=== PATIENT | male | born 1950 | race Caucasian/White ===

== ENCOUNTER 2020-10-21 15:53 | Outpatient (CLI) | payer MEDICARE, SELFPAY ==
[2020-10-21 17:40] LABS: Hemoglobin A1C 5.4 % (<5.7)
[2020-10-21 17:52] LABS: Free T4 Free Thyroxine 1.03 ng/mL (0.78-2.19)
[2020-10-24 23:26] LABS: Homocysteine 16.3 umol/L (<11.4)
[2020-10-25 10:27] LABS: Vitamin D 1,25 (OH)2 Total 45 pg/mL (18-72); Vitamin D2 1,25 (OH)2 <8 pg/mL; Vitamin D3 1,25 (OH)2 45 pg/mL
== END 2020-10-21 15:54 | disposition home or self-care (01) ==
LOC: ANHLAB 15:56
PROVIDERS: PCP Internal Medicine; Visit Provider Internal Medicine
DX: E55.9 Vitamin D deficiency, unspecified (principal); Z79.899 Other long term (current) drug therapy; R79.89 Other specified abnormal findings of blood chemistry
CPT/HCPCS: 36415; 82652; 83036; 83090; 84439; 84443

== ENCOUNTER 2020-11-05 10:42 | Outpatient (NON) | payer MEDICARE, SELFPAY ==
[2020-11-05 23:33] LABS: SARS-CoV-2 RNA PCR Negative
== END 2020-11-05 10:43 ==
LOC: ANHCOVIDDT 10:44
PROVIDERS: PCP Internal Medicine; Visit Provider Internal Medicine
DX: R68.89 Other general symptoms and signs (principal); Z20.822 Contact with and (suspected) exposure to COVID-19
CPT/HCPCS: C9803; U0003

== ENCOUNTER 2020-12-04 13:52 | Outpatient (CLI) | payer MEDICARE, SELFPAY ==
--- NOTE | 2020-12-07 17:02 | WPDHOLTEREM ---
Holter/Event Monitor Holter/Event Monitor Date of procedure: 12/04/20 Procedure Type: 48 hour holter monitor Indications: A fib Conclusion: 1. 48 hour holter monitor on 12/04/20. 2. Predominant rhythm is sinus rhythm. HR range 47-90 bpm; average HR 64 bpm. 3. There are 433 premature supraventricular complexes and 24 supraventricular couplets. No supraventricular tachycardia. 4. There are 1,488 premature ventricular complexes, 50 ventricular couplets, and 6 ventricular trigeminy. There are 2 nonsustained ventricular tachycardia; fastest at 176 bpm and longest lasting 9 beats. 5. No sinoatrial or atrioventricular blocks. No significant pauses greater than 2 seconds. 6. Patient reports palpitations, flutter in chest and chest ache which demonstrate sinus rhythm, HR range 60-64 bpm.
== END 2020-12-04 13:53 | disposition home or self-care (01) ==
PROVIDERS: PCP Internal Medicine; Visit Provider Internal Medicine
DX: R55 Syncope and collapse (principal)
CPT/HCPCS: 93225; 93226

== ENCOUNTER → 2021-01-05 06:58 | Outpatient (CLI) | payer MEDICARE, SELFPAY ==
[2021-01-05 22:47] LABS: SARS-CoV-2 RNA PCR Negative
== END ==
PROVIDERS: PCP Internal Medicine; Visit Provider Internal Medicine
DX: R68.89 Other general symptoms and signs (principal); Z20.822 Contact with and (suspected) exposure to COVID-19
CPT/HCPCS: C9803; U0003; U0005

== ENCOUNTER 2021-04-13 11:38 | Outpatient (CLI) | payer MEDICARE, SELFPAY ==
[2021-04-13 12:05] LABS: Basophils Absolute Auto 0.1 K/mm3 (0.0-0.1); Basophils Percent Auto 0.9 % (0.2-1.2); Eosinophils Absolute Auto 0.3 K/mm3 (0-0.3); Eosinophils Percent Auto 3.9 % (0-4.4); Hematocrit 34.1 % (42.0-52.0); Hemoglobin 11.6 g/dL (14.0-18.0); Immature Granulocyte Absolute 0.04 K/mm3 (0.00-0.031); Immature Granulocyte Percent A 0.5 % (0-0.5); Lymphocytes Absolute Auto 1.34 K/mm3 (0.9-3.2); Lymphocytes Percent Auto 17.9 % (18.3-44.2); Mean Corpuscular Hemoglobin 33.8 pg (26-34); Mean Corpuscular Volume 99.4 fl (80-100); Mean Platelet Volume 9.8 fl (7.4-10.4); Monocytes Absolute Auto 1.4 K/mm3 (0.1-0.6); Neutrophils Absolute Auto 4.4 K/mm3 (1.3-6.7); Neutrophils Percent Auto 58.8 % (45.5-73.1); Platelet Count Result 208 k/mm3 (150-375); Red Blood Count 3.43 M/mm3 (4.6-6.20); Red Cell Distribution Width 15.9 % (11.5-14.5); White Blood Count 7.5 K/mm3 (4.5-10.0)
[2021-04-13 12:16] LABS: Alanine Aminotransferase 20 U/L (4-50); Albumin Level 3.9 g/dL (3.5-5.1); Alkaline Phosphatase 98 U/L (38-126); Anion Gap 7 mmol/L (8-16); Aspartate Amino Transferase 37 U/L (17-59); Bilirubin,Total 0.5 mg/dL (0.2-1.3); Blood Urea Nitrogen 18 mg/dL (9-20); Calcium 9.3 mg/dL (8.4-10.2); Carbon Dioxide 28 mmol/L (22-30); Chloride 96 mmol/L (98-107); Cholesterol 108 mg/dL (0-200); Estimated Glomerular Filt Rate > 60; Glucose 114 mg/dL (75-110); HDL Direct 49 mg/dL; Potassium 4.3 mmol/L (3.4-5.0); Sodium 131 mmol/L (137-145); Triglycerides 45 mg/dL (<150)
[2021-04-13 12:27] LABS: LDL Cholesterol Direct 42 mg/dL
[2021-04-13 12:42] LABS: Hemoglobin A1C 5.6 % (<5.7)
[2021-04-13 12:46] LABS: Prostate Specific Antigen 0.6 ng/mL (< OR = 4.0)
[2021-04-13 12:57] LABS: Free T4 Free Thyroxine 1.14 ng/mL (0.78-2.19)
[2021-04-15 17:44] LABS: Iron 83 ug/dL (49-181); Percent Iron Saturation 22 % (20-50)
[2021-04-15 17:45] LABS: Folic Acid > 20.0 ng/mL (2.76->20); Vitamin B12 > 1000.0 pg/mL (239-931)
[2021-04-15 18:18] LABS: Homocysteine 12.5 umol/L (<11.4)
== END 2021-04-13 11:39 | disposition home or self-care (01) ==
PROVIDERS: PCP Internal Medicine; Visit Provider Internal Medicine
DX: Z79.899 Other long term (current) drug therapy (principal); R79.89 Other specified abnormal findings of blood chemistry; Z12.5 Encounter for screening for malignant neoplasm of prostate; E78.2 Mixed hyperlipidemia
CPT/HCPCS: 36415; 80053; 80061; 82607; 82728; 82746; 83036; 83090; 83540; 83550; 84153; 84439; 84443; 85025; G0103

== ENCOUNTER → 2021-10-22 00:26 | Outpatient (CLI) | payer MEDICARE, SELFPAY ==
[2021-10-22 19:18] LABS: SARS-CoV-2 RNA PCR Negative
== END ==
PROVIDERS: PCP Internal Medicine; Visit Provider Internal Medicine
DX: R68.89 Other general symptoms and signs (principal); Z20.822 Contact with and (suspected) exposure to COVID-19
CPT/HCPCS: C9803; U0003; U0005

== ENCOUNTER 2022-01-11 09:08 | Outpatient (CLI) | payer MEDICARE, SELFPAY ==
[2022-01-11 09:47] LABS: Alanine Aminotransferase 21 U/L (4-50); Alkaline Phosphatase 106 U/L (38-126); Anion Gap 5 mmol/L (8-16); Aspartate Amino Transferase 31 U/L (17-59); Bilirubin,Total 0.5 mg/dL (0.2-1.3); Blood Urea Nitrogen 28 mg/dL (9-20); Calcium 8.9 mg/dL (8.4-10.2); Carbon Dioxide 30 mmol/L (22-30); Chloride 103 mmol/L (98-107); Cholesterol 120 mg/dL (0-200); Estimated Glomerular Filt Rate > 60; Glucose 116 mg/dL (65-110); HDL Direct 38 mg/dL; Potassium 4.3 mmol/L (3.4-5.0); Sodium 138 mmol/L (137-145); Triglycerides 94 mg/dL (<150)
[2022-01-11 09:51] LABS: Hemoglobin A1C 5.2 % (<5.7)
[2022-01-11 09:58] LABS: LDL Cholesterol Direct 61 mg/dL
[2022-01-11 10:18] LABS: Prostate Specific Antigen 0.7 ng/mL (< OR = 4.0)
[2022-01-11 10:23] LABS: Vitamin D 25 Hydroxy > 126.0 ng/mL
[2022-01-11 10:53] LABS: Folic Acid > 20.0 ng/mL (2.76->20)
== END 2022-01-11 09:09 | disposition home or self-care (01) ==
LOC: ANHLAB 09:16
PROVIDERS: PCP Internal Medicine; Visit Provider Internal Medicine
DX: E55.9 Vitamin D deficiency, unspecified (principal); Z12.5 Encounter for screening for malignant neoplasm of prostate; Z79.899 Other long term (current) drug therapy; I10 Essential (primary) hypertension; E53.8 Deficiency of other specified B group vitamins; R73.09 Other abnormal glucose; E78.2 Mixed hyperlipidemia
CPT/HCPCS: 36415; 80053; 80061; 82306; 82607; 82746; 83036; 84153; 84439; 84443; G0103

== ENCOUNTER 2022-04-07 09:07 | Outpatient (CLI) | payer MEDICARE, SELFPAY ==
--- NOTE | ~2022-04-07 | XR_ITS ---
EXAMINATION: XR foot RT standing 2V INDICATION: Right foot pain TECHNIQUE: Two views of the right foot are obtained. COMPARISON: 04/16/2018 FINDINGS: There is unchanged advanced osteoarthritis at the first metatarsophalangeal joint. There is mild to moderate osteoarthritis of multiple interphalangeal joints. Bone alignment is normal. There is no fracture. A plantar calcaneal enthesophyte is noted. There is calcified atherosclerosis. IMPRESSION: 1. 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
--- NOTE | ~2022-04-07 | XR_ITS ---
EXAMINATION: XR foot LT standing 2V INDICATION: Left foot pain TECHNIQUE: Two views of the left foot are obtained. COMPARISON: 07/08/2017 FINDINGS: There is advanced osteoarthritis at the first metatarsophalangeal joint and mild osteoarthr itis of multiple interphalangeal joints. There is no fracture. Bone alignment is normal. A plantar ca lcaneal enthesophyte is noted. The soft tissues are unremarkable. IMPRESSION: 1. 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
== END 2022-04-07 09:08 | disposition home or self-care (01) ==
PROVIDERS: PCP Internal Medicine; Visit Provider Internal Medicine
DX: M25.476 Effusion, unspecified foot (principal); M79.89 Other specified soft tissue disorders; M19.071 Primary osteoarthritis, right ankle and foot; M19.072 Primary osteoarthritis, left ankle and foot
CPT/HCPCS: 73620

== ENCOUNTER 2022-06-08 10:16 | Outpatient (CLI) | payer MEDICARE, SELFPAY ==
--- NOTE | ~2022-06-08 | XR_ITS ---
XR chest 2V 06/08/2022 10:34 Indication: Chronic cough. Productive cough. Procedure: 2 view chest Comparison: Comparison to multiple prior studies sequentially, with oldest reviewed study dated 05/21. Findings: Status post median sternotomy for CABG. Heart size normal. No focal air space disease, pulm onary edema, pleural effusion or suspected pneumothorax. There are surgical clips in the right upper thorax. Healed left rib fractures. Impression: 1: No acute cardiopulmonary disease. Reviewed, dictated and finalized at location A. Impression: 1: No acute cardiopulmonary disease.
[2022-06-08 10:54] LABS: Basophils Absolute Auto 0.1 K/mm3 (0.0-0.1); Basophils Percent Auto 0.9 % (0.2-1.2); Eosinophils Absolute Auto 0.7 K/mm3 (0-0.3); Eosinophils Percent Auto 6.7 % (0-4.4); Hematocrit 38.2 % (42.0-52.0); Hemoglobin 12.5 g/dL (14.0-18.0); Immature Granulocyte Absolute 0.07 K/mm3 (0.00-0.031); Immature Granulocyte Percent A 0.7 % (0-0.5); Lymphocytes Absolute Auto 1.98 K/mm3 (0.9-3.2); Lymphocytes Percent Auto 19.6 % (18.3-44.2); Mean Corpuscular HGB Conc 32.7 g/dl (32-36); Mean Corpuscular Hemoglobin 35.1 pg (26-34); Mean Corpuscular Volume 107.3 fl (80-100); Mean Platelet Volume 10.4 fl (7.4-10.4); Monocytes Absolute Auto 1.2 K/mm3 (0.1-0.6); Monocytes Percent Auto 11.6 % (2.6-8.5); Neutrophils Absolute Auto 6.1 K/mm3 (1.3-6.7); Neutrophils Percent Auto 60.5 % (45.5-73.1); Platelet Count Result 213 k/mm3 (150-375); Red Blood Count 3.56 M/mm3 (4.6-6.20); Red Cell Distribution Width 15.2 % (11.5-14.5); White Blood Count 10.1 K/mm3 (4.5-10.0)
[2022-06-08 11:04] LABS: Alanine Aminotransferase 27 U/L (6-50); Albumin Level 3.8 g/dL (3.5-5.1); Alkaline Phosphatase 106 U/L (38-126); Anion Gap 6 mmol/L (8-16); Aspartate Amino Transferase 29 U/L (17-59); Bilirubin,Total 0.4 mg/dL (0.2-1.3); Blood Urea Nitrogen 26 mg/dL (9-20); Calcium 9.4 mg/dL (8.4-10.2); Carbon Dioxide 28 mmol/L (22-30); Chloride 98 mmol/L (98-107); Cholesterol 107 mg/dL (0-200); Estimated Glomerular Filt Rate > 60; Glucose 84 mg/dL (65-110); HDL Direct 40 mg/dL; Potassium 4.7 mmol/L (3.4-5.0); Sodium 132 mmol/L (137-145); Triglycerides 56 mg/dL (<150)
[2022-06-08 11:15] LABS: LDL Cholesterol Direct 43 mg/dL
[2022-06-08 11:47] LABS: Free T4 Free Thyroxine 1.11 ng/mL (0.78-2.19)
[2022-06-08 11:49] LABS: Vitamin D 25 Hydroxy > 126.0 ng/mL
[2022-06-08 12:14] LABS: Folic Acid > 20.0 ng/mL (2.76->20); Vitamin B12 > 1000.0 pg/mL (239-931)
== END 2022-06-08 10:17 | disposition home or self-care (01) ==
PROVIDERS: PCP Internal Medicine; Visit Provider Internal Medicine
DX: I10 Essential (primary) hypertension (principal); Z13.29 Encounter for screening for other suspected endocrine disorder; Z79.899 Other long term (current) drug therapy; E53.8 Deficiency of other specified B group vitamins; E55.9 Vitamin D deficiency, unspecified; E78.2 Mixed hyperlipidemia; R05.3 Chronic cough
CPT/HCPCS: 36415; 71046; 80053; 80061; 82306; 82607; 82746; 84439; 84443; 85025

== ENCOUNTER 2022-10-06 07:00 | Outpatient (NON) | payer MEDICARE, SELFPAY | END 2022-10-06 07:01 | disposition home or self-care (01) | LOC: ANHLAB 10-07 12:51 | PROVIDERS: PCP Internal Medicine; Visit Provider Nurse Practitioner | DX: L73.9 Follicular disorder, unspecified (principal) | CPT/HCPCS: 88305 ==

== ENCOUNTER 2022-10-11 08:26 | Outpatient (CLI) | payer MEDICARE, SELFPAY ==
[2022-10-11 09:08] LABS: Basophils Absolute Auto 0.1 K/mm3 (0.0-0.1); Basophils Percent Auto 1.6 % (0.2-1.2); Eosinophils Absolute Auto 0.5 K/mm3 (0-0.3); Eosinophils Percent Auto 6.5 % (0-4.4); Hematocrit 38.8 % (42.0-52.0); Immature Granulocyte Absolute 0.07 K/mm3 (0.00-0.031); Immature Granulocyte Percent A 0.9 % (0-0.5); Lymphocytes Absolute Auto 1.84 K/mm3 (0.9-3.2); Lymphocytes Percent Auto 23.9 % (18.3-44.2); Mean Corpuscular HGB Conc 33.5 g/dl (32-36); Mean Corpuscular Hemoglobin 36.7 pg (26-34); Mean Corpuscular Volume 109.6 fl (80-100); Mean Platelet Volume 10.6 fl (7.4-10.4); Monocytes Percent Auto 12.7 % (2.6-8.5); Neutrophils Absolute Auto 4.2 K/mm3 (1.3-6.7); Neutrophils Percent Auto 54.4 % (45.5-73.1); Platelet Count Result 222 k/mm3 (150-375); Red Blood Count 3.54 M/mm3 (4.6-6.20); Red Cell Distribution Width 14.2 % (11.5-14.5); White Blood Count 7.7 K/mm3 (4.5-10.0)
[2022-10-11 09:16] LABS: Hemoglobin A1C 5.5 % (<5.7)
[2022-10-11 09:22] LABS: Alanine Aminotransferase 23 U/L (6-50); Alkaline Phosphatase 113 U/L (38-126); Anion Gap 7 mmol/L (8-16); Aspartate Amino Transferase 27 U/L (17-59); Bilirubin,Total 0.6 mg/dL (0.2-1.3); Blood Urea Nitrogen 23 mg/dL (9-20); Calcium 8.8 mg/dL (8.4-10.2); Carbon Dioxide 27 mmol/L (22-30); Chloride 103 mmol/L (98-107); Cholesterol 113 mg/dL (0-200); Estimated Glomerular Filt Rate > 60; Glucose 110 mg/dL (65-110); HDL Direct 35 mg/dL; Potassium 3.9 mmol/L (3.4-5.0); Sodium 137 mmol/L (137-145); Triglycerides 69 mg/dL (<150)
[2022-10-11 09:33] LABS: LDL Cholesterol Direct 56 mg/dL
[2022-10-11 09:39] LABS: Free T4 Free Thyroxine 1.15 ng/mL (0.78-2.19)
[2022-10-11 11:22] LABS: Platelet Estimate Adequate (Adequate)
[2022-10-11 11:23] LABS: Anisocytosis 1+ (NORMAL); Schistocytes None Seen (NORMAL)
== END 2022-10-11 08:27 | disposition home or self-care (01) ==
PROVIDERS: PCP Internal Medicine; Visit Provider Internal Medicine
DX: E78.2 Mixed hyperlipidemia (principal); Z13.29 Encounter for screening for other suspected endocrine disorder; Z79.899 Other long term (current) drug therapy; R73.09 Other abnormal glucose; I10 Essential (primary) hypertension
CPT/HCPCS: 36415; 80053; 80061; 83036; 84439; 84443; 85025

== ENCOUNTER 2022-12-08 11:42 | Outpatient (CLI) | payer MEDICARE, SELFPAY ==
--- NOTE | ~2022-12-08 | XR_ITS ---
EXAMINATION: XR sinus min 3V INDICATION: Chronic cough, sinus drainage TECHNIQUE: Five views of the paranasal sinuses are obtained. COMPARISON: None available FINDINGS: The paranasal sinuses are well aerated. There is questionable opacification of the right ma xillary sinus. The nasal septum is midline. No facial fracture is identified. There is calcified snyder tid artery atherosclerosis. IMPRESSION: 1. Possible right maxillary sinusitis. If there is high suspicion for clinically significant sinusiti s, consider further evaluation with sinus CT. Reviewed, dictated and finalized at location L. K LABORER IMPRESSION: 1. Possible right maxillary sinusitis. If there is high suspicion for clinicall y significant sinusitis, consider further evaluation with sinus CT.
--- NOTE | ~2022-12-08 | XR_ITS ---
EXAMINATION: XR chest 2V DATE: 12/08/2022 12:18 INDICATION: Shortness of breath TECHNIQUE: Frontal and lateral views of the chest are obtained COMPARISON: 06/08/2022 FINDINGS: The lungs are free of acute opacities. No pleural effusion or pneumothorax. The cardiomedia stinal silhouette is normal. There is moderate thoracic spondylosis. Median sternotomy wires and medi astinal surgical clips are seen, likely from prior coronary artery bypass grafting. Surgical clips ar e noted right upper chest IMPRESSION: 1. No acute cardiopulmonary abnormality. Reviewed, dictated and finalized at location L. S FORMING ENGINEER
[2022-12-08 12:02] LABS: Basophils Absolute Auto 0.1 K/mm3 (0.0-0.1); Basophils Percent Auto 0.6 % (0.2-1.2); Eosinophils Absolute Auto 0.2 K/mm3 (0-0.3); Eosinophils Percent Auto 1.2 % (0-4.4); Hematocrit 38.2 % (42.0-52.0); Hemoglobin 12.6 g/dL (14.0-18.0); Immature Granulocyte Absolute 0.16 K/mm3 (0.00-0.031); Lymphocytes Absolute Auto 2.08 K/mm3 (0.9-3.2); Lymphocytes Percent Auto 13.1 % (18.3-44.2); Mean Corpuscular Hemoglobin 36.7 pg (26-34); Mean Corpuscular Volume 111.4 fl (80-100); Mean Platelet Volume 9.8 fl (7.4-10.4); Monocytes Absolute Auto 1.5 K/mm3 (0.1-0.6); Monocytes Percent Auto 9.2 % (2.6-8.5); Neutrophils Absolute Auto 11.9 K/mm3 (1.3-6.7); Neutrophils Percent Auto 74.9 % (45.5-73.1); Platelet Count Result 190 k/mm3 (150-375); Red Blood Count 3.43 M/mm3 (4.6-6.20); Red Cell Distribution Width 15.4 % (11.5-14.5); White Blood Count 15.9 K/mm3 (4.5-10.0)
[2022-12-08 12:13] LABS: Anion Gap 2 mmol/L (8-16); Blood Urea Nitrogen 26 mg/dL (9-20); Calcium 8.6 mg/dL (8.4-10.2); Carbon Dioxide 33 mmol/L (22-30); Chloride 96 mmol/L (98-107); Estimated Glomerular Filt Rate > 60; Glucose 101 mg/dL (65-110); Potassium 5.2 mmol/L (3.4-5.0); Sodium 131 mmol/L (137-145)
[2022-12-08 12:21] LABS: NT Pro B Type Natriuretic Pept 475 pg/mL (19.9-100)
[2022-12-08 12:37] LABS: Atypical Lymphocytes Present; Macrocytosis 2+ (NORMAL); Platelet Estimate Adequate (Adequate); Schistocytes None Seen (NORMAL)
== END 2022-12-08 11:43 | disposition home or self-care (01) ==
PROVIDERS: PCP Internal Medicine; Visit Provider Internal Medicine
DX: R06.02 Shortness of breath (principal); R06.09 Other forms of dyspnea; Z87.891 Personal history of nicotine dependence; R05.3 Chronic cough; J34.89 Other specified disorders of nose and nasal sinuses; I10 Essential (primary) hypertension; Z79.899 Other long term (current) drug therapy; Z86.16 Personal history of COVID-19
CPT/HCPCS: 36415; 70220; 71046; 80048; 83880; 85025

== ENCOUNTER 2023-02-27 09:09 | Outpatient (CLI) | payer MEDICARE, SELFPAY ==
--- NOTE | ~2023-02-27 | US_ITS ---
EXAMINATION: US VENOUS LOWER EXT TAMAR DATE: 02/27/2023 11:08 INDICATION: Lower limb swelling TECHNIQUE: Grayscale images without and with compression and Doppler images of the bilateral lower ex tremity veins were obtained. COMPARISON: None. FINDINGS: Right lower extremity: The right common femoral vein, profunda (deep) femoral vein, femoral vein, popliteal vein and greater saphenous vein are patent and compressible without evident reflux. The right posterior tibial and pe roneal veins are also patent and compressible Greater saphenous Origin: 5.0 mm no reflux Mid thigh: 3.0 mm no reflux Bvxzj-iam-oxeh: 3.0 mm no reflux Aofnh-dev-yiro: 2.8 mm 4.5 seconds Mid calf: 3.0 mm 1-2 seconds Ankle: 2.4 mm no reflux Lesser saphenous Proximal: 4.3 mm no reflux Mid: 1.9 mm no reflux Left lower extremity: The left common femoral vein, profunda femoral vein, femoral vein to popliteal vein and greater saphe nous vein are patent and compressible without evident reflux. The left posterior tibial and peroneal veins are also patent and compressible. Greater saphenous Origin: 4.8 mm no reflux The more distal left greater saphenous vein has been resected for prior coronary artery bypass grafti ng. Lesser saphenous Proximal: 3.6 mm no reflux Mid: 2.8 mm no reflux IMPRESSION: 1. Patent bilateral lower extremity veins. No evidence of deep venous thrombosis. 2. 4.5 second reflux at the dgora-ojm-wskm right greater saphenous vein. Reviewed, dictated and finalized at location B. IMPRESSION: 1. Patent bilateral lower extremity veins. No evidence of deep venous thrombos is. 2. 4.5 second reflux at the aiubg-qep-rtnn right greater saphenous vein.
== END 2023-02-27 09:10 | disposition home or self-care (01) ==
LOC: ANHIMG 09:11
PROVIDERS: PCP Internal Medicine; Visit Provider Internal Medicine
DX: I73.9 Peripheral vascular disease, unspecified (principal); I87.2 Venous insufficiency (chronic) (peripheral); R60.0 Localized edema
CPT/HCPCS: 93970

== ENCOUNTER 2023-03-01 12:51 | Outpatient (CLI) | payer MEDICARE, SELFPAY ==
--- NOTE | ~2023-03-01 | XR_ITS ---
Lumbosacral Spine: AP, oblique, and lateral views Clinical History: Pain Findings: The normal lordotic curve is maintained. Suggestion of minimal anterior wedging deformities of L1 and L2. Questionable pars interarticularis defects at L5, with grade 1 anterolisthesis of L5 o nolberto S1. The intervertebral disc spaces are preserved. There is advanced facet arthropathy at L5-S1. T he sacroiliac joints are normally outlined. Extensive atherosclerotic calcifications of the aorta not ed. Impression: Possible minimal anterior wedging deformities of L1 and L2. Questionable L5 pars interarticularis defects, with grade 1 anterolisthesis of L5 over S1. Reviewed, dictated and finalized at location M. Impression: Possible minimal anterior wedging deformities of L1 and L2. Questionable L5 pars interarticularis defects, with grade 1 anterolisthesis of L5 over S1.
--- NOTE | ~2023-03-01 | XR_ITS ---
AP view of the pelvis and AP and lateral views of the bilateral hips Clinical history: Pain Findings: No acute fracture or dislocation is seen. Osseous alignment is anatomic. Bilateral hip and SI joint spaces are preserved. Soft tissues are unremarkable. Impression: No significant abnormality is seen. Reviewed, dictated and finalized at location . Impression: No significant abnormality is seen.
== END 2023-03-01 12:52 | disposition home or self-care (01) ==
LOC: ANHIMG 12:53
PROVIDERS: PCP Internal Medicine; Visit Provider Internal Medicine
DX: M54.50 Low back pain, unspecified (principal); M25.551 Pain in right hip; M25.552 Pain in left hip
CPT/HCPCS: 72110; 73521

== ENCOUNTER 2023-06-06 09:02 | Outpatient (CLI) | payer MEDICARE, SELFPAY ==
[2023-06-06 09:48] LABS: Basophils Absolute Auto 0.1 K/mm3 (0.0-0.1); Basophils Percent Auto 1.1 % (0.2-1.2); Eosinophils Absolute Auto 0.7 K/mm3 (0-0.3); Hemoglobin 12.8 g/dL (14.0-18.0); Immature Granulocyte Absolute 0.07 K/mm3 (0.00-0.031); Immature Granulocyte Percent A 0.8 % (0-0.5); Lymphocytes Absolute Auto 1.64 K/mm3 (0.9-3.2); Lymphocytes Percent Auto 19.5 % (18.3-44.2); Mean Corpuscular HGB Conc 32.8 g/dl (32-36); Mean Corpuscular Hemoglobin 34.3 pg (26-34); Mean Corpuscular Volume 104.6 fl (80-100); Mean Platelet Volume 10.7 fl (7.4-10.4); Monocytes Absolute Auto 1.4 K/mm3 (0.1-0.6); Monocytes Percent Auto 16.6 % (2.6-8.5); Neutrophils Absolute Auto 4.5 K/mm3 (1.3-6.7); Platelet Count Result 199 k/mm3 (150-375); Red Blood Count 3.73 M/mm3 (4.6-6.20); Red Cell Distribution Width 15.7 % (11.5-14.5); White Blood Count 8.4 K/mm3 (4.5-10.0)
[2023-06-06 09:57] LABS: INR 0.9; Partial Thromboplastin Time 29.7 SECONDS (22.3-36.8); Prothrombin Time 12.8 Seconds (11.1-14.7)
== END 2023-06-06 09:03 | disposition home or self-care (01) ==
PROVIDERS: PCP Internal Medicine; Visit Provider Internal Medicine
DX: R58 Hemorrhage, not elsewhere classified (principal); R55 Syncope and collapse
CPT/HCPCS: 36415; 85025; 85610; 85730

== ENCOUNTER 2023-07-12 08:03 | Outpatient (CLI) | payer MEDICARE, SELFPAY ==
[2023-07-12 08:54] LABS: Basophils Absolute Auto 0.1 K/mm3 (0.0-0.1); Basophils Percent Auto 1.1 % (0.2-1.2); Eosinophils Absolute Auto 0.7 K/mm3 (0-0.3); Eosinophils Percent Auto 10.1 % (0-4.4); Hematocrit 35.6 % (42.0-52.0); Hemoglobin 11.9 g/dL (14.0-18.0); Immature Granulocyte Absolute 0.05 K/mm3 (0.00-0.031); Immature Granulocyte Percent A 0.7 % (0-0.5); Lymphocytes Absolute Auto 1.76 K/mm3 (0.9-3.2); Lymphocytes Percent Auto 25.1 % (18.3-44.2); Mean Corpuscular HGB Conc 33.4 g/dl (32-36); Mean Corpuscular Hemoglobin 35.7 pg (26-34); Mean Corpuscular Volume 106.9 fl (80-100); Mean Platelet Volume 10.6 fl (7.4-10.4); Monocytes Percent Auto 13.7 % (2.6-8.5); Neutrophils Absolute Auto 3.4 K/mm3 (1.3-6.7); Neutrophils Percent Auto 49.3 % (45.5-73.1); Platelet Count Result 187 k/mm3 (150-375); Red Blood Count 3.33 M/mm3 (4.6-6.20); Red Cell Distribution Width 16.2 % (11.5-14.5)
[2023-07-12 09:03] LABS: Alanine Aminotransferase 25 U/L (6-50); Albumin Level 3.7 g/dL (3.5-5.1); Alkaline Phosphatase 103 U/L (38-126); Anion Gap 3 mmol/L (8-16); Aspartate Amino Transferase 36 U/L (17-59); Bilirubin,Total 0.6 mg/dL (0.2-1.3); Blood Urea Nitrogen 23 mg/dL (9-20); Calcium 8.7 mg/dL (8.4-10.2); Carbon Dioxide 31 mmol/L (22-30); Chloride 100 mmol/L (98-107); Cholesterol 129 mg/dL (0-200); Estimated Glomerular Filt Rate > 60; Glucose 105 mg/dL (65-110); HDL Direct 53 mg/dL; Potassium 4.2 mmol/L (3.4-5.0); Sodium 134 mmol/L (137-145); Triglycerides 64 mg/dL (<150)
[2023-07-12 09:14] LABS: LDL Cholesterol Direct 61 mg/dL
[2023-07-12 09:17] LABS: Hemoglobin A1C 5.3 % (<5.7)
[2023-07-12 09:26] LABS: Free T4 Free Thyroxine 1.11 ng/mL (0.78-2.19)
[2023-07-12 14:21] LABS: Iron 89 ug/dL (49-181)
[2023-07-12 14:30] LABS: Percent Iron Saturation 25 % (20-50)
== END 2023-07-12 08:04 | disposition home or self-care (01) ==
PROVIDERS: PCP Internal Medicine; Visit Provider Internal Medicine
DX: I10 Essential (primary) hypertension (principal); R73.09 Other abnormal glucose; Z13.29 Encounter for screening for other suspected endocrine disorder; Z79.899 Other long term (current) drug therapy; E78.2 Mixed hyperlipidemia; D64.9 Anemia, unspecified
CPT/HCPCS: 36415; 80053; 80061; 82728; 83036; 83540; 83550; 84439; 84443; 85025

== ENCOUNTER 2023-11-21 03:17 | Day surgery (SDC) | payer MEDICARE, SELFPAY ==
[2023-11-03 15:30] VITALS: BMI 27.9
--- NOTE | 2023-11-03 16:34 | PC.NURSE ---
Spoke with patient regarding medication _plavix__. Pt. verbalizes understanding that the last dose of __plavix___ is to be taken on __11/16/2023__and the Endoscopist will instruct them when to restart after the procedure. Patient instructed to remain on Aspirin 81mg daily.
--- NOTE | 2023-11-17 13:12 | SUR.PREOP ---
Patient called regarding upcoming procedure. Reviewed preop instructions, appointment times, and procedure prep.
[2023-11-21 06:53] VITALS: BP 142/70; PULSE 58; RESP 18; TEMP 36; O2SAT 98
[2023-11-21] MEDS: LACTATED RINGERS 1,000 ML 150 ML IV CONT (06:57)
--- NOTE | 2023-11-21 07:34 | WPDANESEPPF ---
Anes - Initial Pre Proc Eval Procedure: Operation Date: 11/21/23 08:00 Proposed Procedures p Colonoscopy - Dashawn Skinner MD Date/Time: 11/21/23 07:34 Surgeon: Dashawn Skinner MD Pre Op Diagnosis: hx of colon polyps Patient Data Age: 73 Gender: M Height: 1.8 m Weight: 89.4 kg Last Vital Signs Temp 96.8 F L 11/21/23 06:53 Pulse 58 L 11/21/23 06:53 Resp 18 11/21/23 06:53 BP 142/70 H 11/21/23 06:53 Pulse Ox 98 11/21/23 06:53 O2 Del Method Room Air 11/21/23 06:53 Allergies Allergy/AdvReac Type Severity Reaction Status Date / Time No Known Allergies Allergy Verified 11/21/23 06:50 Home Medications Medication Instructions Recorded Confirmed Type aspirin 81 mg tablet,delayed 81 mg PO HS 10/21/20 11/21/23 History release (Adult Low Dose Aspirin) clopidogrel 75 mg tablet 75 mg PO DAILY 10/21/20 11/21/23 History multivitamin 1 tablet PO DAILY 10/21/20 11/21/23 History tadalafil 20 mg tablet (Cialis) 20 mg PO DAILY PRN Erectile 10/21/20 11/21/23 History Dysfunction vitamin B complex (Vitamins B 1 tablet PO EVERY OTHER DAY 02/15/21 11/21/23 History Complex tablet) albuterol sulfate 90 mcg/actuation 2 inh inhalation Q4-6H PRN 01/24/23 11/21/23 Rx aerosol inhaler shortness of breath or wheezing #8.5 grams furosemide 20 mg tablet (Lasix) 20 mg PO QAM PRN edema #30 tabs 03/16/23 11/21/23 Rx allopurinol 300 mg tablet See Rx Instructions .Route 07/12/23 11/21/23 Rx .Mon/Mon/Fri #90 tabs cetirizine 10 mg tablet (Zyrtec) 10 mg PO DAILY PRN ALLERGIES 07/12/23 11/21/23 History potassium chloride 10 mEq See Rx Instructions .Route 07/12/23 11/21/23 Rx tablet,extended release .COMPLEX PRN edema #90 tabs folic acid 1 mg tablet See Rx Instructions .Route 08/08/23 11/21/23 Rx .COMPLEX #90 tabs tamsulosin 0.4 mg capsule 0.4 mg PO DAILY #90 caps 08/08/23 11/21/23 Rx cyanocobalamin (vitamin B-12) 1,000 mcg IM MONTHLY #1 mL 10/11/23 11/21/23 Rx 1,000 mcg/mL injection solution triamcinolone acetonide 40 mg/mL 40 mg IM ONCE #1 mL 10/11/23 11/21/23 Rx suspension for injection (Kenalog) atorvastatin 40 mg tablet 40 mg PO HS 11/03/23 11/21/23 History esomeprazole magnesium 20 mg 20 mg PO DAILY 11/03/23 11/21/23 History capsule,delayed release (Nexium 24HR) lorazepam 0.5 mg tablet 0.5 mg PO TID PRN Anxiety 11/03/23 11/21/23 History temazepam 30 mg capsule 30 mg PO QHS PRN Insomnia 11/03/23 11/21/23 History losartan 100 1 tablet PO DAILY 11/21/23 11/21/23 History mg-hydrochlorothiazide 25 mg tablet metoprolol tartrate 100 mg tablet 100 mg PO BID 11/21/23 11/21/23 History Patient hx anesthesia problems: none Family hx anesthesia problems: none Results Review: All pre-operative results and documents have been reviewed as part of the pre-operative evaluation. [facility] Past Medical History Medical History (Updated 07/12/23 @ 09:10 by Jannette Orourke CMA) Anxiety Aortic aneurysm ASHD (arteriosclerotic heart disease) Benign essential hypertension BMI 28.0-28.9,adult BMI 29.0-29.9,adult Carotid artery disease Colon cancer screening COPD (chronic obstructive pulmonary disease) Elevated glucose Encounter for Medicare annual wellness exam Encounter for routine adult health examination without abnormal findings Encounter to establish care Episode of syncope Erectile dysfunction Fatigue Follow up Hearing loss Hip pain Hx of subdural hematoma Hyperlipidemia Impacted cerumen of left ear Insomnia Loose stools Lung nodule Nasal septal deviation On custodial drug therapy Pedal edema Prostate cancer screening Psoriasis PVD (peripheral vascular disease) Sinus drainage Skin lesion Tobacco abuse URI (upper respiratory infection) Urinary retention Vitamin B12 deficiency Surgical History Surgical History Hx of appendectomy Hx of cholecystectomy S/P CABG x 3 Family History Family H
--- NOTE | 2023-11-21 07:50 | PM.HPGS ---
History of Present Illness History of Present Illness Consent: Risks, benefits, and alternatives have been discussed and questions answered. Patient agrees to proceed with procedure. Chief complaint: hx of colon polyps Narrative: Ramirez Ferrer is a 73 year old male with colon polyp 5 years ago Review of Systems Constitutional: Constitutional: Denies headache(s) and Denies weakness Eyes: Eyes: Denies blurry vision ENT: Reports Normal hearing present, Denies headache(s) and Denies neck pain Cardiovascular: Cardiovascular: Denies chest pain and Denies dyspnea Respiratory: Respiratory: Denies dyspnea Gastrointestinal: Gastrointestinal: Reports no additional gastrointestinal complaints Genitourinary: Genitourinary: Denies dysuria Musculoskeletal: Musculoskeletal: Denies neck pain Integumentary/Breasts: Skin/Breast: Denies dry skin Neurologic: Reports Normal hearing present, Denies headache(s) and Denies weakness Psychiatric: Psychiatric: Denies anxiety Endocrine: Endocrine: Denies change in body appearance Hematologic/Lymphatic: Hematologic/Lymphatic: Denies easy bleeding Allergic/Immunologic: Allergic/Immunologic: Denies urticaria [facility] Past Medical History Medical History (Updated 11/21/23 @ 07:51 by Dashawn Skinner MD) Anxiety Aortic aneurysm ASHD (arteriosclerotic heart disease) Benign essential hypertension BMI 28.0-28.9,adult BMI 29.0-29.9,adult Carotid artery disease Colon cancer screening Colon polyp COPD (chronic obstructive pulmonary disease) Elevated glucose Encounter for Medicare annual wellness exam Encounter for routine adult health examination without abnormal findings Encounter to establish care Episode of syncope Erectile dysfunction Fatigue Follow up Hearing loss Hip pain Hx of subdural hematoma Hyperlipidemia Impacted cerumen of left ear Insomnia Loose stools Lung nodule Nasal septal deviation On correction drug therapy Pedal edema Prostate cancer screening Psoriasis PVD (peripheral vascular disease) Sinus drainage Skin lesion Tobacco abuse URI (upper respiratory infection) Urinary retention Vitamin B12 deficiency Surgical History Surgical History Hx of appendectomy Hx of cholecystectomy S/P CABG x 3 Family History Family History Mother Family history of Alzheimer's disease Father Family history of diabetes mellitus in first degree relative Family history of heart disease in male family member before age 55 Social History Social History Smoking packs per day: 0.55 Smoking cigarettes per day: 11.0 Years smoked: 58 Smoking pack-years: 31.90 Smoking status: Current every day smoker Tobacco type: cigarettes Second hand tobacco smoke exposure: Yes Alcohol intake: current Substance use: never Substance use type: does not use Lack of Transportation: No Lack of Food: Never True Current Housing: I Have Housing Concerned About Future Housing: No Difficulty Paying Gas/Electric Bills: No Difficulty Paying for Meds: No Currently Unemployed: No Education: Trade/Vocational Certificate Difficulty w/ Childcare or Family Care: No Living arrangements: with family Occupation/Education: retired Gender identity (if verbalized by the patient): Male Spiritual care concerns: No Meds Home Medications and Allergies Home Medications Medication Instructions Recorded Confirmed Type aspirin 81 mg tablet,delayed 81 mg PO HS 10/21/20 11/21/23 History release (Adult Low Dose Aspirin) clopidogrel 75 mg tablet 75 mg PO DAILY 10/21/20 11/21/23 History multivitamin 1 tablet PO DAILY 10/21/20 11/21/23 History tadalafil 20 mg tablet (Cialis) 20 mg PO DAILY PRN Erectile 10/21/20 11/21/23 History Dysfunction vitamin B complex (Vitamins B 1 tablet PO EVERY
[2023-11-21 08:22] VITALS: BP 109/50; PULSE 54; RESP 15; O2SAT 99
[2023-11-21 08:32] VITALS: BP 101/48; PULSE 53; RESP 15; O2SAT 99
[2023-11-21 08:42] VITALS: BP 134/56; PULSE 52; RESP 16; O2SAT 99
== END 2023-11-21 08:55 | disposition home or self-care (01) ==
PROVIDERS: PCP Internal Medicine; Visit Provider Internal Medicine Gastroenterology
PROC: 0DJD8ZZ Inspection of Lower Intestinal Tract, Via Natural or Artificial Opening Endoscopic (ICD-10-PCS; CPT 45378; principal; 2023-11-21 08:00)
DX: Z12.11 Encounter for screening for malignant neoplasm of colon (principal); D12.3 Benign neoplasm of transverse colon; D12.4 Benign neoplasm of descending colon; K57.30 Diverticulosis of large intestine without perforation or abscess without bleeding; K64.8 Other hemorrhoids; I25.10 Atherosclerotic heart disease of native coronary artery without angina pectoris; I10 Essential (primary) hypertension; J44.9 Chronic obstructive pulmonary disease, unspecified; E78.5 Hyperlipidemia, unspecified; F41.9 Anxiety disorder, unspecified; I73.9 Peripheral vascular disease, unspecified; E53.8 Deficiency of other specified B group vitamins; Z95.1 Presence of aortocoronary bypass graft; F17.210 Nicotine dependence, cigarettes, uncomplicated; Z79.82 Long term (current) use of aspirin; Z79.02 Long term (current) use of antithrombotics/antiplatelets; Z79.52 Long term (current) use of systemic steroids; Z79.51 Long term (current) use of inhaled steroids
CPT/HCPCS: 45385; 88305; J2704; J7120

== ENCOUNTER 2023-11-22 11:12 | Outpatient (CLI) | payer MEDICARE, SELFPAY ==
[2023-11-22 11:39] LABS: Basophils Absolute Auto 0.1 K/mm3 (0.0-0.1); Basophils Percent Auto 1.3 % (0.2-1.2); Eosinophils Absolute Auto 0.6 K/mm3 (0-0.3); Eosinophils Percent Auto 6.7 % (0-4.4); Hematocrit 38.4 % (42.0-52.0); Hemoglobin 12.2 g/dL (14.0-18.0); Immature Granulocyte Absolute 0.03 K/mm3 (0.00-0.031); Immature Granulocyte Percent A 0.4 % (0-0.5); Lymphocytes Absolute Auto 2.49 K/mm3 (0.9-3.2); Lymphocytes Percent Auto 29.7 % (18.3-44.2); Mean Corpuscular HGB Conc 31.8 g/dl (32-36); Mean Corpuscular Hemoglobin 34.8 pg (26-34); Mean Corpuscular Volume 109.4 fl (80-100); Mean Platelet Volume 10.4 fl (7.4-10.4); Monocytes Percent Auto 12.3 % (2.6-8.5); Neutrophils Absolute Auto 4.2 K/mm3 (1.3-6.7); Neutrophils Percent Auto 49.6 % (45.5-73.1); Platelet Count Result 183 k/mm3 (150-375); Red Blood Count 3.51 M/mm3 (4.6-6.20); Red Cell Distribution Width 14.7 % (11.5-14.5); White Blood Count 8.4 K/mm3 (4.5-10.0)
[2023-11-22 11:53] LABS: Alanine Aminotransferase 18 U/L (6-50); Albumin Level 3.8 g/dL (3.5-5.1); Alkaline Phosphatase 117 U/L (38-126); Anion Gap 3 mmol/L (8-16); Aspartate Amino Transferase 26 U/L (17-59); Bilirubin,Total 0.6 mg/dL (0.2-1.3); Blood Urea Nitrogen 22 mg/dL (9-20); Calcium 8.8 mg/dL (8.4-10.2); Carbon Dioxide 36 mmol/L (22-30); Chloride 101 mmol/L (98-107); Cholesterol 135 mg/dL (0-200); Estimated Glomerular Filt Rate 59; Glucose 117 mg/dL (65-110); HDL Direct 46 mg/dL; Potassium 4.9 mmol/L (3.4-5.0); Sodium 140 mmol/L (137-145); Triglycerides 56 mg/dL (<150)
[2023-11-22 12:02] LABS: Hemoglobin A1C 5.3 % (<5.7)
[2023-11-22 12:04] LABS: LDL Cholesterol Direct 72 mg/dL
[2023-11-22 12:26] LABS: Vitamin D 25 Hydroxy 57.9 ng/mL
[2023-11-22 12:43] LABS: Anisocytosis 1+ (NORMAL); Platelet Estimate Adequate (Adequate); Schistocytes None Seen (NORMAL)
== END 2023-11-22 11:13 | disposition home or self-care (01) ==
LOC: ANHLAB 11:14
PROVIDERS: PCP Internal Medicine; Visit Provider Internal Medicine
DX: I10 Essential (primary) hypertension (principal); R73.09 Other abnormal glucose; E78.5 Hyperlipidemia, unspecified; E55.9 Vitamin D deficiency, unspecified; E78.2 Mixed hyperlipidemia
CPT/HCPCS: 36415; 80053; 80061; 82306; 83036; 85025

== ENCOUNTER 2024-02-26 16:05 | Outpatient (CLI) | payer MEDICARE, SELFPAY ==
[2024-02-26 16:25] LABS: Basophils Percent Auto 0.3 % (0.2-1.2); Immature Granulocyte Absolute 0.09 K/mm3 (0.00-0.031); Immature Granulocyte Percent A 0.9 % (0-0.5); Lymphocytes Absolute Auto 1.92 K/mm3 (0.9-3.2); Lymphocytes Percent Auto 19.7 % (18.3-44.2); Mean Corpuscular HGB Conc 32.4 g/dl (32-36); Mean Corpuscular Hemoglobin 35.1 pg (26-34); Mean Corpuscular Volume 108.2 fl (80-100); Mean Platelet Volume 10.8 fl (7.4-10.4); Monocytes Absolute Auto 0.8 K/mm3 (0.1-0.6); Monocytes Percent Auto 8.6 % (2.6-8.5); Neutrophils Absolute Auto 6.9 K/mm3 (1.3-6.7); Neutrophils Percent Auto 70.5 % (45.5-73.1); Platelet Count Result 188 k/mm3 (150-375); Red Blood Count 3.42 M/mm3 (4.6-6.20); Red Cell Distribution Width 14.7 % (11.5-14.5); White Blood Count 9.7 K/mm3 (4.5-10.0)
[2024-02-26 18:08] LABS: Folic Acid > 20.0 ng/mL (2.76->20)
== END 2024-02-26 16:06 | disposition home or self-care (01) ==
LOC: ANHLAB 16:07
PROVIDERS: PCP Internal Medicine; Visit Provider Internal Medicine
DX: B34.8 Other viral infections of unspecified site (principal); D64.9 Anemia, unspecified; E53.8 Deficiency of other specified B group vitamins; R06.02 Shortness of breath
CPT/HCPCS: 36415; 82607; 82746; 85025

== ENCOUNTER 2024-04-17 14:57 | Outpatient (CLI) | payer MEDICARE, SELFPAY ==
[2024-04-17 15:38] LABS: Basophils Absolute Auto 0.1 K/mm3 (0.0-0.1); Basophils Percent Auto 0.9 % (0.2-1.2); Eosinophils Absolute Auto 0.5 K/mm3 (0-0.3); Eosinophils Percent Auto 5.1 % (0-4.4); Hematocrit 37.7 % (42.0-52.0); Hemoglobin 12.3 g/dL (14.0-18.0); Immature Granulocyte Absolute 0.06 K/mm3 (0.00-0.031); Immature Granulocyte Percent A 0.7 % (0-0.5); Lymphocytes Absolute Auto 2.07 K/mm3 (0.9-3.2); Lymphocytes Percent Auto 23.2 % (18.3-44.2); Mean Corpuscular HGB Conc 32.6 g/dl (32-36); Mean Corpuscular Hemoglobin 35.4 pg (26-34); Mean Corpuscular Volume 108.6 fl (80-100); Mean Platelet Volume 10.8 fl (7.4-10.4); Monocytes Percent Auto 11.4 % (2.6-8.5); Neutrophils Absolute Auto 5.3 K/mm3 (1.3-6.7); Neutrophils Percent Auto 58.7 % (45.5-73.1); Platelet Count Result 219 k/mm3 (150-375); Red Blood Count 3.47 M/mm3 (4.6-6.20); Red Cell Distribution Width 14.8 % (11.5-14.5); White Blood Count 8.9 K/mm3 (4.5-10.0)
[2024-04-17 16:17] LABS: Macrocytosis 1+ (NORMAL); Platelet Estimate Adequate (Adequate); Schistocytes None Seen
[2024-04-17 16:18] LABS: Anisocytosis 1+
[2024-04-17 16:29] LABS: Free T4 Free Thyroxine 1.32 ng/mL (0.78-2.19); Vitamin D 25 Hydroxy 38.8 ng/mL
[2024-04-17 18:10] LABS: Alanine Aminotransferase 16 U/L (6-50); Albumin Level 3.9 g/dL (3.5-5.1); Alkaline Phosphatase 115 U/L (38-126); Anion Gap 5 mmol/L (4-12); Aspartate Amino Transferase 26 U/L (17-59); Bilirubin,Total 0.7 mg/dL (0.2-1.3); Blood Urea Nitrogen 17 mg/dL (9-20); Calcium 8.7 mg/dL (8.4-10.2); Carbon Dioxide 31 mmol/L (22-30); Chloride 107 mmol/L (98-107); Cholesterol 131 mg/dL (0-200); Estimated Glomerular Filt Rate 54; Glucose 104 mg/dL (65-110); HDL Direct 53 mg/dL; Potassium 3.6 mmol/L (3.4-5.0); Sodium 143 mmol/L (137-145); Triglycerides 160 mg/dL (<150)
[2024-04-17 18:21] LABS: LDL Cholesterol Direct 63 mg/dL
[2024-04-17 18:39] LABS: Prostate Specific Antigen 2.1 ng/mL (< OR = 4.0)
[2024-04-17 18:50] LABS: Hemoglobin A1C 5.1 % (<5.7)
[2024-04-17 19:31] LABS: Folic Acid > 20.0 ng/mL (2.76->20)
== END 2024-04-17 14:58 | disposition home or self-care (01) ==
LOC: ANHLAB 15:03
PROVIDERS: PCP Internal Medicine; Visit Provider Internal Medicine
DX: I10 Essential (primary) hypertension (principal); R73.09 Other abnormal glucose; E53.8 Deficiency of other specified B group vitamins; Z12.5 Encounter for screening for malignant neoplasm of prostate; E55.9 Vitamin D deficiency, unspecified; Z13.29 Encounter for screening for other suspected endocrine disorder; Z79.899 Other long term (current) drug therapy; E78.2 Mixed hyperlipidemia
CPT/HCPCS: 36415; 80053; 80061; 82306; 82607; 82746; 83036; 84153; 84439; 84443; 85025; G0103

== ENCOUNTER 2024-07-17 12:55 | Outpatient (CLI) | payer MEDICARE, SELFPAY ==
--- NOTE | ~2024-07-17 | XR_ITS ---
EXAMINATION: XR abdomen/kub 1V DATE: 07/17/2024 13:33 INDICATION: Low back pain. TECHNIQUE: A supine view of the abdomen on 2 radiographs was obtained. COMPARISON: None. FINDINGS: There are no dilated loops of bowel. Surgical clips in the right upper quadrant are likely from cholecystectomy. There are vascular calcifications in the abdomen and pelvis. IMPRESSION: 1. No visible urolithiasis. Reviewed, dictated and finalized at location A. IMPRESSION: 1. No visible urolithiasis.
--- NOTE | ~2024-07-17 | XR_ITS ---
EXAMINATION: XR chest 2V DATE: 07/17/2024 13:33 INDICATION: Fatigue TECHNIQUE: PA and lateral views of the chest were obtained. COMPARISON: Chest radiograph dated 12/18/2022 FINDINGS: The lungs remain clear with no focal airspace opacities, pulmonary edema, pleural effusion or pneumot horax. Heart size is normal. Median sternotomy wires and mediastinal surgical clips are seen, likely from prior coronary artery bypass grafting. Tortuous and atherosclerotic thoracic aorta. Multiple larissa gical clips project over the right infraclavicular region. Thoracic kyphosis with moderate spondylosi s and mild anterior wedging of a few mid thoracic vertebral bodies. IMPRESSION: 1. No acute cardiopulmonary disease. Reviewed, dictated and finalized at location B.
[2024-07-17 13:33] LABS: Basophils Absolute Auto 0.1 K/mm3 (0.0-0.1); Basophils Percent Auto 0.5 % (0.2-1.2); Eosinophils Absolute Auto 0.3 K/mm3 (0-0.3); Eosinophils Percent Auto 2.6 % (0-4.4); Hematocrit 36.3 % (42.0-52.0); Hemoglobin 11.9 g/dL (14.0-18.0); Immature Granulocyte Absolute 0.05 K/mm3 (0.00-0.031); Immature Granulocyte Percent A 0.4 % (0-0.5); Lymphocytes Absolute Auto 2.42 K/mm3 (0.9-3.2); Lymphocytes Percent Auto 21.4 % (18.3-44.2); Mean Corpuscular HGB Conc 32.8 g/dl (32-36); Mean Corpuscular Hemoglobin 34.9 pg (26-34); Mean Corpuscular Volume 106.5 fl (80-100); Mean Platelet Volume 10.8 fl (7.4-10.4); Monocytes Absolute Auto 1.3 K/mm3 (0.1-0.6); Monocytes Percent Auto 11.8 % (2.6-8.5); Neutrophils Absolute Auto 7.2 K/mm3 (1.3-6.7); Neutrophils Percent Auto 63.3 % (45.5-73.1); Platelet Count Result 188 k/mm3 (150-375); Red Blood Count 3.41 M/mm3 (4.6-6.20); Red Cell Distribution Width 15.5 % (11.5-14.5); White Blood Count 11.3 K/mm3 (4.5-10.0)
[2024-07-17 13:34] LABS: Alanine Aminotransferase 19 U/L (6-50); Albumin Level 3.8 g/dL (3.5-5.1); Alkaline Phosphatase 93 U/L (38-126); Anion Gap 8 mmol/L (4-12); Aspartate Amino Transferase 29 U/L (17-59); Blood Urea Nitrogen 21 mg/dL (9-20); Calcium 8.4 mg/dL (8.4-10.2); Carbon Dioxide 30 mmol/L (22-30); Chloride 100 mmol/L (98-107); Estimated Glomerular Filt Rate 59; Glucose 124 mg/dL (65-110); Potassium 3.6 mmol/L (3.4-5.0); Sodium 138 mmol/L (137-145)
[2024-07-17 13:35] LABS: Appearance Urine Clear (Clear); Bilirubin Urine Negative (Negative); Blood Urine Trace-intact (Negative); Color Urine Yellow (Yellow); Glucose Urine UA Negative (Negative); Ketones Urine Negative (Negative); Nitrate Urine Negative (Negative); Protein Urine 3+ mg/dL (Negative); Specific Grav Ur 1.025 (1.001-1.035); pH Urine 5.5 (5.0-9.0)
[2024-07-17 13:36] LABS: Add Urine Microscopic? YES; Leukocyte Esterase Ur Negative LEU/UL (Negative); Urobilinogen Urine 0.2 mg/dL (<2.0)
[2024-07-17 13:41] LABS: RBC Urine None seen /hpf (0-2); WBC Urine None seen /hpf (0-3)
[2024-07-17 13:42] LABS: Bacteria Urine None seen /hpf; Squamous Epithelial Cell Urine None seen /hpf (Few)
[2024-07-17 14:03] LABS: Atypical Lymphocytes Present; Macrocytosis 1+ (NORMAL); Platelet Estimate Adequate (Adequate); Schistocytes None Seen
== END 2024-07-17 12:56 | disposition home or self-care (01) ==
LOC: ANHLAB 13:02
PROVIDERS: PCP Internal Medicine; Visit Provider Internal Medicine
DX: R53.83 Other fatigue (principal); R50.9 Fever, unspecified
CPT/HCPCS: 36415; 71046; 74018; 80053; 81001; 85025

== ENCOUNTER 2024-07-30 14:44 | Outpatient (CLI) | payer MEDICARE, SELFPAY ==
[2024-08-03 09:04] LABS: Immunoglobulin A 330 mg/dL (70-320); TTG IGA AB <1.0 U/mL
[2024-08-08 15:54] LABS: Pancreatic Elastase, Stool 386 mcg/g
== END 2024-07-30 14:45 | disposition home or self-care (01) ==
LOC: ANHLAB 14:45
PROVIDERS: PCP Internal Medicine; Visit Provider Internal Medicine Gastroenterology
DX: R19.7 Diarrhea, unspecified (principal)
CPT/HCPCS: 36415; 82653; 82784; 86364; 87045; 87269; 87427; 87449

== ENCOUNTER 2024-08-13 17:55 | Inpatient (IN) | payer MEDICARE, SELFPAY ==
--- NOTE | ~2024-08-13 | CT_ITS ---
EXAMINATION: CTA abdomen pelvis DATE: 08/13/2024 19:35 INDICATION: Gastrointestinal hemorrhage. TECHNIQUE: Computed tomographic angiography (CTA) of the abdomen and pelvis was performed with 100 mL Omnipaque-350 intravenous contrast. Automated exposure control and iterative reconstruction techniqu e were employed. The dose-length product was 779.69 mGy-cm. Maximum intensity projection 3D-reconstru ctions of the aorta and other arteries were constructed by the technologist on a separate workstation . COMPARISON: CT abdomen and pelvis 08/27/2013 FINDINGS: There is mild emphysema. The visualized portions of the lung bases demonstrate mild atelect asis. There are airspace opacities in anterobasal segment right lower lobe. No pleural effusion. Ther e is left atrial enlargement of the heart. There are coronary artery calcifications. No pericardial e ffusion. The liver is normal. There are changes of cholecystectomy. The spleen, pancreas, and adrenal glands are normal. There are cysts in the kidneys measuring up to 7.0 cm on the left. There is calci fied atherosclerosis of the aorta and many of the other arteries. There is no significant stenosis of celiac axis, superior mesenteric artery, the renal arteries, or inferior mesenteric artery. There is a 3.2 cm fusiform aneurysm of infrarenal aorta. The prostate is mildly enlarged. There is a right in guinal hernia containing fat. There are no pathologically enlarged lymph nodes. There is no free intr aperitoneal fluid. There are chronic bilateral L5 pars defects. There is 3 mm anterolisthesis of L5 o n S1. There is mild chronic anterior wedging of multiple vertebral bodies. There is mild thoracolumba r spondylosis. IMPRESSION: 1. No etiology for blood in stool. 2. Airspace opacities in the anterobasal segment right lower lobe, consistent with pneumonia. Reviewed, dictated and finalized at location A. IMPRESSION: 1. No etiology for blood in stool. 2. Airspace opacities in the anterobasal segment right lower lobe, consistent w ith pneumonia.
[2024-08-13 18:10] VITALS: BP 124/55; PULSE 72; RESP 18; TEMP 36.2; O2SAT 99
[2024-08-13 18:50] LABS: Basophils Absolute Auto 0.1 K/mm3 (0.0-0.1); Basophils Percent Auto 0.7 % (0.2-1.2); Eosinophils Absolute Auto 0.5 K/mm3 (0-0.3); Eosinophils Percent Auto 5.7 % (0-4.4); Hematocrit 33.8 % (42.0-52.0); Immature Granulocyte Absolute 0.05 K/mm3 (0.00-0.031); Immature Granulocyte Percent A 0.6 % (0-0.5); Lymphocytes Absolute Auto 2.01 K/mm3 (0.9-3.2); Mean Corpuscular HGB Conc 32.5 g/dl (32-36); Mean Corpuscular Hemoglobin 35.4 pg (26-34); Mean Corpuscular Volume 108.7 fl (80-100); Mean Platelet Volume 10.7 fl (7.4-10.4); Neutrophils Absolute Auto 4.8 K/mm3 (1.3-6.7); Platelet Count Result 178 k/mm3 (150-375); Red Blood Count 3.11 M/mm3 (4.6-6.20); Red Cell Distribution Width 15.6 % (11.5-14.5); White Blood Count 8.4 K/mm3 (4.5-10.0)
[2024-08-13 18:58] LABS: Alanine Aminotransferase 18 U/L (6-50); Albumin Level 3.8 g/dL (3.5-5.1); Alkaline Phosphatase 108 U/L (38-126); Anion Gap 7 mmol/L (4-12); Aspartate Amino Transferase 27 U/L (17-59); Bilirubin,Total 0.5 mg/dL (0.2-1.3); Blood Urea Nitrogen 36 mg/dL (9-20); Calcium 8.3 mg/dL (8.4-10.2); Carbon Dioxide 29 mmol/L (22-30); Chloride 104 mmol/L (98-107); Estimated CRCL calculation 51 ml/min; Estimated Glomerular Filt Rate 59; Glucose 114 mg/dL (65-110); Potassium 3.5 mmol/L (3.4-5.0); Sodium 140 mmol/L (137-145)
--- NOTE | 2024-08-13 19:07 | ED.GIBLEED ---
HPI - GI Bleed General Chief complaint: GI Bleed <Radhadanis Suarez, OCCUPATIONAL HEALTH NURSE - Last Filed: 08/13/24 19:15> Stated complaint: BLOOD IN STOOL FOR PAST MONTH. <Radha Suarez OCCUPATIONAL HEALTH NURSE - Last Filed: 08/13/24 19:15> Time Seen by Provider: 08/13/24 18:55 <Radha Suarez OCCUPATIONAL HEALTH NURSE - Last Filed: 08/13/24 19:15> Focused HPI: Patient is a 74-year-old male who presents to the ER with blood in his stool. He reports he has a primary care provider and called him today because his stools changed color and have been a dark wine color for the past two days. Patient reports he has intermittent sharp abdominal pains. He reports he has a history of an aortic aneurysm, COPD, CHF, and is on Plavix. Patient denies any back pain, chest pain, current shortness of breath. GENERAL: Well-appearing, well-nourished, and in no acute distress. HEAD: Normocephalic, atraumatic. CHEST: Clear to auscultation. ?No respiratory distress. HEART: Regular rate and rhythm.? NEURO: ?Alert and oriented x3. ABDOMEN: + BS, no tenderness with palpation, no guarding, no hepatomegaly Patient screened in triage and initial orders placed.? ?Additional care and disposition to be based upon?diagnostic testing and treatment. <Radha Suarez, OCCUPATIONAL HEALTH NURSE - Last Filed: 08/13/24 19:15> Focused HPI: Patient is a 74-year-old male who presents to the ER with blood in his stool. He reports he has a primary care provider and called him today because his stools changed color and have been a dark wine color for the past 2-3 days. Patient reports he has intermittent sharp abdominal pains which he describes as cramps. He reports he has a history of an aortic aneurysm, COPD, CHF, and is on Plavix. Patient denies any back pain, chest pain, current shortness of breath. GENERAL: Well-appearing, well-nourished, and in no acute distress. HEAD: Normocephalic, atraumatic. CHEST: Clear to auscultation. ?No respiratory distress. HEART: Regular rate and rhythm.? NEURO: ?Alert and oriented x3. ABDOMEN: + BS, no tenderness with palpation, no guarding, no hepatomegaly Patient screened in triage and initial orders placed.? ?Additional care and disposition to be based upon?diagnostic testing and treatment. Agree with triage assessment. <Miryam Gonzales MD - Last Filed: 08/13/24 21:12> Related Data Home medications: Home Medications Medication Instructions Recorded Confirmed aspirin 81 mg tablet,delayed 81 mg PO HS 10/21/20 08/13/24 release (Adult Low Dose Aspirin) clopidogrel 75 mg tablet 75 mg PO DAILY 10/21/20 08/13/24 multivitamin 1 tablet PO DAILY 10/21/20 08/13/24 vitamin B complex (Vitamins B 1 tablet PO EVERY OTHER DAY 02/15/21 08/13/24 Complex tablet) cetirizine 10 mg tablet (Zyrtec) 10 mg PO DAILY PRN ALLERGIES 07/12/23 08/13/24 esomeprazole magnesium 20 mg 20 mg PO DAILY 11/03/23 08/13/24 capsule,delayed release (Nexium 24HR) allopurinol 300 mg tablet 300 mg PO .Mon/Mon/Mon08/13/24 08/13/24 atorvastatin 40 mg tablet 40 mg PO HS 08/13/24 08/13/24 folic acid 1 mg tablet 1 mg PO DAILY 08/13/24 08/13/24 lorazepam 0.5 mg tablet 0.5 mg PO TID PRN Anxiety 08/13/24 08/13/24 losartan 100 1 tablet PO DAILY 08/13/24 08/13/24 mg-hydrochlorothiazide 25 mg tablet metoprolol tartrate 100 mg tablet 100 mg PO BID 08/13/24 08/13/24 potassium chloride 10 mEq 10 meq PO PRN PRN edema 08/13/24 08/13/24 tablet,extended release tadalafil 5 mg tablet (Cialis) 5 mg PO HS 08/13/24 08/13/24 <Radha Suarez APRN - Last Filed: 08/13/24 19:15> Allergies/Adverse reactions: Allergies Allergy/AdvReac Type Severity Reaction Status Date / Time No Known Allergies Allergy Verified 08/13/24 20:54 <Radha Suarez APRN - Last Filed: 08/13/24 19:15> Review of Systems Review of Systems: All systems are reviewed and are negative unless stated otherwise in the HPI. <Miryam Gonzales MD - Last Filed: 08/13/24 21:12> [facility]
[2024-08-13 19:11] LABS: Platelet Estimate Adequate (Adequate)
[2024-08-13 19:12] LABS: Anisocytosis 2+; Schistocytes None Seen
[2024-08-13 19:13] LABS: Macrocytosis 1+ (NORMAL); Partial Thromboplastin Time 30.3 Seconds (22.3-36.8)
--- NOTE | 2024-08-13 19:15 | ECG_ITS ---
Test Date: 2024-08-13 20:11:48 Measurements Intervals [place] Rate: 59 P: -30 DE: 157 QRS: 34 QRSD: 101 T: 33 QT: 431 QTc: 430 Interpretive Statements SINUS BRADYCARDIA No previous ECG available for comparison Electronically Signed On 08-14-2024 09:39:47 CDT by Zechariah Ugarte M.D.
[2024-08-13 19:42] LABS: Lipase 103 U/L (23-300)
[2024-08-13] MEDS: SODIUM CHLORIDE 0.9% IV 1,000 ML 999 ML IV CONT (19:51)
[2024-08-13] MEDS: FAMOTIDINE 20 MG/2 ML VIAL IV PUSH (19:52)
[2024-08-13] MEDS: PANTOPRAZOLE SODIUM IV 40 MG VIAL IV PUSH (19:52)
[2024-08-13 19:53] LABS: D Dimer 1.36 ug/mL (<0.48)
[2024-08-13 19:54] LABS: NT Pro B Type Natriuretic Pept 555 pg/mL (19.9-100); Troponin I < 0.012 ng/mL (0.000-0.034)
[2024-08-13 19:55] VITALS: BP 136/93; PULSE 64; RESP 16; O2SAT 100
[2024-08-13 21:55] VITALS: BP 166/79; PULSE 79; RESP 14; O2SAT 100
[2024-08-13 22:00] VITALS: BP 164/74; PULSE 66; RESP 18; TEMP 36.6; O2SAT 100
[2024-08-13 22:30] VITALS: BMI 26.1
--- NOTE | 2024-08-13 23:50 | PM.IMHP ---
H&P: HPI History of Present Illness Date/Time: 08/13/24 23:50 Chief Complaint: Bloody stool Narrative: 74-year-old male with past medical history of COPD, gout, peripheral vascular disease, coronary disease,, GERD, essential hypertension and BPH who presented to the ER with chronic diarrhea and 1 month of bloody stools. The patient has had about 5 years of chronic diarrhea with diarrhea gradually increasing. He reports that he has been having symptoms of frequent loose stools for about 5 years or maybe even longer. He always presumed that it was due to irritable bowel syndrome. He became more concerned when he developed a 10-15 lb weight loss over the last 6 months and a loss of 2 pant sizes in the same time. It is been accompanied by a sensation of early satiety and bloating. However he reports that he usually has rapid onset of diarrhea within 30 minutes to an hour. He reports that after he has bowel movement he will then be Ravenously hungry again each be able to the eat a small amount. His stools are usually watery with mixed solid material and associated with abdominal cramping frequently in the left lower quadrant. The left lower quadrant pain is usually brief in sharp. He does not always have the abdominal pain prior to bowel movements. He has to be very careful as he will unexpectedly have the urge to have a bowel movement and has had issues with intermittent leakage of stool. He has not noticed any variation is stools based on eating particular types of foods. He does report that he will occasionally get more diarrhea if he gets anxious. He has been on a trial cholestyramine and has not noticed any improvement in sequence here or amount of diarrhea. He reports that actually if he does not eat he does not seem to have as much issue with diarrhea. But he will occasionally have to get up at night to have loose stool. Patient had colonoscopy October 2023 which rules out malignancy or inflammatory colitis. Pathology was consistent with tubular adenomas. He followed up with Gastroenterology July 30, 2024 due to persistent due to persistent diarrhea, 5 lb weight loss and 10+ watery stools a day. Which time a celiac panel was ordered and was negative. Patient's pancreatic elastase was negative. Giardia antigen and stool culture was also negative. According to the office note if these were negative plan was to have patient scheduled for repeat colonoscopy with biopsies to rule out microscopic colitis. Patient evidently followed up with his primary care provider reporting his symptoms of stool that had changed from his usual brown with occasional reddish material to or of a maroon color throughout the stool with streaks of blood it started on the 14th. He denied any acute abdominal pain, nausea, vomiting, fevers or chills. He was directed go to the ER for evaluation. In the ER patient had repeat labs performed which demonstrated stable hemoglobin. Rectal exam demonstrated small amount of brown stool with some specks of blood. Hemoccult was positive per ER provider report. CTA of the abdomen and pelvis demonstrated no etiology for blood in the patient's stool. Airspace opacity anterior basal segment right lower lobe reportedly consistent with pneumonia however the patient has had prior imaging in the past that demonstrates a pulmonary nodule in that similar location. He does report dyspnea if vigorous exertion but that is baseline. He has not had any cough, congestion. He does not think he has ever tried any Imodium or Lomotil for his diarrheal symptoms. He denies any overtly greasy stools or mucousy stools. Review of Systems Review of Systems: 12 systems were reviewed with pertinent positives and negatives per HPI. Except as documented in the HPI, all other systems were reviewed and are negative. He reports weakness of his thigh muscles ever since he had his CABG. [facility] Past Medical History Medical History (Updated 08/14/24 @ 05:03
[2024-08-14 05:19] VITALS: BP 157/67; PULSE 79; RESP 17; TEMP 36.5; O2SAT 98
[2024-08-14 06:24] LABS: Hematocrit 30.1 % (42.0-52.0); Hemoglobin 9.7 g/dL (14.0-18.0); Mean Corpuscular HGB Conc 32.2 g/dl (32-36); Mean Corpuscular Hemoglobin 34.4 pg (26-34); Mean Corpuscular Volume 106.7 fl (80-100); Mean Platelet Volume 10.3 fl (7.4-10.4); Platelet Count Result 148 k/mm3 (150-375); Red Blood Count 2.82 M/mm3 (4.6-6.20); Red Cell Distribution Width 15.3 % (11.5-14.5); White Blood Count 7.2 K/mm3 (4.5-10.0)
[2024-08-14 06:40] LABS: Anion Gap 4 mmol/L (4-12); Blood Urea Nitrogen 30 mg/dL (9-20); Calcium 7.9 mg/dL (8.4-10.2); Carbon Dioxide 27 mmol/L (22-30); Chloride 106 mmol/L (98-107); Estimated CRCL calculation 51 ml/min; Estimated Glomerular Filt Rate 59; Glucose 94 mg/dL (65-110); Potassium 3.6 mmol/L (3.4-5.0); Sodium 137 mmol/L (137-145)
[2024-08-14 07:58] VITALS: O2SAT 92
[2024-08-14] MEDS: PANTOPRAZOLE 40 MG TABLET PO (08:37)
[2024-08-14] MEDS: FOLIC ACID 1 MG TABLET PO (08:37)
[2024-08-14] MEDS: COLESEVELAM 625 MG TABLET 1250 MG PO ×2 (08:37→17:40)
[2024-08-14] MEDS: METOPROLOL TARTRATE 50 MG TAB 100 MG PO (08:37)
[2024-08-14] MEDS: TAMSULOSIN HCL 0.4 MG CAPSULE PO (08:37)
[2024-08-14] MEDS: hydroCHLOROthiazide 25 MG TABLET PO (08:37)
[2024-08-14] MEDS: LOSARTAN POTASSIUM 100 MG TABLET PO (08:37)
[2024-08-14] MEDS: allopurinoL 300 MG TABLET PO (08:40)
--- NOTE | 2024-08-14 08:48 | PM.IMPN ---
Progress Note: A&P Assessment and Plan (1) GI bleed: Qualifiers: GI bleed type/associated pathology: unspecified gastrointestinal hemorrhage type Qualified Code(s): K92.2 - Gastrointestinal hemorrhage, unspecified Code(s): K92.2 - Gastrointestinal hemorrhage, unspecified Status: Acute Assessment and Plan: The patient has visual blood in his stool with positive Hemoccult testing in the ER. However, his hemoglobin has remained stable. Although he may have a mild degree of hemoconcentration he is not having overtly large volume acute blood loss. Will repeat CBC in a.m.. -stable Will hold Plavix for the short term. GI consult has been placed. Will await further recommendations. NPO until seen by GI (2) Chronic diarrhea: Code(s): K52.9 - Noninfective gastroenteritis and colitis, unspecified Status: Acute Assessment and Plan: Patient reports is chronic diarrhea is associated with early satiety, bloating followed by diarrheal symptoms usually in 30 minutes to an hour. Patient had outpatient evaluation by GI earlier this month that is already excluded infectious causes of diarrhea including Giardia she gallop Campylobacter etc.. Stool elastase was also negative so pancreatic insufficiency is less likely but will still check fecal occult fat as the patient did have another bowel movement just after my evaluation. However he reports that the bowel movement he had after my evaluation was back to being brown in color and more formed than has been in ?a long time?. Patient could possibly still have small intestine bacterial overgrowth or microscopic colitis. Although it is not on his med rec she states that he has been taking cholestyramine without improvement in his symptoms. Gastroenterology has been consulted for further recommendations/evaluation. (3) Weight loss: Code(s): R63.4 - Abnormal weight loss Status: Acute Assessment and Plan: Due to above factors. (4) Abnormal finding on lung imaging: Code(s): R91.8 - Other nonspecific abnormal finding of lung field Status: Acute Assessment and Plan: Radiology noted airspace opacity anterior basilar segment right lower lobe ?consistent with pneumonia?. On my evaluation air on the CT is extremely small. Patient is not having fever, leukocytosis or any respiratory symptoms. The patient does have known history of right lower lobe lung nodules which I suspect correlates with this imaging finding given lack of infectious symptoms. Will continue patient's home p.r.n. nebulizers given his history of COPD but no evidence of a acute exacerbation. (5) Acute uremia: Code(s): N19 - Unspecified kidney failure Status: Acute Assessment and Plan: Patient BUN is elevated above baseline without evidence of acute kidney failure/elevated creatinine. He is likely volume depleted due to combination of diarrhea and diuretic use. Will hold patient's Lasix and continue maintenance IV fluids. Patient did receive 1 L IV fluids in the ER. Will repeat electrolyte panel in a.m. (6) Benign essential hypertension: Code(s): I10 - Essential (primary) hypertension Status: Acute Assessment and Plan: Initial blood pressures in the ER were stable. Blood pressures after arrival to the medical floor have been mildly elevated. Will continue to monitor and resume home antihypertensives. Will supply additional IV antihypertensives of blood pressures remain elevated. Plan Secondary year old patient with history of GI bleeds present to the hospital with maroon-colored stools. He Has visual blood in his stool with positive Hemoccult testing in the ER. However, his hemoglobin has remained stable. Although he may have a mild degree of hemoconcentration he is not having overtly large volume acute blood loss. Patient still stools overnight, GI planning for scope tomorro
[2024-08-14 12:02] LABS: Hematocrit 32.6 % (42.0-52.0); Hemoglobin 10.4 g/dL (14.0-18.0)
[2024-08-14 13:48] VITALS: BP 148/67; PULSE 55; RESP 20; TEMP 36.2; O2SAT 98
--- NOTE | 2024-08-14 13:53 | WPDGICN ---
Assessment and Plan Assessment and plan (1) Chronic diarrhea: Code(s): K52.9 - Noninfective gastroenteritis and colitis, unspecified Status: Acute (2) GI bleed: Qualifiers: GI bleed type/associated pathology: unspecified gastrointestinal hemorrhage type Qualified Code(s): K92.2 - Gastrointestinal hemorrhage, unspecified Code(s): K92.2 - Gastrointestinal hemorrhage, unspecified Status: Acute Plan The patient's rectal bleeding is probably secondary to diverticulosis, given the findings in his relatively recent colonoscopy However, ischemic colitis or SCAD (segmental colitis associated with diverticulosis) are also diagnostic considerations. Will prep for colonoscoopy tomorrow after noon. Will also do colonic bx to rule out microscopic colitis due to the presence of chronic diarrhea. Orders placed. GI Consult Note Consult date/time: 08/14/24 13:53 Reason for consult: Intermittent rectal bleeding HPI: Ramirez Ferrer is a 74 year old male seen by me in office on 07/30, with a 10 month history of diarrhea, more than 8 episodes per day. He had a colonoscopy in 2022 showing small polyps, diverticula and hemorroids. No neoplasms or AVMs reported. A workup for diarrhea was undertaken including fecal elastase, giardia antigen and O&P. He had 2 episodes of rectal bleeding 3 days ago, red wine color, self limited. He decided to go to the ER last night, after which he was admitted. He denies abdominal pain, but he has lost about 5 Lb over the past 3 months. Review of Systems Review of Systems: All systems reviewed & are unremarkable except as noted in HPI and below PMFSH Past Medical History Medical History (Updated 08/14/24 @ 05:03 by Alexus Blankenship DO) Anxiety Aortic aneurysm ASHD (arteriosclerotic heart disease) With 7 cardiac stents and history of CABG Back pain with radiculopathy Benign essential hypertension Carotid artery disease COPD (chronic obstructive pulmonary disease) Erectile dysfunction Hearing loss Hip pain Hx of subdural hematoma Hyperlipidemia Insomnia Lung nodule Nasal septal deviation Psoriasis PVD (peripheral vascular disease) Tobacco abuse Urinary retention Vitamin B12 deficiency Surgical History Surgical History (Updated 08/14/24 @ 05:03 by Alexus Blankenship DO) History of colonoscopy with polypectomy Most recent colonoscopy 10/2023 demonstrated 5 4-5 mm colon polyps transverse colon, 4 mm polyp in the descending colon few diverticula in left colon small internal hemorrhoids performed by Dr. Skinner History of esophagogastroduodenoscopy (EGD) (07/2019) Demonstrated gastropathy History of heart artery stent X7 with his 1st cardiac catheterization Hx of appendectomy Hx of cholecystectomy S/P CABG x 3 Status post peripheral artery angioplasty with insertion of stent Left leg Family History Family History Mother Family history of Alzheimer's disease Father Family history of diabetes mellitus in first degree relative Family history of heart disease in male family member before age 55 Social History Social History (Updated 08/14/24 @ 04:58 by Alexus Blankenship DO) Social History: He reports that he is for about 18 years. He and his had 3 sons. 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 He used to smoke a pack of cigarettes per day but quit or. He drinks a couple of alcoholic beverages 1 or 2 times a month. He has been using a gummy supplement (?THC) to help him with sleep. He otherwise denies any history of illicit substance use. 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 Code status: DNR/DNI Healthcare power of commercial litigation attorney: Raphael Ferrer (son) Smoking packs per day: 0.5 Smoking cigarettes per day: 10.0 Years smoked: 58 Smoking pack-years: 29.00 Donte
[2024-08-14] MEDS: BISACODYL 5 MG TABLET EC 10 MG PO (17:40)
[2024-08-14] MEDS: polyethylene glycoL 3350 238 GM BOTTLE PO (18:17)
[2024-08-14] MEDS: ATORVASTATIN 40 MG TABLET PO (20:30)
[2024-08-14] MEDS: ASPIRIN 81 MG ENTERIC TABLET PO (20:36)
[2024-08-14 21:05] VITALS: BP 141/73; PULSE 57; RESP 16; TEMP 36.4; O2SAT 100
[2024-08-14] MEDS: MELATONIN 5 MG TABLET PO (22:13)
[2024-08-14] MEDS: MAGNESIUM CITRATE 300 ML BTL PO (22:14)
[2024-08-14] MEDS: ONDANSETRON INJ 4 MG/2 ML VIAL IV PUSH (22:15)
[2024-08-14 22:56] VITALS: PULSE 54
[2024-08-15 05:27] VITALS: BP 144/77; PULSE 68; RESP 14; TEMP 36.3; O2SAT 100
[2024-08-15 07:53] VITALS: BP 142/70; PULSE 58; RESP 18; TEMP 35.9; O2SAT 99
[2024-08-15] MEDS: LACTATED RINGERS 1,000 ML 150 ML IV CONT (07:55)
--- NOTE | 2024-08-15 07:55 | PM.IMPN ---
Progress Note: A&P Assessment and Plan (1) GI bleed: Qualifiers: GI bleed type/associated pathology: unspecified gastrointestinal hemorrhage type Qualified Code(s): K92.2 - Gastrointestinal hemorrhage, unspecified Code(s): K92.2 - Gastrointestinal hemorrhage, unspecified Status: Acute Assessment and Plan: The patient has visual blood in his stool with positive Hemoccult testing in the ER. However, his hemoglobin has remained stable. Although he may have a mild degree of hemoconcentration he is not having overtly large volume acute blood loss. Will repeat CBC in a.m.. -stable Will hold Plavix for the short term. GI consult Plan for scope today, NPO (2) Chronic diarrhea: Code(s): K52.9 - Noninfective gastroenteritis and colitis, unspecified Status: Acute Assessment and Plan: Patient reports is chronic diarrhea is associated with early satiety, bloating followed by diarrheal symptoms usually in 30 minutes to an hour. Patient had outpatient evaluation by GI earlier this month that is already excluded infectious causes of diarrhea including Giardia she gallop Campylobacter etc.. Stool elastase was also negative so pancreatic insufficiency is less likely but will still check fecal occult fat as the patient did have another bowel movement just after my evaluation. However he reports that the bowel movement he had after my evaluation was back to being brown in color and more formed than has been in ?a long time?. Patient could possibly still have small intestine bacterial overgrowth or microscopic colitis. Although it is not on his med rec she states that he has been taking cholestyramine without improvement in his symptoms. Gastroenterology has been consulted for further recommendations/evaluation. (3) Weight loss: Code(s): R63.4 - Abnormal weight loss Status: Acute Assessment and Plan: Due to above factors. (4) Abnormal finding on lung imaging: Code(s): R91.8 - Other nonspecific abnormal finding of lung field Status: Acute Assessment and Plan: Radiology noted airspace opacity anterior basilar segment right lower lobe ?consistent with pneumonia?. On my evaluation air on the CT is extremely small. Patient is not having fever, leukocytosis or any respiratory symptoms. The patient does have known history of right lower lobe lung nodules which I suspect correlates with this imaging finding given lack of infectious symptoms. Will continue patient's home p.r.n. nebulizers given his history of COPD but no evidence of a acute exacerbation. (5) Acute uremia: Code(s): N19 - Unspecified kidney failure Status: Acute Assessment and Plan: Patient BUN is elevated above baseline without evidence of acute kidney failure/elevated creatinine. He is likely volume depleted due to combination of diarrhea and diuretic use. Will hold patient's Lasix and continue maintenance IV fluids. Patient did receive 1 L IV fluids in the ER. BUN was some improvement since yesterday (6) Benign essential hypertension: Code(s): I10 - Essential (primary) hypertension Status: Acute Assessment and Plan: Initial blood pressures in the ER were stable. Blood pressures after arrival to the medical floor have been mildly elevated. Will continue to monitor and resume home antihypertensives. Will supply additional IV antihypertensives of blood pressures remain elevated. Plan Secondary year old patient with history of GI bleeds present to the hospital with maroon-colored stools. He Has visual blood in his stool with positive Hemoccult testing in the ER. However, his hemoglobin has remained stable. Although he may have a mild degree of hemoconcentration he is not having overtly large volume acute blood loss. Patient still stools overnight, GI planning for scope today, clear liquids now NPO at midnight. Time Spent With Pa
--- NOTE | 2024-08-15 08:12 | WPDANESEPPF ---
Anes - Initial Pre Proc Eval Procedure: Operation Date: 08/15/24 11:00 Proposed Procedures p Colonoscopy - Mic Aparicio MD Date/Time: 08/15/24 08:12 Surgeon: Alexus Blankenship DO Pre Op Diagnosis: GI Bleed/Stable Patient Data Age: 74 Gender: M Height: 1.8 m Weight: 85 kg Last Vital Signs Temp 35.9 C L 08/15/24 07:53 Pulse 58 L 08/15/24 07:53 Resp 18 08/15/24 07:53 BP 142/70 H 08/15/24 07:53 Pulse Ox 99 08/15/24 07:53 O2 Del Method Room Air 08/15/24 07:53 Allergies Allergy/AdvReac Type Severity Reaction Status Date / Time No Known Allergies Allergy Verified 08/15/24 07:49 Home Medications Medication Instructions Recorded Confirmed Type aspirin 81 mg tablet,delayed 81 mg PO HS 10/21/20 08/13/24 History release (Adult Low Dose Aspirin) clopidogrel 75 mg tablet 75 mg PO DAILY 10/21/20 08/13/24 History multivitamin 1 tablet PO DAILY 10/21/20 08/13/24 History vitamin B complex (Vitamins B 1 tablet PO EVERY OTHER DAY 02/15/21 08/13/24 History Complex tablet) furosemide 20 mg tablet (Lasix) 20 mg PO QAM PRN edema #30 tabs 03/16/23 08/13/24 Rx cetirizine 10 mg tablet (Zyrtec) 10 mg PO DAILY PRN ALLERGIES 07/12/23 08/13/24 History esomeprazole magnesium 20 mg 20 mg PO DAILY 11/03/23 08/13/24 History capsule,delayed release (Nexium 24HR) Home Nebulizer #1 ea 02/26/24 08/13/24 Rx albuterol sulfate 90 mcg/actuation 2 inh inhalation Q4-6H PRN 02/26/24 08/13/24 Rx aerosol inhaler shortness of breath or wheezing #8.5 grams albuterol sulfate 2.5 mg/3 mL 2.5 mg (3 mL) inhalation Q4-6H PRN 02/27/24 08/13/24 Rx (0.083 %) solution for nebulization shortness of breath or wheezing #90 mL temazepam 30 mg capsule 30 mg PO QHS PRN sleep #30 caps 03/19/24 08/13/24 Rx colesevelam 625 mg tablet (WelChol) 1,250 mg PO BID #360 tabs 04/17/24 08/13/24 Rx cyanocobalamin (vitamin B-12) 1,000 mcg IM MONTHLY #1 mL 04/17/24 08/13/24 Rx 1,000 mcg/mL injection solution triamcinolone acetonide 40 mg/mL 40 mg IM ONCE #1 mL 04/17/24 08/13/24 Rx suspension for injection (Kenalog) tamsulosin 0.4 mg capsule 0.4 mg PO DAILY #90 caps 05/15/24 08/13/24 Rx allopurinol 300 mg tablet 300 mg PO .Mon/Mon/Mon08/13/24 08/13/24 History atorvastatin 40 mg tablet 40 mg PO HS 08/13/24 08/13/24 History folic acid 1 mg tablet 1 mg PO DAILY 08/13/24 08/13/24 History lorazepam 0.5 mg tablet 0.5 mg PO TID PRN Anxiety 08/13/24 08/13/24 History losartan 100 1 tablet PO DAILY 08/13/24 08/13/24 History mg-hydrochlorothiazide 25 mg tablet metoprolol tartrate 100 mg tablet 100 mg PO BID 08/13/24 08/13/24 History potassium chloride 10 mEq 10 meq PO PRN PRN edema 08/13/24 08/13/24 History tablet,extended release tadalafil 5 mg tablet (Cialis) 5 mg PO HS 08/13/24 08/13/24 History Laboratory Tests 08/13/24 08/14/24 18:37 11:53 Hgb 10.4 L g/dL (14.0-18.0) Hct 32.6 L % (42.0-52.0) Urine Color Cancelled Urine Appearance Cancelled Urine pH Cancelled Ur Specific [place] Cancelled Urine Protein Cancelled Urine Glucose (UA) Cancelled Urine Ketones Cancelled Ur Blood (Man) Cancelled Urine Nitrate Cancelled Urine Bilirubin Cancelled Urine Urobilinogen Cancelled Add Ur Microanalysis Cancelled Leukocyte Esterase Rfl Cancelled Urine RBC Cancelled Urine WBC Cancelled Urine WBC Clumps Cancelled Ur Squamous Epith Cells Cancelled Ur Transition Epith Cell Cancelled Ur Renal Epithelial Cell Cancelled Ace Biurate Crystals Cancelled Calcium Carbonate Cryst Cancelled Calcium Phosphate Cryst Cancelled Calcium Oxalate Crystal Cancelled Leucine Crystals Cancelled Cystine Crystals Cancelled Uric Acid Crystals Cancelled Triple Phos Crystals Cancelled Sulfonam
[2024-08-15 08:25] VITALS: O2SAT 96
--- NOTE | 2024-08-15 08:52 | WPDGIPROGNO ---
Progress Note: A&P Assessment and Plan (1) Chronic diarrhea: Code(s): K52.9 - Noninfective gastroenteritis and colitis, unspecified Status: Acute (2) GI bleed: Qualifiers: GI bleed type/associated pathology: unspecified gastrointestinal hemorrhage type Qualified Code(s): K92.2 - Gastrointestinal hemorrhage, unspecified Code(s): K92.2 - Gastrointestinal hemorrhage, unspecified Status: Acute Assessment and Plan: Patient seen yesterday in consultation. We will proceed with colonoscopy has discussed. Subjective Date/time seen: 08/15/24 08:52 Interval history: Patient admitted for intermittent rectal bleeding and chronic diarrhea. Review of Systems Review of Systems: All systems reviewed & are unremarkable except as noted in HPI and below Objective Data Vital Signs Vital Signs: Vital Signs - 24 hr 08/14/24 13:48 08/14/24 21:05 08/14/24 20:00 Temperature 97.1 F L 97.6 F Pulse Rate 55 L 57 L Respiratory Rate 20 16 Blood Pressure 148/67 H 141/73 H Pulse Oximetry 98 100 Oxygen Delivery Room Air Fraction of Inspired Oxygen 08/14/24 22:56 08/15/24 05:27 08/15/24 07:53 Temperature 97.3 F L 96.6 F L Pulse Rate 54 L 68 58 L Respiratory Rate 14 18 Blood Pressure 144/77 H 142/70 H Pulse Oximetry 100 99 Oxygen Delivery Room Air Fraction of Inspired Oxygen 08/15/24 08:25 Temperature Pulse Rate Respiratory Rate Blood Pressure Pulse Oximetry 96 Oxygen Delivery Room Air Fraction of Inspired Oxygen 21 Intake/Output Intake/Output: Intake & Output 08/12/24 08/13/24 08/14/24 08/15/24 23:59 23:59 23:59 23:59 Intake Total 1000 240 600 Balance 1000 240 600 Meds/Results Medications: Active Medications Generic Name Dose Route Start Last Admin Trade Name Freq PRN Reason Stop Dose Admin Albuterol 2.5 mg 08/14/24 00:31 Albuterol Sulfate Neb 2.5 Mg/3 Ml Inh INHALATION Q4-6H PRN shortness of breath or wheezing Allopurinol 300 mg 08/14/24 08:00 08/14/24 08:40 Allopurinol 300 Mg Tablet PO 300 mg [id number] MENDOZA Administration Aspirin 81 mg 08/14/24 21:00 08/14/24 20:36 Aspirin 81 Mg Enteric Tablet PO 81 mg HS MENDOZA Administration Atorvastatin Calcium 40 mg 08/14/24 21:00 08/14/24 20:30 Atorvastatin 40 Mg Tablet PO 40 mg HS MENDOZA Administration Colesevelam HCl 1,250 mg 08/14/24 08:00 08/14/24 17:40 Colesevelam 625 Mg Tablet PO 1,250 mg BIDWM MENDOZA Administration Folic Acid 1 mg 08/14/24 09:00 08/14/24 08:37 Folic Acid 1 Mg Tablet PO 1 mg DAILY MENDOZA Administration Hydrochlorothiazide 25 mg 08/14/24 09:00 08/14/24 08:37 Hydrochlorothiazide 25 Mg Tablet PO 25 mg QAM MENDOZA Administration Lactated Ringer's 1,000 mls @ 150 mls/hr 08/15/24 07:55 08/15/24 07:55 Lr - Lactated Ringers Iv IV CONT 150 mls/hr .Q6H40M MENDOZA Administration Loratadine 10 mg 08/14/24 00:41 Loratadine 10 Mg Tablet PO DAILY PRN ALLERGIES Lorazepam 0.5 mg 08/14/24 00:31 Lorazepam (*Crx) 0.5 Mg Tablet PO TID PRN Anxiety Losartan Potassium 100 mg 08/14/24 09:00 08/14/24 08:37 Losartan Potassium 100 Mg Tablet PO 100 mg DAILY MENDOZA Administration Melatonin 5 mg 08/14/24 21:00 08/14/24 22:13 Melatonin 5 Mg Tablet PO 5 mg HS MENDOZA Administration Metoprolol Tartrate 100 mg 08/14/24 09:00 08/14/24 22:56 Metoprolol Tartrate 50 Mg Tab PO Not Given Q12HR MENDOZA Pantoprazole Sodium 40 mg 08/14/24 09:00 08/14/24 08:37 Pantoprazole 40 Mg Tablet PO 40 mg QAM MENDOZA Administration Tamsulosin HCl 0.4 mg 08/14/24 09:00 08/14/24 08:37 Tamsulosin Hcl 0.4 Mg Capsule PO 0.4 mg DAILY MENDOZA Administration Temazepam 30 mg 08/14/24 00:35 Temazepam (*Crx) 15 Mg Capsule PO QHS PRN sleep Radiology Results: ITS Impressions Abdomen/Pelvis CTA 08/13/24 19:41 IMPRESSION: 1. No etiology for blood in [facility]
[2024-08-15] MEDS: SIMETHICONE ORAL SUSPENSION 20 MG/0.3 ML 30 ML BOTTLE 0.6 ML PO (09:15)
[2024-08-15 09:32] VITALS: BP 84/40; PULSE 65; RESP 23; O2SAT 97
[2024-08-15 09:42] VITALS: BP 101/44; PULSE 59; RESP 20; O2SAT 97
[2024-08-15 09:52] VITALS: BP 116/50; PULSE 47; RESP 16; O2SAT 98
[2024-08-15] MEDS: TAMSULOSIN HCL 0.4 MG CAPSULE PO (10:06)
[2024-08-15] MEDS: PANTOPRAZOLE 40 MG TABLET PO (10:06)
[2024-08-15] MEDS: FOLIC ACID 1 MG TABLET PO (10:06)
[2024-08-15] MEDS: COLESEVELAM 625 MG TABLET 1250 MG PO (10:07)
--- NOTE | 2024-08-15 10:17 | PM.DS ---
DS: Admitting Diagnosis Discharge Date 08/15/2024 Admitting Diagnosis Lower GI bleed DS: Discharge Diagnosis Discharge Diagnosis (1) GI bleed: Qualifiers: GI bleed type/associated pathology: unspecified gastrointestinal hemorrhage type Qualified Code(s): K92.2 - Gastrointestinal hemorrhage, unspecified Code(s): K92.2 - Gastrointestinal hemorrhage, unspecified Status: Acute Assessment and Plan: The patient has visual blood in his stool with positive Hemoccult testing in the ER. However, his hemoglobin has remained stable. Although he may have a mild degree of hemoconcentration he is not having overtly large volume acute blood loss. Hemoglobin stable, denies bloody stools Restart Plavix GI consult Scope today see GI note for details (2) Chronic diarrhea: Code(s): K52.9 - Noninfective gastroenteritis and colitis, unspecified Status: Acute Assessment and Plan: Patient reports is chronic diarrhea is associated with early satiety, bloating followed by diarrheal symptoms usually in 30 minutes to an hour. Patient had outpatient evaluation by GI earlier this month that is already excluded infectious causes of diarrhea including Giardia she gallop Campylobacter etc.. Stool elastase was also negative so pancreatic insufficiency is less likely but will still check fecal occult fat as the patient did have another bowel movement just after my evaluation. However he reports that the bowel movement he had after my evaluation was back to being brown in color and more formed than has been in ?a long time?. Patient could possibly still have small intestine bacterial overgrowth or microscopic colitis. Although it is not on his med rec she states that he has been taking cholestyramine without improvement in his symptoms. Follow-up outpatient GI (3) Weight loss: Code(s): R63.4 - Abnormal weight loss Status: Acute Assessment and Plan: Encourage high-protein meals (4) Abnormal finding on lung imaging: Code(s): R91.8 - Other nonspecific abnormal finding of lung field Status: Acute Assessment and Plan: Radiology noted airspace opacity anterior basilar segment right lower lobe ?consistent with pneumonia?. On my evaluation air on the CT is extremely small. Patient is not having fever, leukocytosis or any respiratory symptoms. The patient does have known history of right lower lobe lung nodules which I suspect correlates with this imaging finding given lack of infectious symptoms. Will continue patient's home p.r.n. nebulizers given his history of COPD but no evidence of a acute exacerbation. (5) Acute uremia: Code(s): N19 - Unspecified kidney failure Status: Acute Assessment and Plan: Resolved (6) Benign essential hypertension: Code(s): I10 - Essential (primary) hypertension Status: Acute Assessment and Plan: Initial blood pressures in the ER were stable. Blood pressures after arrival to the medical floor have been mildly elevated. Will continue to monitor and resume home antihypertensives. Plan 74 year old patient with history of GI bleeds present to the hospital with maroon-colored stools. He Has visual blood in his stool with positive Hemoccult testing in the ER. However, his hemoglobin has remained stable. Although he may have a mild degree of hemoconcentration he is not having overtly large volume acute blood loss. Patient solid stools overnight, he was scoped by GI stable for discharge. DS: Summary Hospital Course Reason for hospitalization: Lower GI bleed Hospital Course: 74-year-old male with past medical history of COPD, gout, peripheral vascular disease, coronary disease,, GERD, essential hypertension and BPH who presented to the ER with chronic diarrhea and 1 month of bloody stools. The patient has had about 5 years of chronic diarrhea with diarrhea gradually increasing. He reports that
[2024-08-15 10:27] LABS: Hematocrit 33.5 % (42.0-52.0); Hemoglobin 10.7 g/dL (14.0-18.0); Mean Corpuscular HGB Conc 31.9 g/dl (32-36); Mean Corpuscular Hemoglobin 34.6 pg (26-34); Mean Corpuscular Volume 108.4 fl (80-100); Mean Platelet Volume 10.3 fl (7.4-10.4); Platelet Count Result 166 k/mm3 (150-375); Red Blood Count 3.09 M/mm3 (4.6-6.20); Red Cell Distribution Width 15.4 % (11.5-14.5); White Blood Count 6.8 K/mm3 (4.5-10.0)
[2024-08-15 10:40] LABS: Anion Gap 3 mmol/L (4-12); Blood Urea Nitrogen 19 mg/dL (9-20); Calcium 8.8 mg/dL (8.4-10.2); Carbon Dioxide 30 mmol/L (22-30); Chloride 106 mmol/L (98-107); Estimated CRCL calculation 55 ml/min; Estimated Glomerular Filt Rate > 60; Glucose 110 mg/dL (65-110); Potassium 4.2 mmol/L (3.4-5.0); Sodium 139 mmol/L (137-145)
[2024-08-18 22:33] LABS: Fecal Fat, Ql Normal (Normal)
== END 2024-08-15 13:05 | disposition home or self-care (01) | DRG 378 ==
LOC: ANHED 21:12 → ANH3MEDSUR 21:49
PROVIDERS: Internal Medicine Gastroenterology; Registered Nurse; Admitting Provider Internal Medicine; Emergency Provider Emergency Medicine; PCP Internal Medicine; Visit Provider Nurse Practitioner Gerontology
PROC: 0DJD8ZZ Inspection of Lower Intestinal Tract, Via Natural or Artificial Opening Endoscopic (ICD-10-PCS; CPT 45378; principal; 2024-08-15 11:00)
DX: K92.2 Gastrointestinal hemorrhage, unspecified (principal); N17.9 Acute kidney failure, unspecified; K52.9 Noninfective gastroenteritis and colitis, unspecified; D12.3 Benign neoplasm of transverse colon; E78.5 Hyperlipidemia, unspecified; I10 Essential (primary) hypertension; I73.9 Peripheral vascular disease, unspecified; I25.10 Atherosclerotic heart disease of native coronary artery without angina pectoris; J44.9 Chronic obstructive pulmonary disease, unspecified; K21.9 Gastro-esophageal reflux disease without esophagitis; M10.9 Gout, unspecified; N40.0 Benign prostatic hyperplasia without lower urinary tract symptoms; R63.4 Abnormal weight loss; R91.8 Other nonspecific abnormal finding of lung field; Z79.82 Long term (current) use of aspirin; Z79.02 Long term (current) use of antithrombotics/antiplatelets; Z90.49 Acquired absence of other specified parts of digestive tract; Z95.1 Presence of aortocoronary bypass graft; Z87.891 Personal history of nicotine dependence; Z95.5 Presence of coronary angioplasty implant and graft; Z66 Do not resuscitate
CPT/HCPCS: 36415; 74174; 80048; 80053; 82705; 83690; 83880; 84484; 85014; 85018; 85025; 85027; 85380; 85610; 85730; 86850; 86900; 86901; 88305; 93005; 96361; 96374; 96375; 99285; A9270; J2003; J2405; J2470; J2704; J7030; J7120; Q9967

== ENCOUNTER 2024-09-10 09:42 | Outpatient (CLI) | payer MEDICARE, SELFPAY ==
[2024-09-10 10:18] LABS: Basophils Absolute Auto 0.1 K/mm3 (0.0-0.1); Basophils Percent Auto 0.9 % (0.2-1.2); Eosinophils Absolute Auto 0.4 K/mm3 (0-0.3); Hematocrit 33.4 % (42.0-52.0); Immature Granulocyte Absolute 0.06 K/mm3 (0.00-0.031); Immature Granulocyte Percent A 0.6 % (0-0.5); Lymphocytes Absolute Auto 1.65 K/mm3 (0.9-3.2); Lymphocytes Percent Auto 16.4 % (18.3-44.2); Mean Corpuscular HGB Conc 32.9 g/dl (32-36); Mean Corpuscular Hemoglobin 36.4 pg (26-34); Mean Corpuscular Volume 110.6 fl (80-100); Mean Platelet Volume 10.8 fl (7.4-10.4); Monocytes Percent Auto 10.4 % (2.6-8.5); Neutrophils Absolute Auto 6.8 K/mm3 (1.3-6.7); Neutrophils Percent Auto 67.7 % (45.5-73.1); Platelet Count Result 208 k/mm3 (150-375); Red Blood Count 3.02 M/mm3 (4.6-6.20); Red Cell Distribution Width 15.7 % (11.5-14.5)
[2024-09-10 10:24] LABS: Add Urine Microscopic? YES; Appearance Urine Clear (Clear); Bacteria Urine None Seen /hpf; Bilirubin Urine Negative (Negative); Blood Urine Negative (Negative); Color Urine Yellow (Yellow); Glucose Urine UA Negative (Negative); Ketones Urine Negative (Negative); Leukocyte Esterase Ur Negative LEU/UL (Negative); Nitrate Urine Negative (Negative); Non Pathogenic Casts 0-2; Protein Urine 3+ mg/dL (Negative); RBC Urine 0-2 /hpf (0-2); Specific Grav Ur 1.028 (1.001-1.035); Squamous Epithelial Cell Urine None Seen /hpf (Few); Urobilinogen Urine 0.2 mg/dL (<2.0); WBC Urine 0-5 /hpf (0-3); pH Urine 5.5 (5.0-9.0)
[2024-09-10 10:27] LABS: Alanine Aminotransferase 17 U/L (6-50); Albumin Level 3.8 g/dL (3.5-5.1); Alkaline Phosphatase 96 U/L (38-126); Anion Gap 8 mmol/L (4-12); Aspartate Amino Transferase 27 U/L (17-59); Bilirubin,Total 0.6 mg/dL (0.2-1.3); Blood Urea Nitrogen 28 mg/dL (9-20); Calcium 8.2 mg/dL (8.4-10.2); Carbon Dioxide 29 mmol/L (22-30); Chloride 102 mmol/L (98-107); Cholesterol 126 mg/dL (0-200); Estimated Glomerular Filt Rate 49; Glucose 157 mg/dL (65-110); HDL Direct 46 mg/dL; Potassium 3.3 mmol/L (3.4-5.0); Sodium 139 mmol/L (137-145); Triglycerides 77 mg/dL (<150)
[2024-09-10 10:38] LABS: LDL Cholesterol Direct 53 mg/dL
[2024-09-10 10:51] LABS: Platelet Estimate Adequate (Adequate)
[2024-09-10 10:52] LABS: Macrocytosis 2+ (NORMAL); Schistocytes None Seen
[2024-09-10 10:57] LABS: Prostate Specific Antigen 1.4 ng/mL (< OR = 4.0)
[2024-09-10 11:46] LABS: Folic Acid > 20.0 ng/mL (2.76->20)
== END 2024-09-10 09:43 | disposition home or self-care (01) ==
LOC: ANHLAB 09:47
PROVIDERS: PCP Internal Medicine; Visit Provider Internal Medicine
DX: E78.2 Mixed hyperlipidemia (principal); Z79.899 Other long term (current) drug therapy; Z13.29 Encounter for screening for other suspected endocrine disorder; Z12.5 Encounter for screening for malignant neoplasm of prostate; I10 Essential (primary) hypertension; E53.8 Deficiency of other specified B group vitamins; D50.9 Iron deficiency anemia, unspecified
CPT/HCPCS: 36415; 80053; 80061; 81001; 82607; 82728; 82746; 84153; 84439; 84443; 85025; G0103

== ENCOUNTER 2024-11-10 14:48 | Emergency (ER) | payer MEDICARE, SELFPAY ==
--- NOTE | ~2024-11-10 | XR_ITS ---
CHEST RADIOGRAPH, PA AND LATERAL CLINICAL HISTORY: sob . COMPARISON: 07/17/2024 TECHNIQUE: PA and lateral views of the chest. FINDINGS Sternal wires and mediastinal clips are identified, the wires are midline and intact. The remainder of the cardiomediastinal silhouette is otherwise unremarkable. Interval development of bilateral pleural effusions, large on the right and small on left. Patchy groundglass opacification of the right mid to lower lung field is present, possibly atypical p neumonia. Multiple surgical clips projecting over the subcutaneous clavicle region on the right The lungs are otherwise clear. IMPRESSION: Interval development of bilateral pleural effusions (large on the right, and small on left) with dolores tional findings in the right mid to lower lung field suggesting atypical pneumonia. Reviewed, dictated and finalized at location A. ICAL PLANT OPERATOR SUPERVISOR IMPRESSION: Interval development of bilateral pleural effusions (large on the right, and sm all on left) with additional findings in the right mid to lower lung field sugg esting atypical pneumonia.
--- NOTE | ~2024-11-10 | CT_ITS ---
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 The dose-length product was 409.51 mGy-cm. Maximum intensity projection 3D-re constructions of the aorta and other arteries were constructed by the technologist on a separate work station. COMPARISON: None. FINDINGS: No filling defects within the main or proximal pulmonary arteries. Trace atherosclerotic disease within the thoracic aorta, without aneurysmal dilatation or dissection. Sternal wires and mediastinal clips are identified. Perioperative fluid and air within the overlying soft tissues and anterior lateral mediastinum, to th e right of midline. Punctate foci of air and fluid, along with irregular foci of increased attenuation (likely talc), catarino ling the cavity of the lower portion of the right hemithorax -likely owing to the abnormal appearance on chest radiograph. The left hemithorax is clear. No acute fractures within the thoracic spine. IMPRESSION: No pulmonary embolus. No aortic dissection. Expected findings within the right hemithorax, given patient's recent pleurodesis approximately 3 day s earlier. Reviewed, dictated and finalized at location A. TEGIC PLANNING SPECIALIST IMPRESSION: No pulmonary embolus. No aortic dissection. Expected findings within the right hemithorax, given patient's recent pleurodes is approximately 3 days earlier.
[2024-11-10 15:00] VITALS: BP 141/59; PULSE 109; RESP 18; TEMP 36.6; O2SAT 96
--- NOTE | 2024-11-10 15:48 | ED_ITS ---
HPI - SOB/Dyspnea General Chief Complaint: Shortness of Breath/Dyspnea Stated Complaint: sob Time Seen by Provider: 11/10/24 15:27 History of Present Illness HPI Narrative: Patient is a 74-year-old male who presents ER with shortness of breath. Discharged today from [facility] after undergoing pleurodesis for recurrent pneumothorax after partial pneumonectomy on the right side. Reports low oxygenation at home on pulse oximeter while short of breath. EMS arrived and patient felt improved and was without hypoxia. No chest pain at this time. Mild tachycardia. On hospital he did receive anticoagulation to prevent clotting. Reports mild edema in the legs but no pain. No chest discomfort. Related Data Home Medications ?Medication ?Instructions ?Recorded ?Confirmed ?Last Taken ?Type aspirin 81 mg tablet,delayed 81 mg PO HS 10/21/20 09/03/24 Unknown History release (Adult Low Dose Aspirin) clopidogrel 75 mg tablet 75 mg PO DAILY 10/21/20 09/03/24 11/16/23 History multivitamin 1 tablet PO DAILY 10/21/20 09/03/24 Unknown History vitamin B complex (Vitamins B 1 tablet PO EVERY OTHER DAY 02/15/21 09/03/24 Unknown History Complex tablet) cetirizine 10 mg tablet (Zyrtec) 10 mg PO DAILY PRN ALLERGIES 07/12/23 09/03/24 Unknown History esomeprazole magnesium 20 mg 20 mg PO DAILY 11/03/23 09/03/24 Unknown History capsule,delayed release (Nexium 24HR) allopurinol 300 mg tablet 300 mg PO .Mon/Wed/Fri 08/13/24 09/03/24 Unknown History folic acid 1 mg tablet 1 mg PO DAILY 08/13/24 09/03/24 Unknown History potassium chloride 10 mEq 10 meq PO PRN PRN edema 08/13/24 09/03/24 Unknown History tablet,extended release tadalafil 5 mg tablet (Cialis) 5 mg PO HS 08/13/24 09/03/24 Unknown History Allergies Allergy/AdvReac Type Severity Reaction Status Date / Time No Known Allergies Allergy Verified 09/10/24 10:32 Review of Systems 2 Review of Systems: All systems reviewed & are unremarkable except as noted in HPI and below Constitutional: Constitutional: Reports no additional constitutional complaints ENT: Reports system reviewed and no additional complaints, except as documented Cardiovascular: Cardiovascular: Reports no additional cardiovascular complaints Respiratory: Respiratory: Reports no additional respiratory complaints [facility] Past Medical History Medical History Anxiety Aortic aneurysm ASHD (arteriosclerotic heart disease) With 7 cardiac stents and history of CABG Back pain with radiculopathy Benign essential hypertension Carotid artery disease COPD (chronic obstructive pulmonary disease) Erectile dysfunction Hearing loss Hip pain Hx of subdural hematoma Hyperlipidemia Insomnia Lung nodule Nasal septal deviation Psoriasis PVD (peripheral vascular disease) Tobacco abuse Urinary retention Vitamin B12 deficiency Surgical History Surgical History History of colonoscopy with polypectomy Most recent colonoscopy 10/2023 demonstrated 5 4-5 mm colon polyps transverse colon, 4 mm polyp in the descending colon few diverticula in left colon small internal hemorrhoids performed by Dr. Skinner History of esophagogastroduodenoscopy (EGD) (07/2019) Demonstrated gastropathy History of heart artery stent X7 with his 1st cardiac catheterization Hx of appendectomy Hx of cholecystectomy S/P CABG x 3 Status post peripheral artery angioplasty with insertion of stent Left leg Family History Family History Mother Family history of Alzheimer's disease Father Family history of diabetes mellitus in first degree relative Family history of heart disease in male family member before age 55 Social History Social History Social History: He reports that he is for about 18 years. He and his had 3 sons. He currently has a correction female friend that he is in a committed relationship with. He used to smoke a pack of cigarettes per day but quit or. He drinks a couple of alcoholic beverages 1 or 2 times a month. He has been using a gummy supplement (?THC) to help him with sleep. He otherwise denies any history of illicit substance use. 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 Code status: DNR/DNI Healthcare power of technical operations specialist: Raphael Ferrer (son) Smoking packs per day: 0.5 Smoking cigarettes per day: 10.0 Years smoked: 58 Smoking pack-years: 29.00 Smoking status: Former smoker Second hand tobacco smoke exposure: Yes Alcohol intake: current Alcohol use details: Social Substance use: never Substance use type: does not use Do You Feel Safe in your Home?: Yes Lack of Transportation: No Lack of Food: Never True Current Housing: I Have Housing Concerned About Future Housing: No Difficulty Paying Gas/Electric Bills: No Difficulty Paying for Meds: No Currently Unemployed: No Education: Trade/Vocational Certificate Difficulty w/ Childcare or Family Care: No Living arrangements: with family Occupation/Education: retired Gender identity (if verbalized by the patient): Male Spiritual care concerns: No Exam 2 Narrative: GENERAL: Well-appearing, well-nourished, and in no acute distress. HEAD: Normocephalic, atraumatic. ENT: Mucous membranes moist. Bruising left face. CHEST: Clear to auscultation but diminished right base. No respiratory distress. HEART: Tachycardic and regular. Normal peripheral pulses. EXTREMITIES: Normal range of motion. 1+ edema. SKIN: Warm, dry, no rash. NEURO: Alert and oriented x3. PSYCH: Normal mood and affect. Course Course Emergency Course: 1549: Chest x-ray without pneumothorax. We will perform a CTA to rule out PE as he would be high risk and has tachycardia, recent hospitalization, and possible recent hypoxia. I did view his my chart x-ray results where they reported a small pleural effusion on the right side that height increased incised and also changes related to the pleurodesis on the right side that I think is being read as a possible pneumonia on her chest x-ray. Patient has no cough and no fever. 1800: Patient resting comfortably but has tachycardia. Has increased from initial assessment and is size 135 beats per minute. It is a sinus tachycardia. He is not having palpitations as no chest pain or shortness of breath time. He is been ambulatory to the bathroom without symptoms. We do have a call out to [facility] to follow-up with Dr. Aragon or whoever is cotton ball bagger to discuss presentation and results. 1835: Patient's heart rate has improved 15 beats per minute with IV fluid. Discussed case with Dr. Aragon. Does not have any significant concern at this time related to imaging studies and lab work. Patient is asymptomatic. He does take metoprolol 100 mg twice a day and is due for an evening dose. It is unknown whether he got his morning dose. This should also help with his heart rate. Patient may call his physician tomorrow and schedule follow-up for tomorrow or soon thereafter according to Dr. Aragon. Patient family feel comfortable with this plan Vital Signs Vital signs: Vital Signs Temperature 98 F 11/10/24 15:00 Pulse Rate 109 H 11/10/24 15:00 Respiratory Rate 18 11/10/24 15:00 Blood Pressure 141/59 H 11/10/24 15:00 Pulse Oximetry 96 11/10/24 15:00 Temperature 97.8 F 11/10/24 17:22 Pulse Rate 120 H 11/10/24 18:27 Respiratory Rate 15 11/10/24 18:27 Blood Pressure 170/75 H 11/10/24 18:27 Pulse Oximetry 97 11/10/24 18:27 Oxygen Delivery Room Air 11/10/24 18:00 MDM - SOB/Dyspnea Lab Data 11/10/24 15:49 11/10/24 16:00 Labs: Lab Results 11/10/24 11/10/24 Range/Units 15:49 16:00 WBC 8.0 (4.5-10.0) K/mm3 RBC 2.68 L (4.6-6.20) M/mm3 Hgb 9.3 L (14.0-18.0) g/dL Hct 28.6 L (42.0-52.0) % MCV 106.7 H (80-100) fl MCH 34.7 H (26-34) pg MCHC 32.5 (32-36) g/dl RDW 13.6 (11.5-14.5) % Plt Count 250 (150-375) k/mm3 MPV 10.0 (7.4-10.4) fl Immature Gran % (Auto) 0.7 H (0-0.5) % Neut % (Auto) 84.1 H (45.5-73.1) % Lymph % (Auto) 6.1 L (18.3-44.2) % Kern % (Auto) 8.3 (2.6-8.5) % Eos % (Auto) 0.4 (0-4.4) % Baso % (Auto) 0.4 (0.2-1.2) % Lymph # (Auto) 0.49 L (0.9-3.2) K/mm3 Kern # (Auto) 0.7 H (0.1-0.6) K/mm3 Eos # (Auto) 0.0 (0-0.3) K/mm3 Baso # (Auto) 0.0 (0.0-0.1) K/mm3 Abs Immat Gran (auto) 0.06 H (0.00-0.031) K/mm3 Absolute Neuts (auto) 6.8 H (1.3-6.7) K/mm3 Absolute Nucleated RBC 0.000 (0.0-0.012) K/mm3 Nucleated RBC % 0.0 (0.0-0.2) % Platelet Estimate Adequate (Adequate) Macrocytosis 1+ (NORMAL) Schistocytes None seen PT 13.8 (11.1-14.7) Seconds INR 1.0 APTT 38.7 H (22.3-36.8) Seconds Sodium 133 L (137-145) mmol/L Potassium 4.0 (3.4-5.0) mmol/L Chloride 101 (98-107) mmol/L Carbon Dioxide 29 (22-30) mmol/L Anion Gap 3 L (4-12) mmol/L BUN 31 H (9-20) mg/dL Creatinine 1.12 1.30 (0.7-1.3) mg/dL Estim Creat Clear Calc 52 45 ml/min Estimated GFR > 60 54 L (59 - ) Glucose 138 H (65-110) mg/dL Calcium 9.1 (8.4-10.2) mg/dL Total Bilirubin 0.6 (0.2-1.3) mg/dL AST 34 (17-59) U/L ALT 18 (6-50) U/L Alkaline Phosphatase 114 (38-126) U/L Total Protein 7.0 (6.3-8.2) g/dL Albumin 3.2 L (3.5-5.1) g/dL Imaging Data Radiologist's impression: ITS Impressions Chest X-Ray 11/10/24 15:15 IMPRESSION: Interval development of bilateral pleural effusions (large on the right, and small on left) with additional findings in the right mid to lower lung field suggesting atypical pneumonia. Chest CTA 11/10/24 16:39 IMPRESSION: No pulmonary embolus. No aortic dissection. Expected findings within the right hemithorax, given patient's recent pleurodesis approximately 3 days earlier. ECG Data EKG #1: ECG completion date: 11/10/24 ECG completion time: 17:56 EKG Interpretation: tachycardia (127), sinus rhythm, PVCs, normal QRS, normal QT and NL axis Discharge Plan Discharge Clinical Impression: Dyspnea, Sinus tachycardia Patient Disposition: Home, Self-Care Condition: Stable Additional Instructions: Return to an ER immediately should you develop chest pain, you have severe shortness of breath, you lose consciousness, you have additional concerns. You need to contact your surgeon tomorrow morning about a close follow-up appointment. Do not take your evening dose of metoprolol. Patient Language: German Prescriptions: No Action cetirizine [Zyrtec] 10 mg tablet 10 mg PO DAILY PRN (Reason: ALLERGIES) furosemide [Lasix] 20 mg tablet 20 mg PO QAM PRN (Reason: edema) Qty: 30 0RF colesevelam [WelChol] 625 mg tablet 1,250 mg PO BID Qty: 360 1RF (DME) Home Nebulizer See Rx Instructions .Route .MEDSUPPLY Qty: 1 0RF Rx Instructions: As directed aspirin [Adult Low Dose Aspirin] 81 mg tablet,delayed release (DR/EC) 81 mg PO HS clopidogrel 75 mg tablet 75 mg PO DAILY multivitamin Tablet 1 tablet PO DAILY cyanocobalamin (vitamin B-12) 1,000 mcg/mL solution 1,000 mcg IM MONTHLY Qty: 1 6RF triamcinolone acetonide [Kenalog] 40 mg/mL suspension 40 mg IM ONCE Qty: 1 3RF Rx Instructions: Q 3 months WITH VITAMIN B-12 budesonide 3 mg capsule,delayed,extend.release 9 mg PO DAILY MDD 9 mg 56 Days Qty: 168 0RF Rx Instructions: 3 tablets once a day in the mornings esomeprazole magnesium [Nexium 24HR] 20 mg Capsule,Delayed Release(Dr/Ec) 20 mg PO DAILY potassium chloride 10 mEq tablet extended release 10 meq PO PRN PRN (Reason: edema) Rx Instructions: administer when patient takes furosemide folic acid 1 mg tablet 1 mg PO DAILY allopurinol 300 mg tablet 300 mg PO .Mon/Wed/Fri tadalafil [Cialis] 5 mg tablet 5 mg PO HS vitamin B complex [Vitamins B Complex] Tablet 1 tablet PO EVERY OTHER DAY albuterol sulfate 90 mcg/actuation HFA aerosol inhaler 2 inh inhalation Q4-6H PRN (Reason: shortness of breath or wheezing) Qty: 8.5 1RF albuterol sulfate 2.5 mg /3 mL (0.083 %) solution for nebulization 2.5 mg inhalation Q4-6H PRN (Reason: shortness of breath or wheezing) Qty: 90 3RF tamsulosin 0.4 mg capsule 0.4 mg PO DAILY Qty: 90 1RF atorvastatin 40 mg tablet See Rx Instructions .ROUTE .COMPLEX Qty: 90 0RF Dose Instruction: TAKE 1 TABLET BY MOUTH DAILY. DISCONTINUE THE ATORVASTATIN 80 MG Rx Instructions: TAKE 1 TABLET BY MOUTH DAILY. DISCONTINUE THE ATORVASTATIN 80 MG losartan-hydrochlorothiazide 100-25 mg tablet See Rx Instructions .ROUTE .COMPLEX Qty: 90 0RF Dose Instruction: TAKE 1 TABLET BY MOUTH DAILY Rx Instructions: TAKE 1 TABLET BY MOUTH DAILY metoprolol tartrate 100 mg tablet See Rx Instructions .ROUTE .COMPLEX Qty: 180 0RF Dose Instruction: TAKE 1 TABLET BY MOUTH TWICE DAILY Rx Instructions: TAKE 1 TABLET BY MOUTH TWICE DAILY temazepam 30 mg capsule 30 mg PO QHS PRN (Reason: sleep) Qty: 30 0RF lorazepam 0.5 mg tablet 0.5 mg PO TID PRN (Reason: Anxiety) Qty: 60 0RF Follow-up/Referrals: courtney aragon [Other] - 1 Day Christiano Almaguer MD [Primary Care Provider] - 1 Week
[2024-11-10 15:57] LABS: Basophils Percent Auto 0.4 % (0.2-1.2); Eosinophils Percent Auto 0.4 % (0-4.4); Hematocrit 28.6 % (42.0-52.0); Hemoglobin 9.3 g/dL (14.0-18.0); Immature Granulocyte Absolute 0.06 K/mm3 (0.00-0.031); Immature Granulocyte Percent A 0.7 % (0-0.5); Lymphocytes Absolute Auto 0.49 K/mm3 (0.9-3.2); Lymphocytes Percent Auto 6.1 % (18.3-44.2); Mean Corpuscular HGB Conc 32.5 g/dl (32-36); Mean Corpuscular Hemoglobin 34.7 pg (26-34); Mean Corpuscular Volume 106.7 fl (80-100); Monocytes Absolute Auto 0.7 K/mm3 (0.1-0.6); Monocytes Percent Auto 8.3 % (2.6-8.5); Neutrophils Absolute Auto 6.8 K/mm3 (1.3-6.7); Neutrophils Percent Auto 84.1 % (45.5-73.1); Platelet Count Result 250 k/mm3 (150-375); Red Blood Count 2.68 M/mm3 (4.6-6.20); Red Cell Distribution Width 13.6 % (11.5-14.5)
[2024-11-10 16:02] LABS: Estimated CRCL calculation 45 ml/min; Estimated Glomerular Filt Rate 54
[2024-11-10 16:08] LABS: Prothrombin Time 13.8 Seconds (11.1-14.7)
[2024-11-10 16:09] LABS: Partial Thromboplastin Time 38.7 Seconds (22.3-36.8)
[2024-11-10 16:18] LABS: Alanine Aminotransferase 18 U/L (6-50); Albumin Level 3.2 g/dL (3.5-5.1); Alkaline Phosphatase 114 U/L (38-126); Anion Gap 3 mmol/L (4-12); Aspartate Amino Transferase 34 U/L (17-59); Bilirubin,Total 0.6 mg/dL (0.2-1.3); Blood Urea Nitrogen 31 mg/dL (9-20); Calcium 9.1 mg/dL (8.4-10.2); Carbon Dioxide 29 mmol/L (22-30); Chloride 101 mmol/L (98-107); Estimated CRCL calculation 52 ml/min; Estimated Glomerular Filt Rate > 60; Glucose 138 mg/dL (65-110); Sodium 133 mmol/L (137-145)
[2024-11-10 16:19] LABS: Macrocytosis 1+ (NORMAL); Platelet Estimate Adequate (Adequate)
[2024-11-10 16:20] LABS: Schistocytes None Seen
[2024-11-10 17:22] VITALS: BP 135/60; PULSE 108; RESP 19; TEMP 36.6; O2SAT 96
--- NOTE | 2024-11-10 17:35 | ECG_ITS ---
Test Date: 2024-11-10 17:56:43 Measurements Intervals [place] Rate: 127 P: 21 [place]: 120 QRS: 12 QRSD: 105 T: 34 QT: 310 QTc: 452 Interpretive Statements SINUS TACHYCARDIA WITH OCCASIONAL VENTRICULAR PREMATURE COMPLEXES NONSPECIFIC ST & T-WAVE ABNORMALITY ABNORMAL RHYTHM ECG Compared to ECG 08/13/2024 20:11:48 Ventricular premature complex(es) now present T-wave abnormality now present Sinus bradycardia no longer present Electronically Signed On 11-11-2024 21:55:29 HOUSEKEEPING AID by Mustapha Conway M.D.
[2024-11-10 18:01] VITALS: BP 150/77; PULSE 127; RESP 20; O2SAT 97
[2024-11-10] MEDS: SODIUM CHLORIDE 0.9% IV 1,000 ML 999 ML IV CONT (18:02)
[2024-11-10 18:27] VITALS: BP 170/75; PULSE 120; RESP 15; O2SAT 97
[2024-11-10 19:29] VITALS: BP 150/73; PULSE 132; RESP 23; TEMP 36.6; O2SAT 93
--- NOTE | 2024-11-10 19:31 | PC.NURSE ---
pt verbalized taking metoprolol 2nd dose tonight at home at time of discharge.
== END 2024-11-10 19:32 | disposition home or self-care (01) ==
PROVIDERS: Emergency Provider Emergency Medicine; PCP Internal Medicine
DX: R06.00 Dyspnea, unspecified (principal); R00.0 Tachycardia, unspecified; I25.10 Atherosclerotic heart disease of native coronary artery without angina pectoris; I73.9 Peripheral vascular disease, unspecified; J44.9 Chronic obstructive pulmonary disease, unspecified; E78.5 Hyperlipidemia, unspecified; E53.8 Deficiency of other specified B group vitamins; L40.9 Psoriasis, unspecified; Z66 Do not resuscitate; Z95.820 Peripheral vascular angioplasty status with implants and grafts; Z95.1 Presence of aortocoronary bypass graft; Z87.891 Personal history of nicotine dependence; Z86.0100 Personal history of colon polyps, unspecified; Z90.49 Acquired absence of other specified parts of digestive tract; Z90.2 Acquired absence of lung [part of]; Z79.82 Long term (current) use of aspirin; Z79.899 Other long term (current) drug therapy; Z79.02 Long term (current) use of antithrombotics/antiplatelets; I49.3 Ventricular premature depolarization; R94.31 Abnormal electrocardiogram [ECG] [EKG]
CPT/HCPCS: 36415; 71046; 71275; 80053; 85025; 85610; 85730; 93005; 96360; 99284; J7030; Q9967

== ENCOUNTER 2024-12-03 11:22 | Outpatient (CLI) | payer MEDICARE, SELFPAY ==
--- NOTE | ~2024-12-03 | CT_ITS ---
EXAMINATION: CT chest abdomen pelvis w con DATE: 12/03/2024 12:10 INDICATION: Fever TECHNIQUE: Computed tomography (CT) of the chest, abdomen, and pelvis was performed with 100 mL Omnip aque-350 intravenous contrast. Automated exposure control and iterative reconstruction technique were employed. The dose-length product was 714.53 mGy-cm. COMPARISON: Chest CT dated 11/10/[address] abdomen and pelvis dated 08/13/2024 FINDINGS: CHEST CT: Moderate emphysema. Moderate emphysema. Status post right lower lobectomy. Complex small right hydrop neumothorax with interval decrease in a small amount of gas loculated throughout predominantly the de pendent aspect of the pleural effusion. There is curvilinear high attenuation at the periphery of the effusion consistent with the recent pleurodesis. Minimal atelectasis left lung base. No pneumonia, p ulmonary edema, pneumothorax or left-sided pleural effusion. Mild cardiomegaly. Atherosclerotic coron chas artery calcification with change of prior median sternotomy and coronary artery bypass grafting.. No pericardial effusion. Thoracic aorta is normal in caliber with no dissection. No pathologically e nlarged thoracic lymphadenopathy. Severe thoracic spondylosis with chronic mild anterior wedging of a few mid and lower thoracic vertebral bodies. ABDOMEN/PELVIS CT: Cholecystectomy clips the gallbladder fossa. Liver, pancreas and bilateral adrenal glands are normal. Mild splenomegaly measuring 14.2 cm) caudal length. Multiple bilateral renal cysts the largest on th e left measuring 7.2 cm in maximal diameter. There is calcified atherosclerosis without hemodynamical ly since and stenosis of the aorta and many of the other arteries including atherosclerotic calcifica tions at the bilateral renal kerwin. There is moderate colonic diverticulosis with a sigmoid predominan ce. There is no adjacent inflammatory change to suggest diverticulitis. No bowel obstruction. Bladde r is normal. No free intraperitoneal gas or fluid. No pathologically enlarged abdominal or pelvic lym phadenopathy. Partially visualized right hydrocele. L5 spondylolysis with bilateral pars in particula r is defects and 4 mm anterolisthesis on S1. Mild lumbar spondylosis. IMPRESSION: 1. Thin linear high attenuation at the periphery of a small complex right hydropneumothorax with decr ease in the gas component consistent with evolving changes of a recent pleurodesis. 2. Moderate emphysema with prior right lower lobectomy. 3. No acute intra-abdominal/pelvic process. 4. Moderate diverticulosis. 5. Small right hydrocele. Reviewed, dictated and finalized at location A. NT SERVICE ADMINISTRATOR IMPRESSION: 1. Thin linear high attenuation at the periphery of a small complex right hydro pneumothorax with decrease in the gas component consistent with evolving change s of a recent pleurodesis. 2. Moderate emphysema with prior right lower lobectomy. 3. No acute intra-abdominal/pelvic process. 4. Moderate diverticulosis. 5. Small right hydrocele.
--- NOTE | ~2024-12-03 | CT_ITS ---
EXAMINATION: CT brain wo/w con DATE: 12/03/2024 12:10 INDICATION: Fever, unspecified. TECHNIQUE: Computed tomography (CT) of the head was performed without and with 100 mL Omnipaque 350 i ntravenous contrast. The mA was adjusted according to patient size. Iterative reconstruction techniqu e was employed. The dose-length product was 1362.00 mGy-cm. COMPARISON: Head CT 06/13/2019, brain MRI 06/14/2019 FINDINGS: There are scattered areas of low attenuation in the cerebral white matter, which is within normal limits for the patient's age. There is a prominent perivascular space in the right basal gangl ia. There is no intracranial hemorrhage, acute infarction, or abnormal intracranial mass lesion. The ventricles are normal in size. There is mild mucosal thickening in the paranasal sinuses. There are l ikely changes of ocular lens replacement surgeries. The mastoid air cells are normal. There are 2 rig ht-sided jacob holes. IMPRESSION: 1. Normal aging brain. Reviewed, dictated and finalized at location A. T COORDINATOR IMPRESSION: 1. Normal aging brain.
--- OUTSIDE RECORDS SUMMARY | 2024-12-03 12:01 | XMS_ITS | CONTINUITY OF CARE DOCUMENT ---
Author Name priscilla wells Address Unknown Organization [facility] Address [address] [place] [address] Phone [phone] Care Team Providers Care Bender Machine Name Role Phone priscilla wells Unavailable Unavailable INSURANCE PROVIDERS Payer name Policy type / Coverage type Dillard red green party ID [facility] [employer] 9 [id number]
--- OUTSIDE RECORDS SUMMARY | 2024-12-03 12:01 | XMS_ITS | Clinical Summary ---
Author Organization [facility] Address [address] [place] [address] Care Team Providers Care Senior Reservations Agent Name Role Phone Anoop Sanders MD Unavailable Joseluis Juárez MD Unavailable [phone] Christiano Almaguer MD Primary Care Provider [phone] Anoop Barbosa MD Unavailable Bernabe Garcia MD Unavailable Allergies No known active allergies Medications aspirin 81 mg tablet Take 1 tablet (81 mg total) by mouth nightly Active melatonin 10 mg tablet Take 1 tablet (10 mg total) by mouth nightly as needed for sleep Active metoprolol XL (TOPROL-XL) 100 mg 24 hr tablet Take 1 tablet (100 mg total) by mouth 2 (two) times a day Active losartan-hydro chlorothiazide (HYZAAR) 100-25 mg per tablet Take 1 tablet by mouth daily Active tamsulosin (FLOMAX) 0.4 mg extended release capsule Take 1 capsule (0.4 mg total) by mouth daily Active LORazepam (ATIVAN) 0.5 mg tablet Take 1 tablet (0.5 mg total) by mouth 3 (three) times a day as needed for anxiety 06/12/20 23 Active folic acid (FOLVITE) 1 mg tablet Take 1 tablet (1 mg total) by mouth daily 05/08/20 23 Active albuterol HFA (PROVENTIL HFA,VENTOLIN HFA,PROAIR HFA) 90 mcg/actuation inhaler Inhale 2 puffs every 6 (six) hours as needed for wheezing or shortness of breath 06/09/20 23 Active atorvastatin (LIPITOR) 80 mg tablet Take 1 tablet (80 mg total) by mouth nightly Active allopurinoL (ZYLOPRIM) 300 mg tablet Take 1 tablet (300 mg total) by mouth 3 (three) times a week Mondays, Wednesdays, and Fridays Active clopidogreL (PLAVIX) 75 mg tablet TAKE 1 TABLET(75 MG) BY MOUTH DAILY 30 tablet 11 08/07/20 24 Active budesonide EC (ENTOCORT EC) 3 mg 24 hr capsule Take 3 capsules (9 mg total) by mouth every morning Active acetaminophen 500 mg capsule Take 2 capsules (1,000 mg total) by mouth every 6 (six) hours as needed for pain 10/25/20 24 Active amLODIPine (NORVASC) 10 mg tablet Take 1 tablet (10 mg total) by mouth daily 30 tablet 1 10/26/20 24 Active traMADoL (ULTRAM) 50 mg tablet Take 1 tablet (50 mg total) by mouth every 4 (four) hours as needed for pain 40 tablet 11/19/19 25 Active fluticasone-um eclidin-vilant er (Trelegy Ellipta) 200-62.5-25 mcg inhaler Inhale 1 puff daily 60 each 1 11/25/19 25 Active temazepam (RESTORIL) 30 mg capsuleIndicat ions:Insomnia Take 1 capsule (30 mg total) by mouth nightly as needed for sleep 025 Discontinued(Al ternate therapy) traMADoL (ULTRAM) 50 mg tablet Take 1 tablet (50 mg total) by mouth every 6 (six) hours as needed for pain 20 tablet 10/25/20 24 025 Discontinued Active Problems Problem Noted Date Diagnosed Date Hydropneumothorax 11/06/2024 Cancer of lower lobe of right lung 10/18/2024 Malignant neoplasm of lower lobe of right lung 1 12/09/2023 Adenocarcinoma of right lung 10/02/2024 COLD (chronic obstructive lung disease) 02/22/20 Assessment & Plan (03/11/2024 11:41 AM CDT): Sx are stable PFTs reveal moderate obstructive ventilatory defect and mildly reduced DLCO Recs: 1) Extensively counseled re: continued tobacco cessation 2) Discussed role of bronchodilators - hold off due to lack of significant sx 3) Stay as active as able -diet and lifestyle modifications discussed to achieve weight loss 4) Stay uptodate with health maintenance/vaccinations Nodule of lower lobe of right lung 07/25/2023 Assessment & Plan (03/11/2024 11:42 AM CDT): PET scan is reassuring CT chest from 02/20 is relatively reassuring Recs: 1) CT chest in 09/22 Assessment & Plan (11/09/2023 9:51 AM IPHONE DEVELOPER): PET scan is reassuring Recs: 1) CT chest in January 2024 Assessment & Plan (07/25/2023 1:30 PM CDT): Radiology report notes 1.6 cm opacity in the right lung base, previously 1.3 cm in 2021 and 0.8 cm in 2016, favored to be round atelectasis However, his risk factors make this worrisome Discussed the next steps in Rx such as pursuing a bx vs doing a PET scan - proximity of diaphragm may interfere with PET scan After extensive discussion and shared decision making, we have decided to pursue PET scan Recs: 1) PET scan Popliteal aneurysm (CMS/HCC) 07/27/2022 Assessment & Plan (07/27/2022 11:36 AM CDT): Repaired with stent in 2019. Mild-moderate in-stent stenosis. Moderate with repeat duplex scan in six months. PAD (peripheral artery disease) 03/18/2020 Assessment & Plan (03/01/2021 11:39 AM CDT): Excellent lower extremity arterial perfusion. Monitor with repeat ABIs and left leg Duplex in one year. Our office will contact him to make the appointment when the time comes. Atherosclerosis of onondaga ar nasir of left lower extremity with intermittent claudication 10/11/2019 Overview (10/11/2019): Added automatically from request for surgery [id number] Assessment & Plan (12/04/2019 10:16 AM IPHONE DEVELOPER): S/p left SFA stent with resolution of left calf claudication. Arrange new baseline CORTEZ with Duplex scan of left leg in one month. Asymptomatic stenosis of right carotid artery Assessment & Plan (07/27/2022 11:35 AM CDT): Asymptomatic right ICA stenosis. Repeat six month carotid doppler for observation. Assessment & Plan (12/08/2021 1:00 PM IPHONE DEVELOPER): Stable right ICA stenosis. Continue to monitor with repeat carotid Doppler in six months. He'll be due for follow-up lower extremity arterial Doppler/Duplex and an abdominal aortic Duplex in six months as well. We'll coordinate his vascular studies. Assessment & Plan (09/13/2021 12:18 PM IPHONE DEVELOPER): Asymptomatic progressive right ICA stenosis that is severe based on velocity criteria. We'll arrange CTA of the neck for further evaluation. If his right ICA stenosis is severe on CTA; we'll recommend a prophylactic right carotid endarterectomy. Assessment & Plan (03/01/2021 11:38 AM CDT): Stable and asymptomatic right ICA stenosis. Monitor with repeat carotid Doppler in six months. Certainly if there are interval problems, we would be happy to see him sooner. Assessment & Plan (12/04/2019 10:16 AM IPHONE DEVELOPER): elevated velocities within right ICA on prior Doppler. CTA demonstrated a 50% stenosis with some tortuosity/irregulatiry. Due for repeat carotid Doppler in one month. Claudication 09/25/2019 Tobacco abuse 12/19/2018 Overview (12/19/2018): 1.5 pack per day from age 14 to age 68 Assessment & Plan (03/11/2024 11:42 AM CDT): As above. He stopped smoking January 2024 but is still craving cigarettes Pharmacologic assistance discussed - wants to hold off for now Assessment & Plan (11/09/2023 9:51 AM IPHONE DEVELOPER): As above. He wants to think about and let me know if he would like pharmacologic assistance Assessment & Plan (07/25/2023 1:31 PM CDT): As above. He wants to think about and let me know if he would like pharmacologic assistance Assessment & Plan (12/19/2018 6:33 PM IPHONE DEVELOPER): Discussed with patient lung cancer screening once per year Smoking cessation using nicotine gum will be initiated Quantitate with PFTs his current impairment Centrilobular emphysema 12/19/2018 Overview (12/19/2018): CT confirmed 02/09/2018 Assessment & Plan (11/09/2023 9:51 AM IPHONE DEVELOPER): Sx are stable PFTs reveal moderate obstructive ventilatory defect and mildly reduced DLCO Recs: 1) Extensively counseled re: need for tobacco cessation - pharmacologic assistance discussed 2) Discussed role of bronchodilators - hold off due to lack of significant sx 3) Stay as active as able -diet and lifestyle modifications discussed to achieve weight loss 4) Stay uptodate with health maintenance/vaccinations Assessment & Plan (07/25/2023 1:31 PM CDT): Last PFTs reviewed CT chest confirms upper lobe predominant emphysema Recs: 1) Repeat PFTs 2) Extensively counseled re: need for tobacco cessation - pharmacologic assistance discussed 3) Stay as active as able -diet and lifestyle modifications discussed to achieve weight loss 4) Stay uptodate with health maintenance/vaccinations Assessment & Plan (12/19/2018 6:31 PM IPHONE DEVELOPER): Currently exercise limitations due more to arthritis then to shortness of breath Quit smoking, will try Nicorette gum, failed Chantix in the past Quantitate with PFTs Check alpha-1 antitrypsin level Yearly flu shot Make sure he has had both the pneumonia 23 and Prevnar 13 shot Further recommendations to follow Bilateral lower extremity edema 04/11/2017 Abdominal aortic aneurysm (AAA) without rupture 01/05/2017 Overview (03/24/2017): Abdominal aortic aneurysm (AAA) without rupture Assessment & Plan (07/27/2022 11:35 AM CDT): Small AAA. Monitor with annual duplex or we can review his annual CT images usually performed in March. Assessment & Plan (03/01/2021 11:38 AM CDT): Ectatic infrarenal abdominal aorta -Continue to monitor with a repeat Duplex scan in one year. Assessment & Plan (12/04/2019 10:17 AM IPHONE DEVELOPER): Small AAA. Monitor with annual Duplex scans. Essential (primary) hypertension 01/05/2017 Overview (03/24/2017): Essential hypertension Assessment & Plan (11/20/2018 4:02 AM IPHONE DEVELOPER): Continue home metoprolol, hydrochlorothiazide, Cozaar. 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 The last episode woke him up out of sleep. He had a mildly elevated troponin at 0.05. His EKG is been nonischemic. He underwent a cardiac catheterization at the outside facility and he was felt to be too complicated to be pursued there. Thus he was transferred here for further evaluation. He has been made NPO. His it auditor Dr. Rader has been consulted. We will continue aspirin, Plavix, losartan, metoprolol. We will also continue full-dose anticoagulation for now. We will trend troponins. Postnasal drip 04/06/2016 10/17/2019 Overview (02/02/2017): Post-nasal drip Encounters Date Type Department Care Team Description 11/25/2024 Telephone [facility] [address] [place] [address] Gokul Gomez MA Medical Question/Miscellaneous 11/19/2024 9:45 AM IPHONE DEVELOPER Office Visit Cardiovascular and Thoracic Surgery [address] [place] [address] Anoop Barbosa MD Aftercare following surgery of the respiratory system (Primary Dx) 11/19/2024 8:15 AM IPHONE DEVELOPER - 11/19/2024 11:59 PM IPHONE DEVELOPER Hospital Encounter [facility] [address] [place] [phone] Aftercare following surgery of the respiratory system; Postprocedural pneumothorax Discharge Disposition: Discharge to home or self care 11/12/2024 Telephone [facility] Thoracic Surgery [address] [place] [address] Nora Schneider RN return call 11/12/2024 Telephone [facility] Thoracic Surgery [address] [place] [phone] Nora Schneider RN Post-op Follow-up 11/08/2024 Orders Only [facility] [address] [place] [address] Belkis Grimes MA Malignant neoplasm of lower lobe of right lung (HCC) (Primary Dx) 11/06/2024 5:13 PM IPHONE DEVELOPER Anesthesia Event [facility] Operating Room [address] [place] [phone] Benji Marie MD PhD Erlinger, Samuel John, MD 11/06/2024 2:30 PM IPHONE DEVELOPER - 11/06/2024 4:55 PM IPHONE DEVELOPER Surgery [facility] Operating Room [address] [place] [phone] Pepe Aragon MD Right video assisted thoracic surgery, talc pleurodesis 11/06/2024 12:41 PM IPHONE DEVELOPER - 11/10/2024 11:47 AM IPHONE DEVELOPER Hospital Encounter [address] [address] Anoop Barbosa MD Scharff, Pepe Bowen MD Hydropneumothorax (Primary Dx); Adenocarcinoma of right lung (HCC) [C34.91]; Chronic obstructive pulmonary disease, unspecified COPD type (HCC) [J44.9] Discharge Disposition: Discharge to home or self care 11/06/2024 10:00 AM IPHONE DEVELOPER - 11/06/2024 11:59 PM IPHONE DEVELOPER Hospital Encounter [facility] [address] [place] [address] Chronic obstructive pulmonary disease, unspecified COPD type (HCC) Discharge Disposition: Discharge to home or self care 11/06/2024 9:45 AM IPHONE DEVELOPER Office Visit [facility] [address] [place] [address] Bernabe Garcia MD Malignant neoplasm of lower lobe of right lung (HCC) (Primary Dx); Chronic obstructive pulmonary disease, unspecified COPD type (HCC) 11/06/2024 Telephone [facility] [address] [place] [address] Nora Schneider RN right pneumothorax 11/06/2024 Orders Only [facility] [address] [place] [address] Belkis Grimes MA Chronic obstructive pulmonary disease, unspecified COPD type (HCC) (Primary Dx) 10/29/2024 10:45 AM IPHONE DEVELOPER Office Visit Cardiovascular and Thoracic Surgery [address] [place] [address] Anoop Barbosa MD Aftercare following surgery of the respiratory system (Primary Dx); Postprocedural pneumothorax 10/29/2024 9:00 AM IPHONE DEVELOPER - 10/29/2024 11:59 PM IPHONE DEVELOPER Hospital Encounter [facility] [address] [place] [phone] Pneumothorax on right Discharge Disposition: Discharge to home or self care 10/25/2024 Orders Only [facility] [address] [place] [address] Nora Schneider RN Pneumothorax on right (Primary Dx) 10/18/2024 10:30 AM IPHONE DEVELOPER - 10/18/2024 2:45 PM IPHONE DEVELOPER Surgery [facility] Operating Room [facility] [place] [phone] Anoop Barbosa MD Right video assisted thoracic surgery, right lower lobectomy, mediastinal lymph node dissection 10/18/2024 9:26 AM IPHONE DEVELOPER Anesthesia Event [facility] Operating Room [address] [place] [phone] Jos Larry MD 10/18/2024 8:15 AM IPHONE DEVELOPER - 10/25/2024 4:00 PM IPHONE DEVELOPER Hospital Encounter [address] [phone] Anoop Barbosa MD Malignant neoplasm of lower lobe of right lung (HCC) Discharge Disposition: Discharge to home or self care 10/11/2024 9:40 AM IPHONE DEVELOPER Lab [facility] Outpatient Lab [address] [place] [address] Pre-op evaluation; Malignant neoplasm of lower lobe of right lung (HCC) 10/10/2024 Telephone [facility] [address] [place] [address] [address] [address] Nora Schneider, RN bloodwork 10/10/2024 Orders Only [facility] Surgery [address] [address] Joseluis Juárez MD Stenosis of right carotid artery (Primary Dx) 10/10/2024 Telephone [facility] [address] [place] [address], [place] [address] Nora Schneider, RN Scheduling Appointments 10/09/2024 Documentation [facility] Surgery [address] [address] Belkis Wheeler PA CTA neck results 10/08/2024 10:30 AM IPHONE DEVELOPER Office Visit Cardiovascular and Thoracic Surgery [address] [place] [address] Anoop Barbosa MD Malignant neoplasm of lower lobe of right lung (HCC) (Primary Dx); Nodule of lower lobe of right lung; Lung nodule 10/08/2024 Documentation [facility] [place] [phone] Bety Huitron RC 10/08/2024 Telephone [facility] Surgery [address] [place] [address] Floor 5 [place] [address] Josie Horton 10/07/2024 Telephone [facility] Surgery [address] [place] [address] 5 [place] [address] Elise Larry NP 10/02/2024 1:33 PM IPHONE DEVELOPER - 10/02/2024 11:59 PM IPHONE DEVELOPER Hospital Encounter [facility] Pulmonary [address] [address] Adenocarcinoma of right lung (HCC) Discharge Disposition: Discharge to home or self care 10/02/2024 12:45 PM IPHONE DEVELOPER Office Visit [facility] Surgery [facility] Floor [address] [place] [phone] Mandeep Faulkner MD Adenocarcinoma of right lung (HCC) (Primary Dx); Cigarette nicotine dependence without complication 10/02/2024 Orders Only [facility] Surgery [address] [place] [address] 5 [place] [phone] Mandeep Faulkner MD Adenocarcinoma of right lung (HCC) (Primary Dx) 10/02/2024 Telephone [facility] [address] [place] [phone] Gokul Gomez MA PET scan results 09/30/2024 8:06 AM IPHONE DEVELOPER - 09/30/2024 11:59 PM IPHONE DEVELOPER Hospital Encounter [facility] [address] [place] [address] [facility] Pet Lung nodule Discharge Disposition: Discharge to home or self care 09/27/2024 3:51 PM IPHONE DEVELOPER - 09/27/2024 11:59 PM IPHONE DEVELOPER Hospital Encounter [facility] [place] [address] Stenosis of right carotid artery Discharge Disposition: Discharge to home or self care 09/24/2024 Orders Only [facility] [address] [place] [address] Gokul Gomez MA Lung nodule (Primary Dx) 09/23/2024 Telephone [facility] [address] [facility] [place] [address] Gokul Gomez MA 09/20/2024 Orders Only [facility] Surgery [address] [phone] Joseluis Juárez MD Encounter for surgical aftercare following surgery on the circulatory system (Primary Dx); Infrarenal abdominal aortic aneurysm (AAA) without rupture (HCC) 09/20/2024 Orders Only [facility] Surgery [address] [facility] [address] [place] [address] Joseluis Juárez MD Stenosis of right carotid artery (Primary Dx) 09/20/2024 Telephone [facility] Cardiology [address] [place] [address] Anoop Sanders MD Test Results 09/20/2024 Documentation [facility] Surgery [address] [facility] [address] [place] [address] Belkis Wheeler PA carotid, liza and CT Scan results 09/19/2024 11:19 AM IPHONE DEVELOPER - 09/19/2024 11:59 PM IPHONE DEVELOPER Hospital Encounter [facility] [address] [place] [phone] Discharge Disposition: Discharge to home or self care 09/19/2024 9:30 AM IPHONE DEVELOPER - 09/19/2024 11:59 PM IPHONE DEVELOPER Hospital Encounter [facility] [address] [place] [phone] Discharge Disposition: Discharge to home or self care 09/19/2024 7:43 AM IPHONE DEVELOPER - 09/19/2024 11:59 PM IPHONE DEVELOPER Hospital Encounter [facility] - Interventional Radiology [address] [place] [phone] Discharge Disposition: Discharge to home or self care 09/19/2024 7:30 AM IPHONE DEVELOPER Lab [facility] Outpatient Lab [address] [place] [phone] Pre-procedure lab exam; Coronary artery disease of onondaga artery of onondaga heart with stable angina pectoris (HCC) 09/19/2024 Orders Only [facility] Radiology [address] [place] [phone] Caesar Leung MD 09/19/2024 Orders Only [facility] [address] [place] [phone] Laureano Sheikh RN 09/18/2024 Telephone [facility] Radiology [facility] [place] [address] Laureano Sheikh RN 09/18/2024 Orders Only [facility] [address] [place] [phone] Laureano Sheikh, RN Pre-procedure lab exam (Primary Dx); Coronary artery disease of onondaga artery of on[place]aga heart with stable angina pectoris (HCC) 09/11/2024 9:15 AM IPHONE DEVELOPER Office [facility] [address] [facility] [place] [phone] Bernabe Garcia MD Abnormal chest CT (Primary Dx) 09/11/2024 Telephone Radiology 1 [place] [address] Caesar Leung MD 09/10/2024 2:30 PM IPHONE DEVELOPER Ancillary Procedure [facility] Surgery [address] [place] [phone] Encounter for surgical aftercare following surgery on the circulatory system 09/10/2024 1:45 PM IPHONE DEVELOPER Ancillary Procedure [facility] Surgery [address] [place] [phone] Asymptomatic stenosis of right carotid artery; Encounter for surgical aftercare following surgery on the circulatory system 09/09/2024 8:19 AM IPHONE DEVELOPER - 09/09/2024 11:59 PM IPHONE DEVELOPER Hospital Encounter [facility] [address] [place] [phone] Chronic obstructive pulmonary disease, unspecified COPD type (HCC); Lung nodule; Tobacco abuse Discharge Disposition: Discharge to home or self care 09/09/2024 8:19 AM IPHONE DEVELOPER - 09/09/2024 11:59 PM IPHONE DEVELOPER Hospital Encounter [facility] [address] [place] [phone] Anoop Sanders MD Abdominal aortic aneurysm (AAA) without rupture, unspecified part (HCC) Discharge Disposition: Discharge to home or self care from Last 3 Months Immunizations Name Administration Dates Next Due Hep A / Hep B 01/22/2014,12/27/2013 Influenza, Unspecified 08/30/2014,08/27/2013,08/2012 Tdap 12/02/2019,01/22/2014 Typhoid Inactivated 12/27/2013 ZOSTER LIVE 09/11/2013 ZOSTER Recombinant 08/11/2020 Surgical History Surgery Date Site/Laterality Comments SUBDURAL HEMATOMA EVACUATION VIA CRANIOTOMY ELBOW SURGERY CHOLECYSTECTOMY APPENDECTOMY TOE SURGERY Pinning of the great toe - right CORONARY ARTERY BYPASS GRAFT 12/28/2016 - 01/27/2017 BRAMBILA to the LAD, SVG to the OM1, SVG to PDA branch of occluded RCA POPLITEAL ARTERY STENT 10/30/2019 - 10/29/[address] Joseluis Juárez CORONARY STENT PLACEMENT 10/30/2018 - 10/29/2019 Left main into prox/mid LCX LUNG LOBECTOMY 10/18/2024 Right lower lobe THORACOSCOPY W/ TALC PLEURODESIS 11/06/2024 Right Medical History Medical History Date Comments Hx Other Medical Subdural Hemato ma w/drain Chronic coronary artery disease 2016 CABG Anoop Blas MD Pleural effusion Hypertension Hyperlipidemia AAA (abdominal aortic aneurysm) (HCC) 3.5 centimeters Gout Anemia Nausea Myocardial infarction (HCC) Emphysema of lung (HCC) Subdural hematoma (HCC) Peripheral vascular disease (HCC) Follows with Dr. Joseluis Juárez Family History Medical History Relation Name Comments Stent Brother 2 Coronary Stent Placement; Stent Father Coronary Stent Placement; Alzheimer's disease Mother Alzheime r's Disease; Cause of : Alzheimer's Disease Multiple sclerosis Son Relation Name Status Comments Brother 1 Alive Brother 2 Father Alive Mother (Age 81) Son Social History Tobacco Use Types Packs/Day Years Used Date Smoking Tobacco: Former Cigarettes Q uit: 2023 Smokeless Tobacco: Never Tobacco Cessation:Counseling Given: Not Answered Comments:less than 1 ppd now Alcohol Use Standard Drinks/Week Comments Yes 0 (1 standard drink = 0.6 oz pur e alcohol) social [employer] Utilities Answer Date Recorded In the past 12 months has e [employer], gas, oil, or water company threatened to shut off services in your home? No 11/07/2024 Social Connection and Isolat ion Panel [NHANES] Answer Date Recorded In a typical week, how many times do you talk on the phone with family, friends, or neighbors? More than three times a week 11/07/2024 How often do you get togethe r with friends or relatives? More than three times a week 11/07/2024 How often do you attend chur ch or yazdanism services? Never 11/07/2024 Do you belong to any clubs o r organizations such as zoroastrian groups, unions, fraternal or athletic groups, or school groups? Yes 11/07/2024 How often do you attend meet ings of the clubs or organizations you belong to? More than 4 times per year 11/07/2024 Are you , , di vorced, , never , or living with a partner? Living with partner 11/07/2024 AUDIT-C Answer Date Recorded Q1: How often do you have a drink containing alc ohol? 2-4 times a month 11/06/2024 Q2: How many drinks containi ng alcohol do you have on a typical day when you are drinking? 3 or 4 11/06/2024 Q3: How often do you have si x or more drinks on one occasion? Never 11/06/2024 Overall Financial Resource Strain (CARDIA) Answe r Date Recorded How hard is it for you to pa y for the very basics like food, housing, medical care, and heating? Not hard at all 11/07/2024 PHQ-2 Answer Date Recorded PHQ-2 Total Score (If total score is 3 or more points, staff should administer the PHQ-9) 0 09/11/2024 Hunger Vital Sign Answer Date Recorded Within the past 12 months, y ou worried that your food would run out before you got the money to buy more. Never true 11/07/19 25 Within the past 12 months, t he food you bought just didn't last and you didn't have money to get more. Never true 11/07/2024 PRAPARE - Transportation Answer Date Re corded In the past 12 months, has l ack of transportation kept you from medical appointments or from getting medications? No 06/2025 In the past 12 months, has l ack of transportation kept you from meetings, work, or from getting things needed for daily living? No 11/07/2024 Housing Stability Vital Sign Answer Carlos e Recorded In the last 12 months, was t here a time when you were not able to pay the mortgage or rent on time? No 11/07/2024 In the past 12 months, how m any times have you moved where you were living? 0 11/07/2024 At any time in the past 12 m [facility], were you homeless or living in a custodial (including now)? No 11/07/2024 Personal Safety Answer Date Recorded Have you ever been in or are you currently in a harmful physical or emotional relationship or is someone making you feel afraid or unsafe? Denies 11/06/2024 Sex and Gender Information Value Date Recorded Sex Assigned at Not on file Legal Sex Male 3:47 PM IPHONE DEVELOPER Gender Identity Male 05/20/2020 7:24 AM CDT Sexual Orientation Not on file Obstetrics History Last Filed Vital Signs Vital Sign Reading Time Taken Comments Blood Pressure 118/58 11/19/2024 8:52 AM IPHONE DEVELOPER Pulse 66 11/19/2024 8:52 AM IPHONE DEVELOPER Regul ar Temperature 36.7 ??C (98 ??F) 11/10/2024 7:50 AM IPHONE DEVELOPER Respiratory Rate 14 11/19/2024 8:52 AM IPHONE DEVELOPER Oxygen Saturation 94% 11/10/2024 7:50 AM IPHONE DEVELOPER Inhaled Oxygen Concentration - - Weight 85.3 kg (188 lb) 11/19/2024 8:52 AM IPHONE DEVELOPER Height 177.8 cm (5' 10 ) 11/06/2024 2:55 PM IPHONE DEVELOPER Body Mass Index 26.98 11/06/2024 2:55 PM IPHONE DEVELOPER Plan of Treatment Health Maintenance Due Date Last Done Comments Colon Cancer Screening-Colonoscopy 1950 Hepatitis C Screening 1950 Pneumococcal vaccine 65+ (1 of 2 - PCV) 1955 Well Visit 65+ 2014 Zoster Vaccine (3 of 3) 10/06/2020 08/11/2020, 09/11 Influenza Vaccine (#1) 2024 4, 08/27/2013, 10/09/2012 Depression Screening 09/11/2025 09/11/2024, 03/11/20 24 Fall Risk Assessment 11/10/2025 11/10/2024 DTaP/Tdap/Td Vaccine (3 - Td or Tdap) 12/02/2029 12/02/2019, 01/22/2014 Abdominal Aortic Aneurysm (A AA) Screen Completed 09/20/2024, 09/09/2024, 09/09/2024, Additional history exists Medical Devices Implanted Type Area Car Conditioner Device Identifier Shelf Expiration Date Model / Serial / Lot Lonnie Efrain [id number] Device Closure Angio-Seal Vip Bondek-Plus Polyglyd L70 Cm Od6 Fr Odsec.035 In Vascular - Sn/A - [id number] Implanted:Qty : 1 on 11/07/2019 by Joseluis Juárez MD at [facility] Other - see comments Right: Groin Storwizeg Efrain/[employer] 05/29/2020 [id number] / N/A / [id number] Bard Peripheral Vascular [id number] Lifestent 6mm 6fr 40mm 130cm Self Expand Catheter Helical - Sn/A - [id number] Implanted:Qty : 1 on 11/07/2019 by Joseluis Juárez MD at [facility] Stent Left: Arterial Bard Peripheral Vascular [id number] 02/22/2021 [id number] / N/A / [id number] Description:Left popliteal a rtery [employer] Efrain [id number] Synergy 4mm 38mm 144cm Radiopaque 1 Access Port Inflation Lumen - [id number] Implanted:Qty : 1 on 11/20/2018 by Ike Coleman MD at [facility] N/A: Coronary [employer] Efrain 07/09/2020 [id number] / / [id number] Description:Circumflex [employer] E[employer]rain [id number] Synergy 3.5mm 16mm 144cm Radiopaque 1 Access Port Inflation Lumen - [id number] Implanted:Qty : 1 on 11/20/2018 by Ike Coleman MD at [facility] N/A: Coronary [employer] Efrain 06/19/2020 [id number] / / [id number] Description:Circumflex Procedures Procedure Name Priority Date/Time Associated Diagnosis Comments XR CHEST PA LATERAL 2 VIEWS Schedule Routine, Read Routine (OP Routine) 11/19/2024 8:29 AM IPHONE DEVELOPER Aftercare following surgery of the respiratory system Postprocedural pneumothorax XR CHEST 1 VIEW IP Routine 11/10/2024 6:07 AM IPHONE DEVELOPER EGFR Routine 11/10/2024 12:58 AM IPHONE DEVELOPER BASIC METABOLIC PANEL Routine 11/10/2024 12:58 AM IPHONE DEVELOPER CBC WITHOUT DIFFERENTIAL Routine 11/10/2024 12:58 AM IPHONE DEVELOPER XR CHEST 1 VIEW IP Routine 11/09/2024 11:40 AM IPHONE DEVELOPER XR CHEST 1 VIEW IP Routine 11/09/2024 6:20 AM IPHONE DEVELOPER EGFR Routine 11/09/2024 12:43 AM IPHONE DEVELOPER BASIC METABOLIC PANEL Routine 11/09/2024 12:43 AM IPHONE DEVELOPER CBC WITHOUT DIFFERENTIAL Routine 11/09/2024 12:43 AM IPHONE DEVELOPER EGFR Timed 11/08/2024 3:53 PM IPHONE DEVELOPER BASIC METABOLIC PANEL Timed 11/08/2024 3:53 PM IPHONE DEVELOPER POTASSIUM LEVEL Routine 11/08/2024 6:47 AM IPHONE DEVELOPER XR CHEST 1 VIEW IP Routine 11/08/2024 5:52 AM IPHONE DEVELOPER EGFR Routine 11/08/2024 12:16 AM IPHONE DEVELOPER BASIC METABOLIC PANEL Routine 11/08/2024 12:16 AM IPHONE DEVELOPER CBC WITHOUT DIFFERENTIAL Routine 11/08/2024 12:16 AM IPHONE DEVELOPER XR CHEST 1 VIEW IP Routine 11/07/2024 5:31 AM IPHONE DEVELOPER EGFR Routine 11/07/2024 12:33 AM IPHONE DEVELOPER BASIC METABOLIC PANEL Routine 11/07/2024 12:33 AM IPHONE DEVELOPER CBC WITHOUT DIFFERENTIAL Routine 11/07/2024 12:33 AM IPHONE DEVELOPER XR CHEST 1 VIEW ED Urgent/IP Urgent 11/06/2024 7:15 PM IPHONE DEVELOPER NC AN PROCEDURE PLACEHOLDER Routine 11/06/2024 5:34 PM IPHONE DEVELOPER NC AN ELECTIVE ENDOTRACHEAL AIRWAY Routine 11/06/2024 5:34 PM IPHONE DEVELOPER VIDEO-ASSISTED THORACIC SURGERY 11/06/2024 5:17 PM IPHONE DEVELOPER Hydropneumothorax PREPARE RBC STAT 11/06/2024 2:48 PM IPHONE DEVELOPER EGFR STAT 11/06/2024 1:53 PM IPHONE DEVELOPER CBC WITHOUT DIFFERENTIAL STAT 11/06/2024 1:53 PM IPHONE DEVELOPER BASIC METABOLIC PANEL STAT 11/06/2024 1:53 PM IPHONE DEVELOPER TYPE AND SCREEN STAT 11/06/2024 1:53 PM IPHONE DEVELOPER PREPARE RBC STAT 11/06/2024 12:54 PM IPHONE DEVELOPER XR CHEST PA LATERAL 2 VIEWS Schedule Routine, Read Routine (OP Routine) 11/06/2024 10:27 AM IPHONE DEVELOPER Chronic obstructive pulmonary disease, unspecified COPD type (HCC) XR CHEST PA LATERAL 2 VIEWS Schedule Routine, Read Routine (OP Routine) 10/29/2024 9:13 AM IPHONE DEVELOPER Pneumothorax on right XR CHEST 1 VIEW ED Urgent/IP Urgent 10/25/2024 12:29 PM IPHONE DEVELOPER XR CHEST 1 VIEW IP Routine 10/25/2024 6:40 AM IPHONE DEVELOPER XR CHEST 1 VIEW ED Urgent/IP Urgent 10/24/2024 12:33 PM IPHONE DEVELOPER XR CHEST 1 VIEW IP Routine 10/24/2024 5:58 AM IPHONE DEVELOPER XR CHEST 1 VIEW Timed 10/23/2024 12:10 PM IPHONE DEVELOPER XR CHEST 1 VIEW IP Routine 10/23/2024 6:[address] CHEST WO CONTRAST IP Routine 10/22/2024 9:19 AM IPHONE DEVELOPER XR CHEST 1 VIEW IP Routine 10/22/2024 5:35 AM IPHONE DEVELOPER XR CHEST 1 VIEW ED Urgent/IP Urgent 10/21/2024 1:[address] CHEST WO CONTRAST IP Routine 10/21/2024 10:36 AM IPHONE DEVELOPER EGFR STAT 10/21/2024 7:43 AM IPHONE DEVELOPER BASIC METABOLIC PANEL STAT 10/21/2024 7:43 AM IPHONE DEVELOPER XR CHEST 1 VIEW IP Routine 10/21/2024 6:32 AM IPHONE DEVELOPER EGFR Routine 10/21/2024 12:52 AM IPHONE DEVELOPER DIFFERENTIAL AUTO Routine 10/21/2024 12: 52 AM IPHONE DEVELOPER BASIC METABOLIC PANEL Routine 10/21/2024 12:52 AM IPHONE DEVELOPER CBC WITH AUTO DIFFERENTIAL Routine 10/21/2024 12:52 AM IPHONE DEVELOPER XR CHEST 1 VIEW IP Routine 10/20/2024 2:33 PM IPHONE DEVELOPER XR CHEST 1 VIEW IP Routine 10/20/2024 6:29 AM IPHONE DEVELOPER XR CHEST 1 VIEW IP Routine 10/19/2024 6:14 AM IPHONE DEVELOPER EGFR Routine 10/19/2024 1:26 AM IPHONE DEVELOPER BASIC METABOLIC PANEL Routine 10/19/2024 1:26 AM IPHONE DEVELOPER MAGNESIUM Routine 10/19/2024 1:26 AM IPHONE DEVELOPER CBC WITHOUT DIFFERENTIAL Routine 10/19/2024 1:26 AM IPHONE DEVELOPER XR CHEST 1 VIEW ED Urgent/IP Urgent 10/18/2024 2:10 PM IPHONE DEVELOPER SURGICAL PATHOLOGY Routine 10/18/2024 12 :28 PM IPHONE DEVELOPER Malignant neoplasm of lower lobe of right lung (HCC) NC AN PROCEDURE PLACEHOLDER Routine 10/18/2024 10:04 AM IPHONE DEVELOPER NC AN PROCEDURE PLACEHOLDER Routine 10/18/2024 10:03 AM IPHONE DEVELOPER NC AN PROCEDURE PLACEHOLDER Routine 10/18/2024 10:00 AM IPHONE DEVELOPER NC AN ELECTIVE ENDOTRACHEAL AIRWAY Routine 10/18/2024 10:00 AM IPHONE DEVELOPER LOBECTOMY 10/18/2024 9:26 AM IPHONE DEVELOPER Malignant neoplasm of lower lobe of right lung (HCC) PREPARE RBC STAT 10/18/2024 7:05 AM IPHONE DEVELOPER EGFR Routine 10/11/2024 9:51 AM IPHONE DEVELOPER Pre-op evaluation Malignant neoplasm of lower lobe of right lung (HCC) DIFFERENTIAL AUTO Routine 10/11/2024 9:5 1 AM IPHONE DEVELOPER Pre-op evaluation Malignant neoplasm of lower lobe of right lung (HCC) TYPE AND SCREEN Routine 10/11/2024 9:51 AM IPHONE DEVELOPER Pre-op evaluation Malignant neoplasm of lower lobe of right lung (HCC) CBC WITH AUTO DIFFERENTIAL Routine 10/11/2024 9:51 AM IPHONE DEVELOPER Pre-op evaluation Malignant neoplasm of lower lobe of right lung (HCC) COMPREHENSIVE METABOLIC PANEL Routine 10/11/2024 9:51 AM IPHONE DEVELOPER Pre-op evaluation Malignant neoplasm of lower lobe of right lung (HCC) PULMONARY FUNCTION TEST (PFT) Routine 10/02/2024 2:16 PM IPHONE DEVELOPER Adenocarcinoma of right lung (HCC) PET/CT FDG SKULL TO THIGH Schedule Routine, Read Routine (OP Routine) 09/30/2024 9:28 AM IPHONE DEVELOPER Lung nodule POCT GLUCOSE DEVICE Routine 09/30/2024 8 :10 AM IPHONE DEVELOPER CTA NECK W CONTRAST Schedule Routine, Read Routine (OP Routine) 09/27/2024 4:43 PM IPHONE DEVELOPER Stenosis of right carotid artery XR CHEST 1 VIEW Timed 09/19/2024 11:27 AM IPHONE DEVELOPER XR CHEST 1 VIEW ED Urgent/IP Urgent 09/19/2024 9:[address] NEEDLE BIOPSY LUNG RIGHT Schedule Routine, Read Routine (OP Routine) 09/19/2024 9:32 AM IPHONE DEVELOPER Abnormal chest CT SURGICAL PATHOLOGY Routine 09/19/2024 8: 52 AM IPHONE DEVELOPER DIFFERENTIAL AUTO STAT 09/19/2024 7:4 3 AM IPHONE DEVELOPER Pre-procedure lab exam CBC WITH AUTO DIFFERENTIAL STAT 09/19/2024 7:43 AM IPHONE DEVELOPER Pre-procedure lab exam PROTIME-INR STAT 09/19/2024 7:43 AM IPHONE DEVELOPER Pre-procedure lab exam Coronary artery disease of [place] artery of [place] heart with stable angina pectoris (HCC) LUNG CANCER PANEL Routine 09/19/2024 12: 00 AM IPHONE DEVELOPER PD-L1 IHC 22C3 PHARMDX, KEYTRUDA Routine 09/19/2024 12:00 AM IPHONE DEVELOPER MISC PATH REFER Routine 09/19/2024 12:00 AM IPHONE DEVELOPER US ARTERIAL DUPLEX LOWER EXTREMITY LEFT LIMITED Schedule Routine, Read Routine (OP Routine) 09/10/2024 2:27 PM IPHONE DEVELOPER Encounter for surgical aftercare following surgery on the circulatory system US CORTEZ Schedule Routine, Read Routine (OP Routine) 09/10/2024 2:26 PM IPHONE DEVELOPER Encounter for surgical aftercare following surgery on the circulatory system US CAROTIDS DUPLEX BILATERAL Schedule Routine, Read Routine (OP Routine) 09/10/2024 2:26 PM IPHONE DEVELOPER Asymptomatic stenosis of right carotid artery CTA ABDOMEN PELVIS W WO CONTRAST Routine 09/09/2024 9:43 AM IPHONE DEVELOPER Abdominal aortic aneurysm (AAA) without rupture, unspecified part (HCC) CT CHEST WO CONTRAST Schedule Routine, Read Routine (OP Routine) 09/09/2024 9:33 AM IPHONE DEVELOPER Chronic obstructive pulmonary disease, unspecified COPD type (HCC) Lung nodule Tobacco abuse from Last 3 Months Results * X-ray chest 2 views (11/19/2024 8:29 AM IPHONE DEVELOPER) Anatomical Region Laterality Modality Body, Chest N/A Computed Radiogr aphy 11/19/2024 8:40 AM IPHONE DEVELOPER Impressions 11/19/2024 8:40 AM IPHONE DEVELOPER 1. ??Small right pleural effusion and very small left pleural effusion. 2. ??Ill-defined haziness in the left perihilar region. 3. ??Otherwise postoperative chest radiograph within expected limits. COMMENT: Please see above for additional findings. Electronically signed by: Daniel Smyth M.D. Narrative 11/19/2024 8:40 AM IPHONE DEVELOPER Chest Radiograph, 2 views HISTORY: right pneumothorax, COMPARISON: Portable chest 11/10/2024 at 0557 A chest radiograph in the PA and lateral projection was presented. FINDINGS: The patient has undergone a median sternotomy. ??Surgical clips are noted along the left side of the mediastinum. There is no evidence of a right or left pneumothorax. The mediastinum and kerwin within expected limits. The cardiac silhouette within normal size limits. As a small right pleural effusion is noted. ??There appears to be a very small left pleural effusion. There is some ill-defined haziness in the left perihilar region which has a lump in the interval. No definite infiltrates, suspicious opacities or abnormal interstitial markings are appreciated in the remaining lung wolfe. The included portion of the upper abdomen is within expected limits. Procedure Note Daniel Smyth MD - 11/19/2024 Chest Radiograph, 2 views HISTORY: right pneumothorax, COMPARISON: Portable chest 11/10/2024 at 0557 A chest radiograph in the PA and lateral projection was presented. FINDINGS: The patient has undergone a median sternotomy. Surgical clips are noted along the left side of the mediastinum. There is no evidence of a right or left pneumothorax. The mediastinum and kerwin within expected limits. The cardiac silhouette within normal size limits. As a small right pleural effusion is noted. There appears to be a very small left pleural effusion. There is some ill-defined haziness in the left perihilar region which has a lump in the interval. No definite infiltrates, suspicious opacities or abnormal interstitial markings are appreciated in the remaining lung wolfe. The included portion of the upper abdomen is within expected limits. IMPRESSION: 1. Small right pleural effusion and very small left pleural effusion. 2. Ill-defined haziness in the left perihilar region. 3. Otherwise postoperative chest radiograph within expected limits. COMMENT: Please see above for additional findings. Electronically signed by: Daniel Smyth M.D. Anoop Barbosa MD IMG XR PROCEDURES Final Result * XR Chest 1 View (11/10/2024 6:07 AM IPHONE DEVELOPER) Anatomical Region Laterality Modality Body, Chest N/A Computed Radiogr aphy 11/10/2024 6:55 AM IPHONE DEVELOPER Impressions 11/10/2024 6:55 AM IPHONE DEVELOPER Median sternotomy wires are unchanged. ??Clips project over the right upper lung. Mild emphysema in the right chest wall. ??Decreased volume in the right hemithorax with mildly increased peripheral opacities likely represent evolving changes of talc pleurodesis, increased small pleural effusion and increased atelectasis. ??Mild left basilar atelectasis is unchanged. ??No pneumothorax. ??Heart and mediastinal contours are stable. Electronically signed by: Paulo Crum MD, PHD Narrative 11/10/2024 6:55 AM IPHONE DEVELOPER EXAMINATION: XR CHEST 1 VIEW HISTORY: thoracic surgery COMPARISON: 11/09/2024 Procedure Note Paulo Crum MD PhD - 11/10/2024 EXAMINATION: XR CHEST 1 VIEW HISTORY: thoracic surgery COMPARISON: 11/09/2024 IMPRESSION: Median sternotomy wires are unchanged. Clips project over the right upper lung. Mild emphysema in the right chest wall. Decreased volume in the right hemithorax with mildly increased peripheral opacities likely represent evolving changes of talc pleurodesis, increased small pleural effusion and increased atelectasis. Mild left basilar atelectasis is unchanged. No pneumothorax. Heart and mediastinal contours are stable. Electronically signed by: Paulo Crum MD, PHD Rosemary Figueroa RI IM XR PROCEDURES Final Result * (ABNORMAL) eGFR (11/10/2024 12:58 AM IPHONE DEVELOPER) eGFR 58(L) >=60 mL/min/1. 73 m2 Comment: Interpretive Data Reference Interval Normal ?>/= 90 mL/min/1.73m2 Mildly decreased* ? 60 - 89 mL/min/1.73m2 Mildly to moderately decreased ?45 - 59 mL/min/1.73m2 Moderately to severely decreased ??30 - 44 mL/min/1.73m2 Severely decreased ?15 - 29 mL/min/1.73m2 Kidney Failure ?< 15 ??mL/min/1.73m2 *Relative to young adult level Estimated glomerular filtration rate is determined by the 2020 CKD-EPI equation recommended by the National Kid[employer] Foundation (A Unifying Approach to GFR Estimation: Recommendations of the NKF-ASK Task Force on Reassessing the Inclusion of Race in Diagnosing Kidney Disease, JASN 202). The CKD-EPI equation should not be used for patients with unstable renal function and has not been validated in children and those over 70. Current interpretive data was last reviewed 2021. Blood 11/10/2024 12:5 8 AM IPHONE DEVELOPER 11/10/2024 1:26 AM IPHONE DEVELOPER Rosemary BAR LAB BLOOD ORDERABLES Fin al Result [facility] [address] Department [place] [address] * (ABNORMAL) CBC without differential (11/10/2024 12:58 AM IPHONE DEVELOPER) WBC 8.8 3.8 - 9.9 K/cumm Hgb 8.0(L) 13.0 - 17.5 g/dL [facility] Hct 24.8(L) 38.9 - 50.3 % [facility] Plt 222 150 - 400 K/cumm [facility] MPV 9.8 9.1 - 12.3 fL [facility] RBC 2.31(L) 4.30 - 5.80 M/cumm [facility] MCV 107.4(H) 81.3 - 96.4 fL [facility] MCH 34.6(H) 27.1 - 33.3 pg [facility] MCHC 32.3 32.3 - 35.7 g/dL [facility] RDW CV 13.6 11.1 - 14.9 % [facility] RDW SD 53.9(H) 35.7 - 48.1 fL [facility] NRBC abs 0.00 0.00 - 0.01 K/cumm [facility] Blood 11/10/2024 12:5 8 AM IPHONE DEVELOPER 11/10/2024 1:26 AM IPHONE DEVELOPER Rosemary BAR LAB BLOOD ORDERABLES Fin al Result Performing Organization Address City/[facility]/ZIP Co de Phone Number [facility] [address] Department [place] [address] * (ABNORMAL) Basic metabolic panel (11/10/2024 12:58 AM IPHONE DEVELOPER) Sodium 134(L) 135 - 145 mmol/L Potassium, pl 4.3 3.3 - 4.9 mmol/L [facility] Chloride 99 97 - 110 mmol/L [facility] CO2 26 22 - 32 mmol/L [facility] Anion gap 9 2 - 15 mmol/L [facility] BUN 31(H) 6 - 25 mg/dL [facility] Creatinine 1.28 0.80 - 1.30 mg/dL [facility] Glucose 117 70 - 199 mg/dL [facility] Comment: Interpretive Data Fasting glucose >/= 126 mg/dl is diagnostic for diabetes. ?? Fasting is defined as no caloric intake for at least 8 hours. Fasting glucose between 100 mg/dl to 125 mg/dl is diagnostic of prediabetes. In a patient with classic symptoms of hyperglycemia or hyperglycemic crisis, a random glucose >/= 200 mg/dl is diagnostic for diabetes. In the absence of unequivocal hyperglycemia, results should be confirmed by repeat testing. The classification and Diagnosis of Diabetes Diabetes Care 2021; 46: S19-S40. Current interpretive data was last revised 2022. Calcium 8.6 8.5 - 10.3 mg/dL [facility] Blood 11/10/2024 12:5 8 AM IPHONE DEVELOPER 11/10/2024 1:26 AM IPHONE DEVELOPER us Rosemary BAR LAB BLOOD ORDERABLES Fin al Result Performing Organization Address City/[facility]/ZIP Co de Phone Number [facility] [address] Department [place] [address] * XR Chest 1 Vw (11/09/2024 11:40 AM IPHONE DEVELOPER) Anatomical Region Laterality Modality Body, Chest N/A Computed Radiogr aphy 11/09/2024 11:5 4 AM IPHONE DEVELOPER Impressions 11/09/2024 11:54 AM IPHONE DEVELOPER Interval removal right thoracostomy tubes without significant interval change. Electronically signed by: Yobani Levine M.D. Narrative 11/09/2024 11:54 AM IPHONE DEVELOPER EXAMINATION: XR CHEST 1 VIEW HISTORY: Chest tube removal. COMPARISON: Multiple prior chest radiographs, most recently earlier same day. FINDINGS: Interval removal of 2 right thoracostomy tubes. ??Prior median sternotomy as well as surgical clips in the left mediastinum. Heart size and pulmonary vascularity are normal. ??Tortuous aorta. Interval improvement in lung inflation with persistent right basilar atelectasis as well as small right pleural effusion. ??The left costophrenic angle is not completely included within the [id number]. ??No pneumothorax. Procedure Note Yobani Levine MD - 11/09/2024 EXAMINATION: XR CHEST 1 VIEW HISTORY: Chest tube removal. COMPARISON: Multiple prior chest radiographs, most recently earlier same day. FINDINGS: Interval removal of 2 right thoracostomy tubes. Prior median sternotomy as well as surgical clips in the left mediastinum. Heart size and pulmonary vascularity are normal. Tortuous aorta. Interval improvement in lung inflation with persistent right basilar atelectasis as well as small right pleural effusion. The left costophrenic angle is not completely included within the [id number]. No pneumothorax. IMPRESSION: Interval removal right thoracostomy tubes without significant interval change. Electronically signed by: Yobani Levine M.D. Rita [facility] XR PROCEDURES Final Result * XR Chest 1 View (11/09/2024 6:20 AM IPHONE DEVELOPER) Anatomical Region Laterality Modality Body, Chest N/A Computed Radiogr aphy 11/09/2024 7:24 AM IPHONE DEVELOPER Impressions 11/09/2024 7:24 AM IPHONE DEVELOPER No significant interval change. Electronically signed by: Yobani Levine M.D. Narrative 11/09/2024 7:24 AM IPHONE DEVELOPER EXAMINATION: XR CHEST 1 VIEW HISTORY: Recent surgery. COMPARISON: Multiple prior chest radiograph, most recently 11/08/2024. FINDINGS: Prior median sternotomy. ??Similar placement to right thoracostomy tubes. ??Unchanged aeration with right greater than left atelectasis as well as small bilateral pleural effusions. ??No pneumothorax. Prior cholecystectomy clips. ?? Procedure Note Yobani Levine MD - 11/09/2024 EXAMINATION: XR CHEST 1 VIEW HISTORY: Recent surgery. COMPARISON: Multiple prior chest radiograph, most recently 11/08/2024. FINDINGS: Prior median sternotomy. Similar placement to right thoracostomy tubes. Unchanged aeration with right greater than left atelectasis as well as small bilateral pleural effusions. No pneumothorax. Prior cholecystectomy clips. IMPRESSION: No significant interval change. Electronically signed by: Yobani Levine M.D. Rosemary BAR IMG XR PROCEDURES Final Result * (ABNORMAL) eGFR (11/09/2024 12:43 AM IPHONE DEVELOPER) eGFR 51(L) >=60 mL/min/1. 73 m2 Comment: Interpretive Data Reference Interval Normal ?>/= 90 mL/min/1.73m2 Mildly decreased* ? 60 - 89 mL/min/1.73m2 Mildly to moderately decreased ?45 - 59 mL/min/1.73m2 Moderately to severely decreased ??30 - 44 mL/min/1.73m2 Severely decreased ?15 - 29 mL/min/1.73m2 Kidney Failure ?< 15 ??mL/min/1.73m2 *Relative to young adult level Estimated glomerular filtration rate is determined by the 2020 CKD-EPI equation recommended by the National Kidney Foundation (A Unifying Approach to GFR Estimation: Recommendations of the NKF-ASK Task Force on Reassessing the Inclusion of Race in Diagnosing Kidney Disease, JASN 2020). The CKD-EPI equation should not be used for patients with unstable renal function and has not been validated in children and those over 70. Current interpretive data was last reviewed 2021. Blood 11/09/2024 12:4 3 AM IPHONE DEVELOPER 11/09/2024 1:08 AM IPHONE DEVELOPER Rosemary BAR LAB BLOOD ORDERABLES Fin al Result Performing Organization Address [facility]/ZIP Co de Phone Number [facility] [address] [employer] [place], [place] [id number] * (ABNORMAL) CBC without differential (11/09/2024 12:43 AM IPHONE DEVELOPER) WBC 11.5(H) 3.8 - 9.9 K/cumm Hgb 9.2(L) 13.0 - 17.5 g/dL [facility] Hct 28.7(L) 38.9 - 50.3 % [facility] Plt 262 150 - 400 K/cumm [facility] MPV 10.0 9.1 - 12.3 fL [facility] RBC 2.58(L) 4.30 - 5.80 M/cumm [facility] MCV 111.2(H) 81.3 - 96.4 fL [facility] MCH 35.7(H) 27.1 - 33.3 pg [facility] MCHC 32.1(L) 32.3 - 35.7 g/dL [facility] RDW CV 13.9 11.1 - 14.9 % [facility] RDW SD 57.1(H) 35.7 - 48.1 fL [facility] NRBC abs 0.00 0.00 - 0.01 K/cumm [facility] Blood 11/09/2024 12:4 3 AM IPHONE DEVELOPER 11/09/2024 1:08 AM IPHONE DEVELOPER Rosemary BAR LAB BLOOD ORDERABLES Fin al Result Performing Organization Address City/[facility]/ZIP Co de Phone Number [facility] [address] [place] [address] * (ABNORMAL) Basic metabolic panel (11/09/2024 12:43 AM IPHONE DEVELOPER) [facility] Sodium 134(L) 135 - 145 mmol/L Potassium, pl 4.9 3.3 - 4.9 mmol/L [facility] Chloride 98 97 - 110 mmol/L [facility] CO2 26 22 - 32 mmol/L [facility] Anion gap 10 2 - 15 mmol/L [facility] BUN 32(H) 6 - 25 mg/dL [facility] Creatinine 1.43(H) 0.80 - 1.30 mg/dL [facility] Glucose 126 70 - 199 mg/dL [facility] Comment: Interpretive Data Fasting glucose >/= 126 mg/dl is diagnostic for diabetes. ?? Fasting is defined as no caloric intake for at least 8 hours. Fasting glucose between 100 mg/dl to 125 mg/dl is diagnostic of prediabetes. In a patient with classic symptoms of hyperglycemia or hyperglycemic crisis, a random glucose >/= 200 mg/dl is diagnostic for diabetes. In the absence of unequivocal hyperglycemia, results should be confirmed by repeat testing. The classification and Diagnosis of Diabetes Diabetes Care 202; 46: S19-S40. Current interpretive data was last revised 2022. Calcium 8.8 8.5 - 10.3 mg/dL [facility] Blood 11/09/2024 12:4 3 AM IPHONE DEVELOPER 11/09/2024 1:08 AM IPHONE DEVELOPER Rosemary BAR LAB BLOOD ORDERABLES Fin al Result [facility] [address] Department [place] [address] * (ABNORMAL) eGFR (11/08/2024 3:53 PM IPHONE DEVELOPER) [facility] eGFR 44(L) >=60 mL/min/1. 73 m2 Comment: Interpretive Data Reference Interval Normal ?>/= 90 mL/min/1.73m2 Mildly decreased* ? 60 - 89 mL/min/1.73m2 Mildly to moderately decreased ?45 - 59 mL/min/1.73m2 Moderately to severely decreased ??30 - 44 mL/min/1.73m2 Severely decreased ?15 - 29 mL/min/1.73m2 Kidney Failure ?< 15 ??mL/min/1.73m2 *Relative to young adult level Estimated glomerular filtration rate is determined by the 2020 CKD-EPI equation recommended by the National Kidney Foundation (A Unifying Approach to GFR Estimation: Recommendations of the NKF-ASK Task Force on Reassessing the Inclusion of Race in Diagnosing Kidney Disease, JASN 2020). The CKD-EPI equation should not be used for patients with unstable renal function and has not been validated in children and those over 70. Current interpretive data was last reviewed 2021. Blood 11/08/2024 3:53 PM IPHONE DEVELOPER 11/08/2024 4:01 PM IPHONE DEVELOPER us Volodymyr BAR LAB BLOOD ORDERABLES Final R esult [facility] [address] Department [place] [address] * (ABNORMAL) Basic metabolic panel (11/08/2024 3:53 PM IPHONE DEVELOPER) Sodium 136 135 - 145 mmol/L Potassium, pl 4.6 3.3 - 4.9 mmol/L [facility] Chloride 99 97 - 110 mmol/L [facility] CO2 25 22 - 32 mmol/L [facility] Anion gap 12 2 - 15 mmol/L [facility] BUN 31(H) 6 - 25 mg/dL [facility] Creatinine 1.61(H) 0.80 - 1.30 mg/dL [facility] Glucose 132 70 - 199 mg/dL [facility] Comment: Interpretive Data Fasting glucose >/= 126 mg/dl is diagnostic for diabetes. ?? Fasting is defined as no caloric intake for at least 8 hours. Fasting glucose between 100 mg/dl to 125 mg/dl is diagnostic of prediabetes. In a patient with classic symptoms of hyperglycemia or hyperglycemic crisis, a random glucose >/= 200 mg/dl is diagnostic for diabetes. In the absence of unequivocal hyperglycemia, results should be confirmed by repeat testing. The classification and Diagnosis of Diabetes Diabetes Care 2021; 46: S19-S40. Current interpretive data was last revised 2022. Calcium 8.6 8.5 - 10.3 mg/dL [facility] Blood 11/08/2024 3:53 PM IPHONE DEVELOPER 11/08/2024 4:01 PM IPHONE DEVELOPER us Volodymyr BAR LAB BLOOD ORDERABLES Final R esult Performing Organization Address City/[facility] Co de Phone Number [facility] [address] Department [place] [address] * (ABNORMAL) Potassium (11/08/2024 6:47 AM IPHONE DEVELOPER) Potassium, pl 5.1(H) 3.3 - 4.9 mmol/L Blood 11/08/2024 6:47 AM IPHONE DEVELOPER 11/08/2024 6:59 AM IPHONE DEVELOPER Moncho BAR LAB BLOOD ORDERABLES Fi nal Result Performing Organization Address [facility] Co de Phone Number [facility] [address] Department [place] [address] * XR Chest 1 View (11/08/2024 5:52 AM IPHONE DEVELOPER) Anatomical Region Laterality Modality Body, Chest N/A Computed Radiogr aphy 11/08/2024 7:35 AM IPHONE DEVELOPER Impressions 11/08/2024 7:35 AM IPHONE DEVELOPER Comparison is made to 11/07/2024. ??There are 2 right thoracostomy tubes and median sternotomy wires unchanged in position. ??There are small lung volumes with bibasilar opacities likely representing combination of atelectasis and small effusions. ??No pneumothorax is appreciated. ??Heart size is stable. Electronically signed by: Fred Hernandes M.D. Narrative 11/08/2024 7:35 AM IPHONE DEVELOPER Examination: Chest 1 view Procedure Note Fred Hernandes MD - 11/08/2024 Examination: Chest 1 view IMPRESSION: Comparison is made to 11/07/2024. There are 2 right thoracostomy tubes and median sternotomy wires unchanged in position. There are small lung volumes with bibasilar opacities likely representing combination of atelectasis and small effusions. No pneumothorax is appreciated. Heart size is stable. Electronically signed by: Fred Hernandes M.D. Rosemary Figueroa PA IMG XR PROCEDURES Final Result * (ABNORMAL) eGFR (11/08/2024 12:16 AM IPHONE DEVELOPER) eGFR 56(L) >=60 mL/min/1. 73 m2 Comment: Interpretive Data Reference Interval Normal ?>/= 90 mL/min/1.73m2 Mildly decreased* ? 60 - 89 mL/min/1.73m2 Mildly to moderately decreased ?45 - 59 mL/min/1.73m2 Moderately to severely decreased ??30 - 44 mL/min/1.73m2 Severely decreased ?15 - 29 mL/min/1.73m2 Kidney Failure ?< 15 ??mL/min/1.73m2 *Relative to young adult level Estimated glomerular filtration rate is determined by the 2020 CKD-EPI equation recommended by the National Kidney Foundation (A Unifying Approach to GFR Estimation: Recommendations of the NKF-ASK Task Force on Reassessing the Inclusion of Race in Diagnosing Kidney Disease, JASN 2021). The CKD-EPI equation should not be used for patients with unstable renal function and has not been validated in children and those over 70. Current interpretive data was last reviewed 2021. Blood 11/08/2024 12:1 6 AM IPHONE DEVELOPER 11/08/2024 12:48 AM IPHONE DEVELOPER Rosemary BAR LAB BLOOD ORDERABLES Fin al Result Performing Organization Address City/[facility]/ZIP Co de Phone Number [facility] [address] [place] [address] * (ABNORMAL) CBC without differential (11/08/2024 12:16 AM IPHONE DEVELOPER) WBC 13.1(H) 3.8 - 9.9 K/cumm Hgb 9.6(L) 13.0 - 17.5 g/dL [facility] Hct 31.2(L) 38.9 - 50.3 % [facility] Plt 290 150 - 400 K/cumm [facility] MPV 10.0 9.1 - 12.3 fL [facility] RBC 2.78(L) 4.30 - 5.80 M/cumm [facility] MCV 112.2(H) 81.3 - 96.4 fL [facility] MCH 34.5(H) 27.1 - 33.3 pg [facility] MCHC 30.8(L) 32.3 - 35.7 g/dL [facility] RDW CV 13.6 11.1 - 14.9 % [facility] RDW SD 56.9(H) 35.7 - 48.1 fL [facility] NRBC abs 0.00 0.00 - 0.01 K/cumm [facility] Blood 11/08/2024 12:1 6 AM IPHONE DEVELOPER 11/08/2024 12:49 AM IPHONE DEVELOPER Rosemary BAR LAB BLOOD ORDERABLES Fin al Result Performing Organization Address City/[facility]/ZIP Co de Phone Number [facility] [address] Department [place] [address] * (ABNORMAL) Basic metabolic panel (11/08/2024 12:16 AM IPHONE DEVELOPER) Sodium 139 135 - 145 mmol/L Potassium, pl 5.5(H) 3.3 - 4.9 mmol/L [facility] Chloride 102 97 - 110 mmol/L [facility] CO2 28 22 - 32 mmol/L [facility] Anion gap 9 2 - 15 mmol/L [facility] BUN 26(H) 6 - 25 mg/dL [facility] Creatinine 1.33(H) 0.80 - 1.30 mg/dL [facility] Glucose 133 70 - 199 mg/dL [facility] Comment: Interpretive Data Fasting glucose >/= 126 mg/dl is diagnostic for diabetes. ?? Fasting is defined as no caloric intake for at least 8 hours. Fasting glucose between 100 mg/dl to 125 mg/dl is diagnostic of prediabetes. In a patient with classic symptoms of hyperglycemia or hyperglycemic crisis, a random glucose >/= 200 mg/dl is diagnostic for diabetes. In the absence of unequivocal hyperglycemia, results should be confirmed by repeat testing. The classification and Diagnosis of Diabetes Diabetes Care 2021; 46: S19-S40. Current interpretive data was last revised 2022. Calcium 8.7 8.5 - 10.3 mg/dL [facility] Blood 11/08/2024 12:1 6 AM IPHONE DEVELOPER 11/08/2024 12:48 AM IPHONE DEVELOPER us Rosemary BAR LAB BLOOD ORDERABLES Fin al Result [facility] [address] Department [place] [address] * XR Chest 1 View (11/07/2024 5:31 AM IPHONE DEVELOPER) Anatomical Region Laterality Modality Body, Chest N/A Computed Radiogr aphy 11/07/2024 7:51 AM IPHONE DEVELOPER Impressions 11/07/2024 7:51 AM IPHONE DEVELOPER Initial study 11/06/2024, 7:04 PM: Right apical and basilar thoracostomy tubes are noted. ??There is a small residual right apical pneumothorax. ??Surgical clips project over the right superior chest wall. ??Median sternotomy wires are aligned and intact. ??Multiple surgical clips project over the left aspect of the mediastinum. ??Lung volumes are small, with mild right hemidiaphragm elevation. ??No confluent consolidation. ??No definite pleural effusion. Subsequent study 5:30 AM: 3 right thoracostomy tubes now identified. A 2nd right basilar tube is noted. ??A tiny right apical pneumothorax is still noted. ??Otherwise no significant change. Electronically signed by: Liban Moore M.D. Narrative 11/07/2024 7:51 AM IPHONE DEVELOPER EXAMINATION: Chest single view x2 exams Procedure Note Liban Moore MD - 11/07/2024 EXAMINATION: Chest single view x2 exams IMPRESSION: Initial study 11/06/2024, 7:04 PM: Right apical and basilar thoracostomy tubes are noted. There is a small residual right apical pneumothorax. Surgical clips project over the right superior chest wall. Median sternotomy wires are aligned and intact. Multiple surgical clips project over the left aspect of the mediastinum. Lung volumes are small, with mild right hemidiaphragm elevation. No confluent consolidation. No definite pleural effusion. Subsequent study 5:30 AM: 3 right thoracostomy tubes now identified. A 2nd right basilar tube is noted. A tiny right apical pneumothorax is still noted. Otherwise no significant change. Electronically signed by: Liban Moore M.D. Rosemary BAR IMG XR PROCEDURES Final Result * eGFR (11/07/2024 12:33 AM IPHONE DEVELOPER) eGFR 61 >=60 mL/min/1. 73 m2 Comment: Interpretive Data Reference Interval Normal ?>/= 90 mL/min/1.73m2 Mildly decreased* ? 60 - 89 mL/min/1.73m2 Mildly to moderately decreased ?45 - 59 mL/min/1.73m2 Moderately to severely decreased ??30 - 44 mL/min/1.73m2 Severely decreased ?15 - 29 mL/min/1.73m2 Kidney Failure ?< 15 ??mL/min/1.73m2 *Relative to young adult level Estimated glomerular filtration rate is determined by the 2020 CKD-EPI equation recommended by the National Kidney Foundation (A Unifying Approach to GFR Estimation: Recommendations of the NKF-ASK Task Force on Reassessing the Inclusion of Race in Diagnosing Kidney Disease, JASN 2020). The CKD-EPI equation should not be used for patients with unstable renal function and has not been validated in children and those over 70. Current interpretive data was last reviewed 2021. Blood 11/07/2024 12:3 3 AM IPHONE DEVELOPER 11/07/2024 12:39 AM IPHONE DEVELOPER us Rosemary BAR LAB BLOOD ORDERABLES Fin al Result [facility] [address] Department [place] [address] * (ABNORMAL) CBC without differential (11/07/2024 12:33 AM IPHONE DEVELOPER) WBC 9.2 3.8 - 9.9 K/cumm Hgb 9.8(L) 13.0 - 17.5 g/dL [facility] Hct 30.8(L) 38.9 - 50.3 % [facility] Plt 257 150 - 400 K/cumm [facility] MPV 9.8 9.1 - 12.3 fL [facility] RBC 2.82(L) 4.30 - 5.80 M/cumm [facility] MCV 109.2(H) 81.3 - 96.4 fL [facility] MCH 34.8(H) 27.1 - 33.3 pg [facility] MCHC 31.8(L) 32.3 - 35.7 g/dL [facility] RDW CV 13.6 11.1 - 14.9 % [facility] RDW SD 55.8(H) 35.7 - 48.1 fL [facility] NRBC abs 0.00 0.00 - 0.01 K/cumm [facility] Blood 11/07/2024 12:3 3 AM IPHONE DEVELOPER 11/07/2024 12:40 AM IPHONE DEVELOPER Rosemary BAR LAB BLOOD ORDERABLES Fin al Result [facility] [address] Department [place] [address] * (ABNORMAL) Basic metabolic panel (11/07/2024 12:33 AM IPHONE DEVELOPER) Sodium 138 135 - 145 mmol/L Potassium, pl 4.5 3.3 - 4.9 mmol/L [facility] Chloride 102 97 - 110 mmol/L [facility] CO2 24 22 - 32 mmol/L [facility] Anion gap 12 2 - 15 mmol/L [facility] BUN 27(H) 6 - 25 mg/dL [facility] Creatinine 1.23 0.80 - 1.30 mg/dL [facility] Glucose 166 70 - 199 mg/dL [facility] Comment: Interpretive Data Fasting glucose >/= 126 mg/dl is diagnostic for diabetes. ?? Fasting is defined as no caloric intake for at least 8 hours. Fasting glucose between 100 mg/dl to 125 mg/dl is diagnostic of prediabetes. In a patient with classic symptoms of hyperglycemia or hyperglycemic crisis, a random glucose >/= 200 mg/dl is diagnostic for diabetes. In the absence of unequivocal hyperglycemia, results should be confirmed by repeat testing. The classification and Diagnosis of Diabetes Diabetes Care 2021; 46: S19-S40. Current interpretive data was last revised 2022. Calcium 7.9(L) 8.5 - 10.3 mg/dL [facility] Blood 11/07/2024 12:3 3 AM IPHONE DEVELOPER 11/07/2024 12:39 AM IPHONE DEVELOPER us Rosemary BAR LAB BLOOD ORDERABLES Fin al Result [facility] [address] Department [place] [address] * XR Chest 1 Vw (11/06/2024 7:15 PM IPHONE DEVELOPER) Anatomical Region Laterality Modality Body, Chest N/A Computed Radiogr aphy 11/07/2024 7:51 AM IPHONE DEVELOPER Impressions 11/07/2024 7:51 AM IPHONE DEVELOPER Initial study 11/06/2024, 7:04 PM: Right apical and basilar thoracostomy tubes are noted. ??There is a small residual right apical pneumothorax. ??Surgical clips project over the right superior chest wall. ??Median sternotomy wires are aligned and intact. ??Multiple surgical clips project over the left aspect of the mediastinum. ??Lung volumes are small, with mild right hemidiaphragm elevation. ??No confluent consolidation. ??No definite pleural effusion. Subsequent study 5:30 AM: 3 right thoracostomy tubes now identified. A 2nd right basilar tube is noted. ??A tiny right apical pneumothorax is still noted. ??Otherwise no significant change. Electronically signed by: Liban Moore M.D. Narrative 11/07/2024 7:51 AM IPHONE DEVELOPER EXAMINATION: Chest single view x2 exams Procedure Note Liban Moore MD - 11/07/2024 EXAMINATION: Chest single view x2 exams IMPRESSION: Initial study 11/06/2024, 7:04 PM: Right apical and basilar thoracostomy tubes are noted. There is a small residual right apical pneumothorax. Surgical clips project over the right superior chest wall. Median sternotomy wires are aligned and intact. Multiple surgical clips project over the left aspect of the mediastinum. Lung volumes are small, with mild right hemidiaphragm elevation. No confluent consolidation. No definite pleural effusion. Subsequent study 5:30 AM: 3 right thoracostomy tubes now identified. A 2nd right basilar tube is noted. A tiny right apical pneumothorax is still noted. Otherwise no significant change. Electronically signed by: Liban Moore M.D. us Pepe Aragon MD IMG XR PROCEDURES Final Re sult * NC AN ELECTIVE ENDOTRACHEAL AIRWAY, NC AN PROCEDURE PLACEHOLDER (11/06/2024 5:34 PM IPHONE DEVELOPER) Narrative Benji Marie MD PhD - 11/06/2024 5:34 PM IPHONE DEVELOPER Benji Marie MD PhD ? 11/06/2024 ??5:35 PM Airway Patient location: OR Urgency: elective Indications for airway management: anesthesia and airway protection Difficult airway: no Staff: Supervising provider: Benji Marie MD PhD Placed by: Anesthesiologist: Benji Marie MD PhD Emergent airway documentation: Risks and benefits discussed: yes Consent obtained: yes Consent given by: patient Airway prep: Preoxygenated: yes Mask difficulty assessment: 1 - vent by mask Spontaneous ventilation during airway: absent Sedation level during airway: GA Final airway details: Final airway type: endotracheal airway Tube type: ETT - double lumen left ETT double lumen: 37 fr Cuffed: yes Technique used for successful ETT placement: video laryngoscopy Devices/Methods used in placement: intubating stylet Insertion site: oral Blade type: Jeremy Video blade type: Tracey Cormack-Lehane (video): grade I - full view of glottis Cuff inflated with: air Placement verified by: bronchoscopy Airway secured with: silk tape Number of attempts: 1 us Benji Marie MD PhD ANESTHESIA ORDERABLES Audelia l Result * Prepare RBC (11/06/2024 2:48 PM IPHONE DEVELOPER) Product code [id number] Unit Number [id number] 1-2 [facility] Product Blood Type OPOS [facility] Dispense Status RETURNED [facility] Blood 11/06/2024 2:48 PM IPHONE DEVELOPER 11/06/2024 2:48 PM IPHONE DEVELOPER us Anoop Barbosa MD BLOOD BANK PRODUCT ORDER ZEFERINO Final Result [facility] [address] Department [place] [address] * (ABNORMAL) eGFR (11/06/2024 1:53 PM IPHONE DEVELOPER) eGFR 54(L) >=60 mL/min/1. 73 m2 Comment: Interpretive Data Reference Interval Normal ?>/= 90 mL/min/1.73m2 Mildly decreased* ? 60 - 89 mL/min/1.73m2 Mildly to moderately decreased ?45 - 59 mL/min/1.73m2 Moderately to severely decreased ??30 - 44 mL/min/1.73m2 Severely decreased ?15 - 29 mL/min/1.73m2 Kidney Failure ?< 15 ??mL/min/1.73m2 *Relative to young adult level Estimated glomerular filtration rate is determined by the 2020 CKD-EPI equation recommended by the National Kidney Foundation (A Unifying Approach to GFR Estimation: Recommendations of the NKF-ASK Task Force on Reassessing the Inclusion of Race in Diagnosing Kidney Disease, JASN 2020). The CKD-EPI equation should not be used for patients with unstable renal function and has not been validated in children and those over 70. Current interpretive data was last reviewed 2021. Blood 11/06/2024 1:53 PM IPHONE DEVELOPER 11/06/2024 2:15 PM IPHONE DEVELOPER us Anoop Barbosa MD LAB BLOOD ORDERABLES Fin al Result [facility] [address] Department [place] [address] * (ABNORMAL) CBC without differential (11/06/2024 1:53 PM IPHONE DEVELOPER) WBC 11.2(H) 3.8 - 9.9 K/cumm Hgb 10.7(L) 13.0 - 17.5 g/dL [facility] Hct 33.5(L) 38.9 - 50.3 % [facility] Plt 327 150 - 400 K/cumm [facility] MPV 10.4 9.1 - 12.3 fL [facility] RBC 3.06(L) 4.30 - 5.80 M/cumm [facility] MCV 109.5(H) 81.3 - 96.4 fL [facility] MCH 35.0(H) 27.1 - 33.3 pg [facility] MCHC 31.9(L) 32.3 - 35.7 g/dL [facility] RDW CV 13.9 11.1 - 14.9 % [facility] RDW SD 56.2(H) 35.7 - 48.1 fL [facility] NRBC abs 0.00 0.00 - 0.01 K/cumm [facility] Blood 11/06/2024 1:53 PM IPHONE DEVELOPER 11/06/2024 2:16 PM IPHONE DEVELOPER Anoop Barbosa MD LAB BLOOD ORDERABLES Fin al Result [facility] [address] [place] [address] * Type and screen (11/06/2024 1:53 PM IPHONE DEVELOPER) Jai, indirect Negative ABO Rh O Positive [facility] Blood 11/06/2024 1:53 PM IPHONE DEVELOPER 11/06/2024 2:03 PM IPHONE DEVELOPER Narrative [facility] - 11/06/2024 2:45 PM IPHONE DEVELOPER No blood transfusions last 90 days Surgery today 11/06/24 Has the patient had Daratumumab or Isatuximab in the past 6 months?->No Anoop Barbosa MD LAB BLOOD BANK TEST ORDE RABLES Final Result [facility] [address] Department [employer] [place] [address] * (ABNORMAL) Basic metabolic panel (11/06/2024 1:53 PM IPHONE DEVELOPER) [facility] Sodium 136 135 - 145 mmol/L Potassium, pl 4.9 3.3 - 4.9 mmol/L [facility] Comment:Hemolyzed; potassium value may be falsely elevated by as much as 0.6 - 1.0 mmol/L. Suggest redraw and reanalysis Chloride 99 97 - 110 mmol/L [facility] CO2 26 22 - 32 mmol/L [facility] Anion gap 11 2 - 15 mmol/L [facility] BUN 27(H) 6 - 25 mg/dL [facility] Creatinine 1.36(H) 0.80 - 1.30 mg/dL [facility] Glucose 101 70 - 199 mg/dL [facility] Comment: Interpretive Data Fasting glucose >/= 126 mg/dl is diagnostic for diabetes. ?? Fasting is defined as no caloric intake for at least 8 hours. Fasting glucose between 100 mg/dl to 125 mg/dl is diagnostic of prediabetes. In a patient with classic symptoms of hyperglycemia or hyperglycemic crisis, a random glucose >/= 200 mg/dl is diagnostic for diabetes. In the absence of unequivocal hyperglycemia, results should be confirmed by repeat testing. The classification and Diagnosis of Diabetes Diabetes Care 202; 46: S19-S40. Current interpretive data was last revised 2022. Calcium 8.8 8.5 - 10.3 mg/dL [facility] Blood 11/06/2024 1:53 PM IPHONE DEVELOPER 11/06/2024 2:15 PM IPHONE DEVELOPER us Anoop Barbosa MD LAB BLOOD ORDERABLES Fin al Result [facility] [address] Department of Laboratories [place], [place] [id number] * Prepare RBC: 1 Units (11/06/2024 12:54 PM IPHONE DEVELOPER) [facility] Product code [id number] Unit Number [id number] 1-2 [facility] Product Blood Type OPOS [facility] Dispense Status RETURNED [facility] Blood 11/06/2024 12:5 4 PM IPHONE DEVELOPER Narrative [facility] - 11/10/2024 7:35 AM IPHONE DEVELOPER Specify Procedure:->right thoracoscopy Are special requirements needed? (All products are leukoreduced and CMV- safe)- >No Date required:-[id number] LRRBC # of [id number] Reasons:-Hold for procedure (specify procedure)} us Anoop Barbosa MD BLOOD BANK PRODUCT ORDER ZEFERINO Final Result [facility] [address] Department [place] [address] * X-ray chest 2 views (11/06/2024 10:27 AM IPHONE DEVELOPER) Anatomical Region Laterality Modality Body, Chest N/A Digital Radiogra phy 11/06/2024 11:0 7 AM IPHONE DEVELOPER Impressions 11/06/2024 11:07 AM IPHONE DEVELOPER Moderate right apical and right basilar hydropneumothorax increased since prior study with interval removal of pigtail right chest tube. ??Prominent interstitial markings aerated right lower lung. ??Right subcutaneous air. Electronically signed by: Lizzette Pyle M.D. Narrative 11/06/2024 11:07 AM IPHONE DEVELOPER CHEST 2 VIEWS DATE: 11/06/2024 10:00 AM INDICATION: ??shortness of breath . ??COPD. ??J 44.9 TECHNIQUE: ??PA and lateral COMPARISON: 10/29/2024 FINDINGS: Moderate right apical and right basilar hydropneumothorax with pleural line superiorly between the right posterior 5th and 6th ribs and inferiorly between the right posterior 9th and 10th ribs increased since prior study. ??There are prominent interstitial markings within the aerated right lower lung. ??There is some extra pleural thickening right lower hemithorax laterally with subcutaneous air along the right lateral chest wall right axilla. ??Surgical clips right upper hemithorax laterally unchanged. ??Interval removal of pigtail right chest tube. Left basilar atelectasis with mildly prominent markings. ??Heart size upper limits with aortic atherosclerosis and poststernotomy changes.. Procedure Note Lizzette yPle MD - 11/06/2024 CHEST 2 VIEWS DATE: 11/06/2024 10:00 AM INDICATION: shortness of breath . COPD. J 44.9 TECHNIQUE: PA and lateral COMPARISON: 10/29/2024 FINDINGS: Moderate right apical and right basilar hydropneumothorax with pleural line superiorly between the right posterior 5th and 6th ribs and inferiorly between the right posterior 9th and 10th ribs increased since prior study. There are prominent interstitial markings within the aerated right lower lung. There is some extra pleural thickening right lower hemithorax laterally with subcutaneous air along the right lateral chest wall right axilla. Surgical clips right upper hemithorax laterally unchanged. Interval removal of pigtail right chest tube. Left basilar atelectasis with mildly prominent markings. Heart size upper limits with aortic atherosclerosis and poststernotomy changes.. IMPRESSION: Moderate right apical and right basilar hydropneumothorax increased since prior study with interval removal of pigtail right chest tube. Prominent interstitial markings aerated right lower lung. Right subcutaneous air. Electronically signed by: Lizzette Pyle M.D. Bernabe Garcia MD IMG XR PROCEDURES Final Result * X-ray chest 2 views (10/29/2024 9:13 AM IPHONE DEVELOPER) Anatomical Region Laterality Modality Body, Chest N/A Computed Radiogr aphy 10/29/2024 9:48 AM IPHONE DEVELOPER Impressions 10/29/2024 9:48 AM IPHONE DEVELOPER 1. ??Small right apical pneumothorax which is slightly smaller than on the previous study. ??A pigtail chest tube is in place. 2. ??Question mild infiltrate or atelectasis in the right base versus subcutaneous emphysema artifact. COMMENT: Please see above for additional findings. Electronically signed by: Daniel Smyth M.D. Narrative 10/29/2024 9:48 AM IPHONE DEVELOPER Chest Radiograph, 2 views HISTORY: right pneumothorax, COMPARISON: None available A chest radiograph in the PA and lateral projection was presented. FINDINGS: A small pneumothorax with the apex positioned at the level of the superior margin of the 4th posterior rib is noted. ??In the lateral base there is 4 mm of separation of the lung from the chest wall. The pneumothorax is smaller than on the previous study when the apex was portion along the inferior margin of the 5th rib. The patient has undergone a median sternotomy. ??A right pigtail chest tube is in place. The cardiac silhouette within normal size limits. The lateral and posterior costophrenic angles are preserved bilaterally. Subcutaneous emphysema which is present which limits evaluation for infiltrate. ??There appears to be some mild atelectasis versus infiltrate in the right base, however. No definite infiltrates, suspicious opacities or abnormal interstitial markings are appreciated in the left lung. The included portion of the upper abdomen is within expected limits. Procedure Note Daniel Smyth MD - 10/29/2024 Chest Radiograph, 2 views HISTORY: right pneumothorax, COMPARISON: None available A chest radiograph in the PA and lateral projection was presented. FINDINGS: A small pneumothorax with the apex positioned at the level of the superior margin of the 4th posterior rib is noted. In the lateral base there is 4 mm of separation of the lung from the chest wall. The pneumothorax is smaller than on the previous study when the apex was portion along the inferior margin of the 5th rib. The patient has undergone a median sternotomy. A right pigtail chest tube is in place. The cardiac silhouette within normal size limits. The lateral and posterior costophrenic angles are preserved bilaterally. Subcutaneous emphysema which is present which limits evaluation for infiltrate. There appears to be some mild atelectasis versus infiltrate in the right base, however. No definite infiltrates, suspicious opacities or abnormal interstitial markings are appreciated in the left lung. The included portion of the upper abdomen is within expected limits. IMPRESSION: 1. Small right apical pneumothorax which is slightly smaller than on the previous study. A pigtail chest tube is in place. 2. Question mild infiltrate or atelectasis in the right base versus subcutaneous emphysema artifact. COMMENT: Please see above for additional findings. Electronically signed by: Daniel Smyth M.D. Anoop Barbosa MD IMG XR PROCEDURES Final Result * XR Chest 1 View (10/25/2024 12:29 PM IPHONE DEVELOPER) Anatomical Region Laterality Modality Body, Chest N/A Computed Radiogr aphy 10/25/2024 12:3 9 PM IPHONE DEVELOPER Impressions 10/25/2024 12:39 PM IPHONE DEVELOPER Comparison with 10/25/2024. ??There is been placement of a right thoracostomy tube. ??There is persistent small right apical pneumothorax. ??Pulmonary edema stable. Electronically signed by: Crispin Blake M.D., MPH Narrative 10/25/2024 12:39 PM IPHONE DEVELOPER EXAMINATION: 1 view chest radiograph Procedure Note Crispin Blake MD - 10/25/2024 EXAMINATION: 1 view chest radiograph IMPRESSION: Comparison with 10/25/2024. There is been placement of a right thoracostomy tube. There is persistent small right apical pneumothorax. Pulmonary edema stable. Electronically signed by: Crispin Blake M.D., MPH [facility] IMG XR PROCEDURES Final Resu lt * XR Chest 1 View - in AM (10/25/2024 6:40 AM IPHONE DEVELOPER) Anatomical Region Laterality Modality Body, Chest N/A Computed Radiogr aphy 10/25/2024 8:13 AM IPHONE DEVELOPER Impressions 10/25/2024 8:13 AM IPHONE DEVELOPER Comparison is made to prior from 10/24/2024. ??There is right-sided pigtail catheter. ??Small right apical pneumothorax is slightly larger on today's study. ??Unchanged gas in the right chest wall. ??Heart size stable. ??Lungs clear. ??No pleural effusion. Electronically signed by: Anoop Omalley M.D. Narrative 10/25/2024 8:13 AM IPHONE DEVELOPER Chest 1 view Procedure Note Anoop Omalley MD - 10/25/2024 Chest 1 view IMPRESSION: Comparison is made to prior from 10/24/2024. There is right-sided pigtail catheter. Small right apical pneumothorax is slightly larger on today's study. Unchanged gas in the right chest wall. Heart size stable. Lungs clear. No pleural effusion. Electronically signed by: Anoop Omalley M.D. [facility] IMG XR PROCEDURES Final Resu lt * XR Chest 1 View (10/24/2024 12:33 PM IPHONE DEVELOPER) Anatomical Region Laterality Modality Body, Chest N/A Computed Radiogr aphy 10/24/2024 12:5 3 PM IPHONE DEVELOPER Impressions 10/24/2024 1:52 PM IPHONE DEVELOPER The current study is compared with the prior radiograph dated 10/24/2024 at 5:31 AM. Unchanged right pleural pigtail catheter terminating over the right hemithorax. ??Unchanged intact and well aligned median sternotomy wires. ??Surgical clips in the mediastinum and right axilla. No significant change in right apical pneumothorax. ??Possible small right pleural effusion. ??No left pleural effusion. ??No left pneumothorax. ??No significant change in bibasilar airspace opacities likely representing atelectasis. ??Stable enlargement of the cardiac silhouette. Soft tissue gas over the left chest wall. Dictated by: Praneeth Reed MD The radiology attending physician has personally reviewed this study, and had reviewed and/or edited this written report and agrees with it. Electronically signed by: Mingo Ruvalcaba M.D. Narrative 10/24/2024 1:52 PM IPHONE DEVELOPER EXAMINATION: XR CHEST 1 VIEW HISTORY: ??Evaluate pneumothorax Procedure Note Mingo Ruvalcaba MD - 10/24/2024 EXAMINATION: XR CHEST 1 VIEW HISTORY: Evaluate pneumothorax IMPRESSION: The current study is compared with the prior radiograph dated 10/24/2024 at 5:31 AM. Unchanged right pleural pigtail catheter terminating over the right hemithorax. Unchanged intact and well aligned median sternotomy wires. Surgical clips in the mediastinum and right axilla. No significant change in right apical pneumothorax. Possible small right pleural effusion. No left pleural effusion. No left pneumothorax. No significant change in bibasilar airspace opacities likely representing atelectasis. Stable enlargement of the cardiac silhouette. Soft tissue gas over the left chest wall. Dictated by: Praneeth Reed MD The radiology attending physician has personally reviewed this study, and had reviewed and/or edited this written report and agrees with it. Electronically signed by: Mingo Ruvalcaba M.D. us [facility] IMG XR PROCEDURES Final Resu lt * XR Chest 1 View - in AM (10/24/2024 5:58 AM IPHONE DEVELOPER) Anatomical Region Laterality Modality Body, Chest N/A Computed Radiogr aphy 10/24/2024 8:23 AM IPHONE DEVELOPER Impressions 10/24/2024 8:23 AM IPHONE DEVELOPER Comparison is made to chest radiograph of 10/23/2024 at 12:04 PM. Portable radiograph, anteroposterior view demonstrates no significant change in the right thoracostomy tube with its distal end looping in the medial aspect of the lower right hemithorax, projecting over the lower right hilum. ??Median sternotomy wires are intact and well aligned. ??Mediastinal surgical clips clips projecting over the right axilla noted. There is a small right basilar pneumothorax adjacent to the right cardiophrenic angle. ??No pleural effusion or pulmonary edema. ??No finding concerning for pneumonia. ??Stable mild enlargement cardiac silhouette. ??Subcutaneous gas in the right lateral chest wall has decreased. Electronically signed by: Ludwig Asif M.D. Narrative 10/24/2024 8:23 AM IPHONE DEVELOPER EXAMINATION: 1 view chest radiograph Procedure Note Ludwig Asif MD - 10/24/2024 EXAMINATION: 1 view chest radiograph IMPRESSION: Comparison is made to chest radiograph of 10/23/2024 at 12:04 PM. Portable radiograph, anteroposterior view demonstrates no significant change in the right thoracostomy tube with its distal end looping in the medial aspect of the lower right hemithorax, projecting over the lower right hilum. Median sternotomy wires are intact and well aligned. Mediastinal surgical clips clips projecting over the right axilla noted. There is a small right basilar pneumothorax adjacent to the right cardiophrenic angle. No pleural effusion or pulmonary edema. No finding concerning for pneumonia. Stable mild enlargement cardiac silhouette. Subcutaneous gas in the right lateral chest wall has decreased. Electronically signed by: Ludwig Asif M.D. [facility] IMG XR PROCEDURES Final Resu lt * XR Chest 1 View (10/23/2024 12:10 PM IPHONE DEVELOPER) Anatomical Region Laterality Modality Body, Chest N/A Computed Radiogr aphy 10/23/2024 12:1 7 PM IPHONE DEVELOPER Impressions 10/23/2024 12:17 PM IPHONE DEVELOPER FINDINGS/IMPRESSION: Surgical clips project over the right scapula, mediastinum, and right upper quadrant of the abdomen. ??Median sternotomy wires are again present. ??Redemonstrated right pigtail chest tube. ??Persistent right chest wall emphysema. Persistent moderate right pneumothorax, appears not significantly changed from earlier radiograph. ??Bibasilar atelectasis. ??No visible pleural effusion. The cardiomediastinal silhouette is unchanged. Aortic atherosclerosis. Electronically signed by: Rita Amado DO Narrative 10/23/2024 12:17 PM IPHONE DEVELOPER EXAM: ??XR CHEST 1 VIEW, 10/23/2024 12:00 PM HISTORY: chest tube suction decreased, eval ptx COMPARISON: Chest radiograph dated 10/23/2024 at 558 and Procedure Note Rita Haque DO - 10/23/2024 EXAM: XR CHEST 1 VIEW, 10/23/2024 12:00 PM HISTORY: chest tube suction decreased, eval ptx COMPARISON: Chest radiograph dated 10/23/2024 at 558 and IMPRESSION: FINDINGS/IMPRESSION: Surgical clips project over the right scapula, mediastinum, and right upper quadrant of the abdomen. Median sternotomy wires are again present. Redemonstrated right pigtail chest tube. Persistent right chest wall emphysema. Persistent moderate right pneumothorax, appears not significantly changed from earlier radiograph. Bibasilar atelectasis. No visible pleural effusion. The cardiomediastinal silhouette is unchanged. Aortic atherosclerosis. Electronically signed by: Rita Amado DO [facility] XR PROCEDURES Final Result * XR Chest 1 View - in AM (10/23/2024 6:17 AM IPHONE DEVELOPER) Anatomical Region Laterality Modality Body, Chest N/A Computed Radiogr aphy 10/23/2024 6:51 AM IPHONE DEVELOPER Impressions 10/23/2024 6:51 AM IPHONE DEVELOPER FINDINGS/IMPRESSION: Surgical clips project over the right scapula, mediastinum, and right upper quadrant of the abdomen. ??Median sternotomy wires are again present. ??Redemonstrated right pigtail chest tube. ??Persistent right chest wall emphysema. Persistent moderate right pneumothorax, appears similar in size to CT from 10/22/2024, considering differences in technique, and appears slightly increased in size from chest radiograph from 10/22/2024, the this difference may be at least partially secondary to differences in patient positioning. ??No visible pleural effusion. The cardiomediastinal silhouette is unchanged. Aortic atherosclerosis. Electronically signed by: Rita Amado DO Narrative 10/23/2024 6:51 AM IPHONE DEVELOPER EXAM: ??XR CHEST 1 VIEW, 10/23/2024 5:20 AM HISTORY: s/p right VATS, right lower lobectomy COMPARISON: Chest radiograph dated 10/22/2024, CT chest dated 10/22/2024 Procedure Note Rita Haque DO - 10/23/2024 EXAM: XR CHEST 1 VIEW, 10/23/2024 5:20 AM HISTORY: s/p right VATS, right lower lobectomy COMPARISON: Chest radiograph dated 10/22/2024, CT chest dated 10/22/2024 IMPRESSION: FINDINGS/IMPRESSION: Surgical clips project over the right scapula, mediastinum, and right upper quadrant of the abdomen. Median sternotomy wires are again present. Redemonstrated right pigtail chest tube. Persistent right chest wall emphysema. Persistent moderate right pneumothorax, appears similar in size to CT from 10/22/2024, considering differences in technique, and appears slightly increased in size from chest radiograph from 10/22/2024, the this difference may be at least partially secondary to differences in patient positioning. No visible pleural effusion. The cardiomediastinal silhouette is unchanged. Aortic atherosclerosis. Electronically signed by: Rita Amado DO us [facility] IMG XR PROCEDURES Final Resu lt * CT Chest WO Contrast (10/22/2024 9:19 AM IPHONE DEVELOPER) Anatomical Region Laterality Modality Body N/A Computed Tomogra phy 10/22/2024 10:0 4 AM IPHONE DEVELOPER Impressions 10/22/2024 10:04 AM IPHONE DEVELOPER Placement of right anterior pleural drainage catheter with decrease in size of now small right pneumothorax. ??Degree of subcutaneous emphysema in the right anterior chest wall appears unchanged. ??If there is persistent air leak, then one potential etiology is a bronchopleural fistula related to a questionable defect along the posterior aspect of the bronchus intermedius near the right lower lobe bronchial stump. ??This could be further evaluated with bronchoscopy. Electronically signed by: Pablo Guido M.D. Narrative 10/22/2024 10:04 AM IPHONE DEVELOPER EXAMINATION: ??Computed tomography of the chest without intravenous contrast HISTORY: Thoracostomy tube; worsening subcutaneous emphysema; non-small cell lung cancer status post right lower lobectomy and mediastinal lymph node dissection TECHNIQUE: ??Computed tomographic images of the chest were obtained without intravenous contrast according to the standard protocol. COMPARISON: 10/21/2024 FINDINGS: ?? Postsurgical changes of median sternotomy and coronary artery bypass grafting. ??Atherosclerosis of the [place] coronary arteries. ??Thoracic aorta is atherosclerotic and tortuous but normal in caliber. ??Normal thoracic esophagus. ??Right axillary surgical clips. ??No mediastinal, supraclavicular, or hilar lymphadenopathy. ??Sequela of granulomatous disease chest. Post surgical changes of right lower lobectomy with unchanged hyperdense material, likely blood products, in the right major fissure. ??Interval placement of right anterior pigtail pleural drainage catheter with decrease in size of now small right pneumothorax. ??Small amount of dependent fluid in the right pleural space is unchanged. ??Similar degree of subcutaneous emphysema in the right anterior chest wall. ??Apparent communication of the right pleural space with the right anterior chest wall subcutaneous region through a right anterior intercostal space (series 3, image 67). Possible communication between the right lower lobe bronchial stump in the right posterior medial pleural space (series 2, image 59), also seen on the prior study in a similar location (10/21/2024; series 3, image 54). Surgically absent gallbladder. ??Simple cysts in both kidneys. No suspicious osseous lesions. Procedure Note Pablo Guido MD - 10/22/2024 EXAMINATION: Computed tomography of the chest without intravenous contrast HISTORY: Thoracostomy tube; worsening subcutaneous emphysema; non-small cell lung cancer status post right lower lobectomy and mediastinal lymph node dissection TECHNIQUE: Computed tomographic images of the chest were obtained without intravenous contrast according to the standard protocol. COMPARISON: 10/21/2024 FINDINGS: Postsurgical changes of median sternotomy and coronary artery bypass grafting. Atherosclerosis of the [place] coronary arteries. Thoracic aorta is atherosclerotic and tortuous but normal in caliber. Normal thoracic esophagus. Right axillary surgical clips. No mediastinal, supraclavicular, or hilar lymphadenopathy. Sequela of granulomatous disease chest. Post surgical changes of right lower lobectomy with unchanged hyperdense material, likely blood products, in the right major fissure. Interval placement of right anterior pigtail pleural drainage catheter with decrease in size of now small right pneumothorax. Small amount of dependent fluid in the right pleural space is unchanged. Similar degree of subcutaneous emphysema in the right anterior chest wall. Apparent communication of the right pleural space with the right anterior chest wall subcutaneous region through a right anterior intercostal space (series 3, image 67). Possible communication between the right lower lobe bronchial stump in the right posterior medial pleural space (series 2, image 59), also seen on the prior study in a similar location (10/21/2024; series 3, image 54). Surgically absent gallbladder. Simple cysts in both kidneys. No suspicious osseous lesions. IMPRESSION: Placement of right anterior pleural drainage catheter with decrease in size of now small right pneumothorax. Degree of subcutaneous emphysema in the right anterior chest wall appears unchanged. If there is persistent air leak, then one potential etiology is a bronchopleural fistula related to a questionable defect along the posterior aspect of the bronchus intermedius near the right lower lobe bronchial stump. This could be further evaluated with bronchoscopy. Electronically signed by: Pablo Lucio Fraum, M.D. Rita BAR IMG CT PROCEDURES Final Result * XR Chest 1 View - in AM (10/22/2024 5:35 AM IPHONE DEVELOPER) Anatomical Region Laterality Modality Body, Chest N/A Computed Radiogr aphy 10/22/2024 9:38 AM IPHONE DEVELOPER Impressions 10/22/2024 9:38 AM IPHONE DEVELOPER Median sternotomy wires are unchanged. ??Right basilar thoracostomy tube noted. No significant change in right-sided subcutaneous emphysema. There is a small right hydropneumothorax, not significantly changed when compared to CT 10/21/2024. ??No left pneumothorax. Lung volumes are small with mild bibasilar atelectasis, which is not significantly changed. ??Heart and mediastinal contours are stable. Electronically signed by: Paulo Crum MD, PHD Narrative 10/22/2024 9:38 AM IPHONE DEVELOPER EXAMINATION: XR CHEST 1 VIEW HISTORY: s/p right VATS, right lower lobectomy COMPARISON: 10/21/2024 Procedure Note Paulo Crum MD PhD - 10/22/2024 EXAMINATION: XR CHEST 1 VIEW HISTORY: s/p right VATS, right lower lobectomy COMPARISON: 10/21/2024 IMPRESSION: Median sternotomy wires are unchanged. Right basilar thoracostomy tube noted. No significant change in right-sided subcutaneous emphysema. There is a small right hydropneumothorax, not significantly changed when compared to CT 10/21/2024. No left pneumothorax. Lung volumes are small with mild bibasilar atelectasis, which is not significantly changed. Heart and mediastinal contours are stable. Electronically signed by: Paulo Crum MD, PHD [facility] IMG XR PROCEDURES Final Resu lt * XR Chest 1 View (10/21/2024 1:09 PM IPHONE DEVELOPER) Anatomical Region Laterality Modality Body, Chest N/A Computed Radiogr aphy 10/21/2024 1:17 PM IPHONE DEVELOPER Impressions 10/21/2024 1:17 PM IPHONE DEVELOPER Comparison film prior chest radiograph dated 10/21/2024. Median sternotomy wires are unchanged. ??Interval placement of a right sided chest tube. Right hydropneumothorax has decreased in size. ??There is right basilar atelectasis. ??The left lung is clear. Stable heart size. ??There is diffuse subcutaneous emphysema overlying the right chest wall. Electronically signed by: Alexus Bernal M.D. Narrative 10/21/2024 1:17 PM IPHONE DEVELOPER EXAMINATION: XR CHEST 1 VIEW Procedure Note Alexus Bernal MD - 10/21/2024 EXAMINATION: XR CHEST 1 VIEW IMPRESSION: Comparison film prior chest radiograph dated 10/21/2024. Median sternotomy wires are unchanged. Interval placement of a right sided chest tube. Right hydropneumothorax has decreased in size. There is right basilar atelectasis. The left lung is clear. Stable heart size. There is diffuse subcutaneous emphysema overlying the right chest wall. Electronically signed by: Alexus Bernal M.D. us Volodymyr BAR IMG XR PROCEDURES Final Resu lt * CT Chest WO Contrast (10/21/2024 10:36 AM IPHONE DEVELOPER) Anatomical Region Laterality Modality Body N/A Computed Tomogra phy 10/21/2024 11:0 1 AM IPHONE DEVELOPER Impressions 10/21/2024 11:16 AM IPHONE DEVELOPER 1. Postoperative changes of right lower lobectomy with small volume hydropneumothorax. Although this may represent expected postoperative changes, there may be possible defect in the posterior wall of bronchus intermedius. If hydropneumothorax persists consider further evaluation with bronchoscopy. 2. Large volume postoperative subcutaneous gas in the right chest wall and right axilla. Dictated by: Ana Paula Mcnamara MD The radiology attending physician has personally reviewed this study, and had reviewed and/or edited this written report and agrees with it. Electronically signed by: Alexus Bernal M.D. Narrative 10/21/2024 11:16 AM IPHONE DEVELOPER EXAMINATION: ??Computed tomography of the chest without intravenous contrast HISTORY: 74-year-old man with non-small cell lung cancer status post right lower lobectomy and mediastinal lymph node dissection with right pneumothorax. TECHNIQUE: ??Transaxial computed tomographic images of the chest were obtained without intravenous contrast according to the standard protocol. COMPARISON: Chest radiograph dated 10/21/2024 at 0610 hours and FDG PET/CT dated 09/30/2024 FINDINGS: ?? Postoperative changes of right lower lobectomy. Small right hydropneumothorax with loculated fluid in the major fissure. There is a lucency along the posterior wall of bronchus intermedius which may be a small defect (series 3, image 54). No left pneumothorax. ??There is a trace left pleural effusion. ??Atelectasis of the inferior right upper lobe superimposed on bilateral emphysema. Large volume subcutaneous gas in the right chest wall and right axilla. There is normal. ??Postsurgical changes of median sternotomy for coronary artery bypass graft. ??Severe atherosclerotic calcifications of the [place] coronary arteries. ??Heart size is normal. ??No pericardial effusion. ??Surgical clips in the mediastinum consistent with regino dissection. Imaged upper abdomen demonstrates changes of cholecystectomy. Multiple left renal cyst. ??No acute findings in the imaged upper abdomen. No suspicious osseous lesion. Procedure Note Alexus Bernal MD - 10/21/2024 EXAMINATION: Computed tomography of the chest without intravenous contrast HISTORY: 74-year-old man with non-small cell lung cancer status post right lower lobectomy and mediastinal lymph node dissection with right pneumothorax. TECHNIQUE: Transaxial computed tomographic images of the chest were obtained without intravenous contrast according to the standard protocol. COMPARISON: Chest radiograph dated 10/21/2024 at 0610 hours and FDG PET/CT dated 09/30/2024 FINDINGS: Postoperative changes of right lower lobectomy. Small right hydropneumothorax with loculated fluid in the major fissure. There is a lucency along the posterior wall of bronchus intermedius which may be a small defect (series 3, image 54). No left pneumothorax. There is a trace left pleural effusion. Atelectasis of the inferior right upper lobe superimposed on bilateral emphysema. Large volume subcutaneous gas in the right chest wall and right axilla. There is normal. Postsurgical changes of median sternotomy for coronary artery bypass graft. Severe atherosclerotic calcifications of the [place] coronary arteries. Heart size is normal. No pericardial effusion. Surgical clips in the mediastinum consistent with regino dissection. Imaged upper abdomen demonstrates changes of cholecystectomy. Multiple left renal cyst. No acute findings in the imaged upper abdomen. No suspicious osseous lesion. IMPRESSION: 1. Postoperative changes of right lower lobectomy with small volume hydropneumothorax. Although this may represent expected postoperative changes, there may be possible defect in the posterior wall of bronchus intermedius. If hydropneumothorax persists consider further evaluation with bronchoscopy. 2. Large volume postoperative subcutaneous gas in the right chest wall and right axilla. Dictated by: Ana Paula Mcnamara MD The radiology attending physician has personally reviewed this study, and had reviewed and/or edited this written report and agrees with it. Electronically signed by: Alexus Bernal M.D. Volodymyr BAR IMG CT PROCEDURES Final Resu lt * eGFR (10/21/2024 7:43 AM IPHONE DEVELOPER) eGFR 63 >=60 mL/min/1. 73 m2 Comment: Interpretive Data Reference Interval Normal ?>/= 90 mL/min/1.73m2 Mildly decreased* ? 60 - 89 mL/min/1.73m2 Mildly to moderately decreased ?45 - 59 mL/min/1.73m2 Moderately to severely decreased ??30 - 44 mL/min/1.73m2 Severely decreased ?15 - 29 mL/min/1.73m2 Kidney Failure ?< 15 ??mL/min/1.73m2 *Relative to young adult level Estimated glomerular filtration rate is determined by the 2020 CKD-EPI equation recommended by the National Kidney Foundation (A Unifying Approach to GFR Estimation: Recommendations of the NKF-ASK Task Force on Reassessing the Inclusion of Race in Diagnosing Kidney Disease, JASN 2020). The CKD-EPI equation should not be used for patients with unstable renal function and has not been validated in children and those over 70. Current interpretive data was last reviewed 2021. Blood 10/21/2024 7:43 AM IPHONE DEVELOPER 10/21/2024 8:00 AM IPHONE DEVELOPER us Volodymyr BAR LAB BLOOD ORDERABLES Final R esult [facility] [address] Department [place] [address] * (ABNORMAL) Basic metabolic panel (10/21/2024 7:43 AM IPHONE DEVELOPER) Sodium 134(L) 135 - 145 mmol/L Potassium, pl 4.5 3.3 - 4.9 mmol/L [facility] Chloride 99 97 - 110 mmol/L [facility] CO2 30 22 - 32 mmol/L [facility] Anion gap 5 2 - 15 mmol/L [facility] BUN 31(H) 6 - 25 mg/dL [facility] Creatinine 1.20 0.80 - 1.30 mg/dL [facility] Glucose 116 70 - 199 mg/dL [facility] Comment: Interpretive Data Fasting glucose >/= 126 mg/dl is diagnostic for diabetes. ?? Fasting is defined as no caloric intake for at least 8 hours. Fasting glucose between 100 mg/dl to 125 mg/dl is diagnostic of prediabetes. In a patient with classic symptoms of hyperglycemia or hyperglycemic crisis, a random glucose >/= 200 mg/dl is diagnostic for diabetes. In the absence of unequivocal hyperglycemia, results should be confirmed by repeat testing. The classification and Diagnosis of Diabetes Diabetes Care 202; 46: S19-S40. Current interpretive data was last revised 2022. Calcium 8.5 8.5 - 10.3 mg/dL [facility] Blood 10/21/2024 7:43 AM IPHONE DEVELOPER 10/21/2024 8:00 AM IPHONE DEVELOPER us Volodymyr BAR LAB BLOOD ORDERABLES Final R esult [facility] [address] Department [place] [address] * XR Chest 1 View - in AM (10/21/2024 6:32 AM IPHONE DEVELOPER) Anatomical Region Laterality Modality Body, Chest N/A Computed Radiogr aphy 10/21/2024 8:44 AM IPHONE DEVELOPER Impressions 10/21/2024 8:44 AM IPHONE DEVELOPER Comparison 10/20/2024 2:21 PM. ??Changes of partial right lung resection again seen. ??Sternotomy wires are aligned and intact. Small right apical and small right basilar pneumothorax again seen. Increasing subcutaneous gas noted in the right axilla. ??No left pneumothorax seen. Mild right base atelectasis and small right pleural effusion again seen. ??Cardiomediastinal silhouette stable. Electronically signed by: Alin Velasco M.D. Narrative 10/21/2024 8:44 AM IPHONE DEVELOPER EXAMINATION: Chest 1 view Procedure Note Alin Velasco MD - 10/21/2024 EXAMINATION: Chest 1 view IMPRESSION: Comparison 10/20/2024 2:21 PM. Changes of partial right lung resection again seen. Sternotomy wires are aligned and intact. Small right apical and small right basilar pneumothorax again seen. Increasing subcutaneous gas noted in the right axilla. No left pneumothorax seen. Mild right base atelectasis and small right pleural effusion again seen. Cardiomediastinal silhouette stable. Electronically signed by: Alin Velasco M.D. us Volodymyr BAR IMG XR PROCEDURES Final Resu lt * (ABNORMAL) eGFR (10/21/2024 12:52 AM IPHONE DEVELOPER) eGFR 59(L) >=60 mL/min/1. 73 m2 Comment: Interpretive Data Reference Interval Normal ?>/= 90 mL/min/1.73m2 Mildly decreased* ? 60 - 89 mL/min/1.73m2 Mildly to moderately decreased ?45 - 59 mL/min/1.73m2 Moderately to severely decreased ??30 - 44 mL/min/1.73m2 Severely decreased ?15 - 29 mL/min/1.73m2 Kidney Failure ?< 15 ??mL/min/1.73m2 *Relative to young adult level Estimated glomerular filtration rate is determined by the 2020 CKD-EPI equation recommended by the National Kidney Foundation (A Unifying Approach to GFR Estimation: Recommendations of the NKF-ASK Task Force on Reassessing the Inclusion of Race in Diagnosing Kidney Disease, JASN 2020). The CKD-EPI equation should not be used for patients with unstable renal function and has not been validated in children and those over 70. Current interpretive data was last reviewed 2021. Blood 10/21/2024 12:5 2 AM IPHONE DEVELOPER 10/21/2024 1:41 AM IPHONE DEVELOPER Rita BAR LAB BLOOD ORDERABLES Fin al Result [facility] [address] Department of Laboratories [place], [place] [id number] * (ABNORMAL) Differential, auto (10/21/2024 12:52 AM IPHONE DEVELOPER) Neutrophil abs 8.3(H) 1.5 - 6.5 K/cumm Imm gran abs 0.1 0.0 - 0.1 K/cumm [facility] Lymphocyte abs 1.5 0.8 - 3.3 K/cumm [facility] Monocyte abs 1.1(H) 0.2 - 0.8 K/cumm [facility] Eosinophil abs 0.1 0.0 - 0.5 K/cumm [facility] Basophil abs 0.0 0.0 - 0.1 K/cumm [facility] Neutrophil pct 74.7 % [facility] Comment: Interpretive Data Percent cell count reference ranges are not reported, since discordance with absolute values may lead to misinterpretation of CBC data. Current Interpretive Data was last revised on 2018. Imm gran pct 0.5 % [facility] Comment: Interpretive Data Percent cell count reference ranges are not reported, since discordance with absolute values may lead to misinterpretation of CBC data. Current Interpretive Data was last revised on 2018. Lymphocyte pct 13.6 % [facility] Comment: Interpretive Data Percent cell count reference ranges are not reported, since discordance with absolute values may lead to misinterpretation of CBC data. Current Interpretive Data was last revised on 2018. Monocyte pct 9.5 % [facility] Comment: Interpretive Data Percent cell count reference ranges are not reported, since discordance with absolute values may lead to misinterpretation of CBC data. Current Interpretive Data was last revised on 2018. Eosinophil pct 1.3 % [facility] Comment: Interpretive Data Percent cell count reference ranges are not reported, since discordance with absolute values may lead to misinterpretation of CBC data. Current Interpretive Data was last revised on 2018. Basophil pct 0.4 % [facility] Comment: Interpretive Data Percent cell count reference ranges are not reported, since discordance with absolute values may lead to misinterpretation of CBC data. Current Interpretive Data was last revised on 2018. Blood 10/21/2024 12:5 2 AM IPHONE DEVELOPER 10/21/2024 1:42 AM IPHONE DEVELOPER us Rita BAR LAB BLOOD ORDERABLES Fin al Result [facility] [address] Department [place] [address] * (ABNORMAL) CBC with auto differential (10/21/2024 12:52 AM IPHONE DEVELOPER) WBC 11.1(H) 3.8 - 9.9 K/cumm Hgb 9.4(L) 13.0 - 17.5 g/dL [facility] Hct 29.2(L) 38.9 - 50.3 % [facility] Plt 241 150 - 400 K/cumm [facility] MPV 12.1 9.1 - 12.3 fL [facility] RBC 2.58(L) 4.30 - 5.80 M/cumm [facility] MCV 113.2(H) 81.3 - 96.4 fL [facility] MCH 36.4(H) 27.1 - 33.3 pg [facility] MCHC 32.2(L) 32.3 - 35.7 g/dL [facility] RDW CV 14.3 11.1 - 14.9 % [facility] RDW SD 59.7(H) 35.7 - 48.1 fL [facility] NRBC abs 0.00 0.00 - 0.01 K/cumm [facility] Blood 10/21/2024 12:5 2 AM IPHONE DEVELOPER 10/21/2024 1:42 AM IPHONE DEVELOPER Rita BAR LAB BLOOD ORDERABLES Fin al Result [facility] [address] Department [place] [address] * (ABNORMAL) Basic metabolic panel (10/21/2024 12:52 AM IPHONE DEVELOPER) Sodium 136 135 - 145 mmol/L Potassium, pl 5.0(H) 3.3 - 4.9 mmol/L [facility] Comment:Hemolyzed; potassium value may be falsely elevated by as much as 0.3 - 0.5 mmol/L. Suggest redraw and reanalysis Chloride 101 97 - 110 mmol/L [facility] CO2 28 22 - 32 mmol/L [facility] Anion gap 7 2 - 15 mmol/L [facility] BUN 31(H) 6 - 25 mg/dL [facility] Creatinine 1.27 0.80 - 1.30 mg/dL [facility] Glucose 117 70 - 199 mg/dL [facility] Comment: Interpretive Data Fasting glucose >/= 126 mg/dl is diagnostic for diabetes. ?? Fasting is defined as no caloric intake for at least 8 hours. Fasting glucose between 100 mg/dl to 125 mg/dl is diagnostic of prediabetes. In a patient with classic symptoms of hyperglycemia or hyperglycemic crisis, a random glucose >/= 200 mg/dl is diagnostic for diabetes. In the absence of unequivocal hyperglycemia, results should be confirmed by repeat testing. The classification and Diagnosis of Diabetes Diabetes Care 2021; 46: S19-S40. Current interpretive data was last revised 2022. Calcium 8.5 8.5 - 10.3 mg/dL [facility] Blood 10/21/2024 12:5 2 AM IPHONE DEVELOPER 10/21/2024 1:41 AM IPHONE DEVELOPER us Rita BAR LAB BLOOD ORDERABLES Fin al Result [facility] [address] Department [place] [address] * XR Chest 1 Vw (10/20/2024 2:33 PM IPHONE DEVELOPER) Anatomical Region Laterality Modality Body, Chest N/A Computed Radiogr aphy 10/20/2024 2:35 PM IPHONE DEVELOPER Impressions 10/20/2024 2:35 PM IPHONE DEVELOPER Interval removal the right basilar thoracotomy tube. There is a small right pleural effusion with associated atelectasis. The right-sided pneumothorax is unchanged with approximately 19 mm of pleural separation. Bibasilar subsegmental atelectasis is unchanged. Median sternotomy. Stable heart size. Electronically signed by: Abebe Kennedy M.D. Narrative 10/20/2024 2:35 PM IPHONE DEVELOPER PORTABLE CHEST X-RAY INDICATION: chest tube removal COMPARISON: 10/18/2024 radiograph VIEWS: 1 Procedure Note Abebe Kennedy MD - 10/20/2024 PORTABLE CHEST X-RAY INDICATION: chest tube removal COMPARISON: 10/18/2024 radiograph VIEWS: 1 IMPRESSION: Interval removal the right basilar thoracotomy tube. There is a small right pleural effusion with associated atelectasis. The right-sided pneumothorax is unchanged with approximately 19 mm of pleural separation. Bibasilar subsegmental atelectasis is unchanged. Median sternotomy. Stable heart size. Electronically signed by: Abebe Kennedy M.D. Rita BAR IMG XR PROCEDURES Final Result * XR Chest 1 View - in AM (10/20/2024 6:29 AM IPHONE DEVELOPER) Anatomical Region Laterality Modality Body, Chest N/A Computed Radiogr aphy 10/20/2024 7:58 AM IPHONE DEVELOPER Impressions 10/20/2024 7:58 AM IPHONE DEVELOPER Median sternotomy. Changes of CABG. Stable contour of the heart. Right basilar thoracotomy tube as been readjusted and remains apically directed. Right greater than left basilar airspace opacities are slightly worsened from the prior examination and may represent atelectasis. Moderate right apical pneumothorax is also unchanged from the prior examination. No left-sided pneumothorax. Small bilateral pleural effusions. Surgical clips in the right axilla. Electronically signed by: Abebe Kennedy M.D. Narrative 10/20/2024 7:58 AM IPHONE DEVELOPER PORTABLE CHEST X-RAY INDICATION: s/p right VATS, right lower lobectomy COMPARISON: 10/19/2024 VIEWS: 1 Procedure Note Abebe Kennedy MD - 10/20/2024 PORTABLE CHEST X-RAY INDICATION: s/p right VATS, right lower lobectomy COMPARISON: 10/19/2024 VIEWS: 1 IMPRESSION: Median sternotomy. Changes of CABG. Stable contour of the heart. Right basilar thoracotomy tube as been readjusted and remains apically directed. Right greater than left basilar airspace opacities are slightly worsened from the prior examination and may represent atelectasis. Moderate right apical pneumothorax is also unchanged from the prior examination. No left-sided pneumothorax. Small bilateral pleural effusions. Surgical clips in the right axilla. Electronically signed by: Abebe Kennedy M.D. Volodymyr BAR IMG XR PROCEDURES Final Resu lt * XR Chest 1 View - in AM (10/19/2024 6:14 AM IPHONE DEVELOPER) Anatomical Region Laterality Modality Body, Chest N/A Computed Radiogr aphy 10/19/2024 7:20 AM IPHONE DEVELOPER Impressions 10/19/2024 7:20 AM IPHONE DEVELOPER Median sternotomy wires are unchanged. ??Right thoracostomy tube is also unchanged. Stable moderate right apical pneumothorax. ??No left pneumothorax. Subcutaneous gas in the right chest wall noted. Small lung volumes are mildly decreased from the prior exam with increased bibasilar atelectasis. ??Small bilateral pleural effusions are unchanged. ??Heart and mediastinal contours are stable. Electronically signed by: Paulo Crum MD, PHD Narrative 10/19/2024 7:20 AM IPHONE DEVELOPER EXAMINATION: XR CHEST 1 VIEW HISTORY: s/p right VATS, right lower lobectomy COMPARISON: 10/18/2024 Procedure Note Paulo Crum MD PhD - 10/19/2024 EXAMINATION: XR CHEST 1 VIEW HISTORY: s/p right VATS, right lower lobectomy COMPARISON: 10/18/2024 IMPRESSION: Median sternotomy wires are unchanged. Right thoracostomy tube is also unchanged. Stable moderate right apical pneumothorax. No left pneumothorax. Subcutaneous gas in the right chest wall noted. Small lung volumes are mildly decreased from the prior exam with increased bibasilar atelectasis. Small bilateral pleural effusions are unchanged. Heart and mediastinal contours are stable. Electronically signed by: Paulo Crum MD, PHD Volodymyr BAR IMG XR PROCEDURES Final Resu lt * eGFR (10/19/2024 1:26 AM IPHONE DEVELOPER) eGFR 69 >=60 mL/min/1. 73 m2 Comment: Interpretive Data Reference Interval Normal ?>/= 90 mL/min/1.73m2 Mildly decreased* ? 60 - 89 mL/min/1.73m2 Mildly to moderately decreased ?45 - 59 mL/min/1.73m2 Moderately to severely decreased ??30 - 44 mL/min/1.73m2 Severely decreased ?15 - 29 mL/min/1.73m2 Kidney Failure ?< 15 ??mL/min/1.73m2 *Relative to young adult level Estimated glomerular filtration rate is determined by the 2020 CKD-EPI equation recommended by the National Kidney Foundation (A Unifying Approach to GFR Estimation: Recommendations of the NKF-ASK Task Force on Reassessing the Inclusion of Race in Diagnosing Kidney Disease, JASN 2020). The CKD-EPI equation should not be used for patients with unstable renal function and has not been validated in children and those over 70. Current interpretive data was last reviewed 2021. Blood 10/19/2024 1:26 AM IPHONE DEVELOPER 10/19/2024 2:02 AM IPHONE DEVELOPER us Volodymyr BAR LAB BLOOD ORDERABLES Final R esult [facility] [address] Department [place] [address] * (ABNORMAL) CBC without differential (10/19/2024 1:26 AM IPHONE DEVELOPER) WBC 14.7(H) 3.8 - 9.9 K/cumm Hgb 10.7(L) 13.0 - 17.5 g/dL [facility] Hct 33.8(L) 38.9 - 50.3 % [facility] Plt 194 150 - 400 K/cumm [facility] MPV 10.8 9.1 - 12.3 fL [facility] RBC 3.00(L) 4.30 - 5.80 M/cumm [facility] MCV 112.7(H) 81.3 - 96.4 fL [facility] MCH 35.7(H) 27.1 - 33.3 pg [facility] MCHC 31.7(L) 32.3 - 35.7 g/dL [facility] RDW CV 14.6 11.1 - 14.9 % [facility] RDW SD 60.5(H) 35.7 - 48.1 fL [facility] NRBC abs 0.00 0.00 - 0.01 K/cumm [facility] Blood 10/19/2024 1:26 AM IPHONE DEVELOPER 10/19/2024 2:02 AM IPHONE DEVELOPER Volodymyr BAR LAB BLOOD ORDERABLES Final R esult Performing Organization Address City/[facility]/ZIP Co de Phone Number [facility] [address] [employer] [place], [place] [id number] * Magnesium (10/19/2024 1:26 AM IPHONE DEVELOPER) [facility] Magnesium 1.6 1.4 - 2.5 mg/dL Blood 10/19/2024 1:26 AM IPHONE DEVELOPER 10/19/2024 2:02 AM IPHONE DEVELOPER Volodymyr BAR LAB BLOOD ORDERABLES Final R esult Performing Organization Address City/[facility] Co de Phone Number [facility] [address] [employer] [place], [place] [phone] * (ABNORMAL) Basic metabolic panel (10/19/2024 1:26 AM IPHONE DEVELOPER) Pathologist [facility] Sodium 136 135 - 145 mmol/L Potassium, pl 4.7 3.3 - 4.9 mmol/L [facility] Chloride 102 97 - 110 mmol/L [facility] CO2 23 22 - 32 mmol/L [facility] Anion gap 11 2 - 15 mmol/L [facility] BUN 31(H) 6 - 25 mg/dL [facility] Creatinine 1.11 0.80 - 1.30 mg/dL [facility] Glucose 121 70 - 199 mg/dL [facility] Comment: Interpretive Data Fasting glucose >/= 126 mg/dl is diagnostic for diabetes. ?? Fasting is defined as no caloric intake for at least 8 hours. Fasting glucose between 100 mg/dl to 125 mg/dl is diagnostic of prediabetes. In a patient with classic symptoms of hyperglycemia or hyperglycemic crisis, a random glucose >/= 200 mg/dl is diagnostic for diabetes. In the absence of unequivocal hyperglycemia, results should be confirmed by repeat testing. The classification and Diagnosis of Diabetes Diabetes Care 2021; 46: S19-S40. Current interpretive data was last revised 2022. Calcium 7.8(L) 8.5 - 10.3 mg/dL [facility] Blood 10/19/2024 1:26 AM IPHONE DEVELOPER 10/19/2024 2:02 AM IPHONE DEVELOPER us Volodymyr BAR LAB BLOOD ORDERABLES Final R esult [facility] [address] Department [place] [address] * XR Chest 1 View (10/18/2024 2:10 PM IPHONE DEVELOPER) Anatomical Region Laterality Modality Body, Chest N/A Computed Radiogr aphy 10/18/2024 2:25 PM IPHONE DEVELOPER Impressions 10/18/2024 2:25 PM IPHONE DEVELOPER FINDINGS/IMPRESSION: Sternotomy wires are in place. Patient status post video-assisted thoracic surgery for right lower lobectomy. ??There is a moderate right pneumothorax with a basal thoracotomy tube in place. A small right pleural effusion with associated atelectatic changes are seen. ??Mild bilateral interstitial opacities are unchanged. Cardiac mediastinum is stable. Surgical clips are seen in the right axilla. Electronically signed by: Lamar Miramontes M.D. Narrative 10/18/2024 2:25 PM IPHONE DEVELOPER EXAMINATION: XR CHEST 1 VIEW HISTORY: s/p right VATS, right lower lobectomy COMPARISON: 09/19/2024 Procedure Note Lamar Martinez MD - 10/18/2024 EXAMINATION: XR CHEST 1 VIEW HISTORY: s/p right VATS, right lower lobectomy COMPARISON: 09/19/2024 IMPRESSION: FINDINGS/IMPRESSION: Sternotomy wires are in place. Patient status post video-assisted thoracic surgery for right lower lobectomy. There is a moderate right pneumothorax with a basal thoracotomy tube in place. A small right pleural effusion with associated atelectatic changes are seen. Mild bilateral interstitial opacities are unchanged. Cardiac mediastinum is stable. Surgical clips are seen in the right axilla. Electronically signed by: Lamar Miramontes M.D. us Volodymyr BAR IMG XR PROCEDURES Final Resu lt * Surgical pathology (10/18/2024 12:28 PM IPHONE DEVELOPER) Tissue (Lung, total / lobe / segmental, tumor) 10/18/2024 12:28 PM IPHONE DEVELOPER Comment:Placed in formalin p ost procedure/ history of lung cancer Tissue (Lymph Node, Single excision) 10/18/2024 12:34 PM IPHONE DEVELOPER Comment:Placed in formalin p ost procedure Tissue (Lymph Node, Single excision) 10/18/2024 12:45 PM IPHONE DEVELOPER Comment:Placed in formalin p ost procedure Narrative PATHOLOGY [facility] - 10/28/2024 8:40 AM IPHONE DEVELOPER [address] ??[address] Tele: ?? Patricia Colunga MD - Manager Skilled Note to Patients: This report may contain a detailed description of human tissue sent by a health care provider to the laboratory for pathologic evaluation. The content of this report is essential for diagnosis and may provide important critical findings. This information may be unfamiliar to patients to review without a medical professional present. It is advised that the patient review this report in the presence of a health care provider who can answer questions and explain the details. SURGICAL PATHOLOGY REPORT Patient Name: ??RAMIREZ CHÁVEZ Address: ??[address] [place], [place] [address] Gender: ??M : ??1950 (Age: 74) Service: ??Cardiothoracic Location: ??[id number], ?? Hospital #: ??[id number] Patient Type: ??[facility] Accession #: ? [id number] Taken: ? 10/18/2024 Received ? 10/18/2024 Reported: ? 10/28/2024 Physician(s): ? Codi Randhawa M.D. DIAGNOSIS: Lung, right lower lobe, lobectomy: ? - Minimally invasive adenocarcinoma with mucinous features (see synoptic) ? - No lymphovascular space invasion ? - No pleural invasion ? - Resection margins free of tumor ? - Six peribronchial lymph nodes with no evidence of malignancy (0/6) ? - Focal subpleural fibrosis Lymph nodes, level 4R, biopsies: ? - Five lymph nodes with no evidence of malignancy (0/5) ? - Focal non caseating granulomas Lymph node, level 7, biopsy: ? - One lymph node with no evidence of malignancy (0/1) 10/28/2024 08:40 Examining Pathologist: Andrey Esteban M.D. Report Reviewed and Electronically Signed By ??Andrey Esteban M.D. SPECIMEN TYPE: A: RIGHT LOWER LOBE B: LYMPH NODE, LEVEL 4R C: LYMPH NODE, LEVEL 7 CLINICAL IMPRESSION AND HISTORY: Malignant neoplasm of lower lobe of right lung GROSS DESCRIPTION: A. ??Received in formalin labeled with RAMIREZ CHÁVEZ and right lower lobe is a 297 g, 21.3 x 17.3 x 3.5 cm right lower lobe. ??The specimen is marked with silver nitrate. ??The pleurae displays an arborizing pattern of anthracotic change. ??Sections show a dense firm nayak villeda ill-defined area at the periphery measuring approximately 2.1 x 1.9 x 1.1 cm. ??It is located 6 cm from the bronchial resection margin and 0.1 cm from the marked overlying pleura, smooth. ?? There are multiple possible subpleural nodules ranging from less than 0.1 cm to 0.1 cm. ??The remaining lung is spongy red- brown. ??There are multiple nayak-black peribronchial lymph nodes ranging from 0.3 cm to 0.8 cm. Insurance Verification Representative sections are submitted as follows: ??A1 - Bronchial and vascular margins, A2-A4 - Block entire 2.1 cm indurated region in relation to marked pleura, A5-A6 - Lung adjacent to 2.1 cm indurated region, A7-A8 - Multiple possible scattered subpleural nodules, A9-A10 - Multiple peribronchial lymph nodes B. ??Received in formalin labeled with RAMIREZ CHÁVEZ and lymph node level 4R are multiple nayak-black tissue fragments measuring 2.3 x 2.1 x 0.3 cm in aggregate. The specimen is entirely submitted in cassette labeled B1. C. ??Received in formalin labeled with RAMIREZ CHÁVEZ and lymph node level 7 to red-brown irregular tissue fragments measuring 1 x 0.6 x 0.3 cm in aggregate. The specimen is entirely submitted in cassette labeled C1. ?? [facility] MICROSCOPIC DESCRIPTION: Microscopic examination of the right lower lobe shows adenocarcinoma with a predominantly lepidic pattern. ??Focal areas show infiltrative atypical cells with an acinar pattern. ??Pancytokeratin immunostains are performed on blocks A2 and A3 to confirm the diagnosis. ??They are positive for invasive acinar structures. ??The findings are consistent with minimally invasive adenocarcinoma. Microscopic examination of the level 4R lymph nodes shows multiple benign lymph nodes. ??Two of the lymph nodes show a few small noncaseating granulomas. ??A GMS stain is negative for fungal organisms. ??An AFB stain is negative for acid-fast bacteria. Microscopic examination of the level 7 lymph node shows a single benign lymph node. ?LUNG ? SPECIMEN ? Procedure: ??Lobectomy ? Specimen Laterality: ??Right TUMOR ? Tumor Focality: ??Single focus ? Tumor Site: ??Lower lobe of lung ? Tumor Size ? Total Tumor Size (size of entire tumor): ??Greatest Dimension (Centimeters) - 2.1 cm ? Size of Invasive Component: ??Greatest Dimension (Centimeters) - 0.2 cm ? Histologic Type: ??Minimally invasive adenocarcinoma, mucinous ? Histologic Patterns Present: ??Acinar - 1%, Lepidic - 99% ? Visceral Pleura Invasion: ??Not identified ? Direct Invasion of Adjacent Structures: ??Not applicable (no adjacent structures present) ? Treatment Effect: ??No known presurgical therapy ? Lymphovascular Invasion: ??Not identified MARGINS ? Margin Status for Invasive Carcinoma: ??All margins negative for invasive carcinoma ? Closest Margin(s) to Invasive Carcinoma: ??Bronchial ? Distance from Invasive Carcinoma to Closest Margin: ??Greater than - 1 cm ? Margin Status for Non-Invasive Tumor: ??All margins negative for non- invasive tumor REGIONAL LYMPH NODES ? Lymph Node(s) from Prior Procedures: ??No known prior lymph node sampling performed ? Regional Lymph Node Status: ??All regional lymph nodes negative for tumor ? Number of Lymph Nodes Examined: ??12 ? Regino Site(s) Examined: ??4R: Lower paratracheal, 13R: Segmental, 14R: Subsegmental, 7: Subcarinal DISTANT METASTASIS ? Distant Site(s) Involved: ??Cannot be determined PATHOLOGIC STAGE CLASSIFICATION (pTNM, AJCC 8th Edition) ? Reporting of pT, pN, and (when applicable) pM categories is based on information available to the pathologist at the time the report is issued. As per the AJCC (Chapter 1, 8th Ed.) it is the managing physician's responsibility to establish the final pathologic stage based upon all pertinent information, including but potentially not limited to this pathology report. ? pT Category: ??pT1mi ? pN Category: ??pN0 ? CAP VERSION: Lung 4.3.0.1 Clerical Data Follows A; 48986, 70303 B; 80088, 32692, 60213 C; 28872 REPORT IMAGES AND/OR SCANNED DOCUMENTS ONLY VIEWABLE IN PDF FORMAT The immunohistochemical test(s) cited in this report, if any, was developed and its performance characteristics determined by [facility] Pathology Department. ??It has not been cleared or approved by the U.S. Food and Drug Administration. ??The FDA has determined that such clearance or approval is not necessary. ??This test is used for clinical purposes. ??It should not be regarded as investigational or for research. ??[facility] is certified under the Clinical Laboratory Improvement Amendments of 1988 (CLIA) as qualified to perform high complexity testing. ??Immunostains were performed on formalin-fixed paraffin embedded tissue using a polymer diaminobenzidine chromogen detection system. Antibodies used may include clone SP1 (rabbit monoclonal, estrogen receptor), clone 1E2 (rabbit monoclonal progesterone receptor), Ki-67 (rabbit monoclonal, 30-9), CD117 (rabbit polyclonal, c-kit), and anti-Her-2/zenobia (4B5) (rabbit monoclonal primary antibody). ??In the event that immunohistochemistry or special stains have been performed, attending physician has confirmed appropriateness of controls. ??Frozen section, operating room consultation, gross examination and dissection, and case sign out may have been performed in part or completely in the following laboratories: [facility], [address] [place] [address]. Anoop Barbosa MD LAB PATHOLOGY ORDERABLES Final Result PATHOLOGY [facility] Laboratory Receiving [address] [place] [address] * NC AN PROCEDURE PLACEHOLDER (10/18/2024 10:04 AM IPHONE DEVELOPER) Jos Alejo MD - 10/18/2024 10:04 AM IPHONE DEVELOPER Jos Larry MD ? 10/18/2024 10:05 AM Peripheral IV Catheter Staff: Supervising provider: Jos Larry MD Placed by: BULLET SWAGING MACHINE ADJUSTER: Jerad Shields CRNA Preprocedure prep: Prep solution: chlorhexadine PIV line: Laterality: right Site: hand Catheter size: 16 g Technique: anatomical landmarks and direct visualization Procedure details: good blood return Number of attempts: 1 Assessment: Events: patient tolerated procedure well with no complications us Jos Larry MD ANESTHESIA ORDERABLES Final Re sult * NC AN PROCEDURE PLACEHOLDER (10/18/2024 10:03 AM IPHONE DEVELOPER) Jos Alejo MD - 10/18/2024 10:03 AM IPHONE DEVELOPER Jos Larry MD ? 10/18/2024 10:04 AM Arterial Line Patient location: OR Indication: continuous blood pressure monitoring and blood sampling needed Staff: Supervising provider: Jos Larry MD Placed by: BULLET SWAGING MACHINE ADJUSTER: Jerad Shields CRNA Procedure prep: Prep solution: chlorhexadine/alcohol Prep: provider hat/mask Arterial line: Catheter size: 20 gauge Catheter length: 1 and 3/4 inch Catheter type: wire-guided catheter Seldinger technique: yes Laterality: left Site: radial artery Line secured: tape and Tegaderm Results: good waveform and good blood return Number of attempts: 1 Assessment: Events: patient tolerated procedure well with no complications Jos Larry MD ANESTHESIA ORDERABLES Final Re sult * NC AN ELECTIVE ENDOTRACHEAL AIRWAY, NC AN PROCEDURE PLACEHOLDER (10/18/2024 10:00 AM IPHONE DEVELOPER) Narrative Jos Larry MD - 10/18/2024 10:00 AM IPHONE DEVELOPER Jos Larry MD ? 10/18/2024 10:01 AM Airway Patient location: OR Urgency: elective Indications for airway management: anesthesia Difficult airway: no Staff: Placed by: Anesthesiologist: Jos Larry MD Emergent airway documentation: Risks and benefits discussed: yes Consent obtained: yes Consent given by: patient Airway prep: Preoxygenated: yes Patient position: sniffing Mask difficulty assessment: 1 - vent by mask Sedation level during airway: GA Final airway details: Final airway type: endotracheal airway Tube type: ETT - double lumen left ETT double lumen: 37 fr Cuffed: yes Technique used for successful ETT placement: video laryngoscopy Insertion site: oral Blade type: Jeremy Video blade type: Tracey Blade size: 3 Cormack-Lehane (direct): grade I - full view of glottis Cuff inflated with: air Placement verified by: auscultation, bronchoscopy and CO2 detection Airway secured with: silk tape Number of attempts: 1 Planned trial extubation: yes Jos Larry MD ANESTHESIA ORDERABLES Final Re sult * Prepare RBC (10/18/2024 7:05 AM IPHONE DEVELOPER) Product code [id number] [facility] Unit Number [id number] 7-T CERNER MB Product Blood Type OPOS CERNER [facility] Dispense Status RETURNED CERNER MB Product code [id number] CERNER MB Unit Number [id number] 0-J CERNER MB Product Blood Type OPOS CERNER [facility] Dispense Status RETURNED CERNER MB Product code [id number] CERNER MB Unit Number [id number] 9-4 CERNER MB Product Blood Type OPOS CERNER MB Dispense Status RETURNED CERNER MB Product code [id number] Unit Number [id number] 7-L CERNER MB Product Blood Type OPOS CERNER [facility] Dispense Status RETURNED CERNER MB Product code [id number] CERNER MB Unit Number [id number] 1-0 CERNER MB Product Blood Type OPOS CERNER [facility] Dispense Status RETURNED CERNER MB Product code [id number] CERNER [facility] Unit Number [id number] 6-G CERNER [facility] Product Blood Type OPOS CERNER [facility] Dispense Status RETURNED CERNER [facility] Blood 10/18/2024 7:05 AM IPHONE DEVELOPER 10/18/2024 7:05 AM IPHONE DEVELOPER Anoop Barbosa MD BLOOD BANK PRODUCT ORDER ZEFERINO Final Result [facility] [address] Department [place] [address] * eGFR (10/11/2024 9:51 AM IPHONE DEVELOPER) eGFR 69 >=60 mL/min/1. 73 m2 Comment: Interpretive Data Reference Interval Normal ?>/= 90 mL/min/1.73m2 Mildly decreased* ? 60 - 89 mL/min/1.73m2 Mildly to moderately decreased ?45 - 59 mL/min/1.73m2 Moderately to severely decreased ??30 - 44 mL/min/1.73m2 Severely decreased ?15 - 29 mL/min/1.73m2 Kidney Failure ?< 15 ??mL/min/1.73m2 *Relative to young adult level Estimated glomerular filtration rate is determined by the 2020 CKD-EPI equation recommended by the National Kidney Foundation (A Unifying Approach to GFR Estimation: Recommendations of the NKF-ASK Task Force on Reassessing the Inclusion of Race in Diagnosing Kidney Disease, JASN 2020). The CKD-EPI equation should not be used for patients with unstable renal function and has not been validated in children and those over 70. Current interpretive data was last reviewed 2021. Blood 10/11/2024 9:51 AM IPHONE DEVELOPER 10/11/2024 10:11 AM IPHONE DEVELOPER us Anoop Barbosa MD LAB BLOOD ORDERABLES Fin al Result [facility] [address] Department [place] [address] * (ABNORMAL) Differential, auto (10/11/2024 9:51 AM IPHONE DEVELOPER) Neutrophil abs 3.8 1.5 - 6.5 K/cumm Imm gran abs 0.0 0.0 - 0.1 K/cumm [facility] Lymphocyte abs 2.1 0.8 - 3.3 K/cumm [facility] Monocyte abs 0.9(H) 0.2 - 0.8 K/cumm [facility] Eosinophil abs 0.1 0.0 - 0.5 K/cumm [facility] Basophil abs 0.1 0.0 - 0.1 K/cumm [facility] Neutrophil pct 54.0 % [facility] Comment: Interpretive Data Percent cell count reference ranges are not reported, since discordance with absolute values may lead to misinterpretation of CBC data. Current Interpretive Data was last revised on 2018. Imm gran pct 0.4 % [facility] Comment: Interpretive Data Percent cell count reference ranges are not reported, since discordance with absolute values may lead to misinterpretation of CBC data. Current Interpretive Data was last revised on 2018. Lymphocyte pct 29.6 % [facility] Comment: Interpretive Data Percent cell count reference ranges are not reported, since discordance with absolute values may lead to misinterpretation of CBC data. Current Interpretive Data was last revised on 2018. Monocyte pct 13.2 % [facility] Comment: Interpretive Data Percent cell count reference ranges are not reported, since discordance with absolute values may lead to misinterpretation of CBC data. Current Interpretive Data was last revised on 2018. Eosinophil pct 2.0 % [facility] Comment: Interpretive Data Percent cell count reference ranges are not reported, since discordance with absolute values may lead to misinterpretation of CBC data. Current Interpretive Data was last revised on 2018. Basophil pct 0.8 % [facility] Comment: Interpretive Data Percent cell count reference ranges are not reported, since discordance with absolute values may lead to misinterpretation of CBC data. Current Interpretive Data was last revised on 2018. Blood 10/11/2024 9:51 AM IPHONE DEVELOPER 10/11/2024 10:12 AM IPHONE DEVELOPER us Anoop Barbosa MD LAB BLOOD ORDERABLES Fin al Result [facility] [address] Department [place] [address] * (ABNORMAL) CBC with auto differential (10/11/2024 9:51 AM IPHONE DEVELOPER) WBC 7.1 3.8 - 9.9 K/cumm Hgb 11.8(L) 13.0 - 17.5 g/dL [facility] Hct 37.3(L) 38.9 - 50.3 % [facility] Plt 165 150 - 400 K/cumm [facility] MPV 10.9 9.1 - 12.3 fL [facility] RBC 3.34(L) 4.30 - 5.80 M/cumm [facility] MCV 111.7(H) 81.3 - 96.4 fL [facility] MCH 35.3(H) 27.1 - 33.3 pg [facility] MCHC 31.6(L) 32.3 - 35.7 g/dL [facility] RDW CV 14.6 11.1 - 14.9 % [facility] RDW SD 61.2(H) 35.7 - 48.1 fL [facility] NRBC abs 0.00 0.00 - 0.01 K/cumm [facility] Blood 10/11/2024 9:51 AM IPHONE DEVELOPER 10/11/2024 10:12 AM IPHONE DEVELOPER Anoop Barbosa MD LAB BLOOD ORDERABLES Fin al Result Performing Organization Address [facility]/ZIP Co de Phone Number [facility] [address] [place] [address] * Type and screen (10/11/2024 9:51 AM IPHONE DEVELOPER) Pathologist [facility] Jai, indirect Negative ABO Rh O Positive [facility] Blood 10/11/2024 9:51 AM IPHONE DEVELOPER 10/11/2024 10:19 AM IPHONE DEVELOPER Narrative [facility] - 10/11/2024 11:16 AM IPHONE DEVELOPER No blood transfusions last 90 days Surgery 10/18/24 HISTORY POSITIVE ANTIBODIES IN BLOOD, ANTI-M Please draw all blood needed as pt. Lives long distance away No blood transfusions last 90 days Surgery 10/18/24 HISTORY POSITIVE ANTIBODIES IN BLOOD, ANTI-M Has the patient had Daratumumab or Isatuximab in the past 6 months?->No Anoop Barbosa MD LAB BLOOD BANK TEST ORDE RABLES Final Result Performing Organization Address City/[facility]/ZIP Co de Phone Number [facility] [address] [place] [address] * (ABNORMAL) Comprehensive metabolic panel (10/11/2024 9:51 AM IPHONE DEVELOPER) Pathologist [facility] Sodium 143 135 - 145 mmol/L Potassium, pl 4.0 3.3 - 4.9 mmol/L [facility] Chloride 103 97 - 110 mmol/L [facility] CO2 31 22 - 32 mmol/L [facility] Anion gap 9 2 - 15 mmol/L [facility] BUN 24 6 - 25 mg/dL [facility] Creatinine 1.12 0.80 - 1.30 mg/dL [facility] Glucose 105 70 - 199 mg/dL [facility] Comment: Interpretive Data Fasting glucose >/= 126 mg/dl is diagnostic for diabetes. ?? Fasting is defined as no caloric intake for at least 8 hours. Fasting glucose between 100 mg/dl to 125 mg/dl is diagnostic of prediabetes. In a patient with classic symptoms of hyperglycemia or hyperglycemic crisis, a random glucose >/= 200 mg/dl is diagnostic for diabetes. In the absence of unequivocal hyperglycemia, results should be confirmed by repeat testing. The classification and Diagnosis of Diabetes Diabetes Care 2021; 46: S19-S40. Current interpretive data was last revised 2022. Calcium 8.9 8.5 - 10.3 mg/dL [facility] Bilirubin, total 0.4 0.1 - 1.2 mg/dL [facility] Protein, pl 6.4(L) 6.5 - 8.5 g/dL [facility] Albumin 3.7 3.5 - 5.0 g/dL [facility] Alk phos 97 40 - 130 Units/L [facility] ALT 21 7 - 55 Units/L [facility] AST 22 10 - 50 Units/L [facility] Blood 10/11/2024 9:51 AM IPHONE DEVELOPER 10/11/2024 10:11 AM IPHONE DEVELOPER us Anoop Barbosa MD LAB BLOOD ORDERABLES Fin al Result [facility] [address] Department [place] [address] * Pulmonary Function Test - (10/02/2024 2:16 PM IPHONE DEVELOPER) FVC PRE 2.74 L [facility] FVC %PRE PRED 75 % [facility] FVC POST 3.25 L [facility] FVC %POST PRED 89 % [facility] FEV1 PRE 1.66 L [facility] FEV1 %PRE PRED 60 % [facility] FEV1 POST 1.89 L [facility] FEV1 %POST PRED 68 % [facility] FEV1/FVC PRE 60.7 % [facility] FEV1/FVC POST 58.0 % [facility] FRC PL PRE 4.64 L [facility] FRC PL %PRE PRED 135 % [facility] RV PRE 3.72 L [facility] RV %PRE PRED 155 % [facility] TLC PRE 6.59 L [facility] TLC %PRE PRED 102 % [facility] DLCO PRE 17.0 ml/min/mmH g [facility] DLCO %PRE PRED 73 % [facility] Anatomical Region Laterality Modality PFT 10/02/2024 1:37 PM IPHONE DEVELOPER Narrative 10/02/2024 6:03 PM IPHONE DEVELOPER PFT performed at:->[facility] Adult PFT Lab- [facility] Procedure:->Standard Standard:->Spirometry, Spirometry w/bronchodilator, DLCO and Lung Volumes Pulmonary Function Test Interpretation SPIROMETRY: There is a decrease in expiratory airflow at middle and low lung volumes. There is no significant improvement after inhaling a single dose of albuterol. The inspiratory loop is suggestive of submaximal effort. LUNG VOLUMES: TLC measured by plethysmography is normal. The increased RV suggests air trapping. DLCO: The diffusing capacity is normal. Impression: There is a moderate obstructive defect. There is air trapping. There is no impairment of alveolar gas exchange by DLCO. The attending pulmonary physician certifies a physician presence in the [facility] during the administration of aerosolized bronchodilator. The attending pulmonary physician certifies that he/she has reviewed and interpreted the graphic and numerical data of this pulmonary function study and agrees with the written final report. The lower limit of normal for PaO2 and %HbO2 is age dependent. However, the [facility] Pulmonary Function Laboratory defines hypoxemia as a PaO2 <56 mm Hg or a %HbO2 <89%. us Mandeep Faulkner MD PFT ORDERABLES Final Res ult * PET/CT FDG Skull to Thigh (09/30/2024 9:28 AM IPHONE DEVELOPER) Anatomical Region Laterality Modality N/A Positron Emissio n Tomography (PET) 09/30/2024 10:5 8 AM IPHONE DEVELOPER Impressions 09/30/2024 12:05 PM IPHONE DEVELOPER 1. ??Moderately hypermetabolic right lower lobe adenocarcinoma 2. ??No evidence of FDG avid regino or distant metastatic disease. ?? Dictated by: Josh Nixon MD The radiology attending physician has personally reviewed this study, and had reviewed and/or edited this written report and agrees with it. Electronically signed by: Yves Lazo DO Narrative 09/30/2024 12:05 PM IPHONE DEVELOPER EXAMINATION: TUMOR FDG-PET/CT IMAGING DATE OF STUDY: ??09/30/2024 SCANNER: Ray [facility] RADIOPHARMACEUTICAL: 17 mCi F-18 Fluorodeoxyglucose (FDG) i.v. Injection site: Left antecubital HISTORY: 74-year-old male with biopsy proven right lower lobe pulmonary adenocarcinoma. ??The study is requested for initial staging. Initial treatment strategy. TECHNIQUE: ?? The patient's fasting blood glucose level, measured by glucometer before injection of FDG, was 103 mg/dL. ?? After intravenous administration of FDG, noncontrast CT images were obtained for attenuation correction and for fusion with emission PET images to allow for anatomical localization of PET findings. Emission PET images were then obtained. ??The study was interpreted on the [employer] workstation. ??The mean liver SUV (reported for quality manager purposes) is 2.3. ?? The total scanned area was skull base to proximal thighs. Images of the body were obtained starting 50 minutes after injection of tracer. All reported SUVs are maximum SUVs, unless otherwise specified. COMPARISON: PET/CT from 01/31/2024, DESCRIPTORS OF LESION FDG AVIDITY: Minimal: ? <= blood pool ? Mild: ?> blood pool and <= liver ? Moderate: ?? > liver and <= 2x SUVmax liver ? Moderate to marked: ?? >2x SUVmax liver and <= 3x SUVmax liver ? Marked: ? > 3x SUVmax liver ? FINDINGS: Increasing size and metabolic activity within a moderately hypermetabolic right lower lobe pulmonary nodule which measures up to 2.5 x 2.5 cm. ??This represents the biopsy-proven adenocarcinoma. No suspiciously hypermetabolic pathologically enlarged regino or distant metastasis. ?? The most FDG-avid lesion is right lower lobe, has a maximum SUV of 4, and approximate axial dimensions of 2.5 x 2.5 cm. ?? Additional CT findings: Postoperative changes in the right subclavian artery. ??Mediastinal clips are present. ??Extensive calcified atherosclerotic disease noted throughout the thoracoabdominal aorta and its branches. ??The gallbladder surgically absent. ??Renal cysts. ??Diverticulosis without acute diverticulitis. ??Mild mesenteric edema. ??Infrarenal abdominal aortic aneurysm. Degenerative changes throughout the spine. Procedure Note Yves Lazo DO - 09/30/2024 EXAMINATION: TUMOR FDG-PET/CT IMAGING DATE OF STUDY: 09/30/2024 SCANNER: [facility] RADIOPHARMACEUTICAL: 17 mCi F-18 Fluorodeoxyglucose (FDG) i.v. Injection site: Left antecubital HISTORY: 74-year-old male with biopsy proven right lower lobe pulmonary adenocarcinoma. The study is requested for initial staging. Initial treatment strategy. TECHNIQUE: The patient's fasting blood glucose level, measured by glucometer before injection of FDG, was 103 mg/dL. After intravenous administration of FDG, noncontrast CT images were obtained for attenuation correction and for fusion with emission PET images to allow for anatomical localization of PET findings. Emission PET images were then obtained. The study was interpreted on the [employer] workstation. The mean liver SUV (reported for quality manager purposes) is 2.3. The total scanned area was skull base to proximal thighs. Images of the body were obtained starting 50 minutes after injection of tracer. All reported SUVs are maximum SUVs, unless otherwise specified. COMPARISON: PET/CT from 01/31/2024, DESCRIPTORS OF LESION FDG AVIDITY: Minimal: <= blood pool Mild: > blood pool and <= liver Moderate: > liver and <= 2x SUVmax liver Moderate to marked: >2x SUVmax liver and <= 3x SUVmax liver Marked: > 3x SUVmax liver FINDINGS: Increasing size and metabolic activity within a moderately hypermetabolic right lower lobe pulmonary nodule which measures up to 2.5 x 2.5 cm. This represents the biopsy-proven adenocarcinoma. No suspiciously hypermetabolic pathologically enlarged regino or distant metastasis. The most FDG-avid lesion is right lower lobe, has a maximum SUV of 4, and approximate axial dimensions of 2.5 x [address] findings: Postoperative changes in the right subclavian artery. Mediastinal clips are present. Extensive calcified atherosclerotic disease noted throughout the thoracoabdominal aorta and its branches. The gallbladder surgically absent. Renal cysts. Diverticulosis without acute diverticulitis. Mild mesenteric edema. Infrarenal abdominal aortic aneurysm. Degenerative changes throughout the spine. IMPRESSION: 1. Moderately hypermetabolic right lower lobe adenocarcinoma 2. No evidence of FDG avid regino or distant metastatic disease. Dictated by: Josh Nixon MD The radiology attending physician has personally reviewed this study, and had reviewed and/or edited this written report and agrees with it. Electronically signed by: Yves Lazo DO Bernabe Garcia MD IMG PET PROCEDURES Audelia l Result * POCT glucose (09/30/2024 8:10 AM IPHONE DEVELOPER) Glucose, POC 103 70 - 199 mg/dL Comment: For Glucose values <35 mg/dl when Hematocrit is >60 mg/dl,the test may not accurately detect significant hypoglycemia,and testing in the Laboratory should be considered if clinically indicated. Blood 09/30/2024 8:10 AM IPHONE DEVELOPER 09/30/2024 8:10 AM IPHONE DEVELOPER Bernabe Garcia MD LAB POCT ORDERABLES - D EVICE Final Result [facility] [address] Department [place] [address] * CTA Neck W Contrast (09/27/2024 4:43 PM IPHONE DEVELOPER) Anatomical Region Laterality Modality Head and Neck N/A Computed Tomogra phy 09/27/2024 5:00 PM IPHONE DEVELOPER Impressions 09/27/2024 5:02 PM IPHONE DEVELOPER 1. Unchanged approximately 50% proximal cervical internal carotid artery stenosis bilaterally. 2. 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 Dictated by: Moncho Clements M.D. The radiology attending physician has personally reviewed this study, and had reviewed and/or edited this written report and agrees with it. Electronically signed by: Rinku Harrell M.D, PHD Narrative 09/27/2024 5:02 PM IPHONE DEVELOPER EXAMINATION: Computed tomography angiography (CTA) of the neck without and with contrast HISTORY: Carotid stenosis TECHNIQUE: CT of the neck was performed according to the standard protocol without intravenous contrast. Computed tomographic angiography was then obtained from the aortic arch to the skull base following the uneventful administration of intravenous contrast. 3D images were generated on a dedicated workstation. Contrast information: 100 mL Optiray-350 COMPARISON: 09/15/2021 FINDINGS: NECK: Patent airway. ??No cervical lymphadenopathy. ??No acute abnormality in the imaged brain parenchyma. Right parietal craniotomy defect. Lens replacements. ?? The thyroid is normal. ??No suspicious osseous lesion. ??Multilevel cervical degenerative disc disease worst at C5-C6 without high-grade central spinal canal stenosis. Severe centrilobular emphysema in the lung apices without suspicious pulmonary nodule. ??Changes of median sternotomy and coronary artery bypass grafting. ?? CTA: Mixed plaque at the right carotid bifurcation and proximal right internal carotid artery resulting in 48% stenosis. ??Mixed plaque at the left carotid bifurcation and proximal left internal carotid artery resulting in 53% stenosis. ??The distal cervical internal carotid arteries are patent. ??Calcified plaque of the bilateral cavernous internal carotid arteries without high-grade stenosis. ??The imaged portions of the middle and anterior cerebral arteries are patent. ?? The bilateral vertebral arteries are patent at the origin. ??There is mixed plaque in the bilateral V4 vertebral arteries with severe stenosis, unchanged since 2020. ??The basilar artery is patent. Posterior cerebral arteries are patent. ??No aneurysm or arteriovenous malformation is seen. Procedure Note Rinku Harrell MD PhD - 09/27/2024 EXAMINATION: Computed tomography angiography (CTA) of the neck without and with contrast HISTORY: Carotid stenosis TECHNIQUE: CT of the neck was performed according to the standard protocol without intravenous contrast. Computed tomographic angiography was then obtained from the aortic arch to the skull base following the uneventful administration of intravenous contrast. 3D images were generated on a dedicated workstation. Contrast information: 100 mL Optiray-350 COMPARISON: 09/15/2021 FINDINGS: NECK: Patent airway. No cervical lymphadenopathy. No acute abnormality in the imaged brain parenchyma. Right parietal craniotomy defect. Lens replacements. The thyroid is normal. No suspicious osseous lesion. Multilevel cervical degenerative disc disease worst at C5-C6 without high-grade central spinal canal stenosis. Severe centrilobular emphysema in the lung apices without suspicious pulmonary nodule. Changes of median sternotomy and coronary artery bypass grafting. CTA: Mixed plaque at the right carotid bifurcation and proximal right internal carotid artery resulting in 48% stenosis. Mixed plaque at the left carotid bifurcation and proximal left internal carotid artery resulting in 53% stenosis. The distal cervical internal carotid arteries are patent. Calcified plaque of the bilateral cavernous internal carotid arteries without high-grade stenosis. The imaged portions of the middle and anterior cerebral arteries are patent. The bilateral vertebral arteries are patent at the origin. There is mixed plaque in the bilateral V4 vertebral arteries with severe stenosis, unchanged since 2020. The basilar artery is patent. Posterior cerebral arteries are patent. No aneurysm or arteriovenous malformation is seen. IMPRESSION: 1. Unchanged approximately 50% proximal cervical internal carotid artery stenosis bilaterally. 2. 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 Dictated by: Moncho Clements M.D. The radiology attending physician has personally reviewed this study, and had reviewed and/or edited this written report and agrees with it. Electronically signed by: Rinku Harrell M.D, PHD Joseluis Juárez MD IM CT PROCEDURES Final Result * XR Chest 1 Vw (09/19/2024 11:27 AM IPHONE DEVELOPER) Anatomical Region Laterality Modality Body, Chest N/A Computed Radiogr aphy 09/19/2024 2:01 PM IPHONE DEVELOPER Impressions 09/19/2024 2:01 PM IPHONE DEVELOPER FINDINGS/IMPRESSION: Slight increase in hazy right basilar airspace opacities possibly postbiopsy related changes. ??Bibasilar atelectasis. ??Otherwise no new consolidation or pneumothorax. ??Slight increase in bilateral lung interstitial opacities. Heart is normal in size. ??Thoracic aortic calcifications. No new bony abnormality. Median sternotomy wires. ??Mediastinal surgical clips. ??Surgical clips overlie the right superior hemithorax. Electronically signed by: Ahmet Rios M.D. Narrative 09/19/2024 2:01 PM IPHONE DEVELOPER EXAM: XR CHEST 1 VIEW INDICATION: Lung biopsy COMPARISON: CT 09/19/2024, chest radiograph 09/19/2024 performed at 9:29 AM Procedure Note Ahmet Rios MD - 09/19/2024 EXAM: XR CHEST 1 VIEW INDICATION: Lung biopsy COMPARISON: CT 09/19/2024, chest radiograph 09/19/2024 performed at 9:29 AM IMPRESSION: FINDINGS/IMPRESSION: Slight increase in hazy right basilar airspace opacities possibly postbiopsy related changes. Bibasilar atelectasis. Otherwise no new consolidation or pneumothorax. Slight increase in bilateral lung interstitial opacities. Heart is normal in size. Thoracic aortic calcifications. No new bony abnormality. Median sternotomy wires. Mediastinal surgical clips. Surgical clips overlie the right superior hemithorax. Electronically signed by: Ahmet Rios M.D. Caesar Leung MD IMG XR PROCEDURES Final Result * XR Chest 1 Vw (09/19/2024 9:39 AM IPHONE DEVELOPER) Anatomical Region Laterality Modality Body, Chest N/A Computed Radiogr aphy 09/19/2024 12:2 7 PM IPHONE DEVELOPER Impressions 09/19/2024 12:27 PM IPHONE DEVELOPER FINDINGS/IMPRESSION: Median sternotomy wires and mediastinal clips. ??Post project over the right upper chest wall. Haziness within the right costophrenic angle may be related to postbiopsy changes. ??No focal consolidation, pleural effusion, or pneumothorax. ??The cardiomediastinal silhouette is unremarkable. Electronically signed by: Justin Foley D.O. Narrative 09/19/2024 12:27 PM IPHONE DEVELOPER EXAMINATION: XR CHEST 1 VIEW HISTORY: ??Status post lung biopsy COMPARISON: 02/22/2024 Procedure Note Justin Foley, DO - 09/19/2024 EXAMINATION: XR CHEST 1 VIEW HISTORY: Status post lung biopsy COMPARISON: 02/22/2024 IMPRESSION: FINDINGS/IMPRESSION: Median sternotomy wires and mediastinal clips. Post project over the right upper chest wall. Haziness within the right costophrenic angle may be related to postbiopsy changes. No focal consolidation, pleural effusion, or pneumothorax. The cardiomediastinal silhouette is unremarkable. Electronically signed by: Justin Foley D.O. Caesar Leung MD IMG XR PROCEDURES Final Result * CT Lung Needle Biopsy Right (09/19/2024 9:32 AM IPHONE DEVELOPER) Anatomical Region Laterality Modality Lung N/A Computed Tomogra phy 09/19/2024 5:27 PM IPHONE DEVELOPER Impressions 09/19/2024 5:27 PM IPHONE DEVELOPER Successful image-guided core biopsy of the right lower lobe nodule. PLAN: Please follow up pathology results for further diagnosis. Electronically signed by: Caesar Leung M.D. Narrative 09/19/2024 5:27 PM IPHONE DEVELOPER EXAMINATION: IMAGE-GUIDED BIOPSY OF RIGHT LOWER LOWER LOBE NODULE HISTORY/INDICATION: Right lower lobe nodule increasing in size ATTENDING PRESENCE: Caesar Leung M.D., the attending radiologist, was present from the beginning to the end of the procedure. SEDATION: Procedural sedation was administered under the attending physician's direction and continuous monitoring by a trained nurse specialist who was independent from those actually performing the procedure. ??Total monitored sedation time was 30 minutes. TECHNIQUE: The risks, benefits and alternatives were discussed and informed consent was obtained. Prior to beginning the procedure, Spruce Protocol was performed to confirm the patient's identity and the planned procedure. ?For procedures that utilize fluoroscopy, the fluoroscopy time has been recorded in the electronic medical record. Maximum sterile barriers including cap, mask, hand hygiene, sterile gloves, sterile gown, large sterile drape and 2% chlorhexidine for cutaneous antisepsis were used. Initial CT?images were obtained for localization and saved to PACS. An appropriate biopsy site was selected and marked on the skin. The biopsy site was prepped and draped in the usual sterile fashion. The overlying skin and soft tissues were anesthetized with 1% lidocaine. Under ultrasound and CT guidance, a coaxial needle biopsy system was utilized. The?outer needle was advanced adjacent to the right lower lobe nodule under intermittent image?guidance. After positioning the outer needle adjacent to the target, a core biopsy device was advanced into the target. A total of 4 core biopsies were obtained from the intended target. The biopsy samples were placed in formalin. Needle(s) utilized: Coaxial outer needle: 17-gauge Core Biopsy Needle: 18-gauge Biopince The skin was then cleansed and a sterile dressing was applied. ESTIMATED BLOOD LOSS: Minimal. CONDITION: Stable DISCHARGED TO: Outpatient recovery then home FINDINGS: The initial localization images demonstrated a right lower lobe nodule. Images obtained during core biopsy procedure demonstrate positioning of the biopsy needle through the target. Procedure Note Caesar Leung MD - 09/19/2024 EXAMINATION: IMAGE-GUIDED BIOPSY OF RIGHT LOWER LOWER LOBE NODULE HISTORY/INDICATION: Right lower lobe nodule increasing in size ATTENDING PRESENCE: Caesar Leung M.D., the attending radiologist, was present from the beginning to the end of the procedure. SEDATION: Procedural sedation was administered under the attending physician's direction and continuous monitoring by a trained nurse specialist who was independent from those actually performing the procedure. Total monitored sedation time was 30 minutes. TECHNIQUE: The risks, benefits and alternatives were discussed and informed consent was obtained. Prior to beginning the procedure, Spruce Protocol was performed to confirm the patient's identity and the planned procedure. ?For procedures that utilize fluoroscopy, the fluoroscopy time has been recorded in the electronic medical record. Maximum sterile barriers including cap, mask, hand hygiene, sterile gloves, sterile gown, large sterile drape and 2% chlorhexidine for cutaneous antisepsis were used. Initial CT?images were obtained for localization and saved to PACS. An appropriate biopsy site was selected and marked on the skin. The biopsy site was prepped and draped in the usual sterile fashion. The overlying skin and soft tissues were anesthetized with 1% lidocaine. Under ultrasound and CT guidance, a coaxial needle biopsy system was utilized. The?outer needle was advanced adjacent to the right lower lobe nodule under intermittent image?guidance. After positioning the outer needle adjacent to the target, a core biopsy device was advanced into the target. A total of 4 core biopsies were obtained from the intended target. The biopsy samples were placed in formalin. Needle(s) utilized: Coaxial outer needle: 17-gauge Core Biopsy Needle: 18-gauge Biopince The skin was then cleansed and a sterile dressing was applied. ESTIMATED BLOOD LOSS: Minimal. CONDITION: Stable DISCHARGED TO: Outpatient recovery then home FINDINGS: The initial localization images demonstrated a right lower lobe nodule. Images obtained during core biopsy procedure demonstrate positioning of the biopsy needle through the target. IMPRESSION: Successful image-guided core biopsy of the right lower lobe nodule. PLAN: Please follow up pathology results for further diagnosis. Electronically signed by: Caesar Leung M.D. Bernabe Garcia MD IM CT PROCEDURES Final Result * Surgical pathology (09/19/2024 8:52 AM IPHONE DEVELOPER) Lung Biopsy 09/19/2024 8:52 AM IPHONE DEVELOPER 09/19/2024 12:56 PM IPHONE DEVELOPER Narrative 09/23/2024 3:39 PM IPHONE DEVELOPER [address] ??[address] Tele: ?? Patricia Colunga MD - Manager Skilled Note to Patients: This report may contain a detailed description of human tissue sent by a health care provider to the laboratory for pathologic evaluation. The content of this report is essential for diagnosis and may provide important critical findings. This information may be unfamiliar to patients to review without a medical professional present. It is advised that the patient review this report in the presence of a health care provider who can answer questions and explain the details. SURGICAL PATHOLOGY REPORT Patient Name: ??RAMIREZ CHÁVEZ Address: ??[address] [place], [place] ??[address] Gender: ??M : ??1950 (Age: 74) Service: ?? Location: ??, ?? [facility]Proc Hospital #: ??[id number] Patient Type: ??[facility] Accession #: ? [id number] Taken: ? 09/19/2024 Received ? 09/19/2024 Reported: ? 09/23/2024 Physician(s): ? Caesar Leung M.D. Codi Mccrary M.D. 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 Report Reviewed and Electronically Signed By ??Andrey Esteban M.D. ADDENDA: Addendum Comment This field contains a PDF document (see scanned image which follows report). ??If your system does not support PDF viewing, please refer to [employer] or the original report to view the PDF document. Andrey Esteban M.D. ??Date Ordered: ?10/03/2024 ?Status: ??Signed Out ?Date Complete: ?10/03/2024 ?By: ??Andrey Esteban M.D. ?Date Reported: ?10/03/2024 ? Addendum Comment This field contains a PDF document (see scanned image which follows report). ??If your system does not support PDF viewing, please refer to [employer] or the original report to view the PDF document. Andrey Esteban M.D. ??Date Ordered: ?10/03/2024 ?Status: ??Signed Out ?Date Complete: ?10/03/2024 ?By: ??Andrey Esteban M.D. ?Date Reported: ?10/03/2024 ? Addendum Comment This field contains a PDF document (see scanned image which follows report). ??If your system does not support PDF viewing, please refer to Epic or the original report to view the PDF document. Andrey Esteban M.D. ??Date Ordered: ?10/07/2024 ?Status: ??Signed Out ?Date Complete: ?10/07/2024 ?By: ??Andrey Esteban M.D. ?Date Reported: ?10/08/2024 ? SPECIMEN TYPE: A: RIGHT TRACIE BX CLINICAL IMPRESSION AND HISTORY: Abnormal chest CT GROSS DESCRIPTION: Received in formalin labeled RAMIREZ CHÁVEZ and right lung Bx are multiple villeda tissue cores ranging from 0.4 to 1.5 cm in length. ??The specimen is filtered and entirely submitted in A1. ?? jxi/09/19/2024 13:33 ? JAP,JXI MICROSCOPIC DESCRIPTION: Microscopic examination of the right lung shows a cores of lung parenchyma. ??Many of the alveolar spaces are lined by atypical mucinous epithelium. ??Immunohistochemical stains show this epithelium is positive for CK7 and CK20. ??It is focally positive for CDX2. ??It is negative for TTF-1 and Napsin A. ??The diffuse CK7 positivity and focal CDX2 positivity favors a primary lung tumor rather than a colorectal metastasis. ??The differential diagnosis includes adenocarcinoma in-situ versus invasive mucinous adenocarcinoma with a predominantly lepidic growth pattern. ??Clinical correlation is needed. ??A PD-L1 immunostain, lung cancer NextGen sequencing panel, and NTRK mutational analysis will be performed and reported in an addendum. Clerical Data Follows A; 35363, [id number], 02487(4) REPORT IMAGES AND/OR SCANNED DOCUMENTS ONLY VIEWABLE IN PDF FORMAT The immunohistochemical test(s) cited in this report, if any, was developed and its performance characteristics determined by [facility] Pathology Department. ??It has not been cleared or approved by the U.S. Food and Drug Administration. ??The FDA has determined that such clearance or approval is not necessary. ??This test is used for clinical purposes. ??It should not be regarded as investigational or for research. ??[facility] is certified under the Clinical Laboratory Improvement Amendments of 1988 (CLIA) as qualified to perform high complexity testing. ??Immunostains were performed on formalin-fixed paraffin embedded tissue using a polymer diaminobenzidine chromogen detection system. Antibodies used may include clone SP1 (rabbit monoclonal, estrogen receptor), clone 1E2 (rabbit monoclonal progesterone receptor), Ki-67 (rabbit monoclonal, 30-9), CD117 (rabbit polyclonal, c-kit), and anti-Her-2/zenobia (4B5) (rabbit monoclonal primary antibody). ??In the event that immunohistochemistry or special stains have been performed, attending physician has confirmed appropriateness of controls. ??Frozen section, operating room consultation, gross examination and dissection, and case sign out may have been performed in part or completely in the following laboratories: [facility], [facility] [address], [address] [place] [address]. us Caesar Leung MD LAB PATHOLOGY ORDERABLES Final R esult * Differential, auto (09/19/2024 7:43 AM IPHONE DEVELOPER) Neutrophil abs 4.1 1.5 - 6.5 K/cumm Imm gran abs 0.0 0.0 - 0.1 K/cumm [facility] Lymphocyte abs 2.2 0.8 - 3.3 K/cumm [facility] Monocyte abs 0.8 0.2 - 0.8 K/cumm [facility] Eosinophil abs 0.2 0.0 - 0.5 K/cumm [facility] Basophil abs 0.1 0.0 - 0.1 K/cumm [facility] Neutrophil pct 55.7 % [facility] Comment: Interpretive Data Percent cell count reference ranges are not reported, since discordance with absolute values may lead to misinterpretation of CBC data. Current Interpretive Data was last revised on 2018. Imm gran pct 0.4 % [facility] Comment: Interpretive Data Percent cell count reference ranges are not reported, since discordance with absolute values may lead to misinterpretation of CBC data. Current Interpretive Data was last revised on 2018. Lymphocyte pct 29.4 % [facility] Comment: Interpretive Data Percent cell count reference ranges are not reported, since discordance with absolute values may lead to misinterpretation of CBC data. Current Interpretive Data was last revised on 2018. Monocyte pct 11.5 % [facility] Comment: Interpretive Data Percent cell count reference ranges are not reported, since discordance with absolute values may lead to misinterpretation of CBC data. Current Interpretive Data was last revised on 2018. Eosinophil pct 2.0 % [facility] Comment: Interpretive Data Percent cell count reference ranges are not reported, since discordance with absolute values may lead to misinterpretation of CBC data. Current Interpretive Data was last revised on 2018. Basophil pct 1.0 % [facility] Comment: Interpretive Data Percent cell count reference ranges are not reported, since discordance with absolute values may lead to misinterpretation of CBC data. Current Interpretive Data was last revised on 2018. Blood 09/19/2024 7:43 AM IPHONE DEVELOPER 09/19/2024 8:07 AM IPHONE DEVELOPER us Caesar Leung MD LAB BLOOD ORDERABLES Final Resul t [facility] [address] Department of Laboratories [place], [place] [id number] * (ABNORMAL) CBC with auto differential (09/19/2024 7:43 AM IPHONE DEVELOPER) WBC 7.3 3.8 - 9.9 K/cumm Hgb 10.9(L) 13.0 - 17.5 g/dL [facility] Hct 34.8(L) 38.9 - 50.3 % [facility] Plt 232 150 - 400 K/cumm [facility] MPV 11.1 9.1 - 12.3 fL [facility] RBC 3.10(L) 4.30 - 5.80 M/cumm [facility] MCV 112.3(H) 81.3 - 96.4 fL [facility] MCH 35.2(H) 27.1 - 33.3 pg [facility] MCHC 31.3(L) 32.3 - 35.7 g/dL [facility] RDW CV 14.9 11.1 - 14.9 % [facility] RDW SD 62.7(H) 35.7 - 48.1 fL [facility] NRBC abs 0.00 0.00 - 0.01 K/cumm [facility] Blood 09/19/2024 7:43 AM IPHONE DEVELOPER 09/19/2024 8:07 AM IPHONE DEVELOPER Caesar Leung MD LAB BLOOD ORDERABLES Final Resul t Performing Organization Address City/[facility]/ZIP Co de Phone Number [facility] [address] [place] [address] * Protime-INR (09/19/2024 7:43 AM IPHONE DEVELOPER) Pathologist [facility] PT 11.6 9.7 - 13.0 sec INR 1.07 0.90 - 1.20 [facility] Comment: Interpretive data Oral anticoagulant therapeutic ranges: Venous thromboembolism prophylaxis or treatment: 2.0-3.0 CARDIOLOGY Standard range: 2.0-3.0 High-intensity range: 2.5-3.5 Refer to indication-specific guidelines for appropriate target ranges for prosthetic heart valve replacement. Current interpretive data was last revised on 2019. Blood 09/19/2024 7:43 AM IPHONE DEVELOPER 09/19/2024 8:07 AM IPHONE DEVELOPER Caesar Leung MD LAB BLOOD ORDERABLES Final Resul t [facility] [address] [place] [address] * Misc Path Refer (09/19/2024 12:00 AM IPHONE DEVELOPER) Pathologist [facility] Desired Testing NTRK GENE FUSION Performing Lab [employer] [facility] Specimen Collected Date 09/19/2024 [facility] Path Result See scanned report [facility] Tissue 09/19/2024 10/07/2024 2:1 7 PM IPHONE DEVELOPER Narrative [facility] - 10/07/2024 2:18 PM IPHONE DEVELOPER NTRK GENE FUSION Christiano Almaguer MD LAB BLOOD ORDERABLES Final Re sult Performing Organization Address [facility] Co de Phone Number [facility] [address] [facility] [employer] [place] [address] * PD-L1 IHC 22C3 pharmDx, Keytruda (09/19/2024 12:00 AM IPHONE DEVELOPER) Pathologist [facility] PD-L1 IHC 22C3 Keytr[employer] See scanned report Tissue 09/19/2024 09/25/2024 1:0 2 PM IPHONE DEVELOPER Christiano Almaguer MD LAB PATHOLOGY ORDERABLES Audelia l Result Performing Organization Address [facility] Co de Phone Number [facility] [address] [facility] [employer] [place], [place] [phone] * Lung Cancer Panel (09/19/2024 12:00 AM IPHONE DEVELOPER) Pathologist [facility] Lung Cancer Panel See scanned report Tissue 09/19/2024 09/25/2024 1:0 5 PM IPHONE DEVELOPER Christiano Almaguer MD LAB PATHOLOGY ORDERABLES Audelia l Result Performing Organization Address City/[facility] Co de Phone Number [facility] [address] [facility] [employer] [place], [place] [phone] * US Arterial Duplex Lower Extremity Left Limited (09/10/2024 2:27 PM IPHONE DEVELOPER) Anatomical Region Laterality Modality Vascular Left Ultrasound 09/10/2024 1:28 PM IPHONE DEVELOPER Narrative 09/12/2024 10:17 AM IPHONE DEVELOPER [facility] - Department of Vascular Surgery, Vascular Laboratory [address] [place] [address] [place] Lower Extremity Arterial Duplex Report Patient Name: RAMIREZ CHÁVEZ D : 1950 Study Date: 09/10/2024 1:28:13 PM Gender: M Tech: SRI Location: [facility] Provider: JOSELUIS JUÁREZ ?Quality: Adequate Order Provider: JOSELUIS JUÁREZ PROCEDURES: Arterial Report: Left Lower Extremity Arterial Duplex Exam. INDICATIONS: Z48.812 Encounter for surgical aftercare following surgery on the circulatory system. Measurements: Left Lower Measurement ? Value ?Units Lt CATTLE FEEDER Dst PSV ?108 ?cm/s Lt Profunda Prx PSV ? 112 ?cm/s Lt Superficial Femoral Prx PSV ?100 ?cm/s Lt Superficial Femoral Mid PSV ?121 ?cm/s Lt Post Tibial Mid PSV ?74 ? cm/s Lt Ant Tibial Mid PSV ? 38 ? cm/s Lt Peroneal Mid PSV ? 50 ? cm/s Measurement ? Value ?Units Left Lower FINDINGS: Performing Yard Hand: Sri Bueno, RVT, RDMS, RDCS, ACS. Left Common Femoral: The left common femoral waveform is multiphasic. Left Profunda: The left profunda waveform is multiphasic. Left Proximal Superficial Femoral Artery: The left proximal femoral artery waveform is multiphasic. Left Mid Superficial Femoral Artery: The left mid femoral artery waveform is multiphasic. Left Distal Superficial Femoral Artery: Systolic velocity ratio in the left distal superficial femoral artery is 1.87 which is consistent APPROACHING 50% STENOSIS. This is above stent level. Patent left distal SFA stent with no stenosis. Highest stent velocity 111cm/s. Left Popliteal: The left popliteal waveform is multiphasic. Left Posterior Tibial: The left posterior tibial waveform is multiphasic. Left Anterior Tibial: The left anterior tibial waveform is multiphasic. Left Peroneal: The left peroneal artery waveform is multiphasic. CONCLUSIONS: 1. See Ankle/ Brachial Index report. 2. Patent left distal SFA stent with no stenosis. 3. APPROACHING 50% STENOSIS AT THE MID-DISTAL SFA- above the stent. HISTORY: 11-07-2019 angioplasty and LT distal SFA/popliteal artery stent. PREVIOUS STUDIES: Previous study on 09-14-2023 LT distal SFA VR 1.74, patent LT SFA and popliteal artery (difficult to differentiate stent from onondaga vessel d/t plaque). DISCLAIMER: The study images and the final report will be retained in the patient chart by the Vascular Laboratory for the legally required time period. This chart constitutes the legal record of any testing performed. ATTESTATION: I have reviewed and interpreted the pertinent images and measurements of this study. I attest to the conclusions in the final report that is provided above. Electronically Signed By: Joseluis Juárez MD [facility] 2024-09-12 10:17:12 IPHONE DEVELOPER Procedure Note Joseluis Juárez MD - 09/12/2024 [facility] - Department of Vascular Surgery,Vascular Laboratory [address] [place] [address] [place] Lower Extremity Arterial Duplex Report Patient Name: RAMIREZ CHÁVEZ D : 1950 Study Date: 09/10/2024 1:28:13 PM Gender: M Tech: [facility] Location: [facility] Provider: JOSELUIS JUÁREZ Quality: Adequate Order Provider: JOSELUIS JUÁREZ PROCEDURES: Arterial Report: Left Lower Extremity Arterial Duplex Exam. INDICATIONS: Z48.812 Encounter for surgical aftercare following surgery on thecirculatory system. Measurements: Left Lower Measurement Value Units Lt CATTLE FEEDER Dst PSV 108 cm/s Lt Profunda Prx PSV 112 cm/s Lt Superficial Femoral Prx PSV 100 cm/s Lt Superficial Femoral Mid PSV 121 cm/s Lt Post Tibial Mid PSV 74 cm/s Lt Ant Tibial Mid PSV 38 cm/s Lt Peroneal Mid PSV 50 cm/s Measurement Value Units Left Lower FINDINGS: Performing Yard Hand: Sri Bueno, RVT, RDMS, RDCS, ACS. Left Common Femoral: The left common femoral waveform is multiphasic. Left Profunda: The left profunda waveform is multiphasic. Left Proximal Superficial Femoral Artery: The left proximal femoral artery waveform is multiphasic. Left Mid Superficial Femoral Artery: The left mid femoral artery waveform is multiphasic. Left Distal Superficial Femoral Artery: Systolic velocity ratio in the left distal superficial femoral artery is1.87 which is consistent APPROACHING 50% STENOSIS. This is above stent level. Patent left distal SFA stent with no stenosis. Highest stent [id number]. Left Popliteal: The left popliteal waveform is multiphasic. Left Posterior Tibial: The left posterior tibial waveform is multiphasic. Left Anterior Tibial: The left anterior tibial waveform is multiphasic. Left Peroneal: The left peroneal artery waveform is multiphasic. CONCLUSIONS: 1. See Ankle/ Brachial Index report. 2. Patent left distal SFA stent with no stenosis. 3. APPROACHING 50% STENOSIS AT THE MID-DISTAL SFA- above the stent. HISTORY: 11-07-2019 angioplasty and LT distal SFA/popliteal artery stent. PREVIOUS STUDIES: Previous study on 09-14-2023 LT distal SFA VR 1.74, patent LT SFA andpopliteal artery (difficult to differentiate stent from [place]ondaga vessel d/t plaque). DISCLAIMER: The study images and the final report will be retained in the patientchart by the Vascular Laboratory for the legally required time period. This chartconstitutes the legal record of any testing performed. ATTESTATION: I have reviewed and interpreted the pertinent images and measurements ofthis study. I attest to the conclusions in the final report that is provided above. Electronically Signed By: Joseluis Juárez MD FACS 2024-09-12 10:17:12 IPHONE DEVELOPER Joseluis Juárez MD [facility] US PROCEDURES Final Result * US Carotids Bilateral (09/10/2024 2:26 PM IPHONE DEVELOPER) Anatomical Region Laterality Modality Vascular Bilateral Ultrasound 09/10/2024 1:07 PM IPHONE DEVELOPER Narrative 09/12/2024 10:18 AM IPHONE DEVELOPER [facility] - Department of Vascular Surgery, Vascular Laboratory [address] [place] [address] Carotid Duplex Ultrasound Report Patient Name: RAMIREZ CHÁVEZ D : 1950 (74y 5m) Study Date: 09/10/2024 1:07:33 PM Gender: M Tech: SRI Location: [facility] Provider: JOSELUIS JUÁREZ ?Quality: Adequate Order Provider: JOSELUIS JUÁREZ PROCEDURES: Carotid Report: Carotid duplex examination of the extracranial arteries was performed using 2D, color and spectral Doppler. INDICATIONS: I65.21 Occlusion and stenosis of right carotid artery. Measurements: Right ?Left Measurement ?Value ?Units ? Measurement ?Value ?Units RT Prox CCA PSV ?79 ? cm/sec ?LT Prox CCA PSV ?128 ?cm/sec RT Prox CCA EDV ?12 ? cm/sec ?LT Prox CCA EDV ?32 ? cm/sec RT Distal CCA PSV ?52 ? cm/sec ?LT Distal CCA PSV ?91 ? cm/sec RT Distal CCA EDV ?13 ? cm/sec ?LT Distal CCA EDV ?20 ? cm/sec RT Prox ICA PSV ?49 ? cm/sec ?LT Prox ICA PSV ?76 ? cm/sec RT Prox ICA EDV ?12 ? cm/sec ?LT Prox ICA EDV ?17 ? cm/sec RT Mid ICA PSV ? 383 ?cm/sec ?LT Mid ICA PSV ? 182 ?cm/sec RT Mid ICA EDV ? 136 ?cm/sec ?LT Mid ICA EDV ? 50 ? cm/sec RT Distal ICA PSV ?92 ? cm/sec ?LT Distal ICA PSV ?169 ?cm/sec RT Distal ICA EDV ?20 ? cm/sec ?LT Distal ICA EDV ?48 ? cm/sec RT ECA Prx PSV ? 128 ?cm/sec ?LT ECA Prx PSV ? 184 ?cm/sec RT ICA/CCA ? 7.34 ? ratio ? LT ICA/CCA ? 2.00 ? ratio RT VERT PSV ?79 ? cm/sec ?LT VERT PSV ?55 ? cm/sec - FINDINGS: Performing Yard Hand: Sri Bueno, RVT, RDMS, RDCS, ACS. Rt Common Carotid Artery: There is intimal thickening but no significant atherosclerotic plaque noted in the right common carotid artery. Rt Internal Carotid Artery: The plaque in the right internal carotid artery appears to be calcified and irregular. Calcific artifacts limit assessment through the bifurcation. Significant atherosclerotic changes of the right internal carotid artery with elevated peak systolic velocity and end diastolic velocity, as above. >70% stenosis. Rt External Carotid Artery: The right external carotid artery is patent without evidence of atherosclerotic plaque. Rt Vertebral Artery: The right vertebral artery is patent with antegrade flow. Lt Common Carotid Artery: There is intimal thickening but no significant atherosclerotic plaque noted in the left common carotid artery. Lt Internal Carotid Artery: The plaque in the left internal carotid artery appears to be calcified and irregular. Calcific artifacts limit assessment through the bifurcation. Significant atherosclerotic changes of the left internal carotid artery with elevated peak systolic velocity and end diastolic velocity, as above. 50-69% stenosis. Lt External Carotid Artery: Patent left external carotid artery with evidence of atherosclerotic disease present. Lt Vertebral Artery: The left vertebral artery is patent with antegrade flow. CONCLUSIONS: 1. The right internal carotid artery disease is consistent with a more than 70% stenosis. 2. The left internal carotid artery disease is consistent with a 50-69% stenosis. 3. No evidence of hemodynamically significant stenosis in the common carotid artery bilaterally. 4. Normal, antegrade flow is noted in bilateral vertebral arteries. HISTORY: carotid stenosis. PREVIOUS STUDIES: Previous carotid ultrasound on 09-14-2023 US revealed BRYON 50-69% stenosis by VR but <50% stenosis by PSV and EDV, LICA <50% stenosis, ante verts, technically difficult- heavy plaque. DISCLAIMER: The study images and the final report will be retained in the patient chart by the Vascular Laboratory for the legally required time period. This chart constitutes the legal record of any testing performed. ATTESTATION: I have reviewed and interpreted the pertinent images and measurements of this study. I attest to the conclusions in the final report that is provided above. Electronically Signed By: Joseluis Juárez MD [facility] 2024-09-12 10:17:37 IPHONE DEVELOPER Procedure Note Joseluis Juárez MD - 09/12/2024 [facility] - Department of Vascular Surgery,Vascular Laboratory [address] [place], [place] [address] Carotid Duplex Ultrasound Report Patient Name: RAMIREZ CHÁVEZ D : 1950 (74y 5m) Study Date: 09/10/2024 1:07:33 PM Gender: M Tech: [facility] Location: [facility] Provider: JOSELUIS JUÁREZ Quality: Adequate Order Provider: JOSELUIS JUÁREZ PROCEDURES: Carotid Report: Carotid duplex examination of the extracranial arterieswas performed using 2D, color and spectral Doppler. INDICATIONS: I65.21 Occlusion and stenosis of right carotid artery. Measurements: Right Left Measurement Value Units Measurement ValueUnits RT Prox CCA PSV 79 cm/sec LT Prox CCA PSV 128cm/sec RT Prox CCA EDV 12 cm/sec LT Prox CCA EDV 32cm/sec RT Distal CCA PSV 52 cm/sec LT Distal CCA PSV 91cm/sec RT Distal CCA EDV 13 cm/sec LT Distal CCA EDV 20cm/sec RT Prox ICA PSV 49 cm/sec LT Prox ICA PSV 76cm/sec RT Prox ICA EDV 12 cm/sec LT Prox ICA EDV 17cm/sec RT Mid ICA PSV 383 cm/sec LT Mid ICA PSV 182cm/sec RT Mid ICA EDV 136 cm/sec LT Mid ICA EDV 50cm/sec RT Distal ICA PSV 92 cm/sec LT Distal ICA PSV 169cm/sec RT Distal ICA EDV 20 cm/sec LT Distal ICA EDV 48cm/sec RT ECA Prx PSV 128 cm/sec LT ECA Prx PSV 184cm/sec RT ICA/CCA 7.34 ratio LT ICA/CCA 2.00ratio RT VERT PSV 79 cm/sec LT VERT PSV 55cm/sec - FINDINGS: Performing Yard Hand: Sri Bueno, THOMAST, RDMS, RDCS, ACS. Rt Common Carotid Artery: There is intimal thickening but no significantatherosclerotic plaque noted in the right common carotid artery. Rt Internal Carotid Artery: The plaque in the right internal carotidartery appears to be calcified and irregular. Calcific artifacts limit assessment through thebifurcation. Significant atherosclerotic changes of the right internal carotid arterywith elevated peak systolic velocity and end diastolic velocity, as above. >70%stenosis. Rt External Carotid Artery: The right external carotid artery is patentwithout evidence of atherosclerotic plaque. Rt Vertebral Artery: The right vertebral artery is patent with antegradeflow. Lt Common Carotid Artery: There is intimal thickening but no significantatherosclerotic plaque noted in the left common carotid artery. Lt Internal Carotid Artery: The plaque in the left internal carotid arteryappears to be calcified and irregular. Calcific artifacts limit assessment through thebifurcation. Significant atherosclerotic changes of the left internal carotid arterywith elevated peak systolic velocity and end diastolic velocity, as above. 50-69%stenosis. Lt External Carotid Artery: Patent left external carotid artery withevidence of atherosclerotic disease present. Lt Vertebral Artery: The left vertebral artery is patent with antegradeflow. CONCLUSIONS: 1. The right internal carotid artery disease is consistent with a morethan 70% stenosis. 2. The left internal carotid artery disease is consistent with a 50-69%stenosis. 3. No evidence of hemodynamically significant stenosis in the commoncarotid artery bilaterally. 4. Normal, antegrade flow is noted in bilateral vertebral arteries. HISTORY: carotid stenosis. PREVIOUS STUDIES: Previous carotid ultrasound on 09-14-2023 US revealed BRYON 50-69% stenosisby VR but <50% stenosis by PSV and EDV, LICA <50% stenosis, ante verts, technicallydifficult- heavy plaque. DISCLAIMER: The study images and the final report will be retained in the patientchart by the Vascular Laboratory for the legally required time period. This chartconstitutes the legal record of any testing performed. ATTESTATION: I have reviewed and interpreted the pertinent images and measurements ofthis study. I attest to the conclusions in the final report that is provided above. Electronically Signed By: Joseluis Juárez MD [facility] 2024-09-12 10:17:37 IPHONE DEVELOPER us Joseluis Juárez MD IM US PROCEDURES Final Result * US CORTEZ (09/10/2024 2:26 PM IPHONE DEVELOPER) Anatomical Region Laterality Modality Vascular N/A Ultrasound 09/10/2024 1:44 PM IPHONE DEVELOPER Narrative 09/12/2024 10:24 AM IPHONE DEVELOPER [facility] - Department of Vascular Surgery, Vascular Laboratory [address] [place] [address] Lower Extremity Arterial Doppler Report Patient Name: RAMIREZ CHÁVEZ D : [birth year] Study Date: 09/10/2024 1:44:00 PM Gender: M Tech: Sri Bueno RVT, RDCS, RDM Location: [facility] Provider: JOSELUIS JUÁREZ ?Quality: Adequate Order Provider: JOSELUIS JUÁREZ PROCEDURES: Arterial Report: Ankle - Brachial Index Doppler exam. INDICATIONS: Z48.812 Encounter for surgical aftercare following surgery on the circulatory system. Measurements: Right - ? Left - Measurement ?Value ?Units ?Measurement ?Value ? Units Rt Brachial Pressure ? 154 ?mmHg ? Lt Brachial Pressure ? 167 ? mmHg Rt FREIGHT RATE CLERK Pressure ?138 ?mmHg ? Lt FREIGHT RATE CLERK Pressure ?151 ? mmHg Rt DPA Pressure ?138 ?mmHg ? Lt DPA Pressure ?141 ? mmHg Rt 1st Digit Pressure ?103 ?mmHg ? Lt 1st Digit Pressure ?114 ? mmHg Rt PT CORTEZ Resting ?0.83 ?Lt PT CORTEZ Resting ?0.9 Rt AT CORTEZ Resting ?0.83 ?Lt AT CORTEZ Resting ?0.84 Rt Digit/Arm Index ? 0.62 ?Lt Digit/Arm Index ? 0.68 Measurement ?Value ?Units ?Measurement ?Value ? Units Right - ? Left - - FINDINGS: Performing Yard Hand: Sri Bueno, THOMAST, RDMS, RDCS, ACS. Right Posterior Tibial Artery Analysis: The posterior tibial artery waveform is monophasic with preserved sharp upstroke. Right Anterior Tibial Artery Analysis: The anterior tibial artery waveform is monophasic with preserved sharp upstroke. Left Posterior Tibial Artery Analysis: The posterior tibial waveform is multiphasic. Left Anterior Tibial Artery Analysis: The anterior tibial waveform is multiphasic. CONCLUSIONS: 1. The above listed right Ankle/Brachial Index at rest is consistent with moderate peripheral arterial disease - claudication (for reference, claudication range is 0.50 -0.89). 2. The above listed left Ankle/Brachial Index at rest is within normal limits (for reference, normal resting CORTEZ is 0.90 - 1.4; CORTEZ >1.4 due to non-compressible arteries is not diagnostic). 3. Bilateral Digit/Arm Indices are within normal limits (for reference, normal LISA is >0.6). HISTORY: 11-07-2019 angioplasty and LT distal SFA/popliteal artery stent. PREVIOUS STUDIES: Previous study on 09-14-2023 RT CORTEZ 0.83, LT CORTEZ 0.87. DISCLAIMER: The study images and the final report will be retained in the patient chart by the Vascular Laboratory for the legally required time period. This chart constitutes the legal record of any testing performed. ATTESTATION: I have reviewed and interpreted the pertinent images and measurements of this study. I attest to the conclusions in the final report that is provided above. Electronically Signed By: Joseluis Juárez MD [facility] 2024-09-12 10:23:22 IPHONE DEVELOPER Procedure Note Joseluis Juárez MD - 09/12/2024 [facility] - Department of Vascular Surgery,Vascular Laboratory [address] [place] [id number] Lower Extremity Arterial Doppler Report Patient Name: RAMIREZ CHÁVEZ D : 1950 Study Date: 09/10/2024 1:44:00 PM Gender: M Tech: Sri Bueno RVT, NANDINI, RDM Location: [facility] Provider: JOSELUIS JUÁREZ Quality: Adequate Order Provider: JOSELUIS JUÁREZ PROCEDURES: Arterial Report: Ankle - Brachial Index Doppler exam. INDICATIONS: Z48.812 Encounter for surgical aftercare following surgery on thecirculatory system. Measurements: Right - Left- Measurement Value Units Measurement ValueUnits Rt Brachial Pressure 154 mmHg Lt Brachial Pressure 167mmHg Rt FREIGHT RATE CLERK Pressure 138 mmHg Lt FREIGHT RATE CLERK Pressure 151mmHg Rt DPA Pressure 138 mmHg Lt DPA Pressure 141mmHg Rt 1st Digit Pressure 103 mmHg Lt 1st Digit Pressure 114mmHg Rt PT CORTEZ Resting 0.83 Lt PT CORTEZ Resting 0.9 Rt AT CORTEZ Resting 0.83 Lt AT CORTEZ Resting 0.84 Rt Digit/Arm Index 0.62 Lt Digit/Arm Index 0.68 Measurement Value Units Measurement ValueUnits Right - Left- - FINDINGS: Performing Yard Hand: Sri Bueno RVT, KEITH, RDROQUE, ACS. Right Posterior Tibial Artery Analysis: The posterior tibial artery waveform is monophasic with preserved sharpupstroke. Right Anterior Tibial Artery Analysis: The anterior tibial artery waveform is monophasic with preserved sharpupstroke. Left Posterior Tibial Artery Analysis: The posterior tibial waveform is multiphasic. Left Anterior Tibial Artery Analysis: The anterior tibial waveform is multiphasic. CONCLUSIONS: 1. The above listed right Ankle/Brachial Index at rest is consistent withmoderate peripheral arterial disease - claudication (for reference, claudicationrange is 0.50 -0.89). 2. The above listed left Ankle/Brachial Index at rest is within normallimits (for reference, normal resting CORTEZ is 0.90 - 1.4; CORTEZ >1.4 due tonon-compressible arteries is not diagnostic). 3. Bilateral Digit/Arm Indices are within normal limits (for reference,normal LISA is >0.6). HISTORY: 11-07-2019 angioplasty and LT distal SFA/popliteal artery stent. PREVIOUS STUDIES: Previous study on 09-14-2023 RT CORTEZ 0.83, LT CORTEZ 0.87. DISCLAIMER: The study images and the final report will be retained in the patientchart by the [facility] for the legally required time period. This chartconstitutes the legal record of any testing performed. ATTESTATION: I have reviewed and interpreted the pertinent images and measurements ofthis study. I attest to the conclusions in the final report that is provided above. Electronically Signed By: Joseluis Juárez MD [facility] 2024-09-12 10:23:22 IPHONE DEVELOPER us Joseluis Juárez MD IMG US PROCEDURES Final Result * CTA Abdomen Pelvis (09/09/2024 9:43 AM IPHONE DEVELOPER) Anatomical Region Laterality Modality Body N/A Computed Tomogra phy 09/09/2024 12:0 0 PM IPHONE DEVELOPER Impressions 09/09/2024 6:18 PM IPHONE DEVELOPER 1. ??Infrarenal abdominal aortic aneurysm measuring 3.2 x 3.1 cm, not significantly changed compared to 06/13/2023. 2. Unchanged fusiform dilatation of the common iliac arteries. 3. Progressively enlarging chronic consolidation within the right lower lobe, remains suspicious for malignancy despite minimal FDG avidity on prior PET/CT. Consider further evaluation with tissue sampling. Dictated by: Jose Gustafson MD The radiology attending physician has personally reviewed this study, and had reviewed and/or edited this written report and agrees with it. Electronically signed by: Dennise Siddiqui M.D. Narrative 09/09/2024 6:18 PM IPHONE DEVELOPER EXAMINATION: CTA ABDOMEN PELVIS, CT CHEST WO CONTRAST HISTORY: Pulmonary nodule. ??Abdominal aortic aneurysm. TECHNIQUE: ?? Computed tomography of the chest was performed without contrast. CT angiography of the abdomen and pelvis was performed following the uneventful intravenous administration of 100 ml Optiray-350 using an angiographic protocol. ??3D images were generated on a dedicated workstation and interpreted. COMPARISON: CT chest 02/22/2024, 01/24/2024. ??FDG PET/CT 01/31/2024. CTA abdomen pelvis 06/13/2023. FINDINGS: ?? CHEST: There is a background of severe pulmonary emphysema. Within the periphery of the right lower lobe along the costophrenic angle, there is an area of chronic consolidation which has slowly increased in size. ??In the coronal plane, this measures approximately 2.5 x 2.8 cm (series 9, image 71). ??In 02/22/2024, this measured approximately 1.7 x 1.8 cm, and in 06/13/2023, this measured approximately 1.1 x 1.4 cm. No new consolidation or pulmonary nodule. No pleural effusion or pneumothorax. No thoracic lymphadenopathy. There are postsurgical changes of median sternotomy and coronary artery bypass grafting. ??There are multivessel coronary artery calcifications and stents. ??No pericardial effusion. ??There are atherosclerotic calcifications of the thoracic aorta, which is tortuous but not aneurysmal. ABDOMEN/PELVIS: No suspicious liver lesion. ??There are postsurgical changes of cholecystectomy. ??No biliary ductal dilatation. ??The pancreas, spleen, and adrenal glands are normal. There are multiple bilateral renal cysts. ??No hydronephrosis. ??The urinary bladder is incompletely distended. ??The prostate is mildly enlarged. ??There are small bilateral hydroceles. The stomach and duodenum are normal. ??There is colonic diverticulosis. ??No evidence of bowel obstruction or acute inflammation. ??No free fluid or air. No abdominopelvic lymphadenopathy. ??No suspicious osseous lesion. Chronic left sided rib fracture. VASCULAR: There are atherosclerotic calcifications of the abdominal aorta and its branches. ??An infrarenal abdominal aortic aneurysm measures 3.2 cm x 3.1 cm, not significantly changed compared to 06/13/2023 when remeasured similarly. ?? Fusiform dilatation of both common iliac arteries is unchanged. The right common iliac artery measures 1.7 cm and the left common iliac artery measures 1.6 cm. No significant stenosis of the celiac artery, superior mesenteric artery, both renal arteries, or inferior mesenteric artery. Procedure Note Dennise Siddiqui MD - 09/09/2024 EXAMINATION: CTA ABDOMEN PELVIS, CT CHEST WO CONTRAST HISTORY: Pulmonary nodule. Abdominal aortic aneurysm. TECHNIQUE: Computed tomography of the chest was performed without contrast. CT angiography of the abdomen and pelvis was performed following the uneventful intravenous administration of 100 ml Optiray-350 using an angiographic protocol. 3D images were generated on a dedicated workstation and interpreted. COMPARISON: CT chest 02/22/2024, 01/24/2024. FDG PET/CT 01/31/2024. CTA abdomen pelvis 06/13/2023. FINDINGS: CHEST: There is a background of severe pulmonary emphysema. Within the periphery of the right lower lobe along the costophrenic angle, there is an area of chronic consolidation which has slowly increased in size. In the coronal plane, this measures approximately 2.5 x 2.8 cm (series 9, image 71). In 02/22/2024, this measured approximately 1.7 x 1.8 cm, and in 06/13/2023, this measured approximately 1.1 x 1.4 cm. No new consolidation or pulmonary nodule. No pleural effusion or pneumothorax. No thoracic lymphadenopathy. There are postsurgical changes of median sternotomy and coronary artery bypass grafting. There are multivessel coronary artery calcifications and stents. No pericardial effusion. There are atherosclerotic calcifications of the thoracic aorta, which is tortuous but not aneurysmal. ABDOMEN/PELVIS: No suspicious liver lesion. There are postsurgical changes of cholecystectomy. No biliary ductal dilatation. The pancreas, spleen, and adrenal glands are normal. There are multiple bilateral renal cysts. No hydronephrosis. The urinary bladder is incompletely distended. The prostate is mildly enlarged. There are small bilateral hydroceles. The stomach and duodenum are normal. There is colonic diverticulosis. No evidence of bowel obstruction or acute inflammation. No free fluid or air. No abdominopelvic lymphadenopathy. No suspicious osseous lesion. Chronic left sided rib fracture. VASCULAR: There are atherosclerotic calcifications of the abdominal aorta and its branches. An infrarenal abdominal aortic aneurysm measures 3.2 cm x 3.1 cm, not significantly changed compared to 06/13/2023 when remeasured similarly. Fusiform dilatation of both common iliac arteries is unchanged. The right common iliac artery measures 1.7 cm and the left common iliac artery measures 1.6 cm. No significant stenosis of the celiac artery, superior mesenteric artery, both renal arteries, or inferior mesenteric artery. IMPRESSION: 1. Infrarenal abdominal aortic aneurysm measuring 3.2 x 3.1 cm, not significantly changed compared to 06/13/2023. 2. Unchanged fusiform dilatation of the common iliac arteries. 3. Progressively enlarging chronic consolidation within the right lower lobe, remains suspicious for malignancy despite minimal FDG avidity on prior PET/CT. Consider further evaluation with tissue sampling. Dictated by: Jose Gustafson MD The radiology attending physician has personally reviewed this study, and had reviewed and/or edited this written report and agrees with it. Electronically signed by: Dennise Siddiqui M.D. us Anoop Sanders MD IMG CT PROCEDURES Final Re sult * CT chest without contrast (09/09/2024 9:33 AM IPHONE DEVELOPER) Anatomical Region Laterality Modality Body N/A Computed Tomogra phy 09/09/2024 12:0 0 PM IPHONE DEVELOPER Impressions 09/09/2024 6:18 PM IPHONE DEVELOPER 1. ??Infrarenal abdominal aortic aneurysm measuring 3.2 x 3.1 cm, not significantly changed compared to 06/13/2023. 2. Unchanged fusiform dilatation of the common iliac arteries. 3. Progressively enlarging chronic consolidation within the right lower lobe, remains suspicious for malignancy despite minimal FDG avidity on prior PET/CT. Consider further evaluation with tissue sampling. Dictated by: Jose Gustafson MD The radiology attending physician has personally reviewed this study, and had reviewed and/or edited this written report and agrees with it. Electronically signed by: Dennise Siddiqui M.D. Narrative 09/09/2024 6:18 PM IPHONE DEVELOPER EXAMINATION: CTA ABDOMEN PELVIS, CT CHEST WO CONTRAST HISTORY: Pulmonary nodule. ??Abdominal aortic aneurysm. TECHNIQUE: ?? Computed tomography of the chest was performed without contrast. CT angiography of the abdomen and pelvis was performed following the uneventful intravenous administration of 100 ml Optiray-350 using an angiographic protocol. ??3D images were generated on a dedicated workstation and interpreted. COMPARISON: CT chest 02/22/2024, 01/24/2024. ??FDG PET/CT 01/31/2024. CTA abdomen pelvis 06/13/2023. FINDINGS: ?? CHEST: There is a background of severe pulmonary emphysema. Within the periphery of the right lower lobe along the costophrenic angle, there is an area of chronic consolidation which has slowly increased in size. ??In the coronal plane, this measures approximately 2.5 x 2.8 cm (series 9, image 71). ??In 02/22/2024, this measured approximately 1.7 x 1.8 cm, and in 06/13/2023, this measured approximately 1.1 x 1.4 cm. No new consolidation or pulmonary nodule. No pleural effusion or pneumothorax. No thoracic lymphadenopathy. There are postsurgical changes of median sternotomy and coronary artery bypass grafting. ??There are multivessel coronary artery calcifications and stents. ??No pericardial effusion. ??There are atherosclerotic calcifications of the thoracic aorta, which is tortuous but not aneurysmal. ABDOMEN/PELVIS: No suspicious liver lesion. ??There are postsurgical changes of cholecystectomy. ??No biliary ductal dilatation. ??The pancreas, spleen, and adrenal glands are normal. There are multiple bilateral renal cysts. ??No hydronephrosis. ??The urinary bladder is incompletely distended. ??The prostate is mildly enlarged. ??There are small bilateral hydroceles. The stomach and duodenum are normal. ??There is colonic diverticulosis. ??No evidence of bowel obstruction or acute inflammation. ??No free fluid or air. No abdominopelvic lymphadenopathy. ??No suspicious osseous lesion. Chronic left sided rib fracture. VASCULAR: There are atherosclerotic calcifications of the abdominal aorta and its branches. ??An infrarenal abdominal aortic aneurysm measures 3.2 cm x 3.1 cm, not significantly changed compared to 06/13/2023 when remeasured similarly. ?? Fusiform dilatation of both common iliac arteries is unchanged. The right common iliac artery measures 1.7 cm and the left common iliac artery measures 1.6 cm. No significant stenosis of the celiac artery, superior mesenteric artery, both renal arteries, or inferior mesenteric artery. Procedure Note Dennise Siddiqui MD - 09/09/2024 EXAMINATION: CTA ABDOMEN PELVIS, CT CHEST WO CONTRAST HISTORY: Pulmonary nodule. Abdominal aortic aneurysm. TECHNIQUE: Computed tomography of the chest was performed without contrast. CT angiography of the abdomen and pelvis was performed following the uneventful intravenous administration of 100 ml Optiray-350 using an angiographic protocol. 3D images were generated on a dedicated workstation and interpreted. COMPARISON: CT chest 02/22/2024, 01/24/2024. FDG PET/CT 01/31/2024. CTA abdomen pelvis 06/13/2023. FINDINGS: CHEST: There is a background of severe pulmonary emphysema. Within the periphery of the right lower lobe along the costophrenic angle, there is an area of chronic consolidation which has slowly increased in size. In the coronal plane, this measures approximately 2.5 x 2.8 cm (series 9, image 71). In 02/22/2024, this measured approximately 1.7 x 1.8 cm, and in 06/13/2023, this measured approximately 1.1 x 1.4 cm. No new consolidation or pulmonary nodule. No pleural effusion or pneumothorax. No thoracic lymphadenopathy. There are postsurgical changes of median sternotomy and coronary artery bypass grafting. There are multivessel coronary artery calcifications and stents. No pericardial effusion. There are atherosclerotic calcifications of the thoracic aorta, which is tortuous but not aneurysmal. ABDOMEN/PELVIS: No suspicious liver lesion. There are postsurgical changes of cholecystectomy. No biliary ductal dilatation. The pancreas, spleen, and adrenal glands are normal. There are multiple bilateral renal cysts. No hydronephrosis. The urinary bladder is incompletely distended. The prostate is mildly enlarged. There are small bilateral hydroceles. The stomach and duodenum are normal. There is colonic diverticulosis. No evidence of bowel obstruction or acute inflammation. No free fluid or air. No abdominopelvic lymphadenopathy. No suspicious osseous lesion. Chronic left sided rib fracture. VASCULAR: There are atherosclerotic calcifications of the abdominal aorta and its branches. An infrarenal abdominal aortic aneurysm measures 3.2 cm x 3.1 cm, not significantly changed compared to 06/13/2023 when remeasured similarly. Fusiform dilatation of both common iliac arteries is unchanged. The right common iliac artery measures 1.7 cm and the left common iliac artery measures 1.6 cm. No significant stenosis of the celiac artery, superior mesenteric artery, both renal arteries, or inferior mesenteric artery. IMPRESSION: 1. Infrarenal abdominal aortic aneurysm measuring 3.2 x 3.1 cm, not significantly changed compared to 06/13/2023. 2. Unchanged fusiform dilatation of the common iliac arteries. 3. Progressively enlarging chronic consolidation within the right lower lobe, remains suspicious for malignancy despite minimal FDG avidity on prior PET/CT. Consider further evaluation with tissue sampling. Dictated by: Jose Gustafson MD The radiology attending physician has personally reviewed this study, and had reviewed and/or edited this written report and agrees with it. Electronically signed by: Dennise Siddiqui M.D. Bernabe Garcia MD IMG CT PROCEDURES Final Result from Last 3 Months Insurance [address] [place] [id number] MEDICARE [facility] [address] [place] [address] MEDICARE [facility] MEDICARE SUPPLEMENT MEDICARE [facility] Address: [address] [address] [place] [address] [facility] MEDICARE SUPPLEMENT Advance Directives For more information, please contact: [phone] Documents on File Type Date Recorded Patient Insurance Verification Representative Expl anation ADVANCE DIRECTIVE 11/07/2019 9:49 AM ADVANCE DIRECTIVE 11/20/2018 1:56 PM * Full Code (Latest Code Status on File) Date Activated Date Inactivated Comments 11/06/2024 7:50 PM 11/10/2024 3:47 PM * Full Code Date Activated Date Inactivated Comments 10/18/2024 4:59 PM 10/25/2024 8:30 PM * Full Code Date Activated Date Inactivated Comments 11/07/2019 3:43 PM 11/08/2019 2:16 PM * Full Code Date Activated Date Inactivated Comments 08/22/2019 10:42 AM 08/22/2019 4:21 PM * Full Code Date Activated Date Inactivated Comments 11/19/2018 8:54 PM 11/21/2018 3:45 PM Care Teams Senior Reservations Agent Relationship Specialty Start Date End Date Christiano Almaguer MD [address] [place] [address] PCP - General Internal Medicine 11/29/20 Anoop Sanders MD Consulting Physician Cardiology 03/09/18 Joseluis Juárez MD Surgeon Vascular Surgery 11/08/19 Anoop Barbosa MD [address] [place] [address] Consulting Physician Cardiothoracic Surgery 09/24/24 Bernabe Garcia MD [address] [place] [address] Referring Physician Pulmonary Disease 09/24/24
--- OUTSIDE RECORDS SUMMARY | 2024-12-03 12:01 | XMS_ITS | Referral Summary ---
Author Organization [facility] Address [address] [place] [address] Care Team Providers Care Visitor Services Technician Name Role Phone Anoop Sanders MD Unavailable Joseluis Juárez MD Unavailable [phone] Christiano Almaguer MD Primary Care Provider [phone] Anoop Barbosa MD Unavailable Bernabe Garcai MD Unavailable [phone] Encounters Date Type Department Care Team Description 11/25/2024 Telephone [facility] [address] [facility] [address] [place] [address] Gokul Gomez MA Medical Question/Miscellaneous 11/19/2024 8:15 AM PRODUCT MANAGEMENT ANALYST - 11/19/2024 11:59 PM PRODUCT MANAGEMENT ANALYST Hospital Encounter [facility] - Imaging [address] [place] [address] Aftercare following surgery of the respiratory system; Postprocedural pneumothorax Discharge Disposition: Discharge to home or self care 11/19/2024 9:45 AM PRODUCT MANAGEMENT ANALYST Office Visit [facility] [address] [facility] [address] [place] [address] Anoop Barbosa MD Aftercare following surgery of the respiratory system (Primary Dx) 11/12/2024 Telephone [facility] [address] [place] [address] [address] [place] [address] Nora Schneider, RN return call 11/12/2024 Telephone [facility] [address] [place] [address] [address] [place] [address] Nora Schneider RN Post-op Follow-up 11/06/2024 12:41 PM PRODUCT MANAGEMENT ANALYST - 11/10/2024 11:47 AM PRODUCT MANAGEMENT ANALYST Hospital Encounter [address] [address] Anoop Barbosa MD Scharff, James Rowe, MD Hydropneumothorax (Primary Dx); Adenocarcinoma of right lung (HCC) [C34.91]; Chronic obstructive pulmonary disease, unspecified COPD type (HCC) [J44.9] Discharge Disposition: Discharge to home or self care 11/08/2024 [facility] Only [facility] [address] [facility] [address] [place] [phone] Belkis Grimes MA Malignant neoplasm of lower lobe of right lung (HCC) (Primary Dx) 11/06/2024 5:13 PM PRODUCT MANAGEMENT ANALYST Anesthesia Event [facility] Operating Room [address] [place] [phone] Benji Marie MD PhD Monroe Ly MD 11/06/2024 2:30 PM PRODUCT MANAGEMENT ANALYST - 11/06/2024 4:55 PM PRODUCT MANAGEMENT ANALYST Surgery [facility] Operating Room [address] [place] [phone] Pepe Aragon MD Right video assisted thoracic surgery, talc pleurodesis 11/06/2024 Telephone [facility] [address] [place] [address] [address] [place] [address] Nora Schneider RN right pneumothorax 11/06/2024 10:00 AM PRODUCT MANAGEMENT ANALYST - 11/06/2024 11:59 PM PRODUCT MANAGEMENT ANALYST Hospital Encounter [facility] [address] [place] [address] Chronic obstructive pulmonary disease, unspecified COPD type (HCC) Discharge Disposition: Discharge to home or self care 11/06/2024 Orders Only [facility] [address] [phone] Belkis Grimes MA Chronic obstructive pulmonary disease, unspecified COPD type (HCC) (Primary Dx) 11/06/2024 9:45 AM PRODUCT MANAGEMENT ANALYST Office Visit [facility] [address] [place] [phone] Bernabe Garcia MD Malignant neoplasm of lower lobe of right lung (HCC) (Primary Dx); Chronic obstructive pulmonary disease, unspecified COPD type (HCC) 10/29/2024 9:00 AM PRODUCT MANAGEMENT ANALYST - 10/29/2024 11:59 PM PRODUCT MANAGEMENT ANALYST Hospital Encounter [facility] - Imaging [facility] [place] [phone] Pneumothorax on right Discharge Disposition: Discharge to home or self care 10/29/2024 10:45 AM PRODUCT MANAGEMENT ANALYST Office Visit [facility] Surgery [address] [place] [phone] Anoop Barbosa MD Aftercare following surgery of the respiratory system (Primary Dx); Postprocedural pneumothorax 10/25/2024 Orders Only [facility] [address] [place] [phone] Nora Schneider RN Pneumothorax on right (Primary Dx) 10/18/2024 8:15 AM PRODUCT MANAGEMENT ANALYST - 10/25/2024 4:00 PM PRODUCT MANAGEMENT ANALYST Hospital Encounter [address] [address] Anoop Barbosa MD Malignant neoplasm of lower lobe of right lung (HCC) Discharge Disposition: Discharge to home or self care 10/18/2024 9:26 AM PRODUCT MANAGEMENT ANALYST Anesthesia Event [facility] Operating Room [address] [place] [address] Jos Larry MD 10/18/2024 10:30 AM PRODUCT MANAGEMENT ANALYST - 10/18/2024 2:45 PM PRODUCT MANAGEMENT ANALYST Surgery [facility] Operating Room [address] [place] [address] Anoop Barbosa MD Right video assisted thoracic surgery, right lower lobectomy, mediastinal lymph node dissection 10/11/2024 9:40 AM PRODUCT MANAGEMENT ANALYST Lab [facility] Outpatient Lab [address] [place] [phone] Pre-op evaluation; Malignant neoplasm of lower lobe of right lung (HCC) 10/10/2024 Telephone [facility] [address] [place] [address] [address], [place] [address] Nora Schneider, RN bloodwork 10/10/2024 Orders Only [facility] Surgery [address] [place] [phone] Joseluis Juárez MD Stenosis of right carotid artery (Primary Dx) 10/10/2024 Telephone [facility] [address] [place] [address] [place] [phone] Nora Schneider, RN Scheduling Appointments 10/09/2024 Documentation [facility] Surgery [address] [facility] [address] [place] [address] Belkis Wheeler PA CTA neck results 10/08/2024 Documentation [facility] [address] [place] [address] Bety Huitron RC 10/08/2024 Telephone [facility] Surgery [facility] Floor 5 [place] [phone] Josie Horton 10/08/2024 10:30 AM PRODUCT MANAGEMENT ANALYST Office Visit [facility] [address] [place] [address] [address] [place] [address] Anoop Barbosa MD Malignant neoplasm of lower lobe of right lung (HCC) (Primary Dx); Nodule of lower lobe of right lung; Lung nodule 10/07/2024 Telephone [facility] Surgery [facility] Floor 5 [place] [address] Elise Larry NP 10/02/2024 1:33 PM PRODUCT MANAGEMENT ANALYST - 10/02/2024 11:59 PM PRODUCT MANAGEMENT ANALYST Hospital Encounter [facility] Pulmonary [facility] [address] [place] [phone] Adenocarcinoma of right lung (HCC) Discharge Disposition: Discharge to home or self care 10/02/2024 Orders Only [facility] Surgery [facility] 5 [place] [address] Mandeep Faulkner MD Adenocarcinoma of right lung (HCC) (Primary Dx) 10/02/2024 Telephone [facility] [address] [facility] [address] [facility] [place] [phone] Gokul Gomez MA PET scan results 10/02/2024 12:45 PM PRODUCT MANAGEMENT ANALYST Office Visit [facility] Surgery [address] [place] [address] 5 [place] [address] Mandeep Faulkner MD Adenocarcinoma of right lung (HCC) (Primary Dx); Cigarette nicotine dependence without complication 09/30/2024 8:06 AM PRODUCT MANAGEMENT ANALYST - 09/30/2024 11:59 PM PRODUCT MANAGEMENT ANALYST Hospital Encounter [facility] [address] [place] [address] [facility] Pet Lung nodule Discharge Disposition: Discharge to home or self care 09/27/2024 3:51 PM PRODUCT MANAGEMENT ANALYST - 09/27/2024 11:59 PM PRODUCT MANAGEMENT ANALYST Hospital Encounter [facility] [address] [place] [address] Stenosis of right carotid artery Discharge Disposition: Discharge to home or self care 09/24/2024 Orders Only [facility] [address] [facility] [address] [place] [phone] Gokul Gomez MA Lung nodule (Primary Dx) 09/23/2024 Telephone [facility] [address] [facility] [address] [place] [address] Gokul Gomez MA 09/20/2024 Orders Only [facility] Surgery [address] [facility] [address] [place] [address] Joseluis Juárez MD Encounter for surgical aftercare following surgery on the circulatory system (Primary Dx); Infrarenal abdominal aortic aneurysm (AAA) without rupture (HCC) 09/20/2024 Orders Only [facility] Surgery [address] [facility] [address] [place] [address] Joseluis Juárez MD Stenosis of right carotid artery (Primary Dx) 09/20/2024 Telephone [facility] Cardiology [address] [facility] [address] [place] [address] Anoop Sanders MD Test Results 09/20/2024 Documentation [facility] Surgery [address] [facility] [address] [place] [address] Belkis Wheeler PA carotid, liza and CT Scan results 09/19/2024 Orders Only [facility] - Interventional Radiology [address] [place] [phone] Caesar Leung MD 09/19/2024 11:19 AM PRODUCT MANAGEMENT ANALYST - 09/19/2024 11:59 PM PRODUCT MANAGEMENT ANALYST Hospital Encounter [facility] [address] [place] [phone] Discharge Disposition: Discharge to home or self care 09/19/2024 9:30 AM PRODUCT MANAGEMENT ANALYST - 09/19/2024 11:59 PM PRODUCT MANAGEMENT ANALYST Hospital Encounter [facility] [address] [place] [phone] Discharge Disposition: Discharge to home or self care 09/19/2024 Orders Only [facility] - Interventional Radiology [address] [place] [phone] Laureano Sheikh, VIELKA 09/19/2024 7:30 AM PRODUCT MANAGEMENT ANALYST Lab [facility] Outpatient Lab [address] [place] [address] Pre-procedure lab exam; 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) 09/19/2024 7:43 AM PRODUCT MANAGEMENT ANALYST - 09/19/2024 11:59 PM PRODUCT MANAGEMENT ANALYST Hospital Encounter [facility] - Interventional Radiology [address] [place] [phone] [address] Discharge Disposition: Discharge to home or self care 09/18/2024 Telephone [facility] - Interventional Radiology [address] [place] [phone] Laureano Sheikh, VIELKA 09/18/2024 Orders Only [facility] - Interventional Radiology [address] [place] [phone] Laureano Sheikh, RN Pre-procedure lab exam (Primary Dx); 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) 09/11/2024 Telephone Radiology 1 [place] [address] Caesar Leung MD 09/11/2024 9:15 AM PRODUCT MANAGEMENT ANALYST Office Visit [facility] [address] [facility] [address] [place] [phone] Bernabe Garcia MD Abnormal chest CT (Primary Dx) 09/10/2024 2:30 PM PRODUCT MANAGEMENT ANALYST Ancillary Procedure [facility] Surgery [address] [address] Encounter for surgical aftercare following surgery on the circulatory system 09/10/2024 1:45 PM PRODUCT MANAGEMENT ANALYST Ancillary Procedure [facility] Surgery [address] [address] Asymptomatic stenosis of right carotid artery; Encounter for surgical aftercare following surgery on the circulatory system 09/09/2024 8:19 AM PRODUCT MANAGEMENT ANALYST - 09/09/2024 11:59 PM PRODUCT MANAGEMENT ANALYST Hospital Encounter [facility] [address] [place] [phone] Anoop Sanders MD Abdominal aortic aneurysm (AAA) without rupture, unspecified part (HCC) Discharge Disposition: Discharge to home or self care 09/09/2024 8:19 AM PRODUCT MANAGEMENT ANALYST - 09/09/2024 11:59 PM PRODUCT MANAGEMENT ANALYST Hospital Encounter [facility] [address] [place] [phone] Chronic obstructive pulmonary disease, unspecified COPD type (HCC); Lung nodule; Tobacco abuse Discharge Disposition: Discharge to home or self care from Last 3 Months Allergies No known active allergies Medications aspirin [...] (six) hours as needed for pain 10/25/20 Active amLODIPine (NORVASC) 10 mg tablet Take 1 tablet (10 mg total) by mouth daily 30 tablet 1 10/26/20 Active traMADoL (ULTRAM) 50 mg tablet Take 1 tablet (50 mg total) by mouth every 4 (four) hours as needed for pain 40 tablet 11/19/19 Active fluticasone-um eclidin-vilant er (Trelegy Ellipta) 200-62.5-25 mcg inhaler Inhale 1 puff daily 60 each 1 11/25/19 Active temazepam (RESTORIL) 30 mg capsuleIndicat ions:Insomnia Take 1 capsule (30 mg total) by mouth nightly as needed for sleep 025 Discontinued(Al ternate therapy) traMADoL (ULTRAM) 50 mg tablet Take 1 tablet (50 mg total) by mouth every 6 (six) hours as needed for pain 20 tablet 10/25/20 025 Discontinued Active Problems Problem Noted Date [...] 09/22 Assessment & Plan (11/09/2023 9:51 AM PRODUCT MANAGEMENT ANALYST): PET scan is reassuring Recs: 1) CT [...] appointment when the time comes. 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 Arrange new baseline CORTEZ with Duplex scan of left leg in one month. Asymptomatic stenosis of right carotid artery Assessment & Plan (07/27/2022 11:35 AM CDT): Asymptomatic right ICA stenosis. Repeat six month carotid doppler for observation. Assessment & Plan (12/08/2021 1:00 PM PRODUCT MANAGEMENT ANALYST): Stable right ICA stenosis. Continue to monitor with repeat carotid Doppler in six months. He'll be due for follow-up lower extremity arterial Doppler/Duplex and an abdominal aortic Duplex in six months as well. We'll coordinate his vascular studies. Assessment & Plan (09/13/2021 12:18 PM PRODUCT MANAGEMENT ANALYST): Asymptomatic progressive right ICA stenosis that is [...] sooner. Assessment & Plan (12/04/2019 10:16 AM PRODUCT MANAGEMENT ANALYST): elevated velocities within right ICA on prior [...] now Assessment & Plan (11/09/2023 9:51 AM PRODUCT MANAGEMENT ANALYST): As above. He wants to think about and let me know if he would like pharmacologic assistance Assessment & Plan (07/25/2023 1:31 PM CDT): As above. He wants to think about and let me know if he would like pharmacologic assistance Assessment & Plan (12/19/2018 6:33 PM PRODUCT MANAGEMENT ANALYST): Discussed with patient lung cancer screening once per year Smoking cessation using nicotine gum will be initiated Quantitate with PFTs his current impairment Centrilobular emphysema 12/19/2018 Overview (12/19/2018): CT confirmed 02/09/2018 Assessment & Plan (11/09/2023 9:51 AM PRODUCT MANAGEMENT ANALYST): Sx are stable PFTs reveal moderate obstructive [...] maintenance/vaccinations Assessment & Plan (12/19/2018 6:31 PM PRODUCT MANAGEMENT ANALYST): Currently exercise limitations due more to arthritis [...] year. Assessment & Plan (12/04/2019 10:17 AM PRODUCT MANAGEMENT ANALYST): Small AAA. Monitor with annual Duplex scans. Essential (primary) hypertension 01/05/2017 Overview (03/24/2017): Essential hypertension Assessment & Plan (11/20/2018 4:02 AM PRODUCT MANAGEMENT ANALYST): Continue home metoprolol, hydrochlorothiazide, Cozaar. 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 He has been made NPO. His lead operator Dr. Rader has been consulted. We will continue aspirin, Plavix, losartan, metoprolol. We will also continue full-dose anticoagulation for now. We will trend troponins. Postnasal drip 04/06/2016 10/17/2019 Overview (02/02/2017): Post-nasal drip Immunizations Name Administration Dates Next Due Hep A / Hep B 01/22/2014,12/27/2013 Influenza, Unspecified 08/30/2014,08/27/2013,08/2012 Tdap 12/02/2019,01/22/2014 Typhoid Inactivated 12/27/2013 ZOSTER LIVE 09/11/2013 ZOSTER Recombinant 08/11/2020 Social History Tobacco Use Types Packs/Day Years Used Date Smoking Tobacco: Former Cigarettes Q uit: 2023 Smokeless Tobacco: Never Tobacco Cessation:Counseling Given: Not Answered Comments:less than 1 ppd now Alcohol Use Standard Drinks/Week Comments Yes 0 (1 standard drink = 0.6 oz pur e alcohol) social AHC Utilities Answer Date Recorded In the past 12 months has th e electric, gas, oil, or water company threatened to [...] often do you attend chur ch or muslim services? Never 11/07/2024 Do you belong to any clubs o r organizations such as yazdanism groups, unions, fraternal or athletic groups, or [...] any time in the past 12 m [facility], were you homeless or living in a assisted (including now)? No 11/07/2024 Personal Safety Answer Date Recorded Have you ever been in or are you currently in a harmful physical or emotional relationship or is someone making you feel afraid or unsafe? Denies 11/06/2024 Sex and Gender Information Value Date Recorded Sex Assigned at Not on file Legal Sex Male 3:47 PM PRODUCT MANAGEMENT ANALYST Gender Identity Male 05/20/2020 7:24 AM CDT Sexual Orientation Not on file Last Filed Vital Signs Vital Sign Reading Time Taken Comments Blood Pressure 118/58 11/19/2024 8:52 AM PRODUCT MANAGEMENT ANALYST Pulse 66 11/19/2024 8:52 AM PRODUCT MANAGEMENT ANALYST Regul ar Temperature 36.7 ??C (98 ??F) 11/10/2024 7:50 AM PRODUCT MANAGEMENT ANALYST Respiratory Rate 14 11/19/2024 8:52 AM PRODUCT MANAGEMENT ANALYST Oxygen Saturation 94% 11/10/2024 7:50 AM PRODUCT MANAGEMENT ANALYST Inhaled Oxygen Concentration - - Weight 85.3 kg (188 lb) 11/19/2024 8:52 AM PRODUCT MANAGEMENT ANALYST Height 177.8 cm (5' 10 ) 11/06/2024 2:55 PM PRODUCT MANAGEMENT ANALYST Body Mass Index 26.98 11/06/2024 2:55 PM PRODUCT MANAGEMENT ANALYST Plan of Treatment Not on file Medical Devices Implanted Type Area Pay Agent Device Identifier Shelf Expiration Date Model / Serial / Lot Fabiolag Efrain [id number] Device Closure Angio-Seal Vip [employer]-Plus Polyglyd L70 Cm Od6 Fr Odsec.035 In Vascular - Sn/A - [id number] Implanted:Qty : 1 on 11/07/2019 by Joseluis Juárez MD at [facility] Other - see comments Right: Groin Daig Efrain/[employer] 05/29/2020 [id number] / N/A / [id number] [employer] Peripheral [employer] [id number] Lifestent 6mm 6fr 40mm 130cm Self Expand Catheter Helical - Sn/A - [id number] Implanted:Qty : 1 on 11/07/2019 by Joseluis Juárez MD at [facility] Stent Left: Arterial [employer] [id number] 02/22/2021 [id number] / N/A / [id number] Description:Left popliteal a rtery [employer] Efrain [id number] Synergy 4mm 38mm 144cm Radiopaque 1 Access Port Inflation Lumen - [id number] Implanted:Qty : 1 on 11/20/2018 by Ike Coleman MD at [facility] N/A: Coronary [employer] Efrain 07/09/2020 [id number] / / [id number] Description:Circumflex [employer] E[employer]rain [id number] Synergy 3.5mm 16mm 144cm Radiopaque 1 Access Port Inflation Lumen - [id number] Implanted:Qty : 1 on 11/20/2018 by Ike Coleman MD at [facility] N/A: Coronary [employer] Efrain 06/19/2020 [id number] / / [id number] Description:Circumflex Procedures Procedure Name Priority Date/Time Associated Diagnosis Comments XR CHEST PA LATERAL 2 VIEWS Schedule Routine, Read Routine (OP Routine) 11/19/2024 8:29 AM PRODUCT MANAGEMENT ANALYST Aftercare following surgery of the respiratory system Postprocedural pneumothorax XR CHEST 1 VIEW IP Routine 11/10/2024 6:07 AM PRODUCT MANAGEMENT ANALYST EGFR Routine 11/10/2024 12:58 AM PRODUCT MANAGEMENT ANALYST BASIC METABOLIC PANEL Routine 11/10/2024 12:58 AM PRODUCT MANAGEMENT ANALYST CBC WITHOUT DIFFERENTIAL Routine 11/10/2024 12:58 AM PRODUCT MANAGEMENT ANALYST XR CHEST 1 VIEW IP Routine 11/09/2024 11:40 AM PRODUCT MANAGEMENT ANALYST XR CHEST 1 VIEW IP Routine 11/09/2024 6:20 AM PRODUCT MANAGEMENT ANALYST EGFR Routine 11/09/2024 12:43 AM PRODUCT MANAGEMENT ANALYST BASIC METABOLIC PANEL Routine 11/09/2024 12:43 AM PRODUCT MANAGEMENT ANALYST CBC WITHOUT DIFFERENTIAL Routine 11/09/2024 12:43 AM PRODUCT MANAGEMENT ANALYST EGFR Timed 11/08/2024 3:53 PM PRODUCT MANAGEMENT ANALYST BASIC METABOLIC PANEL Timed 11/08/2024 3:53 PM PRODUCT MANAGEMENT ANALYST POTASSIUM LEVEL Routine 11/08/2024 6:47 AM PRODUCT MANAGEMENT ANALYST XR CHEST 1 VIEW IP Routine 11/08/2024 5:52 AM PRODUCT MANAGEMENT ANALYST EGFR Routine 11/08/2024 12:16 AM PRODUCT MANAGEMENT ANALYST BASIC METABOLIC PANEL Routine 11/08/2024 12:16 AM PRODUCT MANAGEMENT ANALYST CBC WITHOUT DIFFERENTIAL Routine 11/08/2024 12:16 AM PRODUCT MANAGEMENT ANALYST XR CHEST 1 VIEW IP Routine 11/07/2024 5:31 AM PRODUCT MANAGEMENT ANALYST EGFR Routine 11/07/2024 12:33 AM PRODUCT MANAGEMENT ANALYST BASIC METABOLIC PANEL Routine 11/07/2024 12:33 AM PRODUCT MANAGEMENT ANALYST CBC WITHOUT DIFFERENTIAL Routine 11/07/2024 12:33 AM PRODUCT MANAGEMENT ANALYST XR CHEST 1 VIEW ED Urgent/IP Urgent 11/06/2024 7:15 PM PRODUCT MANAGEMENT ANALYST AR AN PROCEDURE PLACEHOLDER Routine 11/06/2024 5:34 PM PRODUCT MANAGEMENT ANALYST AR AN ELECTIVE ENDOTRACHEAL AIRWAY Routine 11/06/2024 5:34 PM PRODUCT MANAGEMENT ANALYST VIDEO-ASSISTED THORACIC SURGERY 11/06/2024 5:17 PM PRODUCT MANAGEMENT ANALYST Hydropneumothorax PREPARE RBC STAT 11/06/2024 2:48 PM PRODUCT MANAGEMENT ANALYST EGFR STAT 11/06/2024 1:53 PM PRODUCT MANAGEMENT ANALYST CBC WITHOUT DIFFERENTIAL STAT 11/06/2024 1:53 PM PRODUCT MANAGEMENT ANALYST BASIC METABOLIC PANEL STAT 11/06/2024 1:53 PM PRODUCT MANAGEMENT ANALYST TYPE AND SCREEN STAT 11/06/2024 1:53 PM PRODUCT MANAGEMENT ANALYST PREPARE RBC STAT 11/06/2024 12:54 PM PRODUCT MANAGEMENT ANALYST XR CHEST PA LATERAL 2 VIEWS Schedule Routine, Read Routine (OP Routine) 11/06/2024 10:27 AM PRODUCT MANAGEMENT ANALYST Chronic obstructive pulmonary disease, unspecified COPD type (HCC) XR CHEST PA LATERAL 2 VIEWS Schedule Routine, Read Routine (OP Routine) 10/29/2024 9:13 AM PRODUCT MANAGEMENT ANALYST Pneumothorax on right XR CHEST 1 VIEW ED Urgent/IP Urgent 10/25/2024 12:29 PM PRODUCT MANAGEMENT ANALYST XR CHEST 1 VIEW IP Routine 10/25/2024 6:40 AM PRODUCT MANAGEMENT ANALYST XR CHEST 1 VIEW ED Urgent/IP Urgent 10/24/2024 12:33 PM PRODUCT MANAGEMENT ANALYST XR CHEST 1 VIEW IP Routine 10/24/2024 5:58 AM PRODUCT MANAGEMENT ANALYST XR CHEST 1 VIEW Timed 10/23/2024 12:10 PM PRODUCT MANAGEMENT ANALYST XR CHEST 1 VIEW IP Routine 10/23/2024 6:17 [address] CHEST WO CONTRAST IP Routine 10/22/2024 9:19 AM PRODUCT MANAGEMENT ANALYST XR CHEST 1 VIEW IP Routine 10/22/2024 5:35 AM PRODUCT MANAGEMENT ANALYST XR CHEST 1 VIEW ED Urgent/IP Urgent 10/21/2024 1:09 [address]EMENT ANALYST CT CHEST WO CONTRAST IP Routine 10/21/2024 10:36 AM PRODUCT MANAGEMENT ANALYST EGFR STAT 10/21/2024 7:43 AM PRODUCT MANAGEMENT ANALYST BASIC METABOLIC PANEL STAT 10/21/2024 7:43 AM PRODUCT MANAGEMENT ANALYST XR CHEST 1 VIEW IP Routine 10/21/2024 6:32 AM PRODUCT MANAGEMENT ANALYST EGFR Routine 10/21/2024 12:52 AM PRODUCT MANAGEMENT ANALYST DIFFERENTIAL AUTO Routine 10/21/2024 12: 52 AM PRODUCT MANAGEMENT ANALYST BASIC METABOLIC PANEL Routine 10/21/2024 12:52 AM PRODUCT MANAGEMENT ANALYST CBC WITH AUTO DIFFERENTIAL Routine 10/21/2024 12:52 AM PRODUCT MANAGEMENT ANALYST XR CHEST 1 VIEW IP Routine 10/20/2024 2:33 PM PRODUCT MANAGEMENT ANALYST XR CHEST 1 VIEW IP Routine 10/20/2024 6:29 AM PRODUCT MANAGEMENT ANALYST XR CHEST 1 VIEW IP Routine 10/19/2024 6:14 AM PRODUCT MANAGEMENT ANALYST EGFR Routine 10/19/2024 1:26 AM PRODUCT MANAGEMENT ANALYST BASIC METABOLIC PANEL Routine 10/19/2024 1:26 AM PRODUCT MANAGEMENT ANALYST MAGNESIUM Routine 10/19/2024 1:26 AM PRODUCT MANAGEMENT ANALYST CBC WITHOUT DIFFERENTIAL Routine 10/19/2024 1:26 AM PRODUCT MANAGEMENT ANALYST XR CHEST 1 VIEW ED Urgent/IP Urgent 10/18/2024 2:10 PM PRODUCT MANAGEMENT ANALYST SURGICAL PATHOLOGY Routine 10/18/2024 12 :28 PM PRODUCT MANAGEMENT ANALYST Malignant neoplasm of lower lobe of right lung (HCC) AR AN PROCEDURE PLACEHOLDER Routine 10/18/2024 10:04 AM PRODUCT MANAGEMENT ANALYST AR AN PROCEDURE PLACEHOLDER Routine 10/18/2024 10:03 AM PRODUCT MANAGEMENT ANALYST AR AN PROCEDURE PLACEHOLDER Routine 10/18/2024 10:00 AM PRODUCT MANAGEMENT ANALYST AR AN ELECTIVE ENDOTRACHEAL AIRWAY Routine 10/18/2024 10:00 AM PRODUCT MANAGEMENT ANALYST LOBECTOMY 10/18/2024 9:26 AM PRODUCT MANAGEMENT ANALYST Malignant neoplasm of lower lobe of right lung (HCC) PREPARE RBC STAT 10/18/2024 7:05 AM PRODUCT MANAGEMENT ANALYST EGFR Routine 10/11/2024 9:51 AM PRODUCT MANAGEMENT ANALYST Pre-op evaluation Malignant neoplasm of lower lobe of right lung (HCC) DIFFERENTIAL AUTO Routine 10/11/2024 9:5 1 AM PRODUCT MANAGEMENT ANALYST Pre-op evaluation Malignant neoplasm of lower lobe of right lung (HCC) TYPE AND SCREEN Routine 10/11/2024 9:51 AM PRODUCT MANAGEMENT ANALYST Pre-op evaluation Malignant neoplasm of lower lobe of right lung (HCC) CBC WITH AUTO DIFFERENTIAL Routine 10/11/2024 9:51 AM PRODUCT MANAGEMENT ANALYST Pre-op evaluation Malignant neoplasm of lower lobe of right lung (HCC) COMPREHENSIVE METABOLIC PANEL Routine 10/11/2024 9:51 AM PRODUCT MANAGEMENT ANALYST Pre-op evaluation Malignant neoplasm of lower lobe of right lung (HCC) PULMONARY FUNCTION TEST (PFT) Routine 10/02/2024 2:16 PM PRODUCT MANAGEMENT ANALYST Adenocarcinoma of right lung (HCC) PET/CT FDG SKULL TO THIGH Schedule Routine, Read Routine (OP Routine) 09/30/2024 9:28 AM PRODUCT MANAGEMENT ANALYST Lung nodule POCT GLUCOSE DEVICE Routine 09/30/2024 8 :10 AM PRODUCT MANAGEMENT ANALYST CTA NECK W CONTRAST Schedule Routine, Read Routine (OP Routine) 09/27/2024 4:43 PM PRODUCT MANAGEMENT ANALYST Stenosis of right carotid artery XR CHEST 1 VIEW Timed 09/19/2024 11:27 AM PRODUCT MANAGEMENT ANALYST XR CHEST 1 VIEW ED Urgent/IP Urgent 09/19/2024 9:39 AM [address]NAGEMENT A[address]LYST CT NEEDLE BIOPSY LUNG RIGHT Schedule Routine, Read Routine (OP Routine) 09/19/2024 9:32 AM PRODUCT MANAGEMENT ANALYST Abnormal chest CT SURGICAL PATHOLOGY Routine 09/19/2024 8: 52 AM PRODUCT MANAGEMENT ANALYST DIFFERENTIAL AUTO STAT 09/19/2024 7:4 3 AM PRODUCT MANAGEMENT ANALYST Pre-procedure lab exam CBC WITH AUTO DIFFERENTIAL STAT 09/19/2024 7:43 AM PRODUCT MANAGEMENT ANALYST Pre-procedure lab exam PROTIME-INR STAT 09/19/2024 7:43 AM PRODUCT MANAGEMENT ANALYST Pre-procedure lab exam 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) LUNG CANCER PANEL Routine 09/19/2024 12: 00 AM PRODUCT MANAGEMENT ANALYST PD-L1 IHC 22C3 PHARMDX, KEYTRUDA Routine 09/19/2024 12:00 AM PRODUCT MANAGEMENT ANALYST MISC PATH REFER Routine 09/19/2024 12:00 AM PRODUCT MANAGEMENT ANALYST US ARTERIAL DUPLEX LOWER EXTREMITY LEFT LIMITED Schedule Routine, Read Routine (OP Routine) 09/10/2024 2:27 PM PRODUCT MANAGEMENT ANALYST Encounter for surgical aftercare following surgery on the circulatory system US CORTEZ Schedule Routine, Read Routine (OP Routine) 09/10/2024 2:26 PM PRODUCT MANAGEMENT ANALYST Encounter for surgical aftercare following surgery on the circulatory system US CAROTIDS DUPLEX BILATERAL Schedule Routine, Read Routine (OP Routine) 09/10/2024 2:26 PM PRODUCT MANAGEMENT ANALYST Asymptomatic stenosis of right carotid artery CTA ABDOMEN PELVIS W WO CONTRAST Routine 09/09/2024 9:43 AM PRODUCT MANAGEMENT ANALYST Abdominal aortic aneurysm (AAA) without rupture, unspecified part (HCC) CT CHEST WO CONTRAST Schedule Routine, Read Routine (OP Routine) 09/09/2024 9:33 AM PRODUCT MANAGEMENT ANALYST Chronic obstructive pulmonary disease, unspecified COPD type (HCC) Lung nodule Tobacco abuse from Last 3 Months Results * X-ray chest 2 views (11/19/2024 8:29 AM PRODUCT MANAGEMENT ANALYST) Anatomical Region Laterality Modality Body, Chest N/A Computed Radiogr aphy 11/19/2024 8:40 AM PRODUCT MANAGEMENT ANALYST Impressions 11/19/2024 8:40 AM PRODUCT MANAGEMENT ANALYST 1. ??Small right pleural effusion and very small left pleural effusion. 2. ??Ill-defined haziness in the left perihilar region. 3. ??Otherwise postoperative chest radiograph within expected limits. COMMENT: Please see above for additional findings. Electronically signed by: Daniel Smyth M.D. Narrative 11/19/2024 8:40 AM PRODUCT MANAGEMENT ANALYST Chest Radiograph, 2 views HISTORY: right pneumothorax, [...] XR Chest 1 View (11/10/2024 6:07 AM PRODUCT MANAGEMENT ANALYST) Anatomical Region Laterality Modality Body, Chest N/A Computed Radiogr aphy 11/10/2024 6:55 AM PRODUCT MANAGEMENT ANALYST Impressions 11/10/2024 6:55 AM PRODUCT MANAGEMENT ANALYST Median sternotomy wires are unchanged. ??Clips project [...] Crum MD, PHD Narrative 11/10/2024 6:55 AM PRODUCT MANAGEMENT ANALYST EXAMINATION: XR CHEST 1 VIEW HISTORY: thoracic [...] mediastinal contours are stable. Electronically signed by: Paluo Crum MD, PHD Rosemary BAR IMG XR PROCEDURES Final Result * (ABNORMAL) eGFR (11/10/2024 12:58 AM PRODUCT MANAGEMENT ANALYST) eGFR 58(L) >=60 mL/min/1. 73 m2 Comment: [...] reviewed 2021. Blood 11/10/2024 12:5 8 AM PRODUCT MANAGEMENT ANALYST 11/10/2024 1:26 AM PRODUCT MANAGEMENT ANALYST us Rosemary BAR LAB BLOOD ORDERABLES Fin al Result [facility] [address] Department [place] [address] * (ABNORMAL) CBC without differential (11/10/2024 12:58 AM PRODUCT MANAGEMENT ANALYST) WBC 8.8 3.8 - 9.9 K/cumm Hgb 8.0(L) 13.0 - 17.5 g/dL [facility] Hct 24.8(L) 38.9 - 50.3 % [facility] Plt 222 150 - 400 K/cumm [facility] MPV 9.8 9.1 - 12.3 fL [facility] RBC 2.31(L) 4.30 - 5.80 M/cumm [facility] MCV 107.4(H) 81.3 - 96.4 fL [facility] MCH 34.6(H) 27.1 - 33.3 pg [facility] MCHC 32.3 32.3 - 35.7 g/dL [facility] RDW CV 13.6 11.1 - 14.9 % [facility] RDW SD 53.9(H) 35.7 - 48.1 fL [facility] NRBC abs 0.00 0.00 - 0.01 K/cumm [facility] Blood 11/10/2024 12:5 8 AM PRODUCT MANAGEMENT ANALYST 11/10/2024 1:26 AM PRODUCT MANAGEMENT ANALYST us Rosemary BAR LAB BLOOD ORDERABLES Fin al Result [facility] [address] [place] [address] * (ABNORMAL) Basic metabolic panel (11/10/2024 12:58 AM PRODUCT MANAGEMENT ANALYST) Sodium 134(L) 135 - 145 mmol/L Potassium, pl 4.3 3.3 - 4.9 mmol/L [facility] Chloride 99 97 - 110 mmol/L [facility] CO2 26 22 - 32 mmol/L [facility] Anion gap 9 2 - 15 mmol/L [facility] BUN 31(H) 6 - 25 mg/dL [facility] Creatinine 1.28 0.80 - 1.30 mg/dL [facility] Glucose 117 70 - 199 mg/dL [facility] Comment: Interpretive Data Fasting glucose >/= 126 [...] 2022. Calcium 8.6 8.5 - 10.3 mg/dL [facility] Blood 11/10/2024 12:5 8 AM PRODUCT MANAGEMENT ANALYST 11/10/2024 1:26 AM PRODUCT MANAGEMENT ANALYST Rosemary BAR LAB BLOOD ORDERABLES Fin al Result [facility] [address] [place] [address] * XR Chest 1 Vw (11/09/2024 11:40 AM PRODUCT MANAGEMENT ANALYST) Anatomical Region Laterality Modality Body, Chest N/A Computed Radiogr aphy 11/09/2024 11:5 4 AM PRODUCT MANAGEMENT ANALYST Impressions 11/09/2024 11:54 AM PRODUCT MANAGEMENT ANALYST Interval removal right thoracostomy tubes without significant interval change. Electronically signed by: Yobani Levine M.D. Narrative 11/09/2024 11:54 AM PRODUCT MANAGEMENT ANALYST EXAMINATION: XR CHEST 1 VIEW HISTORY: Chest [...] angle is not completely included within the [id number]. ??No pneumothorax. Procedure Note Yobani Levine MD [...] angle is not completely included within the [id number]. No pneumothorax. IMPRESSION: Interval removal right thoracostomy tubes without significant interval change. Electronically signed by: Yobani Levine M.D. Rita BAR IMSailaja XR PROCEDURES Final Result * XR Chest 1 View (11/09/2024 6:20 AM PRODUCT MANAGEMENT ANALYST) Anatomical Region Laterality Modality Body, Chest N/A Computed Radiogr aphy 11/09/2024 7:24 AM PRODUCT MANAGEMENT ANALYST Impressions 11/09/2024 7:24 AM PRODUCT MANAGEMENT ANALYST No significant interval change. Electronically signed by: Yobani Levine M.D. Narrative 11/09/2024 7:24 AM PRODUCT MANAGEMENT ANALYST EXAMINATION: XR CHEST 1 VIEW HISTORY: Recent [...] Result * (ABNORMAL) eGFR (11/09/2024 12:43 AM PRODUCT MANAGEMENT ANALYST) eGFR 51(L) >=60 mL/min/1. 73 m2 Comment: [...] reviewed 2021. Blood 11/09/2024 12:4 3 AM PRODUCT MANAGEMENT ANALYST 11/09/2024 1:08 AM PRODUCT MANAGEMENT ANALYST Rosemary BAR LAB BLOOD ORDERABLES Fin al Result Performing Organization Address [facility] Co de Phone Number [facility] [address] Department [place] [address] * (ABNORMAL) CBC without differential (11/09/2024 12:43 AM PRODUCT MANAGEMENT ANALYST) WBC 11.5(H) 3.8 - 9.9 K/cumm Hgb 9.2(L) 13.0 - 17.5 g/dL [facility] Hct 28.7(L) 38.9 - 50.3 % [facility] Plt 262 150 - 400 K/cumm [facility] MPV 10.0 9.1 - 12.3 fL [facility] RBC 2.58(L) 4.30 - 5.80 M/cumm [facility] MCV 111.2(H) 81.3 - 96.4 fL [facility] MCH 35.7(H) 27.1 - 33.3 pg [facility] MCHC 32.1(L) 32.3 - 35.7 g/dL [facility] RDW CV 13.9 11.1 - 14.9 % [facility] RDW SD 57.1(H) 35.7 - 48.1 fL [facility] NRBC abs 0.00 0.00 - 0.01 K/cumm [facility] Blood 11/09/2024 12:4 3 AM PRODUCT MANAGEMENT ANALYST 11/09/2024 1:08 AM PRODUCT MANAGEMENT ANALYST Rosemary BAR LAB BLOOD ORDERABLES Fin al Result Performing Organization Address [facility]/ZIP Co de Phone Number [facility] [address] Department [place] [address] * (ABNORMAL) Basic metabolic panel (11/09/2024 12:43 AM PRODUCT MANAGEMENT ANALYST) [facility] Sodium 134(L) 135 - 145 mmol/L Potassium, pl 4.9 3.3 - 4.9 mmol/L [facility] Chloride 98 97 - 110 mmol/L [facility] CO2 26 22 - 32 mmol/L [facility] Anion gap 10 2 - 15 mmol/L [facility] BUN 32(H) 6 - 25 mg/dL [facility] Creatinine 1.43(H) 0.80 - 1.30 mg/dL [facility] Glucose 126 70 - 199 mg/dL [facility] Comment: Interpretive Data Fasting glucose >/= 126 [...] 2022. Calcium 8.8 8.5 - 10.3 mg/dL [facility] Blood 11/09/2024 12:4 3 AM PRODUCT MANAGEMENT ANALYST 11/09/2024 1:08 AM PRODUCT MANAGEMENT ANALYST us Rosemary BAR LAB BLOOD ORDERABLES Fin al Result [facility] [address] [place] [address] * (ABNORMAL) eGFR (11/08/2024 3:53 PM PRODUCT MANAGEMENT ANALYST) [facility] eGFR 44(L) >=60 mL/min/1. 73 m2 Comment: [...] last reviewed 2021. Blood 11/08/2024 3:53 PM PRODUCT MANAGEMENT ANALYST 11/08/2024 4:01 PM PRODUCT MANAGEMENT ANALYST us Volodymyr BAR LAB BLOOD ORDERABLES Final R esult [facility] [address] Department [place] [address] * (ABNORMAL) Basic metabolic panel (11/08/2024 3:53 PM PRODUCT MANAGEMENT ANALYST) Sodium 136 135 - 145 mmol/L Potassium, pl 4.6 3.3 - 4.9 mmol/L [facility] Chloride 99 97 - 110 mmol/L [facility] CO2 25 22 - 32 mmol/L [facility] Anion gap 12 2 - 15 mmol/L [facility] BUN 31(H) 6 - 25 mg/dL [facility] Creatinine 1.61(H) 0.80 - 1.30 mg/dL [facility] Glucose 132 70 - 199 mg/dL [facility] Comment: Interpretive Data Fasting glucose >/= 126 [...] 2022. Calcium 8.6 8.5 - 10.3 mg/dL [facility] Blood 11/08/2024 3:53 PM PRODUCT MANAGEMENT ANALYST 11/08/2024 4:01 PM PRODUCT MANAGEMENT ANALYST us Volodymyr BAR LAB BLOOD ORDERABLES Final R esult Performing Organization Address City/[facility]/ZIP Co de Phone Number [facility] [address] [place] [address] * (ABNORMAL) Potassium (11/08/2024 6:47 AM PRODUCT MANAGEMENT ANALYST) [facility] Potassium, pl 5.1(H) 3.3 - 4.9 mmol/L Blood 11/08/2024 6:47 AM PRODUCT MANAGEMENT ANALYST 11/08/2024 6:59 AM PRODUCT MANAGEMENT ANALYST Moncho BAR LAB BLOOD ORDERABLES Fi nal Result [facility] [address] [place] [address] * XR Chest 1 View (11/08/2024 5:52 AM PRODUCT MANAGEMENT ANALYST) Anatomical Region Laterality Modality Body, Chest N/A Computed Radiogr aphy 11/08/2024 7:35 AM PRODUCT MANAGEMENT ANALYST Impressions 11/08/2024 7:35 AM PRODUCT MANAGEMENT ANALYST Comparison is made to 11/07/2024. ??There are 2 right thoracostomy tubes and median sternotomy wires unchanged in position. ??There are small lung volumes with bibasilar opacities likely representing combination of atelectasis and small effusions. ??No pneumothorax is appreciated. ??Heart size is stable. Electronically signed by: Fred Hernandes M.D. Narrative 11/08/2024 7:35 AM PRODUCT MANAGEMENT ANALYST Examination: Chest 1 view Procedure Note Fred [...] Electronically signed by: Fred Hernandes M.D. Rosemary BAR IMG XR PROCEDURES Final Result * (ABNORMAL) eGFR (11/08/2024 12:16 AM PRODUCT MANAGEMENT ANALYST) eGFR 56(L) >=60 mL/min/1. 73 m2 Comment: [...] Inclusion of Race in Diagnosing Kidney Disease, ANUPAMA 2020). The CKD-EPI equation should not be used for patients with unstable renal function and has not been validated in children and those over 70. Current interpretive data was last reviewed 2021. Blood 11/08/2024 12:1 6 AM PRODUCT MANAGEMENT ANALYST 11/08/2024 12:48 AM PRODUCT MANAGEMENT ANALYST Rosemary BAR LAB BLOOD ORDERABLES Fin al Result Performing Organization Address [facility] Co de Phone Number [facility] [address] [place] [address] * (ABNORMAL) CBC without differential (11/08/2024 12:16 AM PRODUCT MANAGEMENT ANALYST) WBC 13.1(H) 3.8 - 9.9 K/cumm Hgb 9.6(L) 13.0 - 17.5 g/dL [facility] Hct 31.2(L) 38.9 - 50.3 % [facility] Plt 290 150 - 400 K/cumm [facility] MPV 10.0 9.1 - 12.3 fL [facility] RBC 2.78(L) 4.30 - 5.80 M/cumm [facility] MCV 112.2(H) 81.3 - 96.4 fL [facility] MCH 34.5(H) 27.1 - 33.3 pg [facility] MCHC 30.8(L) 32.3 - 35.7 g/dL [facility] RDW CV 13.6 11.1 - 14.9 % [facility] RDW SD 56.9(H) 35.7 - 48.1 fL [facility] NRBC abs 0.00 0.00 - 0.01 K/cumm [facility] Blood 11/08/2024 12:1 6 AM PRODUCT MANAGEMENT ANALYST 11/08/2024 12:49 AM PRODUCT MANAGEMENT ANALYST Rosemary BAR LAB BLOOD ORDERABLES Fin al Result Performing Organization Address [facility] Co de Phone Number [facility] [address] Department [place] [address] * (ABNORMAL) Basic metabolic panel (11/08/2024 12:16 AM PRODUCT MANAGEMENT ANALYST) Sodium 139 135 - 145 mmol/L Potassium, pl 5.5(H) 3.3 - 4.9 mmol/L [facility] Chloride 102 97 - 110 mmol/L [facility] CO2 28 22 - 32 mmol/L [facility] Anion gap 9 2 - 15 mmol/L [facility] BUN 26(H) 6 - 25 mg/dL [facility] Creatinine 1.33(H) 0.80 - 1.30 mg/dL [facility] Glucose 133 70 - 199 mg/dL [facility] Comment: Interpretive Data Fasting glucose >/= 126 [...] 2022. Calcium 8.7 8.5 - 10.3 mg/dL [facility] Blood 11/08/2024 12:1 6 AM PRODUCT MANAGEMENT ANALYST 11/08/2024 12:48 AM PRODUCT MANAGEMENT ANALYST us Rosemary BAR LAB BLOOD ORDERABLES Fin al Result [facility] [address] Department [place] [address] * XR Chest 1 View (11/07/2024 5:31 AM PRODUCT MANAGEMENT ANALYST) Anatomical Region Laterality Modality Body, Chest N/A Computed Radiogr aphy 11/07/2024 7:51 AM PRODUCT MANAGEMENT ANALYST Impressions 11/07/2024 7:51 AM PRODUCT MANAGEMENT ANALYST Initial study 11/06/2024, 7:04 PM: Right apical [...] Liban Moore M.D. Narrative 11/07/2024 7:51 AM PRODUCT MANAGEMENT ANALYST EXAMINATION: Chest single view x2 exams Procedure [...] Final Result * eGFR (11/07/2024 12:33 AM PRODUCT MANAGEMENT ANALYST) eGFR 61 >=60 mL/min/1. 73 m2 Comment: [...] reviewed 2021. Blood 11/07/2024 12:3 3 AM PRODUCT MANAGEMENT ANALYST 11/07/2024 12:39 AM PRODUCT MANAGEMENT ANALYST us Rosemary BAR LAB BLOOD ORDERABLES Fin al Result [facility] [address] Department [place] [address] * (ABNORMAL) CBC without differential (11/07/2024 12:33 AM PRODUCT MANAGEMENT ANALYST) WBC 9.2 3.8 - 9.9 K/cumm Hgb 9.8(L) 13.0 - 17.5 g/dL [facility] Hct 30.8(L) 38.9 - 50.3 % [facility] Plt 257 150 - 400 K/cumm [facility] MPV 9.8 9.1 - 12.3 fL [facility] RBC 2.82(L) 4.30 - 5.80 M/cumm [facility] MCV 109.2(H) 81.3 - 96.4 fL [facility] MCH 34.8(H) 27.1 - 33.3 pg [facility] MCHC 31.8(L) 32.3 - 35.7 g/dL [facility] RDW CV 13.6 11.1 - 14.9 % [facility] RDW SD 55.8(H) 35.7 - 48.1 fL [facility] NRBC abs 0.00 0.00 - 0.01 K/cumm [facility] Blood 11/07/2024 12:3 3 AM PRODUCT MANAGEMENT ANALYST 11/07/2024 12:40 AM PRODUCT MANAGEMENT ANALYST us Rosemary BAR LAB BLOOD ORDERABLES Fin al Result [facility] [address] Department [place] [address] * (ABNORMAL) Basic metabolic panel (11/07/2024 12:33 AM PRODUCT MANAGEMENT ANALYST) Sodium 138 135 - 145 mmol/L Potassium, pl 4.5 3.3 - 4.9 mmol/L [facility] Chloride 102 97 - 110 mmol/L [facility] CO2 24 22 - 32 mmol/L [facility] Anion gap 12 2 - 15 mmol/L [facility] BUN 27(H) 6 - 25 mg/dL [facility] Creatinine 1.23 0.80 - 1.30 mg/dL [facility] Glucose 166 70 - 199 mg/dL [facility] Comment: Interpretive Data Fasting glucose >/= 126 [...] 2022. Calcium 7.9(L) 8.5 - 10.3 mg/dL [facility] Blood 11/07/2024 12:3 3 AM PRODUCT MANAGEMENT ANALYST 11/07/2024 12:39 AM PRODUCT MANAGEMENT ANALYST us Rosemary BAR LAB BLOOD ORDERABLES Fin al Result [facility] [address] Department [place] [address] * XR Chest 1 Vw (11/06/2024 7:15 PM PRODUCT MANAGEMENT ANALYST) Anatomical Region Laterality Modality Body, Chest N/A Computed Radiogr aphy 11/07/2024 7:51 AM PRODUCT MANAGEMENT ANALYST Impressions 11/07/2024 7:51 AM PRODUCT MANAGEMENT ANALYST Initial study 11/06/2024, 7:04 PM: Right apical [...] Liban Moore M.D. Narrative 11/07/2024 7:51 AM PRODUCT MANAGEMENT ANALYST EXAMINATION: Chest single view x2 exams Procedure [...] IMG XR PROCEDURES Final Re sult * AR AN ELECTIVE ENDOTRACHEAL AIRWAY, AR AN PROCEDURE PLACEHOLDER (11/06/2024 5:34 PM PRODUCT MANAGEMENT ANALYST) Narrative Benji Marie MD PhD - 11/06/2024 5:34 PM PRODUCT MANAGEMENT ANALYST Benji Marie MD PhD ? 11/06/2024 ??5:35 [...] Result * Prepare RBC (11/06/2024 2:48 PM PRODUCT MANAGEMENT ANALYST) Product code [id number] Unit Number [id number] [id number] [facility] Product Blood Type OPOS [facility] Dispense Status RETURNED [facility] Blood 11/06/2024 2:48 PM PRODUCT MANAGEMENT ANALYST 11/06/2024 2:48 PM PRODUCT MANAGEMENT ANALYST us Anoop Barbosa MD BLOOD BANK PRODUCT ORDER ZEFERINO Final Result [facility] [address] Department [place] [address] * (ABNORMAL) eGFR (11/06/2024 1:53 PM PRODUCT MANAGEMENT ANALYST) Pathologist [facility] eGFR 54(L) >=60 mL/min/1. 73 m2 Comment: [...] last reviewed 2021. Blood 11/06/2024 1:53 PM PRODUCT MANAGEMENT ANALYST 11/06/2024 2:15 PM PRODUCT MANAGEMENT ANALYST us Anoop Barbosa MD LAB BLOOD ORDERABLES Fin al Result [facility] [address] Department [place] [address] * (ABNORMAL) CBC without differential (11/06/2024 1:53 PM PRODUCT MANAGEMENT ANALYST) [facility] WBC 11.2(H) 3.8 - 9.9 K/cumm Hgb 10.7(L) 13.0 - 17.5 g/dL [facility] Hct 33.5(L) 38.9 - 50.3 % [facility] Plt 327 150 - 400 K/cumm [facility] MPV 10.4 9.1 - 12.3 fL [facility] RBC 3.06(L) 4.30 - 5.80 M/cumm [facility] MCV 109.5(H) 81.3 - 96.4 fL [facility] MCH 35.0(H) 27.1 - 33.3 pg [facility] MCHC 31.9(L) 32.3 - 35.7 g/dL [facility] RDW CV 13.9 11.1 - 14.9 % [facility] RDW SD 56.2(H) 35.7 - 48.1 fL [facility] NRBC abs 0.00 0.00 - 0.01 K/cumm [facility] Blood 11/06/2024 1:53 PM PRODUCT MANAGEMENT ANALYST 11/06/2024 2:16 PM PRODUCT MANAGEMENT ANALYST Anoop Barbosa MD LAB BLOOD ORDERABLES Fin al Result Performing Organization Address [facility] Co de Phone Number [facility] [address] [place] [address] * Type and screen (11/06/2024 1:53 PM PRODUCT MANAGEMENT ANALYST) Jai, indirect Negative ABO Rh O Positive [facility] Blood 11/06/2024 1:53 PM PRODUCT MANAGEMENT ANALYST 11/06/2024 2:03 PM PRODUCT MANAGEMENT ANALYST Narrative [facility] - 11/06/2024 2:45 PM PRODUCT MANAGEMENT ANALYST No blood transfusions last 90 days Surgery today 11/06/24 Has the patient had Daratumumab or Isatuximab in the past 6 months?->No Anoop Barbosa MD LAB BLOOD BANK TEST ORDE RABLES Final Result Performing Organization Address City/[facility]/ZIP Co de Phone Number [facility] [address] Department [place] [address] * (ABNORMAL) Basic metabolic panel (11/06/2024 1:53 PM PRODUCT MANAGEMENT ANALYST) [facility] Sodium 136 135 - 145 mmol/L Potassium, pl 4.9 3.3 - 4.9 mmol/L [facility] Comment:Hemolyzed; potassium value may be falsely elevated by as much as 0.6 - 1.0 mmol/L. Suggest redraw and reanalysis Chloride 99 97 - 110 mmol/L [facility] CO2 26 22 - 32 mmol/L [facility] Anion gap 11 2 - 15 mmol/L [facility] BUN 27(H) 6 - 25 mg/dL [facility] Creatinine 1.36(H) 0.80 - 1.30 mg/dL [facility] Glucose 101 70 - 199 mg/dL [facility] Comment: Interpretive Data Fasting glucose >/= 126 [...] 2022. Calcium 8.8 8.5 - 10.3 mg/dL [facility] Blood 11/06/2024 1:53 PM PRODUCT MANAGEMENT ANALYST 11/06/2024 2:15 PM PRODUCT MANAGEMENT ANALYST us Anoop Barbosa MD LAB BLOOD ORDERABLES Fin al Result [facility] [address] Department [place] [address] * Prepare RBC: 1 Units (11/06/2024 12:54 PM PRODUCT MANAGEMENT ANALYST) [facility] Product code [id number] Unit Number [id number] [id number] [facility] Product Blood Type OPOS [facility] Dispense Status RETURNED [facility] Blood 11/06/2024 12:5 4 PM PRODUCT MANAGEMENT ANALYST Narrative [facility] - 11/10/2024 7:35 AM PRODUCT MANAGEMENT ANALYST Specify Procedure:->right thoracoscopy Are special requirements needed? (All products are leukoreduced and CMV- safe)- >No Date required:-[id number] LRRBC # of [id number] Reasons:-Hold for procedure (specify procedure)} us Anoop Barbosa MD BLOOD BANK PRODUCT ORDER ZEFERION Final Result [facility] [address] Department [place] [address] * X-ray chest 2 views (11/06/2024 10:27 AM PRODUCT MANAGEMENT ANALYST) Anatomical Region Laterality Modality Body, Chest N/A Digital Radiogra phy 11/06/2024 11:0 7 AM PRODUCT MANAGEMENT ANALYST Impressions 11/06/2024 11:07 AM PRODUCT MANAGEMENT ANALYST Moderate right apical and right basilar hydropneumothorax increased since prior study with interval removal of pigtail right chest tube. ??Prominent interstitial markings aerated right lower lung. ??Right subcutaneous air. Electronically signed by: Lizzette Pyle M.D. Narrative 11/06/2024 11:07 AM PRODUCT MANAGEMENT ANALYST CHEST 2 VIEWS DATE: 11/06/2024 10:00 AM [...] atherosclerosis and poststernotomy changes.. Procedure Note Lizzette Pyle MD - 11/06/2024 CHEST 2 VIEWS DATE: [...] X-ray chest 2 views (10/29/2024 9:13 AM PRODUCT MANAGEMENT ANALYST) Anatomical Region Laterality Modality Body, Chest N/A Computed Radiogr aphy 10/29/2024 9:48 AM PRODUCT MANAGEMENT ANALYST Impressions 10/29/2024 9:48 AM PRODUCT MANAGEMENT ANALYST 1. ??Small right apical pneumothorax which is slightly smaller than on the previous study. ??A pigtail chest tube is in place. 2. ??Question mild infiltrate or atelectasis in the right base versus subcutaneous emphysema artifact. COMMENT: Please see above for additional findings. Electronically signed by: Daniel Smyth M.D. Narrative 10/29/2024 9:48 AM PRODUCT MANAGEMENT ANALYST Chest Radiograph, 2 views HISTORY: right pneumothorax, [...] XR Chest 1 View (10/25/2024 12:29 PM PRODUCT MANAGEMENT ANALYST) Anatomical Region Laterality Modality Body, Chest N/A Computed Radiogr aphy 10/25/2024 12:3 9 PM PRODUCT MANAGEMENT ANALYST Impressions 10/25/2024 12:39 PM PRODUCT MANAGEMENT ANALYST Comparison with 10/25/2024. ??There is been placement of a right thoracostomy tube. ??There is persistent small right apical pneumothorax. ??Pulmonary edema stable. Electronically signed by: Crispin Blake M.D., MPH Narrative 10/25/2024 12:39 PM PRODUCT MANAGEMENT ANALYST EXAMINATION: 1 view chest radiograph Procedure Note Crispin Blake MD - 10/25/2024 EXAMINATION: 1 view chest radiograph IMPRESSION: Comparison with 10/25/2024. There is been placement of a right thoracostomy tube. There is persistent small right apical pneumothorax. Pulmonary edema stable. Electronically signed by: Crispin Blake M.D., MPH us Volodymyr BAR IMG XR PROCEDURES Final Resu lt * XR Chest 1 View - in AM (10/25/2024 6:40 AM PRODUCT MANAGEMENT ANALYST) Anatomical Region Laterality Modality Body, Chest N/A Computed Radiogr aphy 10/25/2024 8:13 AM PRODUCT MANAGEMENT ANALYST Impressions 10/25/2024 8:13 AM PRODUCT MANAGEMENT ANALYST Comparison is made to prior from 10/24/2024. ??There is right-sided pigtail catheter. ??Small right apical pneumothorax is slightly larger on today's study. ??Unchanged gas in the right chest wall. ??Heart size stable. ??Lungs clear. ??No pleural effusion. Electronically signed by: Anoop Omalley M.D. Narrative 10/25/2024 8:13 AM PRODUCT MANAGEMENT ANALYST Chest 1 view Procedure Note Anoop Omalley MD - 10/25/2024 Chest 1 view IMPRESSION: Comparison is made to prior from 10/24/2024. There is right-sided pigtail catheter. Small right apical pneumothorax is slightly larger on today's study. Unchanged gas in the right chest wall. Heart size stable. Lungs clear. No pleural effusion. Electronically signed by: Anoop Omalley M.D. us Volodymyr BAR IMG XR PROCEDURES Final Resu lt * XR Chest 1 View (10/24/2024 12:33 PM PRODUCT MANAGEMENT ANALYST) Anatomical Region Laterality Modality Body, Chest N/A Computed Radiogr aphy 10/24/2024 12:5 3 PM PRODUCT MANAGEMENT ANALYST Impressions 10/24/2024 1:52 PM PRODUCT MANAGEMENT ANALYST The current study is compared with the [...] Mingo Ruvalcaba M.D. Narrative 10/24/2024 1:52 PM PRODUCT MANAGEMENT ANALYST EXAMINATION: XR CHEST 1 VIEW HISTORY: ??Evaluate [...] View - in AM (10/24/2024 5:58 AM PRODUCT MANAGEMENT ANALYST) Anatomical Region Laterality Modality Body, Chest N/A Computed Radiogr aphy 10/24/2024 8:23 AM PRODUCT MANAGEMENT ANALYST Impressions 10/24/2024 8:23 AM PRODUCT MANAGEMENT ANALYST Comparison is made to chest radiograph of [...] Ludwig Asif M.D. Narrative 10/24/2024 8:23 AM PRODUCT MANAGEMENT ANALYST EXAMINATION: 1 view chest radiograph Procedure Note [...] XR Chest 1 View (10/23/2024 12:10 PM PRODUCT MANAGEMENT ANALYST) Anatomical Region Laterality Modality Body, Chest N/A Computed Radiogr aphy 10/23/2024 12:1 7 PM PRODUCT MANAGEMENT ANALYST Impressions 10/23/2024 12:17 PM PRODUCT MANAGEMENT ANALYST FINDINGS/IMPRESSION: Surgical clips project over the right [...] Rita Amado DO Narrative 10/23/2024 12:17 PM PRODUCT MANAGEMENT ANALYST EXAM: ??XR CHEST 1 VIEW, 10/23/2024 12:00 [...] signed by: Rita Amado DO Rosemary BAR IMG XR PROCEDURES Final Result * XR Chest 1 View - in AM (10/23/2024 6:17 AM PRODUCT MANAGEMENT ANALYST) Anatomical Region Laterality Modality Body, Chest N/A Computed Radiogr aphy 10/23/2024 6:51 AM PRODUCT MANAGEMENT ANALYST Impressions 10/23/2024 6:51 AM PRODUCT MANAGEMENT ANALYST FINDINGS/IMPRESSION: Surgical clips project over the right [...] Rita Amado DO Narrative 10/23/2024 6:51 AM PRODUCT MANAGEMENT ANALYST EXAM: ??XR CHEST 1 VIEW, 10/23/2024 5:20 [...] CT Chest WO Contrast (10/22/2024 9:19 AM PRODUCT MANAGEMENT ANALYST) Anatomical Region Laterality Modality Body N/A Computed Tomogra phy 10/22/2024 10:0 4 AM PRODUCT MANAGEMENT ANALYST Impressions 10/22/2024 10:04 AM PRODUCT MANAGEMENT ANALYST Placement of right anterior pleural drainage catheter [...] Pablo Guido M.D. Narrative 10/22/2024 10:04 AM PRODUCT MANAGEMENT ANALYST EXAMINATION: ??Computed tomography of the chest without intravenous contrast HISTORY: Thoracostomy tube; worsening subcutaneous emphysema; non-small cell lung cancer status post right lower lobectomy and mediastinal lymph node dissection TECHNIQUE: ??Computed tomographic images of the chest were obtained without intravenous contrast according to the standard protocol. COMPARISON: 10/21/2024 FINDINGS: ?? Postsurgical changes of median sternotomy and coronary artery bypass grafting. ??Atherosclerosis of the [place] coronary arteries. ??Thoracic aorta is atherosclerotic and [...] coronary artery bypass grafting. Atherosclerosis of the [place] coronary arteries. Thoracic aorta is atherosclerotic and [...] bronchoscopy. Electronically signed by: Pablo Guido M.D. Rita BAR IMG CT PROCEDURES Final Result * XR Chest 1 View - in AM (10/22/2024 5:35 AM PRODUCT MANAGEMENT ANALYST) Anatomical Region Laterality Modality Body, Chest N/A Computed Radiogr aphy 10/22/2024 9:38 AM PRODUCT MANAGEMENT ANALYST Impressions 10/22/2024 9:38 AM PRODUCT MANAGEMENT ANALYST Median sternotomy wires are unchanged. ??Right basilar [...] Crum MD, PHD Narrative 10/22/2024 9:38 AM PRODUCT MANAGEMENT ANALYST EXAMINATION: XR CHEST 1 VIEW HISTORY: s/p [...] XR Chest 1 View (10/21/2024 1:09 PM PRODUCT MANAGEMENT ANALYST) Anatomical Region Laterality Modality Body, Chest N/A Computed Radiogr aphy 10/21/2024 1:17 PM PRODUCT MANAGEMENT ANALYST Impressions 10/21/2024 1:17 PM PRODUCT MANAGEMENT ANALYST Comparison film prior chest radiograph dated 10/21/2024. Median sternotomy wires are unchanged. ??Interval placement of a right sided chest tube. Right hydropneumothorax has decreased in size. ??There is right basilar atelectasis. ??The left lung is clear. Stable heart size. ??There is diffuse subcutaneous emphysema overlying the right chest wall. Electronically signed by: Alexus Bernal M.D. Narrative 10/21/2024 1:17 PM PRODUCT MANAGEMENT ANALYST EXAMINATION: XR CHEST 1 VIEW Procedure Note [...] wall. Electronically signed by: Alexus Bernal M.D. Volodymyr BAR IMG XR PROCEDURES Final Resu lt * CT Chest WO Contrast (10/21/2024 10:36 AM PRODUCT MANAGEMENT ANALYST) Anatomical Region Laterality Modality Body N/A Computed Tomogra phy 10/21/2024 11:0 1 AM PRODUCT MANAGEMENT ANALYST Impressions 10/21/2024 11:16 AM PRODUCT MANAGEMENT ANALYST 1. Postoperative changes of right lower lobectomy [...] and agrees with it. Electronically signed by: Eliot BricenoD. Narrative 10/21/2024 11:16 AM PRODUCT MANAGEMENT ANALYST EXAMINATION: ??Computed tomography of the chest without [...] bypass graft. ??Severe atherosclerotic calcifications of the [place] coronary arteries. ??Heart size is normal. ??No [...] bypass graft. Severe atherosclerotic calcifications of the [place] coronary arteries. Heart size is normal. No [...] Resu lt * eGFR (10/21/2024 7:43 AM PRODUCT MANAGEMENT ANALYST) eGFR 63 >=60 mL/min/1. 73 m2 Comment: [...] last reviewed 2021. Blood 10/21/2024 7:43 AM PRODUCT MANAGEMENT ANALYST 10/21/2024 8:00 AM PRODUCT MANAGEMENT ANALYST us Volodymyr BAR LAB BLOOD ORDERABLES Final R esult [facility] [address] Department [place] [address] * (ABNORMAL) Basic metabolic panel (10/21/2024 7:43 AM PRODUCT MANAGEMENT ANALYST) Sodium 134(L) 135 - 145 mmol/L Potassium, pl 4.5 3.3 - 4.9 mmol/L [facility] Chloride 99 97 - 110 mmol/L [facility] CO2 30 22 - 32 mmol/L [facility] Anion gap 5 2 - 15 mmol/L [facility] BUN 31(H) 6 - 25 mg/dL [facility] Creatinine 1.20 0.80 - 1.30 mg/dL [facility] Glucose 116 70 - 199 mg/dL [facility] Comment: Interpretive Data Fasting glucose >/= 126 [...] 2022. Calcium 8.5 8.5 - 10.3 mg/dL [facility] Blood 10/21/2024 7:43 AM PRODUCT MANAGEMENT ANALYST 10/21/2024 8:00 AM PRODUCT MANAGEMENT ANALYST us Volodymyr BAR LAB BLOOD ORDERABLES Final R esult [facility] [address] Department [place] [address] * XR Chest 1 View - in AM (10/21/2024 6:32 AM PRODUCT MANAGEMENT ANALYST) Anatomical Region Laterality Modality Body, Chest N/A Computed Radiogr aphy 10/21/2024 8:44 AM PRODUCT MANAGEMENT ANALYST Impressions 10/21/2024 8:44 AM PRODUCT MANAGEMENT ANALYST Comparison 10/20/2024 2:21 PM. ??Changes of partial [...] Alin Velasco M.D. Narrative 10/21/2024 8:44 AM PRODUCT MANAGEMENT ANALYST EXAMINATION: Chest 1 view Procedure Note Alin [...] stable. Electronically signed by: Alin Velasco M.D. Volodymyr BAR IMG XR PROCEDURES Final Resu lt * (ABNORMAL) eGFR (10/21/2024 12:52 AM PRODUCT MANAGEMENT ANALYST) eGFR 59(L) >=60 mL/min/1. 73 m2 Comment: [...] reviewed 2021. Blood 10/21/2024 12:5 2 AM PRODUCT MANAGEMENT ANALYST 10/21/2024 1:41 AM PRODUCT MANAGEMENT ANALYST Rita BAR LAB BLOOD ORDERABLES Fin al Result [facility] [address] Department [place] [address] * (ABNORMAL) Differential, auto (10/21/2024 12:52 AM PRODUCT MANAGEMENT ANALYST) Neutrophil abs 8.3(H) 1.5 - 6.5 K/cumm Imm gran abs 0.1 0.0 - 0.1 K/cumm [facility] Lymphocyte abs 1.5 0.8 - 3.3 K/cumm [facility] Monocyte abs 1.1(H) 0.2 - 0.8 K/cumm [facility] Eosinophil abs 0.1 0.0 - 0.5 K/cumm [facility] Basophil abs 0.0 0.0 - 0.1 K/cumm [facility] Neutrophil pct 74.7 % [facility] Comment: Interpretive Data Percent cell count reference ranges are not reported, since discordance with absolute values may lead to misinterpretation of CBC data. Current Interpretive Data was last revised on 2018. Imm gran pct 0.5 % [facility] Comment: Interpretive Data Percent cell count reference ranges are not reported, since discordance with absolute values may lead to misinterpretation of CBC data. Current Interpretive Data was last revised on 2018. Lymphocyte pct 13.6 % [facility] Comment: Interpretive Data Percent cell count reference ranges are not reported, since discordance with absolute values may lead to misinterpretation of CBC data. Current Interpretive Data was last revised on 2018. Monocyte pct 9.5 % [facility] Comment: Interpretive Data Percent cell count reference ranges are not reported, since discordance with absolute values may lead to misinterpretation of CBC data. Current Interpretive Data was last revised on 2018. Eosinophil pct 1.3 % [facility] Comment: Interpretive Data Percent cell count reference ranges are not reported, since discordance with absolute values may lead to misinterpretation of CBC data. Current Interpretive Data was last revised on 2018. Basophil pct 0.4 % [facility] Comment: Interpretive Data Percent cell count reference ranges are not reported, since discordance with absolute values may lead to misinterpretation of CBC data. Current Interpretive Data was last revised on 2018. Blood 10/21/2024 12:5 2 AM PRODUCT MANAGEMENT ANALYST 10/21/2024 1:42 AM PRODUCT MANAGEMENT ANALYST us Rita BAR LAB BLOOD ORDERABLES Fin al Result [facility] [address] Department of Laboratories [place], [place] [id number] * (ABNORMAL) CBC with auto differential (10/21/2024 12:52 AM PRODUCT MANAGEMENT ANALYST) WBC 11.1(H) 3.8 - 9.9 K/cumm Hgb 9.4(L) 13.0 - 17.5 g/dL [facility] Hct 29.2(L) 38.9 - 50.3 % [facility] Plt 241 150 - 400 K/cumm [facility] MPV 12.1 9.1 - 12.3 fL [facility] RBC 2.58(L) 4.30 - 5.80 M/cumm [facility] MCV 113.2(H) 81.3 - 96.4 fL [facility] MCH 36.4(H) 27.1 - 33.3 pg [facility] MCHC 32.2(L) 32.3 - 35.7 g/dL [facility] RDW CV 14.3 11.1 - 14.9 % [facility] RDW SD 59.7(H) 35.7 - 48.1 fL [facility] NRBC abs 0.00 0.00 - 0.01 K/cumm [facility] Blood 10/21/2024 12:5 2 AM PRODUCT MANAGEMENT ANALYST 10/21/2024 1:42 AM PRODUCT MANAGEMENT ANALYST Rita BAR LAB BLOOD ORDERABLES Fin al Result [facility] [address] Department [place] [address] * (ABNORMAL) Basic metabolic panel (10/21/2024 12:52 AM PRODUCT MANAGEMENT ANALYST) Pathologist [facility] Sodium 136 135 - 145 mmol/L Potassium, pl 5.0(H) 3.3 - 4.9 mmol/L [facility] Comment:Hemolyzed; potassium value may be falsely elevated by as much as 0.3 - 0.5 mmol/L. Suggest redraw and reanalysis Chloride 101 97 - 110 mmol/L [facility] CO2 28 22 - 32 mmol/L [facility] Anion gap 7 2 - 15 mmol/L [facility] BUN 31(H) 6 - 25 mg/dL [facility] Creatinine 1.27 0.80 - 1.30 mg/dL [facility] Glucose 117 70 - 199 mg/dL [facility] Comment: Interpretive Data Fasting glucose >/= 126 [...] 2022. Calcium 8.5 8.5 - 10.3 mg/dL [facility] Blood 10/21/2024 12:5 2 AM PRODUCT MANAGEMENT ANALYST 10/21/2024 1:41 AM PRODUCT MANAGEMENT ANALYST Rita BAR LAB BLOOD ORDERABLES Fin al Result [facility] [address] Department [place] [address] * XR Chest 1 Vw (10/20/2024 2:33 PM PRODUCT MANAGEMENT ANALYST) Anatomical Region Laterality Modality Body, Chest N/A Computed Radiogr aphy 10/20/2024 2:35 PM PRODUCT MANAGEMENT ANALYST Impressions 10/20/2024 2:35 PM PRODUCT MANAGEMENT ANALYST Interval removal the right basilar thoracotomy tube. There is a small right pleural effusion with associated atelectasis. The right-sided pneumothorax is unchanged with approximately 19 mm of pleural separation. Bibasilar subsegmental atelectasis is unchanged. Median sternotomy. Stable heart size. Electronically signed by: Abebe Kennedy M.D. Narrative 10/20/2024 2:35 PM PRODUCT MANAGEMENT ANALYST PORTABLE CHEST X-RAY INDICATION: chest tube removal [...] Electronically signed by: Abebe Kennedy M.D. Rita Quiñonez Talyaandrea YOSVANY IMG XR PROCEDURES Final Result * XR Chest 1 View - in AM (10/20/2024 6:29 AM PRODUCT MANAGEMENT ANALYST) Anatomical Region Laterality Modality Body, Chest N/A Computed Radiogr aphy 10/20/2024 7:58 AM PRODUCT MANAGEMENT ANALYST Impressions 10/20/2024 7:58 AM PRODUCT MANAGEMENT ANALYST Median sternotomy. Changes of CABG. Stable contour [...] Abebe Kennedy M.D. Narrative 10/20/2024 7:58 AM PRODUCT MANAGEMENT ANALYST PORTABLE CHEST X-RAY INDICATION: s/p right VATS, [...] axilla. Electronically signed by: Abebe Kennedy M.D. us Volodymyr BAR IMG XR PROCEDURES Final Resu lt * XR Chest 1 View - in AM (10/19/2024 6:14 AM PRODUCT MANAGEMENT ANALYST) Anatomical Region Laterality Modality Body, Chest N/A Computed Radiogr aphy 10/19/2024 7:20 AM PRODUCT MANAGEMENT ANALYST Impressions 10/19/2024 7:20 AM PRODUCT MANAGEMENT ANALYST Median sternotomy wires are unchanged. ??Right thoracostomy [...] Crum MD, PHD Narrative 10/19/2024 7:20 AM PRODUCT MANAGEMENT ANALYST EXAMINATION: XR CHEST 1 VIEW HISTORY: s/p [...] Electronically signed by: Paulo Crum MD, PHD us Volodymyr BAR IMG XR PROCEDURES Final Resu lt * eGFR (10/19/2024 1:26 AM PRODUCT MANAGEMENT ANALYST) eGFR 69 >=60 mL/min/1. 73 m2 Comment: [...] last reviewed 2021. Blood 10/19/2024 1:26 AM PRODUCT MANAGEMENT ANALYST 10/19/2024 2:02 AM PRODUCT MANAGEMENT ANALYST us Volodymyr BAR LAB BLOOD ORDERABLES Final R esult [facility] [address] Department [place] [address] * (ABNORMAL) CBC without differential (10/19/2024 1:26 AM PRODUCT MANAGEMENT ANALYST) WBC 14.7(H) 3.8 - 9.9 K/cumm Hgb 10.7(L) 13.0 - 17.5 g/dL [facility] Hct 33.8(L) 38.9 - 50.3 % [facility] Plt 194 150 - 400 K/cumm [facility] MPV 10.8 9.1 - 12.3 fL [facility] RBC 3.00(L) 4.30 - 5.80 M/cumm [facility] MCV 112.7(H) 81.3 - 96.4 fL [facility] MCH 35.7(H) 27.1 - 33.3 pg [facility] MCHC 31.7(L) 32.3 - 35.7 g/dL [facility] ([facility]) RDW CV 14.6 11.1 - 14.9 % [facility] ([facility] RDW SD 60.5(H) 35.7 - 48.1 fL [facility] ([facility]) NRBC abs 0.00 0.00 - 0.01 K/cumm [facility] ([facility]) Blood 10/19/2024 1:26 AM PRODUCT MANAGEMENT ANALYST 10/19/2024 2:02 AM PRODUCT MANAGEMENT ANALYST Volodymyr BAR LAB BLOOD ORDERABLES Final R esult Performing Organization Address City/[facility]/ZIP Co de Phone Number [facility] ([facility] [address] [place] [address] * Magnesium (10/19/2024 1:26 AM PRODUCT MANAGEMENT ANALYST) [facility] Magnesium 1.6 1.4 - 2.5 mg/dL Blood 10/19/2024 1:26 AM PRODUCT MANAGEMENT ANALYST 10/19/2024 2:02 AM PRODUCT MANAGEMENT ANALYST Volodymyr BAR LAB BLOOD ORDERABLES Final R esult Performing Organization Address City/[facility] Co de Phone Number [facility] [address] [place] [address] * (ABNORMAL) Basic metabolic panel (10/19/2024 1:26 AM PRODUCT MANAGEMENT ANALYST) [facility] Sodium 136 135 - 145 mmol/L Potassium, pl 4.7 3.3 - 4.9 mmol/L [facility]) Chloride 102 97 - 110 mmol/L [facility] CO2 23 22 - 32 mmol/L [facility]) Anion gap 11 2 - 15 mmol/L [facility] BUN 31(H) 6 - 25 mg/dL [facility]) Creatinine 1.11 0.80 - 1.30 mg/dL [facility] Glucose 121 70 - 199 mg/dL [facility] Comment: Interpretive Data Fasting glucose >/= 126 [...] 2022. Calcium 7.8(L) 8.5 - 10.3 mg/dL [facility] Blood 10/19/2024 1:26 AM PRODUCT MANAGEMENT ANALYST 10/19/2024 2:02 AM PRODUCT MANAGEMENT ANALYST us Volodymyr BAR LAB BLOOD ORDERABLES Final R esult [facility] [address] Department [place] [address] * XR Chest 1 View (10/18/2024 2:10 PM PRODUCT MANAGEMENT ANALYST) Anatomical Region Laterality Modality Body, Chest N/A Computed Radiogr aphy 10/18/2024 2:25 PM PRODUCT MANAGEMENT ANALYST Impressions 10/18/2024 2:25 PM PRODUCT MANAGEMENT ANALYST FINDINGS/IMPRESSION: Sternotomy wires are in place. Patient [...] Lamar Miramontes M.D. Narrative 10/18/2024 2:25 PM PRODUCT MANAGEMENT ANALYST EXAMINATION: XR CHEST 1 VIEW HISTORY: s/p [...] lt * Surgical pathology (10/18/2024 12:28 PM PRODUCT MANAGEMENT ANALYST) Tissue (Lung, total / lobe / segmental, tumor) 10/18/2024 12:28 PM PRODUCT MANAGEMENT ANALYST Comment:Placed in formalin p ost procedure/ history of lung cancer Tissue (Lymph Node, Single excision) 10/18/2024 12:34 PM PRODUCT MANAGEMENT ANALYST Comment:Placed in formalin p ost procedure Tissue (Lymph Node, Single excision) 10/18/2024 12:45 PM PRODUCT MANAGEMENT ANALYST Comment:Placed in formalin p ost procedure Narrative PATHOLOGY [facility] - 10/28/2024 8:40 AM PRODUCT MANAGEMENT ANALYST [address] ??[address] Tele: ?? Patricia Colunga MD - Valve Tester Note to Patients: This report may contain [...] REPORT Patient Name: ??RAMIREZ CHÁVEZ [facility]: ??[address] [place] [address] Gender: ??M : ??1950 (Age: 74) Service: ??Cardiothoracic Location: ??[id number], ?? Hospital #: ??[id number] Patient Type: ??[facility] IN[facility]IENT Accession #: ? [id number] Taken: ? 10/18/2024 Received ? 10/18/2024 Reported: [...] ranging from 0.3 cm to 0.8 cm. Seismograph Operator sections are submitted as follows: ??A1 - [...] entirely submitted in cassette labeled C1. ?? [facility] MICROSCOPIC DESCRIPTION: Microscopic examination of the right [...] VERSION: Lung 4.3.0.1 Clerical Data Follows A; 24683, 63413 B; 04220, 94465, 47019 C; 82764 REPORT IMAGES AND/OR SCANNED DOCUMENTS ONLY VIEWABLE IN PDF FORMAT The immunohistochemical test(s) cited in this report, if any, was developed and its performance characteristics determined by [facility] Pathology Department. ??It has not been cleared or approved by the U.S. Food and Drug Administration. ??The FDA has determined that such clearance or approval is not necessary. ??This test is used for clinical purposes. ??It should not be regarded as investigational or for research. ??[facility] is certified under the Clinical Laboratory [...] part or completely in the following laboratories: [facility], [facility], [address] [place] [address]. Anoop Barbosa MD LAB PATHOLOGY ORDERABLES Final Result PATHOLOGY [facility] Laboratory Receiving [address] [place] [address] * AR AN PROCEDURE PLACEHOLDER (10/18/2024 10:04 AM PRODUCT MANAGEMENT ANALYST) Narrative Jos Larry MD - 10/18/2024 10:04 AM PRODUCT MANAGEMENT ANALYST Jos Larry MD ? 10/18/2024 10:05 AM Peripheral IV Catheter Staff: Supervising provider: Jos Larry MD Placed by: POLE FRAME CONSTRUCTION WORKER: Jerad Shields CRNA Preprocedure prep: Prep solution: chlorhexadine PIV line: Laterality: right Site: hand Catheter size: 16 g Technique: anatomical landmarks and direct visualization Procedure details: good blood return Number of attempts: 1 Assessment: Events: patient tolerated procedure well with no complications us Jos Larry MD ANESTHESIA ORDERABLES Final Re sult * AR AN PROCEDURE PLACEHOLDER (10/18/2024 10:03 AM PRODUCT MANAGEMENT ANALYST) Jos Alejo MD - 10/18/2024 10:03 AM PRODUCT MANAGEMENT ANALYST Jos Larry MD ? 10/18/2024 10:04 AM Arterial Line Patient location: OR Indication: continuous blood pressure monitoring and blood sampling needed Staff: Supervising provider: Jos Larry MD Placed by: POLE FRAME CONSTRUCTION WORKER: Jerad Shields CRNA Procedure prep: Prep solution: [...] MD ANESTHESIA ORDERABLES Final Re sult * AR AN ELECTIVE ENDOTRACHEAL AIRWAY, AR AN PROCEDURE PLACEHOLDER (10/18/2024 10:00 AM PRODUCT MANAGEMENT ANALYST) Narrative Jos Larry MD - 10/18/2024 10:00 AM PRODUCT MANAGEMENT ANALYST Jos Larry MD ? 10/18/2024 10:01 AM [...] sult * Prepare RBC (10/18/2024 7:05 AM PRODUCT MANAGEMENT ANALYST) Product code [id number] [facility] Unit Number [id number] 7-T [facility] Product Blood Type OPOS [facility] Dispense Status RETURNED [facility] Product code [id number] [facility] Unit Number [id number] 0-J [facility] Product Blood Type OPOS [facility] Dispense Status RETURNED [facility] Product code [id number] [facility] Unit Number [id number] 9-4 [facility] Product Blood Type OPOS [facility] Dispense Status RETURNED [facility] Product code [id number] Unit Number [id number] 7-L [facility] Product Blood Type OPOS [facility] Dispense Status RETURNED [facility] Product code [id number] [facility] Unit Number [id number] 1-0 [facility] Product Blood Type OPOS [facility] Dispense Status RETURNED [facility] Product code [id number] [facility] Unit Number [id number] 6-G [facility] Product Blood Type OPOS [facility] Dispense Status RETURNED [facility] Blood 10/18/2024 7:05 AM PRODUCT MANAGEMENT ANALYST 10/18/2024 7:05 AM PRODUCT MANAGEMENT ANALYST Anoop Barbosa MD BLOOD BANK PRODUCT ORDER ZEFERINO Final Result [facility] [address] Department [place] [address] * eGFR (10/11/2024 9:51 AM PRODUCT MANAGEMENT ANALYST) eGFR 69 >=60 mL/min/1. 73 m2 Comment: [...] last reviewed 2021. Blood 10/11/2024 9:51 AM PRODUCT MANAGEMENT ANALYST 10/11/2024 10:11 AM PRODUCT MANAGEMENT ANALYST us Anoop Barbosa MD LAB BLOOD ORDERABLES Fin al Result [facility] [address] Department [place] [address] * (ABNORMAL) Differential, auto (10/11/2024 9:51 AM PRODUCT MANAGEMENT ANALYST) Neutrophil abs 3.8 1.5 - 6.5 K/cumm Imm gran abs 0.0 0.0 - 0.1 K/cumm [facility] Lymphocyte abs 2.1 0.8 - 3.3 K/cumm [facility] Monocyte abs 0.9(H) 0.2 - 0.8 K/cumm [facility] Eosinophil abs 0.1 0.0 - 0.5 K/cumm [facility] Basophil abs 0.1 0.0 - 0.1 K/cumm [facility] Neutrophil pct 54.0 % [facility] Comment: Interpretive Data Percent cell count reference ranges are not reported, since discordance with absolute values may lead to misinterpretation of CBC data. Current Interpretive Data was last revised on 2018. Imm gran pct 0.4 % [facility] Comment: Interpretive Data Percent cell count reference ranges are not reported, since discordance with absolute values may lead to misinterpretation of CBC data. Current Interpretive Data was last revised on 2018. Lymphocyte pct 29.6 % [facility] Comment: Interpretive Data Percent cell count reference ranges are not reported, since discordance with absolute values may lead to misinterpretation of CBC data. Current Interpretive Data was last revised on 2018. Monocyte pct 13.2 % [facility] Comment: Interpretive Data Percent cell count reference ranges are not reported, since discordance with absolute values may lead to misinterpretation of CBC data. Current Interpretive Data was last revised on 2018. Eosinophil pct 2.0 % [facility] Comment: Interpretive Data Percent cell count reference ranges are not reported, since discordance with absolute values may lead to misinterpretation of CBC data. Current Interpretive Data was last revised on 2018. Basophil pct 0.8 % [facility] Comment: Interpretive Data Percent cell count reference ranges are not reported, since discordance with absolute values may lead to misinterpretation of CBC data. Current Interpretive Data was last revised on 2018. Blood 10/11/2024 9:51 AM PRODUCT MANAGEMENT ANALYST 10/11/2024 10:12 AM PRODUCT MANAGEMENT ANALYST us Anoop Barbosa MD LAB BLOOD ORDERABLES Fin al Result [facility] [address] Department [place] [address] * (ABNORMAL) CBC with auto differential (10/11/2024 9:51 AM PRODUCT MANAGEMENT ANALYST) WBC 7.1 3.8 - 9.9 K/cumm Hgb 11.8(L) 13.0 - 17.5 g/dL [facility] Hct 37.3(L) 38.9 - 50.3 % [facility] Plt 165 150 - 400 K/cumm [facility] MPV 10.9 9.1 - 12.3 fL [facility] RBC 3.34(L) 4.30 - 5.80 M/cumm [facility] MCV 111.7(H) 81.3 - 96.4 fL [facility] MCH 35.3(H) 27.1 - 33.3 pg [facility] MCHC 31.6(L) 32.3 - 35.7 g/dL [facility] RDW CV 14.6 11.1 - 14.9 % [facility] RDW SD 61.2(H) 35.7 - 48.1 fL [facility] NRBC abs 0.00 0.00 - 0.01 K/cumm [facility] Blood 10/11/2024 9:51 AM PRODUCT MANAGEMENT ANALYST 10/11/2024 10:12 AM PRODUCT MANAGEMENT ANALYST Anoop Barbosa MD LAB BLOOD ORDERABLES Fin al Result Performing Organization Address [facility] Co de Phone Number [facility] [address] [place] [address] * Type and screen (10/11/2024 9:51 AM PRODUCT MANAGEMENT ANALYST) Pathologist [facility] Jai, indirect Negative ABO Rh O Positive [facility] Blood 10/11/2024 9:51 AM PRODUCT MANAGEMENT ANALYST 10/11/2024 10:19 AM PRODUCT MANAGEMENT ANALYST Narrative [facility] - 10/11/2024 11:16 AM PRODUCT MANAGEMENT ANALYST No blood transfusions last 90 days Surgery [...] ORDE RABLES Final Result Performing Organization Address City/[facility]/ZIP Co de Phone Number [facility] [address] [place] [address] * (ABNORMAL) Comprehensive metabolic panel (10/11/2024 9:51 AM PRODUCT MANAGEMENT ANALYST) Sodium 143 135 - 145 mmol/L Potassium, pl 4.0 3.3 - 4.9 mmol/L [facility] Chloride 103 97 - 110 mmol/L [facility] CO2 31 22 - 32 mmol/L [facility] Anion gap 9 2 - 15 mmol/L [facility] BUN 24 6 - 25 mg/dL [facility] Creatinine 1.12 0.80 - 1.30 mg/dL [facility] Glucose 105 70 - 199 mg/dL [facility] Comment: Interpretive Data Fasting glucose >/= 126 [...] 2022. Calcium 8.9 8.5 - 10.3 mg/dL [facility] Bilirubin, total 0.4 0.1 - 1.2 mg/dL [facility] Protein, pl 6.4(L) 6.5 - 8.5 g/dL [facility] Albumin 3.7 3.5 - 5.0 g/dL [facility] Alk phos 97 40 - 130 Units/L [facility] ALT 21 7 - 55 Units/L [facility] AST 22 10 - 50 Units/L [facility] Blood 10/11/2024 9:51 AM PRODUCT MANAGEMENT ANALYST 10/11/2024 10:11 AM PRODUCT MANAGEMENT ANALYST us Anoop Barbosa MD LAB BLOOD ORDERABLES Fin al Result [facility] [address] [place] [address] * Pulmonary Function Test - (10/02/2024 2:16 PM PRODUCT MANAGEMENT ANALYST) FVC PRE 2.74 L [facility] FVC %PRE PRED 75 % [facility] FVC POST 3.25 L [facility] FVC %POST PRED 89 % [facility] FEV1 PRE 1.66 L [facility] FEV1 %PRE PRED 60 % [facility] FEV1 POST 1.89 L [facility] FEV1 %POST PRED 68 % [facility] FEV1/FVC PRE 60.7 % [facility] FEV1/FVC POST 58.0 % [facility] FRC PL PRE 4.64 L [facility] FRC PL %PRE PRED 135 % [facility] RV PRE 3.72 L [facility] RV %PRE PRED 155 % [facility] TLC PRE 6.59 L [facility] TLC %PRE PRED 102 % [facility] DLCO PRE 17.0 ml/min/mmH g [facility] DLCO %PRE PRED 73 % [facility] Anatomical Region Laterality Modality PFT 10/02/2024 1:37 PM PRODUCT MANAGEMENT ANALYST Narrative 10/02/2024 6:03 PM PRODUCT MANAGEMENT ANALYST PFT performed at:->[facility] Adult PFT Lab- [id number] Procedure:->Standard Standard:->Spirometry, Spirometry [...] and %HbO2 is age dependent. However, the [facility] Pulmonary Function Laboratory defines hypoxemia as a PaO2 <56 mm Hg or a %HbO2 <89%. Mandeep Faulkner MD PFT ORDERABLES Final Res ult * PET/CT FDG Skull to Thigh (09/30/2024 9:28 AM PRODUCT MANAGEMENT ANALYST) Anatomical Region Laterality Modality N/A Positron Emissio n Tomography (PET) 09/30/2024 10:5 8 AM PRODUCT MANAGEMENT ANALYST Impressions 09/30/2024 12:05 PM PRODUCT MANAGEMENT ANALYST 1. ??Moderately hypermetabolic right lower lobe adenocarcinoma 2. ??No evidence of FDG avid regino or distant metastatic disease. ?? Dictated by: Josh Nixon MD The radiology attending physician has personally reviewed this study, and had reviewed and/or edited this written report and agrees with it. Electronically signed by: Yves Lazo, DO Narrative 09/30/2024 12:05 PM PRODUCT MANAGEMENT ANALYST EXAMINATION: TUMOR FDG-PET/CT IMAGING DATE OF STUDY: ??09/30/2024 SCANNER: [facility] RADIOPHARMACEUTICAL: 17 mCi F-18 Fluorodeoxyglucose (FDG) i.v. [...] obtained. ??The study was interpreted on the [employer] workstation. ??The mean liver SUV (reported for quality engineer medical device purposes) is 2.3. ?? The total scanned [...] FDG-PET/CT IMAGING DATE OF STUDY: 09/30/2024 SCANNER: [facility] RADIOPHARMACEUTICAL: 17 mCi F-18 Fluorodeoxyglucose (FDG) i.v. [...] obtained. The study was interpreted on the [employer] workstation. The mean liver SUV (reported for quality engineer medical device purposes) is 2.3. The total scanned area [...] Result * POCT glucose (09/30/2024 8:10 AM PRODUCT MANAGEMENT ANALYST) Glucose, POC 103 70 - 199 mg/dL Comment: For Glucose values <35 mg/dl when Hematocrit is >60 mg/dl,the test may not accurately detect significant hypoglycemia,and testing in the Laboratory should be considered if clinically indicated. Blood 09/30/2024 8:10 AM PRODUCT MANAGEMENT ANALYST 09/30/2024 8:10 AM PRODUCT MANAGEMENT ANALYST Bernabe Garcia MD LAB POCT ORDERABLES - D EVICE Final Result [facility] [address] Department [place] [address] * CTA Neck W Contrast (09/27/2024 4:43 PM PRODUCT MANAGEMENT ANALYST) Anatomical Region Laterality Modality Head and Neck N/A Computed Tomogra phy 09/27/2024 5:00 PM PRODUCT MANAGEMENT ANALYST Impressions 09/27/2024 5:02 PM PRODUCT MANAGEMENT ANALYST 1. Unchanged approximately 50% proximal cervical internal carotid artery stenosis bilaterally. 2. 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 Dictated by: Moncho Clements M.D. The radiology attending physician has personally reviewed this study, and had reviewed and/or edited this written report and agrees with it. Electronically signed by: Rinku Harrell M.D, PHD Narrative 09/27/2024 5:02 PM PRODUCT MANAGEMENT ANALYST EXAMINATION: Computed tomography angiography (CTA) of the [...] Electronically signed by: Rinku Harrell M.D, PHD us Joseluis Juárez MD IM CT PROCEDURES Final Result * XR Chest 1 Vw (09/19/2024 11:27 AM PRODUCT MANAGEMENT ANALYST) Anatomical Region Laterality Modality Body, Chest N/A Computed Radiogr aphy 09/19/2024 2:01 PM PRODUCT MANAGEMENT ANALYST Impressions 09/19/2024 2:01 PM PRODUCT MANAGEMENT ANALYST FINDINGS/IMPRESSION: Slight increase in hazy right basilar airspace opacities possibly postbiopsy related changes. ??Bibasilar atelectasis. ??Otherwise no new consolidation or pneumothorax. ??Slight increase in bilateral lung interstitial opacities. Heart is normal in size. ??Thoracic aortic calcifications. No new bony abnormality. Median sternotomy wires. ??Mediastinal surgical clips. ??Surgical clips overlie the right superior hemithorax. Electronically signed by: Ahmet Rios M.D. Narrative 09/19/2024 2:01 PM PRODUCT MANAGEMENT ANALYST EXAM: XR CHEST 1 VIEW INDICATION: Lung [...] XR Chest 1 Vw (09/19/2024 9:39 AM PRODUCT MANAGEMENT ANALYST) Anatomical Region Laterality Modality Body, Chest N/A Computed Radiogr aphy 09/19/2024 12:2 7 PM PRODUCT MANAGEMENT ANALYST Impressions 09/19/2024 12:27 PM PRODUCT MANAGEMENT ANALYST FINDINGS/IMPRESSION: Median sternotomy wires and mediastinal clips. ??Post project over the right upper chest wall. Haziness within the right costophrenic angle may be related to postbiopsy changes. ??No focal consolidation, pleural effusion, or pneumothorax. ??The cardiomediastinal silhouette is unremarkable. Electronically signed by: Justin Foley D.O. Narrative 09/19/2024 12:27 PM PRODUCT MANAGEMENT ANALYST EXAMINATION: XR CHEST 1 VIEW HISTORY: ??Status [...] Lung Needle Biopsy Right (09/19/2024 9:32 AM PRODUCT MANAGEMENT ANALYST) Anatomical Region Laterality Modality Lung N/A Computed Tomogra phy 09/19/2024 5:27 PM PRODUCT MANAGEMENT ANALYST Impressions 09/19/2024 5:27 PM PRODUCT MANAGEMENT ANALYST Successful image-guided core biopsy of the right lower lobe nodule. PLAN: Please follow up pathology results for further diagnosis. Electronically signed by: Caesar Leung M.D. Narrative 09/19/2024 5:27 PM PRODUCT MANAGEMENT ANALYST EXAMINATION: IMAGE-GUIDED BIOPSY OF RIGHT LOWER LOWER [...] was obtained. Prior to beginning the procedure, [place] Protocol was performed to confirm the patient's [...] was obtained. Prior to beginning the procedure, [place] Protocol was performed to confirm the patient's [...] Result * Surgical pathology (09/19/2024 8:52 AM PRODUCT MANAGEMENT ANALYST) Lung Biopsy 09/19/2024 8:52 AM PRODUCT MANAGEMENT ANALYST 09/19/2024 12:56 PM PRODUCT MANAGEMENT ANALYST Narrative 09/23/2024 3:39 PM PRODUCT MANAGEMENT ANALYST [address] ??[address] Tele: ?? Patricia Colunga MD - Valve Tester Note to Patients: This report may contain [...] details. SURGICAL PATHOLOGY REPORT Patient Name: ??RAMIREZ CHÁVEZPritesh Address: ??[address] [place], [place] [address] Gender: ??M : ??1950 (Age: 74) Service: ?? Location: ??, ??[facility] #: ??[id number] Patient Type: ??[facility] ANCILLARY Accession #: ? [id number] Taken: ? 09/19/2024 Received ? 09/19/2024 Reported: [...] not support PDF viewing, please refer to [facility] or the original report to view the PDF document. Andrey Esteban M.D. ??Date Ordered: ?10/03/2024 ?Status: ??Signed Out ?Date Complete: ?10/03/2024 ?By: ??Andrey Esteban M.D. ?Date Reported: ?10/03/2024 ? Addendum Comment This field contains a PDF document (see scanned image which follows report). ??If your system does not support PDF viewing, please refer to [facility] or the original report to view the [...] in an addendum. Clerical Data Follows A; 12139, 65818, 11848(4) REPORT IMAGES AND/OR SCANNED DOCUMENTS ONLY VIEWABLE IN PDF FORMAT The immunohistochemical test(s) cited in this report, if any, was developed and its performance characteristics determined by [facility] Pathology Department. ??It has not been cleared or approved by the U.S. Food and Drug Administration. ??The FDA has determined that such clearance or approval is not necessary. ??This test is used for clinical purposes. ??It should not be regarded as investigational or for research. ??[facility] is certified under the Clinical Laboratory [...] part or completely in the following laboratories: [facility], [address] [place] [address], [address] [place] [address]. us Caesar Leung MD LAB PATHOLOGY ORDERABLES Final R esult * Differential, auto (09/19/2024 7:43 AM PRODUCT MANAGEMENT ANALYST) Neutrophil abs 4.1 1.5 - 6.5 K/cumm Imm gran abs 0.0 0.0 - 0.1 K/cumm [facility] Lymphocyte abs 2.2 0.8 - 3.3 K/cumm [facility] Monocyte abs 0.8 0.2 - 0.8 K/cumm [facility] Eosinophil abs 0.2 0.0 - 0.5 K/cumm [facility] Basophil abs 0.1 0.0 - 0.1 K/cumm [facility] Neutrophil pct 55.7 % [facility] Comment: Interpretive Data Percent cell count reference ranges are not reported, since discordance with absolute values may lead to misinterpretation of CBC data. Current Interpretive Data was last revised on 2018. Imm gran pct 0.4 % [facility] Comment: Interpretive Data Percent cell count reference ranges are not reported, since discordance with absolute values may lead to misinterpretation of CBC data. Current Interpretive Data was last revised on 2018. Lymphocyte pct 29.4 % [facility] Comment: Interpretive Data Percent cell count reference ranges are not reported, since discordance with absolute values may lead to misinterpretation of CBC data. Current Interpretive Data was last revised on 2018. Monocyte pct 11.5 % [facility] Comment: Interpretive Data Percent cell count reference ranges are not reported, since discordance with absolute values may lead to misinterpretation of CBC data. Current Interpretive Data was last revised on 2018. Eosinophil pct 2.0 % [facility] Comment: Interpretive Data Percent cell count reference ranges are not reported, since discordance with absolute values may lead to misinterpretation of CBC data. Current Interpretive Data was last revised on 2018. Basophil pct 1.0 % [facility] Comment: Interpretive Data Percent cell count reference ranges are not reported, since discordance with absolute values may lead to misinterpretation of CBC data. Current Interpretive Data was last revised on 2018. Blood 09/19/2024 7:43 AM PRODUCT MANAGEMENT ANALYST 09/19/2024 8:07 AM PRODUCT MANAGEMENT ANALYST us Caesar Leung MD LAB BLOOD ORDERABLES Final Resul t [facility] [address] Department [place] [address] * (ABNORMAL) CBC with auto differential (09/19/2024 7:43 AM PRODUCT MANAGEMENT ANALYST) WBC 7.3 3.8 - 9.9 K/cumm Hgb 10.9(L) 13.0 - 17.5 g/dL [facility] Hct 34.8(L) 38.9 - 50.3 % [facility] Plt 232 150 - 400 K/cumm [facility] MPV 11.1 9.1 - 12.3 fL [facility] RBC 3.10(L) 4.30 - 5.80 M/cumm [facility] MCV 112.3(H) 81.3 - 96.4 fL [facility] MCH 35.2(H) 27.1 - 33.3 pg [facility] MCHC 31.3(L) 32.3 - 35.7 g/dL [facility] RDW CV 14.9 11.1 - 14.9 % [facility] RDW SD 62.7(H) 35.7 - 48.1 fL [facility] NRBC abs 0.00 0.00 - 0.01 K/cumm [facility] Blood 09/19/2024 7:43 AM PRODUCT MANAGEMENT ANALYST 09/19/2024 8:07 AM PRODUCT MANAGEMENT ANALYST Caesar Leung MD LAB BLOOD ORDERABLES Final Resul t Performing Organization Address [facility] Co de Phone Number [facility] [address] [place] [address] * Protime-INR (09/19/2024 7:43 AM PRODUCT MANAGEMENT ANALYST) Pathologist [facility] PT 11.6 9.7 - 13.0 sec INR 1.07 0.90 - 1.20 [facility] Comment: Interpretive data Oral anticoagulant therapeutic ranges: Venous thromboembolism prophylaxis or treatment: 2.0-3.0 CARDIOLOGY Standard range: 2.0-3.0 High-intensity range: 2.5-3.5 Refer to indication-specific guidelines for appropriate target ranges for prosthetic heart valve replacement. Current interpretive data was last revised on 2019. Blood 09/19/2024 7:43 AM PRODUCT MANAGEMENT ANALYST 09/19/2024 8:07 AM PRODUCT MANAGEMENT ANALYST Caesar Leung MD LAB BLOOD ORDERABLES Final Resul t [facility] [address] Department [place] [address] * Misc Path Refer (09/19/2024 12:00 AM PRODUCT MANAGEMENT ANALYST) Pathologist [facility] Desired Testing NTRK GENE FUSION Performing Lab [facility] Specimen Collected Date 09/19/2024 [facility] Path Result See scanned report [facility] Tissue 09/19/2024 10/07/2024 2:1 7 PM PRODUCT MANAGEMENT ANALYST Narrative [facility] - 10/07/2024 2:18 PM PRODUCT MANAGEMENT ANALYST NTRK GENE FUSION Christiano Almaguer MD LAB BLOOD ORDERABLES Final Re sult Performing Organization Address City/[facility]/ZIP Co de Phone Number [facility] [address] [facility] [employer] [place], [place] [phone] * PD-L1 IHC 22C3 pharmDx, Keytruda (09/19/2024 12:00 AM PRODUCT MANAGEMENT ANALYST) Pathologist [facility] PD-L1 IHC 22C3 Keytruda See scanned report Tissue 09/19/2024 09/25/2024 1:0 2 PM PRODUCT MANAGEMENT ANALYST Christiano Almaguer MD LAB PATHOLOGY ORDERABLES Audelia l Result Performing Organization Address [facility] Co de Phone Number [facility] [address] [employer] [place], [place] [phone] * Lung Cancer Panel (09/19/2024 12:00 AM PRODUCT MANAGEMENT ANALYST) Pathologist [facility] Lung Cancer Panel See scanned report Tissue 09/19/2024 09/25/2024 1:0 5 PM PRODUCT MANAGEMENT ANALYST Christiano Almaguer MD LAB PATHOLOGY ORDERABLES Audelia l Result Performing Organization Address City/[facility] Co de Phone Number [facility] [address] [facility] [employer] [place], [place] [phone] * US Arterial Duplex Lower Extremity Left Limited (09/10/2024 2:27 PM PRODUCT MANAGEMENT ANALYST) Anatomical Region Laterality Modality Vascular Left Ultrasound 09/10/2024 1:28 PM PRODUCT MANAGEMENT ANALYST Narrative 09/12/2024 10:17 AM PRODUCT MANAGEMENT ANALYST [employer] - Department of Vascular Surgery, Vascular Laboratory [address] [place] [address] [place] Lower Extremity Arterial Duplex Report Patient Name: RAMIREZ CHÁVEZ D : 1950 Study Date: 09/10/2024 1:28:13 PM Gender: M Tech: SRI Location: [facility] Provider: JOSELUIS JUÁREZ ?Quality: Adequate Order Provider: JOSELUIS JUÁREZ PROCEDURES: Arterial Report: Left Lower Extremity Arterial Duplex Exam. INDICATIONS: Z48.812 Encounter for surgical aftercare following surgery on the circulatory system. Measurements: Left Lower Measurement ? Value ?Units Lt NEEDLE GRADER Dst PSV ?108 ?cm/s Lt Profunda Prx PSV ? 112 ?cm/s Lt Superficial Femoral Prx PSV ?100 ?cm/s Lt Superficial Femoral Mid PSV ?121 ?cm/s Lt Post Tibial Mid PSV ?74 ? cm/s Lt Ant Tibial Mid PSV ? 38 ? cm/s Lt Peroneal Mid PSV ? 50 ? cm/s Measurement ? Value ?Units Left Lower FINDINGS: Performing Fan Blade Aligner: Sri Bueno, RVT, RDMS, RDCS, ACS. Left [...] popliteal artery (difficult to differentiate stent from united ke[place]ah vessel d/t plaque). DISCLAIMER: The study images [...] above. Electronically Signed By: Joseluis Juárez MD [facility] 2024-09-12 10:17:12 PRODUCT MANAGEMENT ANALYST Procedure Note Joseluis Juárez MD - 09/12/2024 [facility] - Department of Vascular Surgery,Vascular Laboratory [address] [place] [address] [place] Lower Extremity Arterial Duplex Report Patient Name: RAMIREZ CHÁVEZ D : 1950 Study Date: 09/10/2024 1:28:13 PM Gender: M Tech: [facility] Location: [facility] Provider: JOSELUIS JUÁREZ Quality: Adequate Order Provider: JOSELUIS JUÁREZ PROCEDURES: Arterial Report: Left Lower Extremity Arterial Duplex Exam. INDICATIONS: Z48.812 Encounter for surgical aftercare following surgery on thecirculatory system. Measurements: Left Lower Measurement Value Units Lt NEEDLE GRADER Dst PSV 108 cm/s Lt Profunda Prx PSV 112 cm/s Lt Superficial Femoral Prx PSV 100 cm/s Lt Superficial Femoral Mid PSV 121 cm/s Lt Post Tibial Mid PSV 74 cm/s Lt Ant Tibial Mid PSV 38 cm/s Lt Peroneal Mid PSV 50 cm/s Measurement Value Units Left Lower FINDINGS: Performing Fan Blade Aligner: Sri Bueno, THOMAST, RDMS, RDCS, ACS. Left Common Femoral: The [...] SFA stent with no stenosis. Highest stent [id number]. Left Popliteal: The left popliteal waveform is [...] andpopliteal artery (difficult to differentiate stent from united keetoowah vessel d/t plaque). DISCLAIMER: The study images [...] By: Joseluis Juárez MD FACS 2024-09-12 10:17:12 PRODUCT MANAGEMENT ANALYST us Joseluis Juárez MD [facility] US PROCEDURES Final Result * US Carotids Bilateral (09/10/2024 2:26 PM PRODUCT MANAGEMENT ANALYST) Anatomical Region Laterality Modality Vascular Bilateral Ultrasound 09/10/2024 1:07 PM PRODUCT MANAGEMENT ANALYST Narrative 09/12/2024 10:18 AM PRODUCT MANAGEMENT ANALYST [facility] - Department of Vascular Surgery, Vascular Laboratory [address] [place] [address] Carotid Duplex Ultrasound Report Patient Name: RAMIREZ CHÁVEZ D : 1950 (74y 5m) Study Date: 09/10/2024 1:07:33 PM Gender: M Tech: [facility] Location: [facility] Provider: JOSELUIS JUÁREZ ?Quality: Adequate Order Provider: [...] PSV ?55 ? cm/sec - FINDINGS: Performing Fan Blade Aligner: Sri Bueno, THOMAST, RDMS, RDCS, ACS. Rt [...] above. Electronically Signed By: Joseluis Juárez MD [facility] 2024-09-12 10:17:37 PRODUCT MANAGEMENT ANALYST Procedure Note Joseluis Juárez MD - 09/12/2024 [facility] - Department of Vascular Surgery,Vascular Laboratory [address] [place] [address] Carotid Duplex Ultrasound Report Patient Name: RAMIREZ CHÁVEZ D : 1950 (74y 5m) Study Date: 09/10/2024 1:07:33 PM Gender: M Tech: SRI Location: [facility] Provider: JOSELUIS JUÁREZ Quality: Adequate Order Provider: [...] LT VERT PSV 55cm/sec - FINDINGS: Performing Fan Blade Aligner: Sri Bueno, THOMAST, RDMS, RDCS, ACS. Rt [...] above. Electronically Signed By: Joseluis Juárez MD [facility] 2024-09-12 10:17:37 PRODUCT MANAGEMENT ANALYST us Joseluis Juárez MD IM US PROCEDURES Final Result * US CORTEZ (09/10/2024 2:26 PM PRODUCT MANAGEMENT ANALYST) Anatomical Region Laterality Modality Vascular N/A Ultrasound 09/10/2024 1:44 PM PRODUCT MANAGEMENT ANALYST Narrative 09/12/2024 10:24 AM PRODUCT MANAGEMENT ANALYST [facility] - Department of Vascular Surgery, Vascular Laboratory [address] [place] [address] Lower Extremity Arterial Doppler Report Patient Name: RAMIREZ CHÁVEZ D : [birth year] Study Date: 09/10/2024 1:44:00 PM Gender: M Tech: Sri Bueno RVT, RDCS, RDM Location: [facility] Provider: JOSELUIS JUÁREZ ?Quality: Adequate Order Provider: JOSELUIS JUÁREZ PROCEDURES: Arterial Report: Ankle - Brachial Index Doppler exam. INDICATIONS: Z48.812 Encounter for surgical aftercare following surgery on the circulatory system. Measurements: Right - ? Left - Measurement ?Value ?Units ?Measurement ?Value ? Units Rt Brachial Pressure ? 154 ?mmHg ? Lt Brachial Pressure ? 167 ? mmHg Rt STATION ENGINEER MAIN LINE Pressure ?138 ?mmHg ? Lt STATION ENGINEER MAIN LINE Pressure ?151 ? mmHg Rt DPA Pressure [...] - ? Left - - FINDINGS: Performing Fan Blade Aligner: Sri Bueno, RVT, RDMS, RDCS, ACS. Right Posterior Tibial Artery [...] are within normal limits (for reference, normal FABIOLA is >0.6). HISTORY: 11-07-2019 angioplasty and LT [...] above. Electronically Signed By: Joseluis Juárez MD [facility] 2024-09-12 10:23:22 PRODUCT MANAGEMENT ANALYST Procedure Note Joseluis Juárez MD - 09/12/2024 [facility] - Department of Vascular Surgery,Vascular Laboratory [address] [place] [address] Lower Extremity Arterial Doppler Report Patient Name: RAMIREZ CHÁVEZ D : 1950 Study Date: 09/10/2024 1:44:00 PM Gender: M Tech: Sri Bueno RVT, NANDINI, KAITLYNN Location: [facility] Provider: JOSELUIS JUÁREZ Quality: Adequate Order Provider: JOSELUIS JUÁREZ PROCEDURES: Arterial Report: Ankle - Brachial Index Doppler exam. INDICATIONS: Z48.812 Encounter for surgical aftercare following surgery on thecirculatory system. Measurements: Right - Left- Measurement Value Units Measurement ValueUnits Rt Brachial Pressure 154 mmHg Lt Brachial Pressure 167mmHg Rt STATION ENGINEER MAIN LINE Pressure 138 mmHg Lt STATION ENGINEER MAIN LINE Pressure 151mmHg Rt DPA Pressure 138 mmHg Lt DPA Pressure 141mmHg Rt 1st Digit Pressure 103 mmHg Lt 1st Digit Pressure 114mmHg Rt PT CORTEZ Resting 0.83 Lt PT CORTEZ Resting 0.9 Rt AT CORTEZ Resting 0.83 Lt AT CORTEZ Resting 0.84 Rt Digit/Arm Index 0.62 Lt Digit/Arm Index 0.68 Measurement Value Units Measurement ValueUnits Right - Left- - FINDINGS: Performing Fan Blade Aligner: Sri Bueno RVT, KEITH, NANDINI, ACS. Right Posterior Tibial Artery Analysis: The [...] Indices are within normal limits (for reference,normal FABIOLA is >0.6). HISTORY: 11-07-2019 angioplasty and LT [...] above. Electronically Signed By: Joseluis Juárez MD [facility] 2024-09-12 10:23:22 PRODUCT MANAGEMENT ANALYST us Joseluis Juárez MD IMG US PROCEDURES Final Result * CTA Abdomen Pelvis (09/09/2024 9:43 AM PRODUCT MANAGEMENT ANALYST) Anatomical Region Laterality Modality Body N/A Computed Tomogra phy 09/09/2024 12:0 0 PM PRODUCT MANAGEMENT ANALYST Impressions 09/09/2024 6:18 PM PRODUCT MANAGEMENT ANALYST 1. ??Infrarenal abdominal aortic aneurysm measuring 3.2 [...] Dennise Siddiqui M.D. Narrative 09/09/2024 6:18 PM PRODUCT MANAGEMENT ANALYST EXAMINATION: CTA ABDOMEN PELVIS, CT CHEST WO [...] CT chest without contrast (09/09/2024 9:33 AM PRODUCT MANAGEMENT ANALYST) Anatomical Region Laterality Modality Body N/A Computed Tomogra phy 09/09/2024 12:0 0 PM PRODUCT MANAGEMENT ANALYST Impressions 09/09/2024 6:18 PM PRODUCT MANAGEMENT ANALYST 1. ??Infrarenal abdominal aortic aneurysm measuring 3.2 [...] Dennise Siddiqui M.D. Narrative 09/09/2024 6:18 PM PRODUCT MANAGEMENT ANALYST EXAMINATION: CTA ABDOMEN PELVIS, CT CHEST WO [...] Result from Last 3 Months Insurance [address] [place] [place] [id number] MEDICARE [facility] [address] [place] [id number] [facility] MEDICARE SUPPLEMENT MEDICARE [facility] MEDICARE SUPPLEMENT Advance Directives For more information, please contact: [phone] Documents on File Type Date Recorded Patient Seismograph Operator Expl anation ADVANCE DIRECTIVE 11/07/2019 9:49 AM [...] 8:54 PM 11/21/2018 3:45 PM Care Teams Visitor Services Technician Relationship Specialty Start Date End Date Christiano Almaguer MD [address] [place] [address] PCP - General Internal Medicine 11/29/20 Anoop Sanders MD Consulting Physician Cardiology 03/09/18 Joseluis Juárez MD Surgeon Vascular Surgery 11/08/19 Anoop Barbosa MD [address] [facility] [address] [place] [address] Consulting Physician Cardiothoracic Surgery 09/24/24 Bernabe Garcia MD [address] [facility] [address] [place] [address] Referring Physician Pulmonary Disease 09/24/24
--- OUTSIDE RECORDS SUMMARY | 2024-12-03 12:01 | XMS_ITS | Encounter Summary ---
Author Organization [facility] Healthcare Address [address] [place] [address] Care Team Providers Care Resistance Machine Welder Setter Name Role Phone Anoop Sanders MD Unavailable [phone] Joseluis Juárez MD Unavailable [phone] Christiano Almaguer MD Primary Care Provider [phone] Anoop Barbosa MD Unavailable Bernabe Garcia MD Unavailable [phone] Encounter Details Date Type Department Care Team (Late st Contact Info) Description 06/14/2021 Telephone [facility] - Imaging [address] [place] [address] Transcribed Order, Provider Social History Tobacco Use Types Packs/Day Years Used Date Smoking Tobacco: Every Day Cigarettes 1.5 50 Smokeless Tobacco: Never Comments:less than 1 ppd now Alcohol Use Standard Drinks/Week Comments Yes 0 (1 standard drink = 0.6 oz pur e alcohol) social AUDIT-C Answer Date Recorded Frequency of Alcohol Consumption 2-4 times a mon10/17/2019 Average Number of Drinks 1 or 2 019 Frequency of Binge Drinking Less than monthly Sex and Gender Information Value Date Recorded Sex Assigned at Not on file Legal Sex Male 3:47 PM CERTIFIED NURSE Gender Identity Male 05/20/2020 7:24 AM CDT Sexual Orientation Not on file documented as of this encounter Plan of Treatment Not on file documented as of this encounter Visit Diagnoses Not on filedocumented in this encounter Additional Health Concerns Infection Onset Date Last Indicated Resolved Time COVID: Suspected 02/22/2024 02/22/2024 02/22/2024 11:04 AM CDT Parainfluenza, droplet 02/22/2024 02/22/202402/28 3:05 AM CDT documented as of this encounter Care Teams Resistance Machine Welder Setter Relationship Specialty Start Date End Date Christiano Almaguer MD [address] [place] [address] PCP - General Internal Medicine 11/29/20 Anoop Sanders MD Consulting Physician Cardiology 03/09/18 Joseluis Juárez MD Surgeon Vascular Surgery 11/08/19 Anoop Barbosa MD [address] [place], [place] [phone] Consulting Physician Cardiothoracic Surgery 09/24/24 Bernabe Garcia MD [address] [place], [place] [phone] Referring Physician Pulmonary Disease 09/24/24 documented as of this encounter
--- OUTSIDE RECORDS SUMMARY | 2024-12-03 12:01 | XMS_ITS | Clinical Summary ---
Author Organization [facility] Care Team Providers Care Junior Assistant Manager Name Role Phone Unavailable Primary Care Provider Unavailabl e Social History Tobacco Use Types Packs/Day Years Used Date Smoking Tobacco: Never Assessed Sex and Gender Information Value Date Recorded Sex Assigned at Not on file Legal Sex Male 11:41 PM CDT Gender Identity Not on file Sexual Orientation Not on file Plan of Treatment Health Maintenance Due Date Last Done Comments Hepatitis C Virus (HCV) Screening 1950 TdaP Immunization 1950 Colonoscopy 1994 Colorectal Cancer Screening 1994 Cologuard 1999 Immunochemical Fecal Occult Blood 1999 Pneumococcal Immunization (5 0+ years) (1 of 1 - PCV) 1999 Zoster Immunization (1 of 2) 1999 Respiratory Syncytial Virus (RSV) Immunization (Adult) (1 - 1-dose 75+ series) 2024 Influenza Immunization (#1) 2024 SARS-COV-2 Immunization ( season) 2024 Hepatitis B Immunization Aged Out No longer eligible based on patient's age to complete this topic Meningococcal Immunization (ACWY) Aged Out No longer eligible based on patient's age to complete this topic Rotavirus Immunization Aged Out No lo nger eligible based on patient's age to complete this topic
--- OUTSIDE RECORDS SUMMARY | 2024-12-03 12:01 | XMS_ITS ---
Author Organization [facility] Address [address] [place] [address] Care Team Providers Care Interface Designer Name Role Phone Anoop Sanders MD Unavailable Joseluis Juárez MD Unavailable [phone] Christiano Almaguer MD Primary Care Provider Anoop Barbosa MD Unavailable Bernabe Garcia MD Unavailable Active Problems Problem Noted Date Diagnosed Date Hydropneumothorax 11/06/2024 Cancer of lower lobe of right lung 10/18/2024 Malignant neoplasm of lower lobe of right lung 1 12/09/2023 Adenocarcinoma of right lung 10/02/2024 COLD (chronic obstructive lung disease) 02/22/20 24 Assessment & Plan (03/11/2024 11:41 AM CDT): [...] 09/22 Assessment & Plan (11/09/2023 9:51 AM BOILER TESTER): PET scan is reassuring Recs: 1) CT [...] appointment when the time comes. 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 Arrange new baseline CORTEZ with Duplex scan of left leg in one month. Asymptomatic stenosis of right carotid artery Assessment & Plan (07/27/2022 11:35 AM CDT): Asymptomatic right ICA stenosis. Repeat six month carotid doppler for observation. Assessment & Plan (12/08/2021 1:00 PM BOILER TESTER): Stable right ICA stenosis. Continue to monitor with repeat carotid Doppler in six months. He'll be due for follow-up lower extremity arterial Doppler/Duplex and an abdominal aortic Duplex in six months as well. We'll coordinate his vascular studies. Assessment & Plan (09/13/2021 12:18 PM BOILER TESTER): Asymptomatic progressive right ICA stenosis that is [...] sooner. Assessment & Plan (12/04/2019 10:16 AM BOILER TESTER): elevated velocities within right ICA on prior [...] now Assessment & Plan (11/09/2023 9:51 AM BOILER TESTER): As above. He wants to think about and let me know if he would like pharmacologic assistance Assessment & Plan (07/25/2023 1:31 PM CDT): As above. He wants to think about and let me know if he would like pharmacologic assistance Assessment & Plan (12/19/2018 6:33 PM BOILER TESTER): Discussed with patient lung cancer screening once per year Smoking cessation using nicotine gum will be initiated Quantitate with PFTs his current impairment Centrilobular emphysema 12/19/2018 Overview (12/19/2018): CT confirmed 02/09/2018 Assessment & Plan (11/09/2023 9:51 AM BOILER TESTER): Sx are stable PFTs reveal moderate obstructive [...] maintenance/vaccinations Assessment & Plan (12/19/2018 6:31 PM BOILER TESTER): Currently exercise limitations due more to arthritis [...] year. Assessment & Plan (12/04/2019 10:17 AM BOILER TESTER): Small AAA. Monitor with annual Duplex scans. Essential (primary) hypertension 01/05/2017 Overview (03/24/2017): Essential hypertension Assessment & Plan (11/20/2018 4:02 AM BOILER TESTER): Continue home metoprolol, hydrochlorothiazide, Cozaar. Hypercholesterolemia 01/05/2017 Overview (03/24/2017): Hypercholesterolemia Assessment & Plan (11/20/2018 4:02 AM BOILER TESTER): Continue home statin Aftercare following surgery of the respiratory s ystem 02/04/2016 Overview (02/02/2017): Post surgical visit Coronary artery disease of n ative artery of [place] heart with stable angina pectoris 01/18/2016 Overview (12/19/2018): 3 vessel CAD CABG x3 December 2015 Two stents October 2018 Assessment & Plan (12/19/2018 6:32 PM BOILER TESTER): 3 vessel CAD CABG x3 December 2015 Two stents October 2018 S/P drug eluting coronary stent placement Current Oncology Plans No current plan information found. Past Plans No past plan information found. Radiation Treatments * No radiation treatments are documented for this patient in [facility]. Treatments may have been administered in another system. Lifetime Dose Tracking * Chemical Lifetime Dose Automatic Entry Manual Entr y Fluoro Time 6.2 minutes 6.2 minutes 0 minutes Air kerma at the reference point (Ka,r) 366 mGy 3 66 mGy 0 mGy Resolved Problems Problem Noted Date Diagnosed Date Resolved Date Unstable angina (CMS/HCC) 11/20/2018 Assessment & Plan (11/20/2018 4:02 AM BOILER TESTER): Has been having increasing chest pain over [...] evaluation. He has been made NPO. His supervisor car and yard Dr. Rader has been consulted. We will continue aspirin, Plavix, losartan, metoprolol. We will also continue full-dose anticoagulation for now. We will trend troponins. Postnasal drip 04/06/2016 10/17/2019 Overview (02/02/2017): Post-nasal drip
--- OUTSIDE RECORDS SUMMARY | 2024-12-03 12:01 | XMS_ITS | Encounter Summary ---
Author Organization [facility] Healthcare Address [address] [place] [address] Care Team Providers Care Fork Assembler Name Role Phone Anoop Sanders MD Unavailable Joseluis Juárez MD Unavailable [phone] Christiano Almaguer MD Primary Care Provider [phone] Anoop Barbosa MD Unavailable [phone] Bernabe Garcia MD Unavailable Encounter Details Date Type Department Care Team (Late st Contact Info) Description 06/29/2021 Telephone 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 Gender Identity Male 05/20/2020 7:24 AM CDT [...] documented as of this encounter Care Teams Fork Assembler Relationship Specialty Start Date End Date Christiano Almaguer MD [address] [place] [address] PCP - General Internal Medicine 11/29/20 Anoop Sanders MD Consulting Physician Cardiology 03/09/18 Joseluis Juárez MD Surgeon Vascular Surgery 11/08/19 Anoop Barbosa MD [address] [place], [place] [id number] Consulting Physician Cardiothoracic Surgery 09/24/24 Bernabe Garcia MD [address] [place], [place] [id number] Referring Physician Pulmonary Disease 09/24/24 documented as of this encounter
--- OUTSIDE RECORDS SUMMARY | 2024-12-03 12:01 | XMS_ITS | Encounter Summary ---
Author Organization [facility] Address [address] [place] [address] Phone Care Team Providers Care Nougat Cutter Machine Name Role Phone Unavailable Primary Care Provider Unavailabl e Reason for Visit * Reason Comments Medication Refill Encounter Details Date Type Department Care Team (Late st Contact Info) Description 04/02/2024 Refill [facility] - Family Medicine - [place] [address] [place] [address] Anoop Sanders MD [address] [address] Medication Refill Social History Tobacco Use Types Packs/Day Years Used Date Smoking Tobacco: Never Assessed Sex and Gender Information Value Date Recorded Sex Assigned at Not on file Legal Sex Male 11:41 PM CDT Gender Identity Not on file Sexual Orientation Not on file documented as of this encounter Miscellaneous Notes * Telephone Encounter - Kayla Cooper RN - 04/02/2024 11:45 AM CDT Patient NOT associated with this practice. documented in this encounter Plan of Treatment Not on file documented as of this encounter Visit Diagnoses Not on filedocumented in this encounter
--- OUTSIDE RECORDS SUMMARY | 2024-12-03 12:02 | XMS_ITS | Continuity of Care Document ---
Author Organization [facility] Address [address] [place] [address] [address] [place] [address] Phone Care Team Providers Care Rubbish Collector Name Role Phone Annie Maradiaga Unavailable Unavailable Procedures Procedure Date Eye Exam, New Patient Refraction Advance Directives Directive Yes / No Effective Date File Name No Information Encounters Encounter Description Practice Location Reason(s) For Visit Diagnoses Date Provider Providers Copied on Encounter [facility], [id number] [place] [address] [address], [place], [place], [id number], [place] tel:[phone] [facility] No Information [address] , [address], [place], [address], [place]. tel:[phone] Family History Family Member Type Diagnosis Age At Onset No Information Payers Payer name Insurance type Covered libertarian ID Authoriza ticarlene(s) [facility] CI [id number] Social History Type Description Quantity Date Captured Comments Sex Male Smoking Status No Information Chief Complaint And Reason For Visit No Information Reason For Referral Reason For Referral No Information History Of Present Illness Encounter Date Complaint History Of Prese nt Illness No Information Functional Status Date Functional Assessmen t No Information Instructions Date Instruction Additional Infor mation No Information Assessments Type Assessment Date No Information Patient Care Teams Name Effective Dates (start - stop) Status Members No Information
--- OUTSIDE RECORDS SUMMARY | 2024-12-03 12:02 | XMS_ITS | Encounter Summary ---
Author Organization [facility] Address [address] [address] Care Team Providers Care Story Editor Name Role Phone Christiano Almaguer MD Primary Care Provider [phone] Christiano Almaguer MD Primary Care Provider [phone] Christiano Almaguer MD Primary Care Provider [phone] Marcel Carrillo DO Primary Care Provider [phone] Anoop Sanders MD Unavailable [phone] Joseluis Juárez MD Unavailable [phone] Christiano Almaguer MD Primary Care Provider [phone] Anoop Barbosa MD Unavailable [phone] Bernabe Garcia MD Unavailable [phone] Encounter Details Date Type Department Care Team (Latest Contact Info) Description 01/05/2017 Orders Only [facility] Cardiology ProviderAntonio MD [address] [place] [address] Social History Tobacco Use Types Packs/Day Years Used Date Smoking Tobacco: Every Day Comments:Smoking History Pac ks/day: 1 Packs Alcohol Use Standard Drinks/Week Comments Yes 0 (1 standard drink = 0.6 oz pur e alcohol) Sex and Gender Information Value Date Recorded Sex Assigned at Not on file Legal Sex Male 3:47 PM TIP BANDER Gender Identity Male 05/20/2020 7:24 AM CDT Sexual Orientation Not on file documented as of this encounter Plan of Treatment Not on file documented as of this encounter Procedures Procedure Name Priority Date/Time Associated Diagnosis Comments CARDIOLOGY REPORT 01/05/2017 documented in this encounter Results * CARDIOLOGY REPORT (01/05/2017) Anatomical Region Laterality Modality Other Narrative 01/05/2017 Ordered by an unspecified provider. us Historical Provider [facility] JOE DUMONT Final Result documented in this encounter Visit Diagnoses Not on filedocumented in this encounter Additional Health Concerns Infection Onset Date Last Indicated Resolved Time COVID: Suspected 02/22/2024 02/22/2024 02/22/2024 11:04 AM CDT Parainfluenza, droplet 02/22/2024 02/22/202402/28 3:05 AM CDT documented as of this encounter Care Teams Story Editor Relationship Specialty Start Date End Date Christiano Almaguer MD [address] [facility] [address] [facility] [address] [place] [address] PCP - General 01/27/17 02/05/18 Christiano Almaguer MD [address] [place] [address] PCP - General 01/10/17 01/26/17 Christiano Almaguer MD [address] [place] [address] PCP - General 02/19/14 01/09/17 Marcel Carrillo DO [address] [place] [address] PCP - General Internal Medicine 02/06/18 02/06/18 Christiano Almaguer MD [address] [place] [address] PCP - General Internal Medicine 11/29/20 Anoop Sanders MD [address] [place] [address] Consulting Physician Cardiology 03/09/18 Joseluis Juárez MD [address] [place] [address] Surgeon Vascular Surgery 11/08/19 Anoop Barbosa MD [address] [place] [address] Consulting Physician Cardiothoracic Surgery 09/24/24 Bernabe Garcia MD [address] [place] [address] Referring Physician Pulmonary Disease 09/24/24 documented as of this encounter
== END 2024-12-03 11:23 | disposition home or self-care (01) ==
PROVIDERS: PCP Internal Medicine; Visit Provider Internal Medicine
DX: R50.9 Fever, unspecified (principal); K57.30 Diverticulosis of large intestine without perforation or abscess without bleeding; N43.3 Hydrocele, unspecified; J43.9 Emphysema, unspecified
CPT/HCPCS: 70470; 71260; 74177; 87040; Q9967

== ENCOUNTER 2025-04-10 11:26 | Outpatient (CLI) | payer MEDICARE, SELFPAY ==
[2025-04-10 12:01] LABS: Basophils Absolute Auto 0.1 K/mm3 (0.0-0.1); Basophils Percent Auto 0.9 % (0.2-1.2); Eosinophils Absolute Auto 0.2 K/mm3 (0-0.3); Hematocrit 33.5 % (42.0-52.0); Hemoglobin 10.3 g/dL (14.0-18.0); Immature Granulocyte Absolute 0.04 K/mm3 (0.00-0.031); Immature Granulocyte Percent A 0.5 % (0-0.5); Lymphocytes Absolute Auto 2.35 K/mm3 (0.9-3.2); Lymphocytes Percent Auto 29.2 % (18.3-44.2); Mean Corpuscular HGB Conc 30.7 g/dl (32-36); Mean Corpuscular Hemoglobin 30.5 pg (26-34); Mean Corpuscular Volume 99.1 fl (80-100); Mean Platelet Volume 11.1 fl (7.4-10.4); Monocytes Absolute Auto 1.2 K/mm3 (0.1-0.6); Monocytes Percent Auto 14.6 % (2.6-8.5); Neutrophils Absolute Auto 4.3 K/mm3 (1.3-6.7); Neutrophils Percent Auto 52.8 % (45.5-73.1); Platelet Count Result 201 k/mm3 (150-375); Red Blood Count 3.38 M/mm3 (4.6-6.20); Red Cell Distribution Width 17.2 % (11.5-14.5)
[2025-04-10 12:16] LABS: Cholesterol 127 mg/dL (0-200); HDL Direct 52 mg/dL; Triglycerides 62 mg/dL (<150)
[2025-04-10 12:26] LABS: LDL Cholesterol Direct 58 mg/dL
--- OUTSIDE RECORDS SUMMARY | 2025-04-10 12:28 | XMS_ITS | Encounter Summary ---
Author Organization [facility] Healthcare Address [address] [place] [address] Care Team Providers Care Lead Generation Marketing Manager Name Role Phone Anoop Sanders MD Unavailable Joseluis Juárez MD Unavailable [phone] Christiano Almaguer MD Primary Care Provider [phone] Anoop Barbosa MD Unavailable [phone] Bernabe Garcia MD Unavailable [phone] Encounter Details Date Type Department Care Team (Late st Contact Info) Description 06/29/2021 Telephone [facility] - Imaging [address] [place] [address] Transcribed Order, Provider Social History [...] on file 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 Gender Identity Male 05/20/2020 7:24 AM CDT [...] documented as of this encounter Care Teams Lead Generation Marketing Manager Relationship Specialty Start Date End Date Christiano Almaguer MD [address] [place] [id number] PCP - General Internal Medicine 11/29/20 Anoop Sanders MD Consulting Physician Cardiology 03/09/18 Joseluis Juárez MD Surgeon Vascular Surgery 11/08/19 Anoop Barbosa MD [address] [place], [place] [id number] Consulting Physician Cardiothoracic Surgery 09/24/24 Bernabe Garcia MD [address] [place] [address] Referring Physician Pulmonary Disease 09/24/24 documented as of this encounter
--- OUTSIDE RECORDS SUMMARY | 2025-04-10 12:28 | XMS_ITS | Clinical Summary ---
Author Organization [facility] Address [address] [place] [address] Care Team Providers Care Maintenance Planner Name Role Phone Anoop Sanders MD Unavailable [phone] Joseluis Juárez MD Unavailable [phone] Christiano Almaguer MD Primary Care Provider [phone] Anoop Barbosa MD Unavailable [phone] Bernabe Garcia MD Unavailable [phone] Allergies No known active allergies Medications aspirin 81 mg tablet Take 1 tablet (81 mg total) by mouth nightly Active melatonin 10 mg tablet Take 1 tablet (10 mg total) by mouth nightly as needed for sleep Active metoprolol XL (TOPROL-XL) 100 mg 24 hr tablet Take 1 tablet (100 mg total) by mouth 2 (two) times a day Active losartan-hydroc hlorothiazide (HYZAAR) 100-25 mg per tablet Take 1 tablet by mouth daily Active tamsulosin (FLOMAX) 0.4 mg extended release capsule Take 1 capsule (0.4 mg total) by mouth daily Active LORazepam (ATIVAN) 0.5 mg tablet Take 1 tablet (0.5 mg total) by mouth 3 (three) times a day as needed for anxiety 3 Active folic acid (FOLVITE) 1 mg tablet Take 1 tablet (1 mg total) by mouth daily 3 Active albuterol HFA (PROVENTIL HFA,VENTOLIN HFA,PROAIR HFA) 90 mcg/actuation inhaler Inhale 2 puffs every 6 (six) hours as needed for wheezing or shortness of breath 3 Active atorvastatin (LIPITOR) 80 mg tablet Take 1 tablet (80 mg total) by mouth nightly Active allopurinoL (ZYLOPRIM) 300 mg tablet Take 1 tablet (300 mg total) by mouth 3 (three) times a week Mondays, Wednesdays, and Fridays Active clopidogreL (PLAVIX) 75 mg tablet TAKE 1 TABLET(75 MG) BY MOUTH DAILY 30 tablet 11 4 Active budesonide EC (ENTOCORT EC) 3 mg 24 hr capsule Take 3 capsules (9 mg total) by mouth every morning Active acetaminophen 500 mg capsule Take 2 capsules (1,000 mg total) by mouth every 6 (six) hours as needed for pain 4 Active amLODIPine (NORVASC) 10 mg tablet Take 1 tablet (10 mg total) by mouth daily 30 tablet 1 4 Active traMADoL (ULTRAM) 50 mg tablet Take 1 tablet (50 mg total) by mouth every 4 (four) hours as needed for pain 40 tablet 5 Active fluticasone-ume clidin-vilanter (Trelegy Ellipta) 200-62.5-25 mcg inhaler Inhale 1 puff daily 60 each 1 5 Active Active Problems Problem Noted Date Diagnosed Date [...] 09/22 Assessment & Plan (11/09/2023 9:51 AM SALES MERCHANDISER): PET scan is reassuring Recs: 1) CT [...] scan Recs: 1) PET scan Popliteal aneurysm 07/27/2022 Assessment & Plan (07/27/2022 11:36 AM [...] appointment when the time comes. 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 Arrange new baseline CORTEZ with Duplex scan of left leg in one month. Asymptomatic stenosis of right carotid artery Assessment & Plan (07/27/2022 11:35 AM CDT): Asymptomatic right ICA stenosis. Repeat six month carotid doppler for observation. Assessment & Plan (12/08/2021 1:00 PM SALES MERCHANDISER): Stable right ICA stenosis. Continue to monitor with repeat carotid Doppler in six months. He'll be due for follow-up lower extremity arterial Doppler/Duplex and an abdominal aortic Duplex in six months as well. We'll coordinate his vascular studies. Assessment & Plan (09/13/2021 12:18 PM SALES MERCHANDISER): Asymptomatic progressive right ICA stenosis that is [...] sooner. Assessment & Plan (12/04/2019 10:16 AM SALES MERCHANDISER): elevated velocities within right ICA on prior [...] now Assessment & Plan (11/09/2023 9:51 AM SALES MERCHANDISER): As above. He wants to think about and let me know if he would like pharmacologic assistance Assessment & Plan (07/25/2023 1:31 PM CDT): As above. He wants to think about and let me know if he would like pharmacologic assistance Assessment & Plan (12/19/2018 6:33 PM SALES MERCHANDISER): Discussed with patient lung cancer screening once per year Smoking cessation using nicotine gum will be initiated Quantitate with PFTs his current impairment Centrilobular emphysema 12/19/2018 Overview (12/19/2018): CT confirmed 02/09/2018 Assessment & Plan (11/09/2023 9:51 AM SALES MERCHANDISER): Sx are stable PFTs reveal moderate obstructive [...] maintenance/vaccinations Assessment & Plan (12/19/2018 6:31 PM SALES MERCHANDISER): Currently exercise limitations due more to arthritis [...] year. Assessment & Plan (12/04/2019 10:17 AM SALES MERCHANDISER): Small AAA. Monitor with annual Duplex scans. Essential (primary) hypertension 01/05/2017 Overview (03/24/2017): Essential hypertension Assessment & Plan (11/20/2018 4:02 AM SALES MERCHANDISER): Continue home metoprolol, hydrochlorothiazide, Cozaar. Hypercholesterolemia 01/05/2017 Overview (03/24/2017): Hypercholesterolemia Assessment & Plan (11/20/2018 4:02 AM SALES MERCHANDISER): Continue home statin Aftercare following surgery of the respiratory s ystem 02/04/2016 Overview (02/02/2017): Post surgical visit Coronary artery disease of n ative artery of [place] heart with stable angina pectoris 01/18/2016 Overview (12/19/2018): 3 vessel CAD CABG x3 December 2015 Two stents October 2018 Assessment & Plan (12/19/2018 6:32 PM SALES MERCHANDISER): 3 vessel CAD CABG x3 December 2015 Two stents October 2018 S/P drug eluting coronary stent placement Resolved Problems Problem Noted Date Diagnosed Date Resolved Date Unstable angina 11/20/2018 12/19/2018 Assessment & Plan (11/20/2018 4:02 AM SALES MERCHANDISER): Has been having increasing chest pain over [...] evaluation. He has been made NPO. His resource conservation specialist Dr. Rader has been consulted. We will continue aspirin, Plavix, losartan, metoprolol. We will also continue full-dose anticoagulation for now. We will trend troponins. Postnasal drip 04/06/2016 10/17/2019 Overview (02/02/2017): Post-nasal drip Encounters Date Type Department Care Team Description 04/08/2025 Telephone [facility] [address] [facility] [address] [place] [id number] Bernabe Garcia MD 03/27/2025 Documentation [facility] [address] [facility] [facility] [address] [place] [phone] Rachel Cast PA Test Results 03/19/2025 1:38 PM CDT - 03/19/2025 11:59 PM CDT Hospital Encounter [facility] - Imaging [address] [place] [phone] Bernabe Garcia MD Malignant neoplasm of lower lobe of right lung (HCC) Discharge Disposition: Discharge to home or self care 03/19/2025 1:00 PM CDT Ancillary Procedure [facility] [address] [place] [phone] Stenosis of right carotid artery from Last 3 Months Immunizations Immunization Administration Dates Next Due Hep A / [...] effusion Hypertension Hyperlipidemia AAA (abdominal aortic aneurysm) 3.5 centimeters Gout Anemia Nausea Myocardial infarction (HCC) Emphysema of lung (HCC) Subdural hematoma (HCC) Peripheral vascular disease Foll ows with Dr. Joseluis Juárez Family History Medical [...] = 0.6 oz pur e alcohol) social [employer] Utilities Answer Date Recorded In the past 12 months has e electric, gas, oil, or water [facility] threatened to shut off services in your [...] often do you attend chur ch or mandaen services? Never 11/07/2024 Do you belong to any clubs o r organizations such as scientologist groups, unions, fraternal or athletic groups, or [...] any time in the past 12 m the [facility] institute, were you homeless or living in a prison (including now)? No 11/07/2024 Personal Safety Answer Date Recorded Have you ever been in or are you currently in a harmful physical or emotional relationship or is someone making you feel afraid or unsafe? Denies 11/06/2024 Sex and Gender Information Value Date Recorded Sex Assigned at Not on file Legal Sex Male 3:47 PM SALES MERCHANDISER Gender Identity Male 05/20/2020 7:24 AM CDT Sexual Orientation Not on file Obstetrics History Last Filed Vital Signs Vital Sign Reading Time Taken Comments Blood Pressure 118/58 11/19/2024 8:52 AM SALES MERCHANDISER Pulse 66 11/19/2024 8:52 AM SALES MERCHANDISER Regul ar Temperature 36.7 C (98 F) 11/10/2024 7:50 AM SALES MERCHANDISER Respiratory Rate 14 11/19/2024 8:52 AM SALES MERCHANDISER Oxygen Saturation 94% 11/10/2024 7:50 AM SALES MERCHANDISER Inhaled Oxygen Concentration - - Weight 85.3 kg (188 lb) 11/19/2024 8:52 AM SALES MERCHANDISER Height 177.8 cm (5' 10) 11/06/2024 2:55 PM SALES MERCHANDISER Body Mass Index 26.98 11/06/2024 2:55 PM SALES MERCHANDISER Plan of Treatment Health Maintenance Due Date Last Done Comments Hepatitis C Screening 1950 Pneumococcal vaccine 65+ (1 of 2 - PCV) 1968 Well Visit 65+ 2014 Zoster Vaccine (3 of 3) 10/06/2020 08/11/2020, 09/11 Influenza Vaccine (Season Ended) 2025 08/30/2014, 08/27/2013, 10/09/2012 Depression Screening 09/11/2025 09/11/2024, 03/11/20 24 Fall Risk Assessment 11/10/2025 11/10/2024 DTaP/Tdap/Td Vaccine (3 - Td or Tdap) 12/02/2029 12/02/2019, 01/22/2014 Hepatitis B Screening Completed 01/22/2014, 014 Abdominal Aortic Aneurysm (A AA) Screen Completed 09/20/2024, 09/09/2024, 09/09/2024, Additional history exists Medical Devices Implanted Type Area Draw Bench Operator Helper Device Identifier Shelf Expiration Date Model / Serial / Lot [employer] Efrain [id number] Device Closure Angio-Seal Vip Bondek-Plus Polyglyd L70 Cm Od6 Fr Odsec.035 In Vascular - Sn/A - [id number] Implanted:Qty : 1 on 11/07/2019 by Joseluis Juárez MD at [facility] Other - see comments Right: Groin [employer] Efrain/[employer] 05/29/2020 [id number] / N/A / [id number] Bard Peripheral Vascular [id number] Lifestent 6mm 6fr 40mm 130cm Self Expand Catheter Helical - Sn/A - [id number] Implanted:Qty : 1 on 11/07/2019 by Joseluis Juárez MD at [facility] Stent Left: Arterial [employer] Peripheral Vascular [id number] 02/22/2021 [id number] / N/A / [id number] Description:Left popliteal a rtery [employer] Efrain [id number] Synergy 4mm 38mm 144cm Radiopaque 1 Access Port Inflation Lumen - [id number] Implanted:Qty : 1 on 11/20/2018 by Ike Coleman MD at [facility] N/A: Coronary [employer] Efrain 07/09/2020 [id number] / / [id number] Description:Circumflex [employer]rain [id number] Synergy 3.5mm 16mm 144cm Radiopaque 1 Access Port Inflation Lumen - [id number] Implanted:Qty : 1 on 11/20/2018 by Ike Coleman MD at [facility] N/A: Coronary [employer]rain 06/19/2020 [id number] / / [id number] Description:Circumflex Procedures Procedure Name Priority Date/Time Associated Diagnosis Comments CT CHEST WO CONTRAST Schedule Routine, Read Routine (OP Routine) 03/19/2025 1:55 PM CDT Malignant neoplasm of lower lobe of right lung (HCC) US CAROTIDS DUPLEX BILATERAL Schedule Routine, Read Routine (OP Routine) 03/19/2025 1:23 PM CDT Stenosis of right carotid artery CTA ABDOMEN PELVIS W WO CONTRAST Routine 09/09/2024 9:43 AM SALES MERCHANDISER Abdominal aortic aneurysm (AAA) without rupture, unspecified part from Last 3 Months or Most Recently Relevant to Health Maintenance Results * CT chest without contrast (03/19/2025 1:55 PM CDT) Anatomical Region Laterality Modality Body N/A Computed Tomogra phy 03/19/2025 2:11 PM CDT Impressions 03/19/2025 2:11 PM CDT 1. New postoperative changes of right lower lobectomy 2. Decreased loculated posterior right pleural effusion with small residual. 3. Changes of right talc pleurodesis 4. Scattered subpleural scarring throughout the lungs. No infiltrate or new suspicious pulmonary nodule Electronically signed by: Karen De La Vega M.D. Narrative 03/19/2025 2:11 PM CDT EXAM: CT chest without contrast HISTORY: Right lower lobe lung cancer follow-up COMPARISON: 10/22/2024 FINDINGS: CT chest was performed without IV contrast. There is limited evaluation of solid abdominal organs without contrast. Thyroid gland is normal. There are scattered calcifications throughout the thoracic aorta with extensive coronary artery calcification and changes of coronary artery bypass grafting. There are normal-sized mediastinal lymph nodes. There is decreased loculated right base pleural effusion with associated pleural thickening and high density consistent with previous PET pleurodesis. There is no left pleural effusion. There is no pericardial effusion. Adrenal glands are normal. There are changes of cholecystectomy. Low-attenuation upper pole renal lesions are stable and likely cysts. Calcifications in the right kidney are likely vascular and stable. There are new postoperative changes in the right lung of right lower lobectomy. There are scattered areas of subpleural scarring. There is no confluent infiltrate. There is thickening of the right major fissure. There is diffuse centrilobular emphysema with upper lobe predominance. There is no suspicious pulmonary nodule. There are trace secretions in the trachea. Central airways are otherwise patent. There is no pneumothorax. There is no acute bone abnormality or aggressive bone lesion. Procedure Note Karen De La Vega MD - 03/19/2025 EXAM: CT chest without contrast HISTORY: Right lower lobe lung cancer follow-up COMPARISON: 10/22/2024 FINDINGS: CT chest was performed without IV contrast. There is limited evaluation of solid abdominal organs without contrast. Thyroid gland is normal. There are scattered calcifications throughout the thoracic aorta with extensive coronary artery calcification and changes of coronary artery bypass grafting. There are normal-sized mediastinal lymph nodes. There is decreased loculated right base pleural effusion with associated pleural thickening and high density consistent with previous PET pleurodesis. There is no left pleural effusion. There is no pericardial effusion. Adrenal glands are normal. There are changes of cholecystectomy. Low-attenuation upper pole renal lesions are stable and likely cysts. Calcifications in the right kidney are likely vascular and stable. There are new postoperative changes in the right lung of right lower lobectomy. There are scattered areas of subpleural scarring. There is no confluent infiltrate. There is thickening of the right major fissure. There is diffuse centrilobular emphysema with upper lobe predominance. There is no suspicious pulmonary nodule. There are trace secretions in the trachea. Central airways are otherwise patent. There is no pneumothorax. There is no acute bone abnormality or aggressive bone lesion. IMPRESSION: 1. New postoperative changes of right lower lobectomy 2. Decreased loculated posterior right pleural effusion with small residual. 3. Changes of right talc pleurodesis 4. Scattered subpleural scarring throughout the lungs. No infiltrate or new suspicious pulmonary nodule Electronically signed by: Karen De La Vega M.D. Bernabe Garcia MD IMG CT PROCEDURES Final Result * US Carotids Duplex Bilateral (03/19/2025 1:23 PM CDT) Anatomical Region Laterality Modality Vascular Bilateral Ultrasound 03/19/2025 1:01 PM CDT Narrative 03/20/2025 4:36 PM CDT [facility] - Department of Vascular Surgery, Vascular Laboratory [address] [place] [address] Carotid Duplex Ultrasound Report Patient Name: NEO CHÁVEZ : 1950 (74y 11m) Study Date: 03/19/2025 1:01:32 PM Gender: M Tech: Location: [facility] Provider: JOSELUIS JUÁREZ Quality: Adequate Order Provider: JOSELUIS JUÁREZ PROCEDURES: Carotid Report: Carotid duplex examination of the extracranial arteries was performed using 2D, color and spectral Doppler. INDICATIONS: right carotid stenosis Dx: Stenosis of right carotid artery [I65.21 (ICD-10-CM)]. MEASUREMENTS: Right Value Units Left Value Units RT Prox CCA PSV 51 cm/sec LT Prox CCA PSV 85 cm/sec RT Prox CCA EDV 9 cm/sec LT Prox CCA EDV 11 cm/sec RT Distal CCA PSV 46 cm/sec LT Distal CCA PSV 71 cm/sec RT Distal CCA EDV 10 cm/sec LT Distal CCA EDV 12 cm/sec RT Prox ICA PSV 30 cm/sec LT Prox ICA PSV 108 cm/sec RT Prox ICA EDV 8 cm/sec LT Prox ICA EDV 21 cm/sec RT Mid ICA PSV 260 cm/sec LT Mid ICA PSV 114 cm/sec RT Mid ICA EDV 31 cm/sec LT Mid ICA EDV 27 cm/sec RT Distal ICA PSV 101 cm/sec LT Distal ICA PSV 104 cm/sec RT Distal ICA EDV 20 cm/sec LT Distal ICA EDV 23 cm/sec RT ECA Prx PSV 85 cm/sec LT ECA Prx PSV 87 cm/sec RT ICA/CCA 5.65 ratio LT ICA/CCA 1.61 ratio RT VERT PSV 39 cm/sec LT VERT PSV 47 cm/sec FINDINGS: Performing Senior Market Research Analyst: Vandana Cottrell RVT, RDMS. Rt Common Carotid Artery: The plaque in the right CCA appears to be heterogeneous, calcified and irregular. Atherosclerotic changes of the right common carotid artery with no hemodynamically significant Doppler findings. Rt Internal Carotid Artery: The plaque in the right internal carotid artery appears to be heterogeneous, calcified and irregular. Significant atherosclerotic changes of the right internal carotid artery with elevated peak systolic velocity and end diastolic velocity, as above. >70% stenosis by PSV. This may be due to turn in vessel in combination with plaque. Stenosis is <50% by EDV. VR may be overestimated due to low CCA velocities. Rt External Carotid Artery: Patent right external carotid artery with evidence of atherosclerotic disease present. Rt Vertebral Artery: The right vertebral artery is patent with antegrade flow. Lt Common Carotid Artery: The plaque in the left CCA appears to be heterogeneous, calcified and irregular. Atherosclerotic changes of the left common carotid artery with no hemodynamically significant Doppler findings. Lt Internal Carotid Artery: The plaque in the left internal carotid artery appears to be heterogeneous, calcified and irregular. Atherosclerotic changes of the left internal carotid artery without hemodynamically significant Doppler findings. <50% stenosis. Lt External Carotid Artery: Patent left external carotid artery with evidence of atherosclerotic disease present. Lt Vertebral Artery: The left vertebral artery is patent with antegrade flow. Comments: Unable to visualize a 1.84 cm segment of the left proximal ECA due to calcific shadowing. Unable to visualize a 0.77 cm and 0.6 cm segment of the left proximal ICA due to calcific shadowing. CONCLUSIONS: 1. The right internal carotid artery disease is consistent with a more than 70% stenosis by PSV. This may be due to turn in vessel in combination with plaque. Stenosis is <50% by EDV. VR may be overestimated due to low CCA velocities. 2. The left internal carotid artery disease is consistent with a less than 50% stenosis. Unable to visualize a 0.77 cm and 0.6 cm segment of the left proximal ICA due to calcific shadowing. 3. No evidence of hemodynamically significant stenosis in the common carotid artery bilaterally. 4. Normal, antegrade flow is noted in bilateral vertebral arteries. 5. Patent bilateral external carotid arteries with evidence of atherosclerotic plaque. HISTORY: CAD, AAA, HTN, hypercholesterolemia, claudication, PAD, hx LT popliteal aneurysm, hx tobacco use. PREVIOUS STUDIES: Previous carotid ultrasound on 09-10-24 US revealed BRYON >70% stenosis, LICA 50- 69% stenosis, ante verts 09-27-24 CTA revealed BRYON 48% stenosis, LICA 53% stenosis, plaque in verts. DISCLAIMER: The study images and the final [...] Electronically Signed By: Joseluis Juárez MD FACS 03/20/2025 3:21:03 PM CDT Procedure Note Joseluis Juárez MD - 03/20/2025 [facility] - Department of Vascular Surgery,Vascular Laboratory [address] [place] [address] Carotid Duplex Ultrasound Report Patient Name: NEO CHÁVEZ : 1950 (74y 11m) Study Date: 03/19/2025 1:01:32 PM Gender: M Tech: Location: [facility] Provider: JOSELUIS JUÁREZ Quality: Adequate Order Provider: JOSELUIS JUÁREZ PROCEDURES: Carotid Report: Carotid duplex examination of the extracranial arterieswas performed using 2D, color and spectral Doppler. INDICATIONS: right carotid stenosis Dx: Stenosis of right carotid artery [I65.21 (ICD-10-CM)]. MEASUREMENTS: Right Value Units Left Value Units RT Prox CCA PSV 51 cm/sec LT Prox CCA PSV 85 cm/sec RT Prox CCA EDV 9 cm/sec LT Prox CCA EDV 11 cm/sec RT Distal CCA PSV 46 cm/sec LT Distal CCA PSV 71 cm/sec RT Distal CCA EDV 10 cm/sec LT Distal CCA EDV 12 cm/sec RT Prox ICA PSV 30 cm/sec LT Prox ICA PSV 108 cm/sec RT Prox ICA EDV 8 cm/sec LT Prox ICA EDV 21 cm/sec RT Mid ICA PSV 260 cm/sec LT Mid ICA PSV 114 cm/sec RT Mid ICA EDV 31 cm/sec LT Mid ICA EDV 27 cm/sec RT Distal ICA PSV 101 cm/sec LT Distal ICA PSV 104 cm/sec RT Distal ICA EDV 20 cm/sec LT Distal ICA EDV 23 cm/sec RT ECA Prx PSV 85 cm/sec LT ECA Prx PSV 87 cm/sec RT ICA/CCA 5.65 ratio LT ICA/CCA 1.61 ratio RT VERT PSV 39 cm/sec LT VERT PSV 47 cm/sec FINDINGS: Performing Senior Market Research Analyst: Vandana Cottrell RVT, RDMS. Rt Common Carotid Artery: The plaque in the right CCA appears to beheterogeneous, calcified and irregular. Atherosclerotic changes of the right commoncarotid artery with no hemodynamically significant Doppler findings. Rt Internal Carotid Artery: The plaque in the right internal carotidartery appears to be heterogeneous, calcified and irregular. Significant atheroscleroticchanges of the right internal carotid artery with elevated peak systolic velocity and enddiastolic velocity, as above. >70% stenosis by PSV. This may be due to turn in vessel incombination with plaque. Stenosis is <50% by EDV. VR may be overestimated due to low CCAvelocities. Rt External Carotid Artery: Patent right external carotid artery withevidence of atherosclerotic disease present. Rt Vertebral Artery: The right vertebral artery is patent with antegradeflow. Lt Common Carotid Artery: The plaque in the left CCA appears to beheterogeneous, calcified and irregular. Atherosclerotic changes of the left commoncarotid artery with no hemodynamically significant Doppler findings. Lt Internal Carotid Artery: The plaque in the left internal carotid arteryappears to be heterogeneous, calcified and irregular. Atherosclerotic changes of theleft internal carotid artery without hemodynamically significant Doppler findings. <50%stenosis. Lt External Carotid Artery: Patent left external carotid artery withevidence of atherosclerotic disease present. Lt Vertebral Artery: The left vertebral artery is patent with antegradeflow. Comments: Unable to visualize a 1.84 cm segment of the left proximal ECAdue to calcific shadowing. Unable to visualize a 0.77 cm and 0.6 cm segment of the left proximal ICAdue to calcific shadowing. CONCLUSIONS: 1. The right internal carotid artery disease is consistent with a morethan 70% stenosis by PSV. This may be due to turn in vessel in combination with plaque.Stenosis is <50% by EDV. VR may be overestimated due to low CCA velocities. 2. The left internal carotid artery disease is consistent with a less than50% stenosis. Unable to visualize a 0.77 cm and 0.6 cm segment of the left proximal ICAdue to calcific shadowing. 3. No evidence of hemodynamically significant stenosis in the commoncarotid artery bilaterally. 4. Normal, antegrade flow is noted in bilateral vertebral arteries. 5. Patent bilateral external carotid arteries with evidence ofatherosclerotic plaque. HISTORY: CAD, AAA, HTN, hypercholesterolemia, claudication, PAD, hx LT poplitealaneurysm, hx tobacco use. PREVIOUS STUDIES: Previous carotid ultrasound on 09-10-24 US revealed BRYON >70% stenosis,LICA 50- 69% stenosis, ante verts 09-27-24 CTA revealed BRYON 48% stenosis, LICA 53% stenosis, plaque inverts. DISCLAIMER: The study images and the final [...] Electronically Signed By: Joseluis Juárez MD FACS 03/20/2025 3:21:03 PM CDT us Joseluis Juárez MD IM US PROCEDURES Final Result * CTA Abdomen Pelvis (09/09/2024 9:43 AM SALES MERCHANDISER) Anatomical Region Laterality Modality Body N/A Computed Tomogra phy 09/09/2024 12:0 0 PM SALES MERCHANDISER Impressions 09/09/2024 6:18 PM SALES MERCHANDISER 1. Infrarenal abdominal aortic aneurysm measuring 3.2 [...] Dennise Siddiqui M.D. Narrative 09/09/2024 6:18 PM SALES MERCHANDISER EXAMINATION: CTA ABDOMEN PELVIS, CT CHEST WO [...] it. Electronically signed by: Dennise Siddiqui M.D. Anoop Sanders MD IMG CT PROCEDURES Final Re sult from Last 3 Months or Most Recently Relevant to Health Maintenance Insurance MEDICARE [facility] Address: [address] [address] [place] [address] [facility] [address] [place] [id number] MEDICARE BLUE CROSS MEDICARE SUPPLEMENT [address] [place] [id number] MEDICARE [facility] MEDICARE SUPPLEMENT Advance Directives For more information, please contact: [phone] Documents on File Type Date Recorded Patient Switch Engineer Expl anation ADVANCE DIRECTIVE 11/07/2019 9:49 AM [...] 8:54 PM 11/21/2018 3:45 PM Care Teams Maintenance Planner Relationship Specialty Start Date End Date Christiano Almaguer MD [address] [place] [address] PCP - General Internal Medicine 11/29/20 Anoop Sanders MD Consulting Physician Cardiology 03/09/18 Joseluis Juárez MD Surgeon Vascular Surgery 11/08/19 Anoop Barbosa MD [address] [place] [address] Consulting Physician Cardiothoracic Surgery 09/24/24 Bernabe Garcia MD [address] [place] [address] Referring Physician Pulmonary Disease 09/24/24
--- OUTSIDE RECORDS SUMMARY | 2025-04-10 12:28 | XMS_ITS | Encounter Summary ---
Author Organization [facility] Address [address] [facility] [address] [place] [address] Care Team Providers Care Logistics Technician Name Role Phone Christiano Almaguer MD Primary Care Provider [phone] Christiano Almaguer MD Primary Care Provider [phone] Christiano Almaguer MD Primary Care Provider [phone] Marcel Carrillo DO Primary Care Provider [phone] Anoop Sanders MD Unavailable [phone] Joseluis Juárez MD Unavailable [phone] Christiano Almaguer MD Primary Care Provider [phone] Anoop Barbosa MD Unavailable [phone] Bernabe Garcia MD Unavailable [phone] Encounter Details Date Type Department Care Team (Latest Contact Info) Description 01/05/2017 Orders Only [facility] [place] Provider, MD Antonio [address] [place] [address] Social History Tobacco Use Types Packs/Day Years Used Date Smoking Tobacco: Every Day Comments:Smoking History Pac ks/day: 1 Packs Alcohol Use Standard Drinks/Week Comments Yes 0 (1 standard drink = 0.6 oz pur e alcohol) Sex and Gender Information Value Date Recorded Sex Assigned at Not on file 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 Gender Identity Male 05/20/2020 7:24 AM CDT [...] documented as of this encounter Care Teams Logistics Technician Relationship Specialty Start Date End Date Christiano Almaguer MD [address] [facility] [address] [place] [address] PCP - General 01/27/17 02/05/18 Christiano Almaguer MD [address] [facility] [address] [facility] [address] [place] [address] PCP - General 01/10/17 01/26/17 Christiano Almaguer MD [address] [place] [address] PCP - General 02/19/14 01/09/17 Marcel Carrillo DO [address] [facility] [address] [place] [address] PCP - General Internal Medicine 02/06/18 02/06/18 Christiano Almaguer MD [address] [place] [address] PCP - General Internal Medicine 11/29/20 Anoop Sanders MD [address] [place] [address] Consulting Physician Cardiology 03/09/18 Joseluis Juárez MD [address] [facility] [address] [place] [address] Surgeon Vascular Surgery 11/08/19 Anoop Barbosa MD [address] [place] [address] Consulting Physician Cardiothoracic Surgery 09/24/24 Bernabe Garcia MD [address] [place] [address] Referring Physician Pulmonary Disease 09/24/24 documented as of this encounter
--- OUTSIDE RECORDS SUMMARY | 2025-04-10 12:28 | XMS_ITS ---
Author Organization [facility] Address [address] [place] [address] Care Team Providers Care Inside Technical Sales Representative Name Role Phone Anoop Sandres MD Unavailable Joseluis Juárez MD Unavailable [phone] Christiano Almaguer MD Primary Care Provider [phone] Anoop Barbosa MD Unavailable Bernabe Garcia MD Unavailable [phone] Active Problems Problem Noted Date Diagnosed Date [...] 09/22 Assessment & Plan (11/09/2023 9:51 AM URBAN FORESTER): PET scan is reassuring Recs: 1) CT [...] appointment when the time comes. 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 Arrange new baseline CORTEZ with Duplex scan of left leg in one month. Asymptomatic stenosis of right carotid artery Assessment & Plan (07/27/2022 11:35 AM CDT): Asymptomatic right ICA stenosis. Repeat six month carotid doppler for observation. Assessment & Plan (12/08/2021 1:00 PM URBAN FORESTER): Stable right ICA stenosis. Continue to monitor with repeat carotid Doppler in six months. He'll be due for follow-up lower extremity arterial Doppler/Duplex and an abdominal aortic Duplex in six months as well. We'll coordinate his vascular studies. Assessment & Plan (09/13/2021 12:18 PM URBAN FORESTER): Asymptomatic progressive right ICA stenosis that is [...] sooner. Assessment & Plan (12/04/2019 10:16 AM URBAN FORESTER): elevated velocities within right ICA on prior [...] now Assessment & Plan (11/09/2023 9:51 AM URBAN FORESTER): As above. He wants to think about and let me know if he would like pharmacologic assistance Assessment & Plan (07/25/2023 1:31 PM CDT): As above. He wants to think about and let me know if he would like pharmacologic assistance Assessment & Plan (12/19/2018 6:33 PM URBAN FORESTER): Discussed with patient lung cancer screening once per year Smoking cessation using nicotine gum will be initiated Quantitate with PFTs his current impairment Centrilobular emphysema 12/19/2018 Overview (12/19/2018): CT confirmed 02/09/2018 Assessment & Plan (11/09/2023 9:51 AM URBAN FORESTER): Sx are stable PFTs reveal moderate obstructive [...] maintenance/vaccinations Assessment & Plan (12/19/2018 6:31 PM URBAN FORESTER): Currently exercise limitations due more to arthritis [...] year. Assessment & Plan (12/04/2019 10:17 AM URBAN FORESTER): Small AAA. Monitor with annual Duplex scans. Essential (primary) hypertension 01/05/2017 Overview (03/24/2017): Essential hypertension Assessment & Plan (11/20/2018 4:02 AM URBAN FORESTER): Continue home metoprolol, hydrochlorothiazide, Cozaar. 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 Past Treatment and Therapy Plans No past plan information found. Lifetime Dose Tracking * Chemical Lifetime Dose Automatic Entry Manual Entr y Fluoro Time 6.2 minutes 6.2 minutes 0 minutes Air kerma at the reference point (Ka,r) 366 mGy 3 66 mGy 0 mGy Resolved Problems Problem Noted Date Diagnosed Date Resolved Date Unstable angina 11/20/2018 12/19/2018 Assessment & Plan (11/20/2018 4:02 AM URBAN FORESTER): Has been having increasing chest pain over [...] evaluation. He has been made NPO. His herbarium curator Dr. Rader has been consulted. We will continue aspirin, Plavix, losartan, metoprolol. We will also continue full-dose anticoagulation for now. We will trend troponins. Postnasal drip 04/06/2016 10/17/2019 Overview (02/02/2017): Post-nasal drip
--- OUTSIDE RECORDS SUMMARY | 2025-04-10 12:28 | XMS_ITS | Referral Summary ---
Author Organization [facility] Address [address] [place] [address] Care Team Providers Care Control And Recovery Combat Rescue Name Role Phone Anoop Sanders MD Unavailable Joseluis Juárez MD Unavailable [phone] Christiano Almaguer MD Primary Care Provider [phone] Anoop Barbosa MD Unavailable Bernabe Garcia MD Unavailable Encounters Date Type Department Care Team Description 04/08/2025 Telephone [facility] [address] [facility] [address] [place] [address] Bernabe Garcia MD 03/27/2025 Documentation [facility] [address] [facility] [address] [place] [address] Rachel Cast PA Test Results 03/19/2025 1:38 PM CDT - 03/19/2025 11:59 PM CDT Hospital Encounter [facility] - Imaging [address] [place] [address] Bernabe Garcia MD Malignant neoplasm of lower lobe of right lung (HCC) Discharge Disposition: Discharge to home or self care 03/19/2025 1:00 PM CDT Ancillary Procedure [facility] [address] [facility] [address] [place] [address] Stenosis of right carotid artery from Last 3 Months Allergies No known [...] 09/22 Assessment & Plan (11/09/2023 9:51 AM FRAUD MANAGER): PET scan is reassuring Recs: 1) CT [...] appointment when the time comes. Atherosclerosis of [place] ar nasir of left lower extremity with intermittent claudication 10/11/2019 Overview (10/11/2019): Added automatically from request for surgery [id number] Assessment & Plan (12/04/2019 10:16 AM FRAUD MANAGER): S/p left SFA stent with resolution of left calf claudication. Arrange new baseline CORTEZ with Duplex scan of left leg in one month. Asymptomatic stenosis of right carotid artery Assessment & Plan (07/27/2022 11:35 AM CDT): Asymptomatic right ICA stenosis. Repeat six month carotid doppler for observation. Assessment & Plan (12/08/2021 1:00 PM FRAUD MANAGER): Stable right ICA stenosis. Continue to monitor with repeat carotid Doppler in six months. He'll be due for follow-up lower extremity arterial Doppler/Duplex and an abdominal aortic Duplex in six months as well. We'll coordinate his vascular studies. Assessment & Plan (09/13/2021 12:18 PM FRAUD MANAGER): Asymptomatic progressive right ICA stenosis that is [...] sooner. Assessment & Plan (12/04/2019 10:16 AM FRAUD MANAGER): elevated velocities within right ICA on prior [...] now Assessment & Plan (11/09/2023 9:51 AM FRAUD MANAGER): As above. He wants to think about and let me know if he would like pharmacologic assistance Assessment & Plan (07/25/2023 1:31 PM CDT): As above. He wants to think about and let me know if he would like pharmacologic assistance Assessment & Plan (12/19/2018 6:33 PM FRAUD MANAGER): Discussed with patient lung cancer screening once per year Smoking cessation using nicotine gum will be initiated Quantitate with PFTs his current impairment Centrilobular emphysema 12/19/2018 Overview (12/19/2018): CT confirmed 02/09/2018 Assessment & Plan (11/09/2023 9:51 AM FRAUD MANAGER): Sx are stable PFTs reveal moderate obstructive [...] maintenance/vaccinations Assessment & Plan (12/19/2018 6:31 PM FRAUD MANAGER): Currently exercise limitations due more to arthritis [...] year. Assessment & Plan (12/04/2019 10:17 AM FRAUD MANAGER): Small AAA. Monitor with annual Duplex scans. Essential (primary) hypertension 01/05/2017 Overview (03/24/2017): Essential hypertension Assessment & Plan (11/20/2018 4:02 AM FRAUD MANAGER): Continue home metoprolol, hydrochlorothiazide, Cozaar. Hypercholesterolemia 01/05/2017 Overview (03/24/2017): Hypercholesterolemia Assessment & Plan (11/20/2018 4:02 AM FRAUD MANAGER): Continue home statin Aftercare following surgery of the respiratory s ystem 02/04/2016 Overview (02/02/2017): Post surgical visit Coronary artery disease of n ative artery of penobscot heart with stable angina pectoris 01/18/2016 Overview (12/19/2018): 3 vessel CAD CABG x3 December 2015 Two stents October 2018 Assessment & Plan (12/19/2018 6:32 PM FRAUD MANAGER): 3 vessel CAD CABG x3 December 2015 Two stents October 2018 S/P drug eluting coronary stent placement Resolved Problems Problem Noted Date Diagnosed Date Resolved Date Unstable angina 11/20/2018 12/19/2018 Assessment & Plan (11/20/2018 4:02 AM FRAUD MANAGER): Has been having increasing chest pain over [...] evaluation. He has been made NPO. His industrial engineering technician Dr. Rader has been consulted. We will continue aspirin, Plavix, losartan, metoprolol. We will also continue full-dose anticoagulation for now. We will trend troponins. Postnasal drip 04/06/2016 10/17/2019 Overview (02/02/2017): Post-nasal drip Immunizations Immunization Administration Dates Next Due Hep [...] = 0.6 oz pur e alcohol) social [facility] Utilities Answer Date Recorded In the past [...] often do you attend chur ch or shinto services? Never 11/07/2024 Do you belong to any clubs o r organizations such as spiritism groups, unions, fraternal or athletic groups, or [...] any time in the past 12 [facility], were you homeless or living in a penitentiary (including now)? No 11/07/2024 Personal Safety Answer Date Recorded Have you ever been in or are you currently in a harmful physical or emotional relationship or is someone making you feel afraid or unsafe? Denies 11/06/2024 Sex and Gender Information Value Date Recorded Sex Assigned at Not on file Legal Sex Male 3:47 PM FRAUD MANAGER Gender Identity Male 05/20/2020 7:24 AM CDT Sexual Orientation Not on file Last Filed Vital Signs Vital Sign Reading Time Taken Comments Blood Pressure 118/58 11/19/2024 8:52 AM FRAUD MANAGER Pulse 66 11/19/2024 8:52 AM FRAUD MANAGER Regul ar Temperature 36.7 C (98 F) 11/10/2024 7:50 AM FRAUD MANAGER Respiratory Rate 14 11/19/2024 8:52 AM FRAUD MANAGER Oxygen Saturation 94% 11/10/2024 7:50 AM FRAUD MANAGER Inhaled Oxygen Concentration - - Weight 85.3 kg (188 lb) 11/19/2024 8:52 AM FRAUD MANAGER Height 177.8 cm (5' 10) 11/06/2024 2:55 PM FRAUD MANAGER Body Mass Index 26.98 11/06/2024 2:55 PM FRAUD MANAGER Plan of Treatment Not on file Medical Devices Implanted Type Area Brick Pitcher Device Identifier Shelf Expiration Date Model / Serial / Lot OwnerListens [id number] Device Closure Angio-Seal Vip Bondek-Plus Polyglyd L70 Cm Od6 Fr Odsec.035 In Vascular - Sn/A - [id number] Implanted:Qty : 1 on 11/07/2019 by Joseluis Juárez MD at [facility] Other - see comments Right: Groin OwnerListens/[employer] 05/29/2020 [id number] / N/A / [id number] Bard Peripheral Vascular [id number] Lifestent 6mm 6fr 40mm 130cm Self Expand Catheter Helical - Sn/A - [id number] Implanted:Qty : 1 on 11/07/2019 by Joseluis Juárez MD at [facility] Stent Left: Arterial [employer] [id number] 02/22/2021 [id number] / N/A / [id number] Description:Left popliteal a rtery [employer] E[employer]rain [id number] Synergy 4mm 38mm 144cm Radiopaque 1 Access Port Inflation Lumen - [id number] Implanted:Qty : 1 on 11/20/2018 by Ike Coleman MD at [facility] N/A: Coronary [employer] 07/09/2020 [id number] / / [id number] Description:Circumflex [employer] [id number] Synergy 3.5mm 16mm 144cm Radiopaque 1 Access Port Inflation Lumen - [id number] Implanted:Qty : 1 on 11/20/2018 by Ike Coleman MD at [facility] N/A: Coronary [employer] 06/19/2020 [id number] / / [id number] Description:Circumflex Procedures Procedure Name Priority Date/Time Associated Diagnosis Comments CT CHEST WO CONTRAST Schedule Routine, Read Routine (OP Routine) 03/19/2025 1:55 PM CDT Malignant neoplasm of lower lobe of right lung (HCC) US CAROTIDS DUPLEX BILATERAL Schedule Routine, Read Routine (OP Routine) 03/19/2025 1:23 PM CDT Stenosis of right carotid artery CTA ABDOMEN PELVIS W WO CONTRAST Routine 09/09/2024 9:43 AM FRAUD MANAGER Abdominal aortic aneurysm (AAA) without rupture, unspecified [...] new suspicious pulmonary nodule Electronically signed by: Codi Potter 03/19/2025 2:11 PM CDT EXAM: CT chest [...] PM CDT Narrative 03/20/2025 4:36 PM CDT [facility] - Department of Vascular Surgery, Vascular Laboratory [address] [place] [address] Carotid Duplex Ultrasound Report Patient Name: NEO CHÁVEZ : 1950 (74y 11m) Study Date: 03/19/2025 1:01:32 PM Gender: M Tech: Location: [facility] Provider: JOSELUIS JUÁREZ Quality: Adequate Order Provider: [...] LT VERT PSV 47 cm/sec FINDINGS: Performing Skip Tracer: Vandana Cottrell RVT, RDMS. Rt Common Carotid [...] Procedure Note Joseluis Juárez MD - 03/20/2025 [facility] - Department of Vascular Surgery,Vascular Laboratory [address] [place] [address] Carotid Duplex Ultrasound Report Patient Name: NEO CHÁVEZ : 1950 (74y 11m) Study Date: 03/19/2025 1:01:32 PM Gender: M Tech: Location: [facility] Provider: JOSELUIS JUÁREZ Quality: Adequate Order Provider: [...] LT VERT PSV 47 cm/sec FINDINGS: Performing Skip Tracer: Vandana Cottrell RVT, KEITH. Rt Common Carotid Artery: The plaque in [...] By: Joseluis Juárez MD [facility] 03/20/2025 3:21:03 PM CDT us Joseluis Juárez MD [facility] [place]EDURES Final Result * CTA Abdomen Pelvis (09/09/2024 9:43 AM FRAUD MANAGER) Anatomical Region Laterality Modality Body N/A Computed Tomogra phy 09/09/2024 12:0 0 PM FRAUD MANAGER Impressions 09/09/2024 6:18 PM FRAUD MANAGER 1. Infrarenal abdominal aortic aneurysm measuring 3.2 [...] Dennise Siddiqui M.D. Narrative 09/09/2024 6:18 PM FRAUD MANAGER EXAMINATION: CTA ABDOMEN PELVIS, CT CHEST WO [...] Recently Relevant to Health Maintenance Insurance MEDICARE [facility] [address] [place] [id number] MEDICARE BLUE CROSS MEDICARE SUPPLEMENT [address] [place] [id number] MEDICARE [facility] MEDICARE SUPPLEMENT Advance Directives For more information, please contact: [phone] Documents on File Type Date Recorded Patient Passenger Car Conductor Expl anation ADVANCE DIRECTIVE 11/07/2019 9:49 AM [...] 8:54 PM 11/21/2018 3:45 PM Care Teams Control And Recovery Combat Rescue Relationship Specialty Start Date End Date Christiano Almaguer MD [address] [facility] [address] [place] [address] PCP - General Internal Medicine 11/29/20 Anoop Sanders MD Consulting Physician Cardiology 03/09/18 Joseluis Juárez MD Surgeon Vascular Surgery 11/08/19 Anoop Barbosa MD [address] [place] [address] Consulting Physician Cardiothoracic Surgery 09/24/24 Bernabe Garcia MD [address] [place] [address] Referring Physician Pulmonary Disease 09/24/24
--- OUTSIDE RECORDS SUMMARY | 2025-04-10 12:28 | XMS_ITS | Encounter Summary ---
Author Organization [facility] Address [address] [place] [address] Care Team Providers Care Metalizer Field Operation Name Role Phone Anoop Sanedrs MD Unavailable Joseluis Juárez MD Unavailable [phone] Christiano Almaguer MD Primary Care Provider [phone] Anoop Barbosa MD Unavailable [phone] Bernabe Garcia MD Unavailable Encounter Details Date Type Department Care Team (Late st Contact Info) Description 06/14/2021 Telephone [facility] [address] [place] [address] Transcribed Order, Provider Social History [...] on file Legal Sex Male 3:47 PM SUGAR REFINER Gender Identity Male 05/20/2020 7:24 AM CDT [...] documented as of this encounter Care Teams Metalizer Field Operation Relationship Specialty Start Date End Date Christiano Almaguer MD [address] [place] [id number] PCP - General Internal Medicine 11/29/20 Anoop Sanders MD Consulting Physician Cardiology 03/09/18 Joseluis Juárez MD Surgeon Vascular Surgery 11/08/19 Anoop Barbosa MD [address] [place], [place] [id number] Consulting Physician Cardiothoracic Surgery 09/24/24 Bernabe Garcia MD [address] [place] [address] Referring Physician Pulmonary Disease 09/24/24 documented as of this encounter
--- OUTSIDE RECORDS SUMMARY | 2025-04-10 12:28 | XMS_ITS | Encounter Summary ---
Author Organization [facility] Address [address] [place] [address] Care Team Providers Care Educational Consultant Name Role Phone Anoop Sanders MD Unavailable Joseluis Juárez MD Unavailable Christiano Almaguer MD Primary Care Provider Anoop Barbosa MD Unavailable [phone] Bernabe Garcia MD Unavailable [phone] Encounter Details Date Type Department Care Team (Late st Contact Info) Description 04/08/2025 Telephone [facility] [address] [facility] [address] [place] [address] Bernabe Garcia MD [address] [facility] [address] [place] [address] Social History Tobacco Use Types Packs/Day Years Used Date Smoking Tobacco: Former Cigarettes Q uit: 2023 Smokeless Tobacco: Never Comments:less than 1 ppd now Alcohol Use Standard Drinks/Week Comments Yes 0 (1 standard drink = 0.6 oz pur e alcohol) social [facility] Utilities Answer Date Recorded In [...] often do you attend chur ch or presybeterian services? Never 11/07/2024 Do you belong to any clubs o r organizations such as shinto groups, unions, fraternal or athletic groups, or [...] any time in the past 12 m [facility], were you homeless or living in a halfway (including now)? No 11/07/2024 Personal Safety Answer Date Recorded Have you ever been in or are you currently in a harmful physical or emotional relationship or is someone making you feel afraid or unsafe? 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 Gender Identity Male 05/20/2020 7:24 AM CDT Sexual Orientation Not on file documented as of this encounter Miscellaneous Notes * Telephone Encounter - Amina Chan - 04/08/2025 3:[address] scan results documented in this encounter Plan of Treatment Not on file documented as of this encounter Visit Diagnoses Not on filedocumented in this encounter Care Teams Educational Consultant Relationship Specialty Start Date End Date Christiano Almaguer MD [address] [facility] [address] [place] [address] PCP - General Internal Medicine 11/29/20 Anoop Sanders MD Consulting Physician Cardiology 03/09/18 Joseluis Juárez MD Surgeon Vascular Surgery 11/08/19 Anoop Barbosa MD [address] [place] [address] Consulting Physician Cardiothoracic Surgery 09/24/24 Bernabe Garcia MD [address] [place] [address] Referring Physician Pulmonary Disease 09/24/24 documented as of this encounter
--- OUTSIDE RECORDS SUMMARY | 2025-04-10 12:28 | XMS_ITS | Encounter Summary ---
Author Organization [facility] Address [address] [facility] [place] [address] Phone Care Team Providers Care Lean Leader Name Role Phone Unavailable Primary Care Provider Unavailabl e Reason for Visit * Reason Comments Medication Refill Encounter Details Date Type Department Care Team (Late st Contact Info) Description 04/02/2024 Refill [facility] - Family Medicine - [place] [address] [place] [id number] Anoop Sanders MD [address] [address] Medication Refill Social History Tobacco Use Types [...]
--- OUTSIDE RECORDS SUMMARY | 2025-04-10 12:28 | XMS_ITS | Clinical Summary ---
Author Organization [facility] Care Team Providers Care Occupational Health Specialist Name Role Phone Unavailable Primary Care Provider [...]
[2025-04-10 12:37] LABS: Free T4 Free Thyroxine 1.08 ng/dL (0.78-2.19)
[2025-04-10 12:50] LABS: Hemoglobin A1C 5.5 % (<5.7)
[2025-04-10 13:25] LABS: Folic Acid > 20.0 ng/mL (2.76->20)
== END 2025-04-10 11:27 | disposition home or self-care (01) ==
LOC: ANHLAB 11:27
PROVIDERS: PCP Internal Medicine; Visit Provider Internal Medicine
DX: E53.8 Deficiency of other specified B group vitamins (principal); E55.9 Vitamin D deficiency, unspecified; E78.2 Mixed hyperlipidemia; Z79.899 Other long term (current) drug therapy; Z13.1 Encounter for screening for diabetes mellitus; I10 Essential (primary) hypertension; Z13.29 Encounter for screening for other suspected endocrine disorder
CPT/HCPCS: 36415; 80061; 82306; 82607; 82746; 83036; 84439; 85025

== ENCOUNTER 2025-06-26 16:10 | Outpatient (RCR) | payer MEDICARE, SELFPAY ==
--- OUTSIDE RECORDS SUMMARY | 2024-10-12 16:30 | XMS_ITS ---
Author Organization [facility] Address [address] [facility] [address] [place], [place] [id number] Care Team Providers Care Central Office Equipment Engineer Name Role Phone Camron Bowman Primary Care Provider UnavailJacob Jaime Unavailable [phone] Migration, Provider Unavailable Unavailable REASON FOR VISIT [facility] To [facility] Conversion Encounter Medications Medication SIG (Take, Route, Frequency, Duration) Notes Start Date End Date Status Atorvastatin Calcium 20 MG 1 tab(s) oral ly once a day; Duration: 30 day(s) Active Plavix 75 MG 1 tab(s) orally once a day; Duration: 30 day(s) Active Losartan Potassium 50 MG 1 tab(s) orally once a day; Duration: 30 day(s) Active Aspirin 81 MG 1 tab(s) orally once a day; Duration: 30 day(s) Active Metoprolol Succinate ER 100 MG 1 tab(s) orally once a day; Duration: 30 day(s) Active Encounters Encounter Location Date Provider Diagnosis [facility] [address] [facility] [address] [place], [place] [id number] 10/12/2024 Provider Migration Plan Of Treatment No Information Progress Notes * Ramirez FERRER DDOB: [birth year] (75 yo M)Acc No.[id number]:10/12/2024 Patient: Abi Ramirez TRINIDAD Provider: Amada dixon Migration :1950 A ge:74 Y S ex:Male Date:10/12/2024 Address:[address], [facility] Pcp:Camron Bowman Subjective: * Chief Complaints: * 1 . [facility] Conversion Encounter. * Medical History: * Medications: T aking Plavix 75 MG Tablet 1 tab(s) orally once a day , Taking Atorvastatin Calcium 20 MG Tablet 1 tab(s) orally once a day , Taking Aspirin 81 MG Tablet Delayed Release 1 tab(s) orally once a day , Taking Losartan Potassium 50 MG Tablet 1 tab(s) orally once a day , Taking Metoprolol Succinate ER 100 MG Tablet Extended Release 24 Hour 1 tab(s) orally once a day Objective: * Vitals: * Physical Examination: Assessment: Plan: * Treatment: * Images: * Electronic signature of Prov ider Migration on 06/26/2025 at 04:28 PM CDT Sign off status: Pending * Provider: Amada dixon Migration Date: 12/13/2023 Generated for Hallie ivey/Delmar/Susan on: 0 06/26/2025 04:28 PM CDT
--- OUTSIDE RECORDS SUMMARY | 2025-06-26 16:28 | XMS_ITS | Clinical Summary ---
Author Organization [facility] Address Unknown Care Team Providers Care Blender Conveyor Operator Name Role Phone Unavailable Primary Care Physician Unavailab le Medications Medication Dose Frequency Directions Start Date End Carlos e metoprolol tartrate 0 Tablet take 1 t ablet by oral route 2 times every day with meals tamsulosin HCl 0 Capsule take 1 capsul e by oral route every day 1/2 hour following the same meal each day losartan 100 mg-hydrochlorothiaz romana 25 mg tablet 0 Tablet take 1 tablet by oral route every day Aspir-81 mg tablet,delayed release 0 Tablet atorvastatin calcium 0 Tablet budesonide 210 capsule Take 3 capsules for 8 weeks then take 2 capsules for 2 weeks then 1 capsule for 2 weeks 06/16/2025 Plavix 0 Tablet folic acid 90 TAKE 1 TABLET B Y MOUTH DAILY losartan potassium 0 Tablet 0 07/08/2020 Suprep Bowel Prep Kit 1 unit dose, as directed for Drink 1 bottle by mouth, split dose, as directed for colonoscopy prep 06/02/2025 06/20/2025 ondansetron 2 tablet 30 min prior to each prep Dissolve 1 tablet by mouth 30 min prior to each prep for nausea and vomiting 06/02/2025 06/20/2025 Problems Problem Status Start Date End Date Collagenous colitis (K52.831 - ICD-10) Active Diarrhea (c) (R19.7 - ICD-10) Active 06/12/2025 Diverticulosis of large inte esequiel without perforation or abs (K57.30 - ICD-10) Active 06/12/2025 Nausea (R11.0 - ICD-10) Active Polyp of colon (K63.5 - ICD-10) Active BPH (N13.8 - ICD-10) COPD - no oxygen use (76783371 - SNOMED) High Cholesterol (E78.0 - ICD-10) Hypertension (I10 - ICD-10) Lung cancer Sep 2024, no valerio mo or radiation (C34.90 - ICD-10) Myocardial infarction - 2016 (05486069 - SNOMED) total of 9 cardiac stents placed prior to [place] Results * SHABANA Alligator Pathology Component Value Range Date 06/11/2025 10:0 0 pm PDT Encounters Encounter Performer Performer Role Encounter Diagnoses Location Date Ambulatory Encounter [id number] Liban Jose [facility] 5 11:54 am PDT Colonoscopy [id number] Liban Jose Diarrhea (c) Polyp of colon Diverticulosis of large intestine without perforation or abs [facility] 5 08:00 am PDT Ambulatory Encounter [id number] Liban Jose [facility] 5 01:42 pm PDT Follow Up [id number] - Ed Dom Collagenous colitis [facility] 5 08:30 am PDT Chief Complaint diarrhea after eating, weight loss Advance Directives Directive Description Verification Rita Lewis , 06/12/2025 Family history Father Diagnosis Age At Onset Colon Cancer Immunizations Vaccine Date COVID-19 Pfizer Vaccine Influenza vaccine Procedures Procedure Date Appendectomy CABG-triple - december 2015 Cholecystectomy Lobectomy - Sep 2024 Pre-procedure questionnaire 06/09/2025 1 0:00 pm PDT Review Of Systems Gastrointestinal: Denies of abdominal pain, change in bowel habits, constipation, diarrhea, bloating/gas, heartburn/reflux, nausea, vomiting, blood in stool, difficulty swallowing, anorectal pain/itching, incontinence of stool, black tarry stools. Genitourinary: Denies of dark urin e, frequent urination, blood in urine. Integumentary: Denies of itching, jaundice, rashes. Cardiovascular: Complains of irre gular heart beat . Denies of chest pain, palpitations, peripheral edema, heart murmur. Neurological: Denies of frequent headaches, numbness or tingling, memory loss/confusion. Endocrine: Denies of excessive thirst, cold intolerance. Constitutional: Complains of fati meenu , loss of appetite , weight loss . Denies of fever, night sweats, weight gain. Psychiatric: Denies of anxiety, depression. ENMT: Denies of sore thro at, double vision, eye irritation, eye pain, eye redness, hoarseness, mouth sores. Hematologic/Lymphatic: Denies of easy b ruising, prolonged bleeding. Musculoskeletal: Denies of back pain , joint pain. Respiratory: Complains of coug h , shortness of breath . Denies of wheezing, snoring, sleep apnea. Allergic/Immunologic: Denies of allergi es. Physical Exam Constitutional: Appearance: Skin: Inspection: Eyes: Conjunctivae/lids: Respiratory: Effort: Auscultation: normal bilateral linnea ath sounds, no rubs, wheezes, rales or rhonchi. Cardiovascular: Auscultation: Peripheral: no edema, no cyanosi s. Gastrointestinal/Abdomen: Abdomen: Psychiatric: Judgment/insight: Memory: within normal limits for recent and remote events. Mood and affect: no evidence of depre ssion, anxiety or agitation. Orientation: to time, place and p erson. Neurologic: Inspection: Other: Chaperoned by: Plan of Care Planned Activity Planned Date High fiber diet Gradual titration of fiber s upplementation discussed (Benefiber, psyllium (Metamucil) or Citrucel - 1-2 heaped tablespoons daily with fluids. Await pathology results. Con tinue current medications. Resume prior diet. Complete Blood Count (CBC) with Diff Erythrocyte Sedimentation Rate (ESR) Liver Function Panel (HFP) Basic Metabolic Panel (BMP) Fecal elastase Pathology Requisition - [facility] C-Reactive Protein (CRP) Follow-up if symptoms persist or worsen Colonoscopy likely in 3 years, pending p athology results 06/11/2028 10:00 pm PDT Social History Observation Value Start Date End Date Marital Status Number of Previous Marriages Number of Gestations 0 Number of Pregnancies 0 Number of Abortions 0 Tobacco Use Former smoker Vital Signs Vital Sign Reading Time Taken Pulse 52 /min 06/26/2025 08:10 am PDT Rhythm 06/26/2025 08:10 am PDT Body Temperature 98.1 [degF] 06/26/2025 08:1 0 am PDT Respirations /min 06/26/2025 08:10 am PDT Oxygen saturation 96 % 06/26/2025 08: 10 am PDT [id number] mmHg 06/26/2025 08:10 am PDT Height 71 in 06/20/2025 01:42 pm PDT Weight 0 lbs 06/20/2025 01:42 pm PDT BMI (Body Mass Index) kg/m2 06/20/2025 01:42 pm PDT BP Systolic 108 mm[hg] 06/26/2025 08:13 am PDT BP Diastolic 60 mm[hg] 06/26/2025 08:13 am PDT Insurances Policy / Member / Group Numbers Plan Details Company Policy Jara [id number] / / Plan Type:MCR Coverage Type:Primary Medicare [place] Ramirez Ferrer [id number] / / [id number] Plan Type:MCRSUP Coverage Type:Secondary [place] BCBS of [facility] Ramirez Ferrer [id number] / / Coverage Type:Tertiary CNV Ramirez Ferrer
--- OUTSIDE RECORDS SUMMARY | 2025-06-26 16:28 | XMS_ITS | Encounter Summary ---
Author Organization [facility] Address [address] [place] [address] Care Team Providers Care Sap Business Analyst Name Role Phone Anoop Sanders MD Unavailable Joseluis Juárez MD Unavailable [phone] Christiano Almaguer MD Primary Care Provider [phone] Anoop Barbosa MD Unavailable [phone] Bernabe Garcia MD Unavailable Encounter Details Date Type Department Care Team (Late st Contact Info) Description 06/29/2021 Telephone [facility] - Imaging [address] [place] [address] Transcribed Order, Provider Social History [...] on file Legal Sex Male 3:47 PM DOUGH MAKER Gender Identity Male 05/20/2020 7:24 AM [...] documented as of this encounter Care Teams Sap Business Analyst Relationship Specialty Start Date End Date Christiano Almaguer MD [address] [place] [id number] PCP - General Internal Medicine 11/29/20 Anoop Sanders MD Consulting Physician Cardiology 03/09/18 Joseluis Juárez MD Surgeon Vascular Surgery 11/08/19 Anoop Barbosa MD [address] [place], [place] [id number] Consulting Physician Cardiothoracic Surgery 09/24/24 Bernabe Garcia MD [address] [place] [address] Referring Physician Pulmonary Disease 09/24/24 documented as of this encounter
--- OUTSIDE RECORDS SUMMARY | 2025-06-26 16:28 | XMS_ITS | Clinical Summary ---
Author Organization [facility] Address [address] [place] [address] Care Team Providers Care Command And Control Officer Name Role Phone Anoop Sanders MD Unavailable [phone] Joseluis Juárez MD Unavailable [phone] Christiano Almaguer MD Primary Care Provider [phone] Anoop Barbosa MD Unavailable [phone] Bernabe Garcia MD Unavailable Allergies No known [...] 09/22 Assessment & Plan (11/09/2023 9:51 AM DREDGE PIPEMAN): PET scan is reassuring Recs: 1) CT [...] appointment when the time comes. 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 Arrange new baseline CORTEZ with Duplex scan of left leg in one month. Asymptomatic stenosis of right carotid artery Assessment & Plan (07/27/2022 11:35 AM CDT): Asymptomatic right ICA stenosis. Repeat six month carotid doppler for observation. Assessment & Plan (12/08/2021 1:00 PM DREDGE PIPEMAN): Stable right ICA stenosis. Continue to monitor with repeat carotid Doppler in six months. He'll be due for follow-up lower extremity arterial Doppler/Duplex and an abdominal aortic Duplex in six months as well. We'll coordinate his vascular studies. Assessment & Plan (09/13/2021 12:18 PM DREDGE PIPEMAN): Asymptomatic progressive right ICA stenosis that is [...] sooner. Assessment & Plan (12/04/2019 10:16 AM DREDGE PIPEMAN): elevated velocities within right ICA on prior [...] now Assessment & Plan (11/09/2023 9:51 AM DREDGE PIPEMAN): As above. He wants to think about and let me know if he would like pharmacologic assistance Assessment & Plan (07/25/2023 1:31 PM CDT): As above. He wants to think about and let me know if he would like pharmacologic assistance Assessment & Plan (12/19/2018 6:33 PM DREDGE PIPEMAN): Discussed with patient lung cancer screening once per year Smoking cessation using nicotine gum will be initiated Quantitate with PFTs his current impairment Centrilobular emphysema 12/19/2018 Overview (12/19/2018): CT confirmed 02/09/2018 Assessment & Plan (11/09/2023 9:51 AM DREDGE PIPEMAN): Sx are stable PFTs reveal moderate obstructive [...] maintenance/vaccinations Assessment & Plan (12/19/2018 6:31 PM DREDGE PIPEMAN): Currently exercise limitations due more to arthritis [...] year. Assessment & Plan (12/04/2019 10:17 AM DREDGE PIPEMAN): Small AAA. Monitor with annual Duplex scans. Essential (primary) hypertension 01/05/2017 Overview (03/24/2017): Essential hypertension Assessment & Plan (11/20/2018 4:02 AM DREDGE PIPEMAN): Continue home metoprolol, hydrochlorothiazide, Cozaar. Hypercholesterolemia 01/05/2017 Overview (03/24/2017): Hypercholesterolemia Assessment & Plan (11/20/2018 4:02 AM DREDGE PIPEMAN): Continue home statin Aftercare following surgery of the respiratory s ystem 02/04/2016 Overview (02/02/2017): Post surgical visit Coronary artery disease of n ative artery of [place] heart with stable angina pectoris 01/18/2016 Overview (12/19/2018): 3 vessel CAD CABG x3 December 2015 Two stents October 2018 Assessment & Plan (12/19/2018 6:32 PM DREDGE PIPEMAN): 3 vessel CAD CABG x3 December 2015 Two stents October 2018 S/P drug eluting coronary stent placement Resolved Problems Problem Noted Date Diagnosed Date Resolved Date Unstable angina 11/20/2018 12/19/2018 Assessment & Plan (11/20/2018 4:02 AM DREDGE PIPEMAN): Has been having increasing chest pain over [...] evaluation. He has been made NPO. His rate clerk Dr. Rader has been consulted. We will continue aspirin, Plavix, losartan, metoprolol. We will also continue full-dose anticoagulation for now. We will trend troponins. Postnasal drip 04/06/2016 10/17/2019 Overview (02/02/2017): Post-nasal drip Encounters Date Type Department Care Team Description 06/02/2025 Telephone [facility] Cardiology [address] [place] [address] Anoop Sanders MD Patient issue/concern 05/28/2025 9:15 AM CDT Office Visit [facility] [address] [place] [address] Bernabe Garcia MD Chronic obstructive pulmonary disease, unspecified COPD type (HCC) (Primary Dx); Adenocarcinoma of right lung (HCC); Tobacco abuse 04/08/2025 [facility] [address] [place] [address] Bernabe Garcia MD 03/27/2025 Documentation [facility] Medicine Surgery [address] [place] [address] Rachel Cast PA Test Results from Last 3 Months Immunizations Immunization Administration [...] Nausea Myocardial infarction (HCC) Emphysema of lung Subdural hematoma (HCC) Peripheral vascular disease Foll [...] = 0.6 oz pur e alcohol) social [employer] Utilities Answer Date Recorded In the past 12 months has [employer], gas, oil, or water [employer] threatened to shut off services in your home? No 11/07/2024 Social Connection and Isolation Panel Answer Date Recorded In a typical week, how many times do you talk on the phone with family, friends, or neighbors? More than three times a week 11/07/2024 How often do you get togethe r with friends or relatives? More than three times a week 11/07/2024 How often do you attend chur ch or oriental orthodox services? Never 11/07/2024 Do you belong to any clubs o r organizations such as hinduism groups, unions, fraternal or athletic groups, or [...] any time in the past 12 m [facility], were you homeless or living in a fci (including now)? No 11/07/2024 Personal Safety Answer Date Recorded Have you ever been in or are you currently in a harmful physical or emotional relationship or is someone making you feel afraid or unsafe? Denies 11/06/2024 Sex and Gender Information Value Date Recorded Sex Assigned at Not on file Legal Sex Male 3:47 PM DREDGE PIPEMAN Gender Identity Male 05/20/2020 7:24 AM CDT Sexual Orientation Not on file Obstetrics History Last Filed Vital Signs Vital Sign Reading Time Taken Comments Blood Pressure 118/58 11/19/2024 8:52 AM DREDGE PIPEMAN Pulse 66 11/19/2024 8:52 AM DREDGE PIPEMAN Regul ar Temperature 36.7 C (98 F) 11/10/2024 7:50 AM DREDGE PIPEMAN Respiratory Rate 14 11/19/2024 8:52 AM DREDGE PIPEMAN Oxygen Saturation 94% 11/10/2024 7:50 AM DREDGE PIPEMAN Inhaled Oxygen Concentration - - Weight 85.3 kg (188 lb) 11/19/2024 8:52 AM DREDGE PIPEMAN Height 177.8 cm (5' 10) 11/06/2024 2:55 PM DREDGE PIPEMAN Body Mass Index 26.98 11/06/2024 2:55 PM DREDGE PIPEMAN Plan of Treatment Health Maintenance Due Date Last Done Comments Hepatitis C Screening 1950 Pneumococcal vaccine 65+ (1 of 2 - PCV) 1968 Well Visit 65+ 2014 Zoster Vaccine (3 of 3) 10/06/2020 08/11/2020, 09/11 Influenza Vaccine (#1) 2025 4, 08/27/2013, 10/09/2012 Depression Screening 09/11/2025 09/11/2024, 03/11/20 24 Fall Risk Assessment 11/10/2025 11/10/2024 DTaP/Tdap/Td Vaccine (3 - Td or Tdap) 12/02/2029 12/02/2019, 01/22/2014 Hepatitis B Screening Completed 01/22/2014, 014 Abdominal Aortic Aneurysm (A AA) Screen Completed 09/20/2024, 09/09/2024, 09/09/2024, Additional history exists Medical Devices Implanted Type Area Paste Worker Device Identifier Shelf Expiration Date Model / Serial / Lot Springpadg Erfain [id number] Device Closure Angio-Seal Vip Bondek-Plus Polyglyd L70 Cm Od6 Fr Odsec.035 In Vascular - Sn/A - [id number] Implanted:Qty : 1 on 11/07/2019 by Joseluis Juárez MD at [facility] Other - see comments Right: Groin Daig Efrain/[employer] 05/29/2020 [id number] / N/A / [id number] Bard Peripheral Vascular [id number] Lifestent 6mm 6fr 40mm 130cm Self Expand Catheter Helical - Sn/A - [id number] Implanted:Qty : 1 on 11/07/2019 by Joseluis Juárez MD at [facility] Stent Left: Arterial [employer] Peripheral V[employer] [id number] 02/22/2021 [id number] / N/A / [id number] Description:Left popliteal a rtery [employer] Efrain [id number] Synergy 4mm 38mm 144cm Radiopaque 1 Access Port Inflation Lumen - [id number] Implanted:Qty : 1 on 11/20/2018 by Ike Coleman MD at [facility] N/A: Coronary [employer] Efrain 07/09/2020 [id number] / / [id number] Description:Circumflex [employer] Efrain [id number] Synergy 3.5mm 16mm 144cm Radiopaque 1 Access Port Inflation Lumen - [id number] Implanted:Qty : 1 on 11/20/2018 by Ike Coleman MD at [facility] N/A: Coronary [employer] Efrain 06/19/2020 [id number] / / [id number] Description:Circumflex Procedures Procedure Name Priority Date/Time Associated Diagnosis Comments CTA ABDOMEN PELVIS W WO CONTRAST Routine 09/09/2024 9:43 AM DREDGE PIPEMAN Abdominal aortic aneurysm (AAA) without rupture, unspecified part from Last 3 Months or Most Recently Relevant to Health Maintenance Results * CTA Abdomen Pelvis (09/09/2024 9:43 AM DREDGE PIPEMAN) Anatomical Region Laterality Modality Body N/A Computed Tomogra phy 09/09/2024 12:0 0 PM DREDGE PIPEMAN Impressions 09/09/2024 6:18 PM DREDGE PIPEMAN 1. Infrarenal abdominal aortic aneurysm measuring 3.2 [...] Dennise Siddiqui M.D. Narrative 09/09/2024 6:18 PM DREDGE PIPEMAN EXAMINATION: CTA ABDOMEN PELVIS, CT CHEST WO [...] Most Recently Relevant to Health Maintenance Insurance [address] [place] [address] MEDICARE [facility] [address] [place] [address] MEDICARE [facility] MEDICARE SUPPLEMENT [address] [place] [id number] MEDICARE [facility] MEDICARE SUPPLEMENT Advance Directives For more information, please contact: [phone] Documents on File Type Date Recorded Patient Reconstructive Surgeon Expl anation ADVANCE DIRECTIVE 11/07/2019 9:49 AM [...] 8:54 PM 11/21/2018 3:45 PM Care Teams Command And Control Officer Relationship Specialty Start Date End Date Christiano Almaguer MD [address] [facility] [address] [facility] [address] [place] [address] PCP - General Internal Medicine 11/29/20 Anoop Sanders MD Consulting Physician Cardiology 03/09/18 Joseluis Juárez MD Surgeon Vascular Surgery 11/08/19 Anoop Barbosa MD [address] [facility] [facility] [facility] [place] [address] Consulting Physician Cardiothoracic Surgery 09/24/24 Bernabe Garcia MD [address] [facility] [address] [place] [address] Referring Physician Pulmonary Disease 09/24/24
--- OUTSIDE RECORDS SUMMARY | 2025-06-26 16:28 | XMS_ITS | Clinical Summary ---
Author Organization [facility] Address Unknown Care Team Providers Care Broomcorn Thresher Name Role Phone Unavailable Primary Care Physician [...] - ICD-10) COPD - no oxygen use (12821697 - SNOMED) High Cholesterol (E78.0 - ICD-10) Hypertension (I10 - ICD-10) Lung cancer Sep 2024, no valerio mo or radiation (C34.90 - ICD-10) Myocardial infarction - 2016 (67043220 - SNOMED) total of 9 cardiac stents placed prior to [place] Results * SHABANA Martin Pathology Component Value Range Date 06/11/2025 10:0 0 pm PDT Encounters Encounter Performer Performer Role Encounter Diagnoses Location Date Ambulatory Encounter [id number] Liban Jose [facility] 5 11:54 am PDT Colonoscopy [id number] Liban Jose Diarrhea (c) Polyp of colon Diverticulosis of large intestine without perforation or abs [facility] 5 08:00 am PDT Ambulatory Encounter [id number] Liban Jose [facility] 5 01:42 pm PDT Follow Up [id number] - Ed Dom Collagenous colitis [facility] 5 08:30 am PDT Chief Complaint [...] Allergic/Immunologic: Denies of allergi es. Physical Exam Plan of Care Planned Activity Planned Date High fiber diet Gradual titration of fiber s upplementation discussed (Benefiber, psyllium (Metamucil) or Citrucel - 1-2 heaped tablespoons daily with fluids. Await pathology results. Con tinue current medications. Resume prior diet. Complete Blood Count (CBC) with Diff Erythrocyte Sedimentation Rate (ESR) Liver Function Panel (HFP) Basic Metabolic Panel (BMP) Fecal elastase Pathology Requisition - [facility] C-Reactive Protein (CRP) Follow-up if symptoms persist [...] 96 % 06/26/2025 08: 10 am PDT [id number] mmHg 06/26/2025 08:10 am PDT Height 71 in 06/20/2025 01:42 pm PDT Weight 0 lbs 06/20/2025 01:42 pm PDT BMI (Body Mass Index) kg/m2 06/20/2025 01:42 pm PDT BP Systolic 108 mm[hg] 06/26/2025 08:13 am PDT BP Diastolic 60 mm[hg] 06/26/2025 08:13 am PDT Insurances Policy / Member / Group Numbers Plan Details Company Policy Jara [id number] / / Plan Type:[facility] Coverage Type:Primary Medicare [place] Ramirez Ferrer [id number] / / [id number] Plan Type:MCRSU Coverage Type:Secondary [place] BCBS of Health system Ramirez Ferrer [id number] / / Coverage Type:Tertiary CNV Ramirez Ferrer
--- OUTSIDE RECORDS SUMMARY | 2025-06-26 16:28 | XMS_ITS ---
Author Organization [facility] Address [address] [place] [address] Care Team Providers Care Bait Digger Name Role Phone Anoop Sanders MD Unavailable [phone] Joseluis Juárez MD Unavailable [phone] Christiano Almaguer MD Primary Care Provider [phone] Anoop Barbosa MD Unavailable Bernabe Garcia MD [...] 09/22 Assessment & Plan (11/09/2023 9:51 AM CRUDE UNIT OPERATOR): PET scan is reassuring Recs: 1) CT [...] appointment when the time comes. Atherosclerosis of [place] ar nasir of left lower extremity with intermittent claudication 10/11/2019 Overview (10/11/2019): Added automatically from request for surgery [id number] Assessment & Plan (12/04/2019 10:16 AM CRUDE UNIT OPERATOR): S/p left SFA stent with resolution of left calf claudication. Arrange new baseline CORTEZ with Duplex scan of left leg in one month. Asymptomatic stenosis of right carotid artery Assessment & Plan (07/27/2022 11:35 AM CDT): Asymptomatic right ICA stenosis. Repeat six month carotid doppler for observation. Assessment & Plan (12/08/2021 1:00 PM CRUDE UNIT OPERATOR): Stable right ICA stenosis. Continue to monitor with repeat carotid Doppler in six months. He'll be due for follow-up lower extremity arterial Doppler/Duplex and an abdominal aortic Duplex in six months as well. We'll coordinate his vascular studies. Assessment & Plan (09/13/2021 12:18 PM CRUDE UNIT OPERATOR): Asymptomatic progressive right ICA stenosis that is [...] sooner. Assessment & Plan (12/04/2019 10:16 AM CRUDE UNIT OPERATOR): elevated velocities within right ICA on prior [...] now Assessment & Plan (11/09/2023 9:51 AM CRUDE UNIT OPERATOR): As above. He wants to think about and let me know if he would like pharmacologic assistance Assessment & Plan (07/25/2023 1:31 PM CDT): As above. He wants to think about and let me know if he would like pharmacologic assistance Assessment & Plan (12/19/2018 6:33 PM CRUDE UNIT OPERATOR): Discussed with patient lung cancer screening once per year Smoking cessation using nicotine gum will be initiated Quantitate with PFTs his current impairment Centrilobular emphysema 12/19/2018 Overview (12/19/2018): CT confirmed 02/09/2018 Assessment & Plan (11/09/2023 9:51 AM CRUDE UNIT OPERATOR): Sx are stable PFTs reveal moderate obstructive [...] maintenance/vaccinations Assessment & Plan (12/19/2018 6:31 PM CRUDE UNIT OPERATOR): Currently exercise limitations due more to arthritis [...] year. Assessment & Plan (12/04/2019 10:17 AM CRUDE UNIT OPERATOR): Small AAA. Monitor with annual Duplex scans. Essential (primary) hypertension 01/05/2017 Overview (03/24/2017): Essential hypertension Assessment & Plan (11/20/2018 4:02 AM CRUDE UNIT OPERATOR): Continue home metoprolol, hydrochlorothiazide, Cozaar. Hypercholesterolemia 01/05/2017 Overview (03/24/2017): Hypercholesterolemia Assessment & Plan (11/20/2018 4:02 AM CRUDE UNIT OPERATOR): Continue home statin Aftercare following surgery of the respiratory s ystem 02/04/2016 Overview (02/02/2017): Post surgical visit Coronary artery disease of n ative artery of [place] heart with stable angina pectoris 01/18/2016 Overview (12/19/2018): 3 vessel CAD CABG x3 December 2015 Two stents October 2018 Assessment & Plan (12/19/2018 6:32 PM CRUDE UNIT OPERATOR): 3 vessel CAD CABG x3 December 2015 [...] 12/19/2018 Assessment & Plan (11/20/2018 4:02 AM CRUDE UNIT OPERATOR): Has been having increasing chest pain over [...] evaluation. He has been made NPO. His watch repairer Dr. Rader has been consulted. We will continue aspirin, Plavix, losartan, metoprolol. We will also continue full-dose anticoagulation for now. We will trend troponins. Postnasal drip 04/06/2016 10/17/2019 Overview (02/02/2017): Post-nasal drip
--- OUTSIDE RECORDS SUMMARY | 2025-06-26 16:28 | XMS_ITS | Patient Health Record ---
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) Active confirmed Problem Basal cell carcinoma of skin of nose (C44.311) Active confirmed Problem Tobacco use (860326553) Tobacco use (Z72.0) Active confirmed Problem Deviated nasal septum (415304442) Deviated nasal septum (J34.2) Active confirmed Encounters Encounter Location Date Provider Diagnosis [facility] [address] [place], [place] [id number] 10/12/2024 Provider Migration Plan Of Treatment No Information Insurance Providers Payer Name Payer Address Payer Phone Subscriber Number Group Number Insured Name Patient Relationship to Insured Coverage Start Date Coverage End Date [place] [address] [address] [place] [address] [id number] Ramirez Ferrer Self - patient is the insured [facility] [address] [place] [address] [id number] Ramirez Ferrer Self - patient is the insured Medical (General) History Medical History History ICD Code Pertinent Medical History: S inusitis, Nose problems, High blood pressure, History of a Heart attack, Surgical History Surgery Date(Month/Year) cholecystectomy Open Heart x3 cardiac bypass, Dr. Elizabeth ERICKSON 01/11 excision basel cell carcenoma-ajd 05/17
--- OUTSIDE RECORDS SUMMARY | 2025-06-26 16:28 | XMS_ITS | Clinical Summary ---
Author Organization [facility] Address Unknown Care Team Providers Care Shoe Repairer Helper Name Role Phone Christiano Almaguer MD Primary Care Physician [id number] Medications Medication Dose Frequency Directions Start Date [...] - ICD-10) COPD - no oxygen use (47667428 - SNOMED) High Cholesterol (E78.0 - ICD-10) Hypertension (I10 - ICD-10) Lung cancer Sep 2024, no valerio mo or radiation (C34.90 - ICD-10) Myocardial infarction - 2016 (37228203 - SNOMED) total of 9 cardiac stents placed prior to [place] Results * [facility] [place] Pathology Component Value Range Date 06/11/2025 10:0 0 pm PDT Encounters Encounter Performer Performer Role Encounter Diagnoses Location Date Ambulatory Encounter [id number] - Liban Elizalde [facility] 5 11:54 am PDT Colonoscopy [id number] - Liban Elizalde Diarrhea (c) Polyp of colon Diverticulosis of large intestine without perforation or abs [facility] 5 08:00 am PDT Ambulatory Encounter [id number] - Liban Elizalde [facility] 5 01:42 pm PDT Follow Up [id number] - Dom Ward Collagenous colitis [facility] 5 08:30 am PDT Advance Directives Directive Description Verification Rita Lewis , 06/12/2025 Family history Father Diagnosis Age At Onset Colon Cancer Immunizations Vaccine Date COVID-19 Pfizer Vaccine Influenza vaccine Procedures Procedure Date Appendectomy CABG-triple - december 2015 Cholecystectomy Lobectomy - Sep 2024 Pre-procedure questionnaire 06/09/2025 1 0:00 pm PDT Plan of Care Planned Activity Planned Date High fiber diet Gradual titration of fiber s upplementation discussed (Benefiber, psyllium (Metamucil) or Citrucel - 1-2 heaped tablespoons daily with fluids. Await pathology results. Con tinue current medications. Resume prior diet. Complete Blood Count (CBC) with Diff Erythrocyte Sedimentation Rate (ESR) Liver Function Panel (HFP) Basic Metabolic Panel (BMP) Fecal elastase Pathology Requisition - [facility] C-Reactive Protein (CRP) Follow-up if symptoms persist [...] 96 % 06/26/2025 08: 10 am PDT [id number] mmHg 06/26/2025 08:10 am PDT Height 71 in 06/20/2025 01:42 pm PDT Weight 0 lbs 06/20/2025 01:42 pm PDT BMI (Body Mass Index) kg/m2 06/20/2025 01:42 pm PDT BP Systolic 108 mm[hg] 06/26/2025 08:13 am PDT BP Diastolic 60 mm[hg] 06/26/2025 08:13 am PDT Insurances Policy / Member / Group Numbers Plan Details Company Policy Jara [id number] / / Plan Type:MCR Coverage Type:Primary Medicare [place] Ramirez Ferrer [id number] / / [id number] Plan Type:MCRSUP Coverage Type:Secondary [place] [employer] [place] MCR Supp Ramirez Ferrer [id number] / / Coverage Type:Tertiary CNV Ramirez Ferrer
--- OUTSIDE RECORDS SUMMARY | 2025-06-26 16:28 | XMS_ITS | Encounter Summary ---
Author Organization [facility] Address [address] [place] [address] Care Team Providers Care Bow Maker Production Name Role Phone Anoop Sanders MD Unavailable [phone] Joseluis Juárez MD Unavailable [phone] Christiano Almaguer MD Primary Care Provider [phone] Anoop Barbosa MD Unavailable [phone] Bernabe Garcia MD Unavailable Encounter Details Date Type Department Care Team (Late st Contact Info) Description 06/14/2021 Telephone [facility] - Imaging [address] [place] [address] Transcribed Order, Provider Social History [...] on file 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 Gender Identity Male 05/20/2020 7:24 AM CDT [...] documented as of this encounter Care Teams Bow Maker Production Relationship Specialty Start Date End Date Christiano Almaguer MD [address] [place] [id number] PCP - General Internal Medicine 11/29/20 Anoop Sanders MD Consulting Physician Cardiology 03/09/18 Joseluis Juárez MD Surgeon Vascular Surgery 11/08/19 Anoop Barbosa MD [address] [place], [place] [id number] Consulting Physician Cardiothoracic Surgery 09/24/24 Bernabe Garcia MD [address] [place] [address] Referring Physician Pulmonary Disease 09/24/24 documented as of this encounter
--- OUTSIDE RECORDS SUMMARY | 2025-06-26 16:28 | XMS_ITS | Encounter Summary ---
Author Organization [facility] Address [address] [place] [address] Phone Care Team Providers Care School Occupational Therapist Name Role Phone Unavailable Primary Care Provider Unavailabl e Reason for Visit * Reason Comments Medication Refill Encounter Details Date Type Department Care Team (Late st Contact Info) Description 04/02/2024 Refill [facility] - Family Medicine - [place] [address] [place] [id number] Anoop Sanders MD [address] [address] Medication Refill Social History Tobacco Use Types [...]
--- OUTSIDE RECORDS SUMMARY | 2025-06-26 16:28 | XMS_ITS | Clinical Summary ---
Author Organization [facility] Address Unknown Care Team Providers Care Street Inspector Name Role Phone Christiano Almaguer MD Primary Care Physician [phone] Medications Medication Dose Frequency Directions Start [...] - ICD-10) COPD - no oxygen use (16112664 - SNOMED) High Cholesterol (E78.0 - ICD-10) Hypertension (I10 - ICD-10) Lung cancer Sep 2024, no valerio mo or radiation (C34.90 - ICD-10) Myocardial infarction - 2016 (99584899 - SNOMED) total of 9 cardiac stents placed prior to [place] Results * [facility] [place] Pathology Component Value Range Date 06/11/2025 10:0 0 pm PDT Encounters Encounter Performer Performer Role Encounter Diagnoses Location Date Ambulatory Encounter [id number] - Liban Elizalde [facility] 5 11:54 am PDT Colonoscopy [id number] - Liban Elizalde Diarrhea (c) Polyp of colon Diverticulosis of large intestine without perforation or abs [facility] 5 08:00 am PDT Ambulatory Encounter [id number] - Libna Elizalde [facility] 5 01:42 pm PDT Follow Up [id number] - Dom Ward Collagenous colitis [facility] 5 08:30 am PDT Advance Directives Directive [...] (BMP) Fecal elastase Pathology Requisition - [facility] C-Reactive Protein (CRP) Follow-up if symptoms persist [...] 96 % 06/26/2025 08: 10 am PDT [id number] mmHg 06/26/2025 08:10 am PDT Height 71 in 06/20/2025 01:42 pm PDT Weight 0 lbs 06/20/2025 01:42 pm PDT BMI (Body Mass Index) kg/m2 06/20/2025 01:42 pm PDT BP Systolic 108 mm[hg] 06/26/2025 08:13 am PDT BP Diastolic 60 mm[hg] 06/26/2025 08:13 am PDT Insurances Policy / Member / Group Numbers Plan Details Company Policy Jara [id number] / / Plan Type:MCR Coverage Type:Primary Medicare [place] Ramirez Ferrer [id number] / / [id number] Plan Type:MCRSUP Coverage Type:Secondary [place] [employer] [place] MCR Supp Ramirez Ferrer [id number] / / Coverage Type:Tertiary CNV Ramirez Ferrer
--- OUTSIDE RECORDS SUMMARY | 2025-06-26 16:29 | XMS_ITS | Encounter Summary ---
Author Organization [facility] Address [address] [place] [address] Care Team Providers Care Oral Surgery Technician Name Role Phone Christiano Almaguer MD Primary Care Provider [phone] Christiano Almaguer MD Primary Care Provider [phone] Christiano Almaguer MD Primary Care Provider [phone] Marcel Carrillo DO Primary Care Provider [phone] Anoop Sanders MD Unavailable [phone] Joseluis Juárez MD Unavailable [phone] Christiano Almaguer MD Primary Care Provider [phone] Anoop Barbosa MD Unavailable [phone] Bernabe Garcia MD Unavailable [phone] Encounter Details Date Type Department Care Team (Latest Contact Info) Description 01/05/2017 Orders Only [place] Cardiology Provider, MD [address] [place] [address] Social History Tobacco Use Types Packs/Day Years Used Date Smoking Tobacco: Every Day Comments:Smoking History Pac ks/day: 1 Packs Alcohol Use Standard Drinks/Week Comments Yes 0 (1 standard drink = 0.6 oz pur e alcohol) Sex and Gender Information Value Date Recorded Sex Assigned at Not on file 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 Gender Identity Male 05/20/2020 7:24 AM CDT [...] documented as of this encounter Care Teams Oral Surgery Technician Relationship Specialty Start Date End Date Christiano Almaguer MD [address] [place] [address] PCP - General 01/27/17 02/05/18 Christiano Almaguer MD [address] [place] [address] PCP - General 01/10/17 01/26/17 Christiano Almaguer MD [address] [place] [address] PCP - General 02/19/14 01/09/17 Marcel Carrillo DO [address] [place] [address] PCP - General Internal Medicine 02/06/18 02/06/18 Christiano Almaguer MD [address] [place] [address] PCP - General Internal Medicine 11/29/20 Anoop Sanders MD [address] [place] [address] Consulting Physician Cardiology 03/09/18 Joseluis Juárez MD [address] [place] [address] Surgeon Vascular Surgery 11/08/19 Anoop Barbosa MD [address] [place] [address] Consulting Physician Cardiothoracic Surgery 09/24/24 Bernabe Garcia MD [address] [place] [address] Referring Physician Pulmonary Disease 09/24/24 documented as of this encounter
--- OUTSIDE RECORDS SUMMARY | 2025-06-26 16:29 | XMS_ITS | Clinical Summary ---
Author Organization [facility] Care Team Providers Care Manager Language Name Role Phone Unavailable Primary Care Provider [...] Virus (HCV) Screening 1950 TdaP Immunization 1950 Pneumococcal Immunization (5 0+ years) (1 of 1 - PCV) 1999 Zoster Immunization (1 of 2) 1999 Respiratory Syncytial Virus (RSV) Immunization (Adult) (1 - 1-dose 75+ series) 2024 SARS-COV-2 Immunization ( - 2023-25 season) 2024 Influenza Immunization (#1) 2025 Hepatitis B Immunization Aged Out No longer eligible based on patient's age to complete this topic Human Papillomavirus (HPV) Immunization Aged Out No longer eligible b ased on patient's age to complete this topic Meningococcal Immunization (ACWY) Aged Out No longer eligible based on patient's age to complete this topic Rotavirus Immunization Aged Out No lo nger eligible based on patient's age to complete this topic
[2025-06-26 17:13] LABS: Hematocrit 32.4 % (42.0-52.0); Hemoglobin 10.3 g/dL (14.0-18.0); Immature Granulocyte Percent A 0.6 % (0-0.5); Lymphocytes Absolute Auto 1.76 K/mm3 (0.9-3.2); Mean Corpuscular HGB Conc 31.8 g/dl (32-36); Mean Corpuscular Hemoglobin 32.7 pg (26-34); Mean Corpuscular Volume 102.9 fl (80-100); Nucleated Red Blood Cells Absolute Auto 0.000 K/mm3 (0.0-0.012); Nucleated Red Blood Cells Perc 0.0 % (0.0-0.2); Platelet Count Result 225 k/mm3 (150-375); Red Blood Count 3.15 M/mm3 (4.6-6.20); White Blood Count 8.6 K/mm3 (4.5-10.0)
[2025-06-26 17:29] LABS: Alanine Aminotransferase 17 U/L (6-50); Albumin Level 3.5 g/dL (3.5-5.1); Alkaline Phosphatase 112 U/L (38-126); Anion Gap 5 mmol/L (4-12); Aspartate Amino Transferase 32 U/L (17-59); Bilirubin,Total 0.4 mg/dL (0.2-1.3); Blood Urea Nitrogen 30 mg/dL (9-20); CRP 1.2 mg/dL (<1.0); Calcium 8.3 mg/dL (8.4-10.2); Carbon Dioxide 28 mmol/L (22-30); Chloride 103 mmol/L (98-107); Estimated Glomerular Filt Rate 56; Glucose 131 mg/dL (65-110); Potassium 3.2 mmol/L (3.4-5.0); Sodium 136 mmol/L (137-145); Total Protein 6.7 g/dL (6.3-8.2)
[2025-07-01 16:08] LABS: Pancreatic Elastase, Fecal >800 (>200)
== END 2025-06-27 18:11 | disposition home or self-care (01) ==
LOC: ANHLAB 16:10
PROVIDERS: PCP Internal Medicine
DX: K52.831 Collagenous colitis (principal)
CPT/HCPCS: 36415; 80048; 80076; 82653; 85025; 85652; 86140

== ENCOUNTER 2025-07-14 15:38 | Outpatient (CLI) | payer MEDICARE, SELFPAY ==
[2025-07-14 16:15] LABS: Immature Reticulocyte Fraction 14.5 % (3.0-15.9); Reticulocyte Hemoglobin Conten 32.5 pg (28.2-36.6); Reticulocytes Absolute 0.07 10^6/uL (0.02-0.10)
[2025-07-14 16:30] LABS: Iron 43 ug/dL (49-181)
[2025-07-14 16:40] LABS: Percent Iron Saturation 12 % (20-50)
[2025-07-14 17:02] LABS: Thyroid Stimulating Hormone Reflex 2.440 uIU/mL (0.465-4.68)
[2025-07-14 17:06] LABS: Ferritin 25.80 ng/mL (11.1-264)
[2025-07-14 17:32] LABS: Vitamin B12 776.0 pg/mL (239-931)
--- OUTSIDE RECORDS SUMMARY | 2025-07-14 18:28 | XMS_ITS | Encounter Summary ---
Author Organization [facility] Healthcare Address [address] [place] [address] Care Team Providers Care Guest Service Team Leader Name Role Phone Anoop Sanders MD Unavailable Joseluis Juárez MD Unavailable [phone] Christiano Almaguer MD Primary Care Provider [phone] Anoop Barbosa MD Unavailable [phone] Bernabe Garcia MD Unavailable Encounter Details Date Type Department Care Team (Late st Contact Info) Description 06/14/2021 Telephone [facility] - Imaging [address] [place] [address] Transcribed Order, Provider Social History [...] on file Legal 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 Gender Identity Male 05/20/2020 7:24 AM CDT [...] documented as of this encounter Care Teams Guest Service Team Leader Relationship Specialty Start Date End Date Christiano Almaguer MD [address] [place] [address] PCP - General Internal Medicine 11/29/20 Anoop Sanders MD Consulting Physician Cardiology 03/09/18 Joseluis Juárez MD Surgeon Vascular Surgery 11/08/19 Anoop Barbosa MD [address] [place], [place] [address] Consulting Physician Cardiothoracic Surgery 09/24/24 Bernabe Garcia MD [address] [place] [address] Referring Physician Pulmonary Disease 09/24/24 documented as of this encounter
--- OUTSIDE RECORDS SUMMARY | 2025-07-14 18:28 | XMS_ITS ---
Author Organization [facility] Address [address] [place] [address] Care Team Providers Care Home Appliance Washing Machine Mechanic Name Role Phone Anoop Sanders MD Unavailable [phone] Joseluis Juárez MD Unavailable [phone] Christiano Almaguer MD Primary Care Provider [phone] Anoop Barbosa MD Unavailable Bernabe Garcia MD Unavailable [phone] Active Problems Problem Noted Date Diagnosed Date [...] 09/22 Assessment & Plan (11/09/2023 9:51 AM BOATSWAINS MATE): PET scan is reassuring Recs: 1) CT [...] appointment when the time comes. 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 Arrange new baseline CORTEZ with Duplex scan of left leg in one month. Asymptomatic stenosis of right carotid artery Assessment & Plan (07/27/2022 11:35 AM CDT): Asymptomatic right ICA stenosis. Repeat six month carotid doppler for observation. Assessment & Plan (12/08/2021 1:00 PM BOATSWAINS MATE): Stable right ICA stenosis. Continue to monitor with repeat carotid Doppler in six months. He'll be due for follow-up lower extremity arterial Doppler/Duplex and an abdominal aortic Duplex in six months as well. We'll coordinate his vascular studies. Assessment & Plan (09/13/2021 12:18 PM BOATSWAINS MATE): Asymptomatic progressive right ICA stenosis that is [...] sooner. Assessment & Plan (12/04/2019 10:16 AM BOATSWAINS MATE): elevated velocities within right ICA on prior [...] now Assessment & Plan (11/09/2023 9:51 AM BOATSWAINS MATE): As above. He wants to think about and let me know if he would like pharmacologic assistance Assessment & Plan (07/25/2023 1:31 PM CDT): As above. He wants to think about and let me know if he would like pharmacologic assistance Assessment & Plan (12/19/2018 6:33 PM BOATSWAINS MATE): Discussed with patient lung cancer screening once per year Smoking cessation using nicotine gum will be initiated Quantitate with PFTs his current impairment Centrilobular emphysema 12/19/2018 Overview (12/19/2018): CT confirmed 02/09/2018 Assessment & Plan (11/09/2023 9:51 AM BOATSWAINS MATE): Sx are stable PFTs reveal moderate obstructive [...] maintenance/vaccinations Assessment & Plan (12/19/2018 6:31 PM BOATSWAINS MATE): Currently exercise limitations due more to arthritis then to shortness of breath Quit smoking, will try Nicorette gum, failed Chantix in the past Quantitate with PFTs Check alpha-1 antitrypsin level Yearly flu shot Make sure he has had both the pneumonia 23 and Prevnar 13 shot Further recommendations to follow Bilateral lower extremity edema 04/11/2017 Infrarenal abdominal aortic aneurysm (AAA) witho ut rupture 01/05/2017 Overview (03/24/2017): Abdominal aortic aneurysm (AAA) without rupture Assessment & Plan (07/27/2022 11:35 AM CDT): Small AAA. Monitor with annual duplex or we can review his annual CT images usually performed in March. Assessment & Plan (03/01/2021 11:38 AM CDT): Ectatic infrarenal abdominal aorta -Continue to monitor with a repeat Duplex scan in one year. Assessment & Plan (12/04/2019 10:17 AM BOATSWAINS MATE): Small AAA. Monitor with annual Duplex scans. Essential (primary) hypertension 01/05/2017 Overview (03/24/2017): Essential hypertension Assessment & Plan (11/20/2018 4:02 AM BOATSWAINS MATE): Continue home metoprolol, hydrochlorothiazide, Cozaar. 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 He has been made NPO. His caramel cutter hand Dr. Rader has been consulted. We will continue aspirin, Plavix, losartan, metoprolol. We will also continue full-dose anticoagulation for now. We will trend troponins. Postnasal drip 04/06/2016 10/17/2019 Overview (02/02/2017): Post-nasal drip
--- OUTSIDE RECORDS SUMMARY | 2025-07-14 18:28 | XMS_ITS | Clinical Summary ---
Author Organization [facility] Care Team Providers Care Bean Sprout Grower Name Role Phone Unavailable Primary Care Provider [...]
--- OUTSIDE RECORDS SUMMARY | 2025-07-14 18:28 | XMS_ITS | Encounter Summary ---
Demographics Address [address] [place] [place] [address] Home Phone Preferred Language Unknown Marital Status Unknown Yazdanism Affiliation Unknown Race Unknown Ethnic Group Unknown Author Organization [facility] Address [address] [place] [address] Phone Care Team Providers Care Wrapper Stripper Name Role Phone Unavailable Primary Care Provider Unavailabl e Reason for Visit * Reason Comments Medication Refill Encounter Details Date Type Department Care Team (Late st Contact Info) Description 04/02/2024 Refill [facility] - Family Medicine - [place] [address] [place] [id number] Anoop Sanders MD [address] [address] Medication Refill Social History Tobacco Use Types [...]
--- OUTSIDE RECORDS SUMMARY | 2025-07-14 18:28 | XMS_ITS | Encounter Summary ---
Author Organization [facility] Address [address] [address] Care Team Providers Care Motion Picture Director Name Role Phone Christiano Almaguer MD Primary Care Provider [phone] Christiano Almaguer MD Primary Care Provider [phone] Christiano Almaguer MD Primary Care Provider [phone] Marcel Carrillo DO Primary Care Provider [phone] Anoop Sanders MD Unavailable [phone] Joseluis Juárez MD Unavailable [phone] Christiano Almaguer MD Primary Care Provider [phone] Anoop Barbosa MD Unavailable [phone] Bernabe Garcia MD Unavailable [phone] Encounter Details Date Type Department Care Team (Latest Contact Info) Description 01/05/2017 Orders Only [facility] Cardiology ProviderAntonio MD [address] [place] [id number] Social History Tobacco Use Types Packs/Day Years Used Date Smoking Tobacco: Every Day Comments:Smoking History Pac ks/day: 1 Packs Alcohol Use Standard Drinks/Week Comments Yes 0 (1 standard drink = 0.6 oz pur e alcohol) Sex and Gender Information Value Date Recorded Sex Assigned at Not on file 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 Gender Identity Male 05/20/2020 7:24 AM CDT [...] documented as of this encounter Care Teams Motion Picture Director Relationship Specialty Start Date End Date Christiano Almaguer MD [address] [facility] [address] [place] [address] PCP - General 01/27/17 02/05/18 Christiano Almaguer MD [address] [facility] [address] [place] [address] PCP - General 01/10/17 01/26/17 Christiano Almaguer MD [address] [facility] [address] [place] [address] PCP - General 02/19/14 01/09/17 Marcel Carrillo DO [address] [facility] [address] [place] [address] PCP - General Internal Medicine 02/06/18 02/06/18 Christiano Almaguer MD [address] [facility] [address] [place] [address] PCP - General Internal Medicine 11/29/20 Anoop Sanders MD [address] [facility] [address] [place] [address] Consulting Physician Cardiology 03/09/18 Joseluis Juárez MD [address] [facility] [address] [place] [address] Surgeon Vascular Surgery 11/08/19 Anoop Barbosa MD [address] [place], [place] [id number] Consulting Physician Cardiothoracic Surgery 09/24/24 Bernabe Garcia MD [address] [place], [place] [id number] Referring Physician Pulmonary Disease 09/24/24 documented as of this encounter
--- OUTSIDE RECORDS SUMMARY | 2025-07-14 18:28 | XMS_ITS | Encounter Summary ---
Author Organization [facility] Healthcare Address [address] [place] [address] Care Team Providers Care Carpenter'S Helper Name Role Phone Anoop Sanders MD Unavailable Joseluis Juárez MD Unavailable [phone] Christiano Almaguer MD Primary Care Provider [phone] Anoop Barbosa MD Unavailable [phone] Bernabe Garcia MD Unavailable [phone] Encounter Details Date Type Department Care Team (Late st Contact Info) Description 06/29/2021 Telephone [facility] - Imaging [address] [place] [address] Transcribed Order, Provider Social History [...] on file 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 Gender Identity Male 05/20/2020 7:24 AM CDT [...] documented as of this encounter Care Teams Carpenter'S Helper Relationship Specialty Start Date End Date Christiano Almaguer MD [address] [facility] [address] [place] [address] PCP - General Internal Medicine 11/29/20 Anoop Sanders MD Consulting Physician Cardiology 03/09/18 Joseluis Juárez MD Surgeon Vascular Surgery 11/08/19 Anoop Barbosa MD [address] [place], [place] [id number] Consulting Physician Cardiothoracic Surgery 09/24/24 Bernabe Garcia MD [address] [place] [address] Referring Physician Pulmonary Disease 09/24/24 documented as of this encounter
--- OUTSIDE RECORDS SUMMARY | 2025-07-14 18:28 | XMS_ITS | Clinical Summary ---
Author Organization [facility] Address [address] [place] [address] Care Team Providers Care Jig Fitter Name Role Phone Anoop Sanders MD Unavailable [phone] Joseluis Juárez MD Unavailable [phone] Christiano Almaguer MD Primary Care Provider [phone] Anoop Barbosa MD Unavailable [phone] Bernabe Garcia MD Unavailable [phone] Allergies No known active allergies Medications aspirin [...] needed for pain 40 tablet 5 Active Additional Information Patient not taking.Reported on 07/11/2025 fluticasone-ume clidin-vilanter (Trelegy Ellipta) 200-62.5-25 mcg inhaler Inhale 1 puff daily 60 each 1 5 Active Additional Information Patient not taking.Reported on 07/11/2025 Active Problems Problem Noted Date Diagnosed Date [...] 09/22 Assessment & Plan (11/09/2023 9:51 AM CRICKET COACH): PET scan is reassuring Recs: 1) CT [...] appointment when the time comes. 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 Arrange new baseline CORTEZ with Duplex scan of left leg in one month. Asymptomatic stenosis of right carotid artery Assessment & Plan (07/27/2022 11:35 AM CDT): Asymptomatic right ICA stenosis. Repeat six month carotid doppler for observation. Assessment & Plan (12/08/2021 1:00 PM CRICKET COACH): Stable right ICA stenosis. Continue to monitor with repeat carotid Doppler in six months. He'll be due for follow-up lower extremity arterial Doppler/Duplex and an abdominal aortic Duplex in six months as well. We'll coordinate his vascular studies. Assessment & Plan (09/13/2021 12:18 PM CRICKET COACH): Asymptomatic progressive right ICA stenosis that is [...] sooner. Assessment & Plan (12/04/2019 10:16 AM CRICKET COACH): elevated velocities within right ICA on prior [...] now Assessment & Plan (11/09/2023 9:51 AM CRICKET COACH): As above. He wants to think about and let me know if he would like pharmacologic assistance Assessment & Plan (07/25/2023 1:31 PM CDT): As above. He wants to think about and let me know if he would like pharmacologic assistance Assessment & Plan (12/19/2018 6:33 PM CRICKET COACH): Discussed with patient lung cancer screening once per year Smoking cessation using nicotine gum will be initiated Quantitate with PFTs his current impairment Centrilobular emphysema 12/19/2018 Overview (12/19/2018): CT confirmed 02/09/2018 Assessment & Plan (11/09/2023 9:51 AM CRICKET COACH): Sx are stable PFTs reveal moderate obstructive [...] maintenance/vaccinations Assessment & Plan (12/19/2018 6:31 PM CRICKET COACH): Currently exercise limitations due more to arthritis [...] year. Assessment & Plan (12/04/2019 10:17 AM CRICKET COACH): Small AAA. Monitor with annual Duplex scans. Essential (primary) hypertension 01/05/2017 Overview (03/24/2017): Essential hypertension Assessment & Plan (11/20/2018 4:02 AM CRICKET COACH): Continue home metoprolol, hydrochlorothiazide, Cozaar. 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 His supervisor drawing Dr. Rader has been consulted. We will continue aspirin, Plavix, losartan, metoprolol. We will also continue full-dose anticoagulation for now. We will trend troponins. 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 (Primary Dx); Palpitations; Abdominal aortic aneurysm (AAA) without rupture, unspecified part; Infrarenal abdominal aortic aneurysm (AAA) without rupture 06/02/2025 Telephone [facility] Cardiology [address] [place] [address] Anoop Sanders MD Patient issue/concern 05/28/2025 9:15 AM CDT Office Visit [facility] [address] [place] [address] Bernabe Garcia MD Chronic obstructive pulmonary disease, unspecified COPD type (HCC) (Primary Dx); Adenocarcinoma of right lung (HCC); Tobacco abuse from Last 3 Months Immunizations Immunization Administration [...] = 0.6 oz pur e alcohol) social [email or web address] Utilities Answer Date Recorded In the past 12 months has [employer], gas, oil, or water [employer] threatened to shut off services in your [...] often do you attend chur ch or synagogue services? Never 11/07/2024 Do you belong to any clubs o r organizations such as yazidism groups, unions, fraternal or athletic groups, or [...] any time in the past 12 m [facility], were you homeless or living in a [place] health care facility (including now)? No 11/07/2024 Personal Safety Answer Date Recorded Have you ever been in or are you currently in a harmful physical or emotional relationship or is someone making you feel afraid or unsafe? Denies 11/06/2024 Sex and Gender Information Value Date Recorded Sex Assigned at Not on file Legal Sex Male 3:47 PM CRICKET COACH Gender Identity Male 05/20/2020 7:24 AM CDT Sexual Orientation Not on file Obstetrics History Last Filed Vital Signs Vital Sign Reading Time Taken Comments Blood Pressure 130/66 07/11/2025 2:28 PM CDT Pulse 60 07/11/2025 2:28 PM CDT Temperature 36.7 C (98 F) 11/10/2024 7:50 AM CRICKET COACH Respiratory Rate 14 11/19/2024 8:52 AM CRICKET COACH Oxygen Saturation 97% 07/11/2025 2:28 PM CDT Inhaled Oxygen Concentration - - Weight 84.8 kg (187 lb) 07/11/2025 2:28 PM CDT Height 177.8 cm (5' 10) 07/11/2025 2:28 PM CDT Body Mass Index 26.83 07/11/2025 2:28 PM CDT Plan of Treatment Health Maintenance Due Date [...] Abdominal Aortic Aneurysm (A AA) Screen Completed 07/11/2025, 07/11/2025, 09/20/2024, Additional history exists Medical Devices Implanted Type Area Enterostomal Therapy Nurse Device Identifier Shelf Expiration Date Model / Serial / Lot BlueLithium Efrain [id number] Device Closure Angio-Seal Vip Bondek-Plus Polyglyd L70 Cm Od6 Fr Odsec.035 In Vascular - Sn/A - [id number] Implanted:Qty : 1 on 11/07/2019 by Joseluis Juárez MD at [facility] Other - see comments Right: Groin Daig Efrain/[employer] 05/29/2020 [id number] / N/A / [id number] Bard Peripheral Vascular [id number] Lifestent 6mm 6fr 40mm 130cm Self Expand Catheter Helical - Sn/A - [id number] Implanted:Qty : 1 on 11/07/2019 by Joseluis Juárez MD at [facility] Stent Left: Arterial Bard Peripheral Vascular [id number] 02/22/2021 [id number] / N/A / [id number] Description:Left popliteal a rtery [employer] Efrain [id number] Synergy 4mm 38mm 144cm Radiopaque 1 Access Port Inflation Lumen - [id number] Implanted:Qty : 1 on 11/20/2018 by Ike Coleman MD at [facility] N/A: Coronary [employer] Efrain 07/09/2020 [id number] / / [id number] Description:Circumflex [employer] E[employer]rain [id number] Synergy 3.5mm 16mm 144cm Radiopaque 1 Access Port Inflation Lumen - [id number] Implanted:Qty : 1 on 11/20/2018 by Ike Coleman MD at [facility] N/A: Coronary [employer] E[employer]rain 06/19/2020 [id number] / / [id number] Description:Circumflex Procedures Procedure Name Priority Date/Time Associated Diagnosis Comments CTA ABDOMEN PELVIS W WO CONTRAST Routine 09/09/2024 9:43 AM CRICKET COACH Abdominal aortic aneurysm (AAA) without rupture, unspecified part from Last 3 Months or Most Recently Relevant to Health Maintenance Results * CTA Abdomen Pelvis (09/09/2024 9:43 AM CRICKET COACH) Anatomical Region Laterality Modality Body N/A Computed Tomogra phy 09/09/2024 12:0 0 PM CRICKET COACH Impressions 09/09/2024 6:18 PM CRICKET COACH 1. Infrarenal abdominal aortic aneurysm measuring 3.2 [...] Dennise Siddiqui M.D. Narrative 09/09/2024 6:18 PM CRICKET COACH EXAMINATION: CTA ABDOMEN PELVIS, CT CHEST WO [...] Recently Relevant to Health Maintenance Insurance MEDICARE [facility] [address] [place] [id number] MEDICARE [employer] [place] MEDICARE SUPPLEMENT [address] [place] [address] MEDICARE [facility] MEDICARE SUPPLEMENT Advance Directives For more information, please contact: [phone] Documents on File Type Date Recorded Patient Insole And Outsole Preparer Expl anation ADVANCE DIRECTIVE 11/07/2019 9:49 AM [...] 8:54 PM 11/21/2018 3:45 PM Care Teams Jig Fitter Relationship Specialty Start Date End Date Christiano Almaguer MD [address] [facility] [facility] [place] [address] PCP - General Internal Medicine 11/29/20 Anoop Sanders MD Consulting Physician Cardiology 03/09/18 Joseluis Juárez MD Surgeon Vascular Surgery 11/08/19 Anoop Barbosa MD [address] [facility] [address] [place] [address] Consulting Physician Cardiothoracic Surgery 09/24/24 Bernabe Garcia MD [address] [facility] [address] [place] [address] Referring Physician Pulmonary Disease 09/24/24
== END 2025-07-14 15:39 | disposition home or self-care (01) ==
PROVIDERS: PCP Internal Medicine
DX: D53.9 Nutritional anemia, unspecified (principal)
CPT/HCPCS: 36415; 82607; 82728; 82746; 83540; 83550; 84443; 85046

== ENCOUNTER 2025-08-21 14:08 | Outpatient (CLI) | payer MEDICARE, SELFPAY ==
[2025-08-21 14:47] LABS: Hematocrit 33.2 % (42.0-52.0); Hemoglobin 10.4 g/dL (14.0-18.0); Immature Granulocyte Percent A 0.9 % (0-0.5); Lymphocytes Absolute Auto 2.25 K/mm3 (0.9-3.2); Mean Corpuscular HGB Conc 31.3 g/dl (32-36); Mean Corpuscular Hemoglobin 31.8 pg (26-34); Mean Corpuscular Volume 101.5 fl (80-100); Nucleated Red Blood Cells Absolute Auto 0.000 K/mm3 (0.0-0.012); Nucleated Red Blood Cells Perc 0.0 % (0.0-0.2); Platelet Count Result 226 k/mm3 (150-375); Red Blood Count 3.27 M/mm3 (4.6-6.20); White Blood Count 9.3 K/mm3 (4.5-10.0)
[2025-08-21 14:53] LABS: Add Urine Microscopic? YES; Appearance Urine Clear (Clear); Glucose Urine UA Negative (Negative); Leukocyte Esterase Ur Negative LEU/UL (Negative); Nitrate Urine Negative (Negative); Non Pathogenic Casts 0-2; Specific Grav Ur 1.017 (1.001-1.035)
[2025-08-21 15:08] LABS: Alanine Aminotransferase 17 U/L (6-50); Albumin Level 3.4 g/dL (3.5-5.1); Alkaline Phosphatase 100 U/L (38-126); Anion Gap 6 mmol/L (4-12); Aspartate Amino Transferase 24 U/L (17-59); Bilirubin,Total 0.4 mg/dL (0.2-1.3); Blood Urea Nitrogen 33 mg/dL (9-20); Calcium 8.6 mg/dL (8.4-10.2); Carbon Dioxide 27 mmol/L (22-30); Chloride 108 mmol/L (98-107); Cholesterol 113 mg/dL (0-200); Estimated Glomerular Filt Rate 47; Glucose 84 mg/dL (65-110); HDL Direct 36 mg/dL; Potassium 3.4 mmol/L (3.4-5.0); Sodium 141 mmol/L (137-145); Total Protein 6.6 g/dL (6.3-8.2); Triglycerides 75 mg/dL (<150)
--- OUTSIDE RECORDS SUMMARY | 2025-08-21 15:12 | XMS_ITS | Encounter Summary ---
Author Organization [facility] Healthcare Address [address] [place] [address] Care Team Providers Care Outside Repairer Special Name Role Phone Anoop Sanders MD Unavailable Joseluis Juárez MD Unavailable [phone] Christiano Almaguer MD Primary Care Provider Anoop Barbosa MD Unavailable [phone] Bernabe Garcia MD Unavailable [phone] Encounter Details Date Type Department Care Team (Late st Contact Info) Description 06/29/2021 Telephone [facility] - Imaging [address] [place] [address] Transcribed Order, Provider Social History [...] on file Legal Sex Male 3:47 PM FLAT BED KNITTER Gender Identity Male 05/20/2020 7:24 AM CDT [...] documented as of this encounter Care Teams Outside Repairer Special Relationship Specialty Start Date End Date Christiano Almaguer MD PCP - General Internal Medicine 11/29/20 Anoop Sanders MD Consulting Physician Cardiology 03/09/18 Joseluis Juárez MD Surgeon Vascular Surgery 11/08/19 Anoop Barbosa MD [address] [place], [place] [id number] Consulting Physician Cardiothoracic Surgery 09/24/24 Bernabe Garcia MD [address] [place], [place] [id number] Referring Physician Pulmonary Disease 09/24/24 documented as of this encounter
--- OUTSIDE RECORDS SUMMARY | 2025-08-21 15:12 | XMS_ITS | Clinical Summary ---
Author Organization [facility] Address [address] [place] [address] Care Team Providers Care Sequins Stringer Name Role Phone Philip Pabon MD Unavailable [phone] Joseluis Juárez MD Unavailable Christiano Almaguer MD Primary Care Provider [phone] Philip Barbosa MD Unavailable [phone] Bernabe Garcia MD Unavailable [phone] Allergies No known active allergies Medications aspirin [...] a week Mondays, Wednesdays, and Fridays Active budesonide EC (ENTOCORT EC) 3 mg [...] for pain 40 tablet 11/19/19 25 Active Additional Information Patient not taking.Reported on 07/11/2025 fluticasone-um eclidin-vilant er (Trelegy Ellipta) 200-62.5-25 mcg inhaler Inhale 1 puff daily 60 each 1 11/25/19 25 Active Additional Information Patient not taking.Reported on 07/11/2025 clopidogreL (PLAVIX) 75 mg tablet TAKE 1 TABLET(75 MG) BY MOUTH DAILY 30 tablet 11 08/18/20 25 Active clopidogreL (PLAVIX) 75 mg tablet TAKE 1 TABLET(75 MG) BY MOUTH DAILY 30 tablet 11 08/07/20 24 025 Discontinued Active Problems Problem Noted [...] 09/22 Assessment & Plan (11/09/2023 9:51 AM STABLE ATTENDANT): PET scan is reassuring Recs: 1) CT [...] appointment when the time comes. 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 Arrange new baseline CORTEZ with Duplex scan of left leg in one month. Asymptomatic stenosis of right carotid artery Assessment & Plan (07/27/2022 11:35 AM CDT): Asymptomatic right ICA stenosis. Repeat six month carotid doppler for observation. Assessment & Plan (12/08/2021 1:00 PM STABLE ATTENDANT): Stable right ICA stenosis. Continue to monitor with repeat carotid Doppler in six months. He'll be due for follow-up lower extremity arterial Doppler/Duplex and an abdominal aortic Duplex in six months as well. We'll coordinate his vascular studies. Assessment & Plan (09/13/2021 12:18 PM STABLE ATTENDANT): Asymptomatic progressive right ICA stenosis that is [...] sooner. Assessment & Plan (12/04/2019 10:16 AM STABLE ATTENDANT): elevated velocities within right ICA on prior [...] now Assessment & Plan (11/09/2023 9:51 AM STABLE ATTENDANT): As above. He wants to think about and let me know if he would like pharmacologic assistance Assessment & Plan (07/25/2023 1:31 PM CDT): As above. He wants to think about and let me know if he would like pharmacologic assistance Assessment & Plan (12/19/2018 6:33 PM STABLE ATTENDANT): Discussed with patient lung cancer screening once per year Smoking cessation using nicotine gum will be initiated Quantitate with PFTs his current impairment Centrilobular emphysema 12/19/2018 Overview (12/19/2018): CT confirmed 02/09/2018 Assessment & Plan (11/09/2023 9:51 AM STABLE ATTENDANT): Sx are stable PFTs reveal moderate obstructive [...] maintenance/vaccinations Assessment & Plan (12/19/2018 6:31 PM STABLE ATTENDANT): Currently exercise limitations due more to arthritis [...] year. Assessment & Plan (12/04/2019 10:17 AM STABLE ATTENDANT): Small AAA. Monitor with annual Duplex scans. Essential (primary) hypertension 01/05/2017 Overview (03/24/2017): Essential hypertension Assessment & Plan (11/20/2018 4:02 AM STABLE ATTENDANT): Continue home metoprolol, hydrochlorothiazide, Cozaar. Hypercholesterolemia 01/05/2017 Overview (03/24/2017): Hypercholesterolemia Assessment & Plan (11/20/2018 4:02 AM STABLE ATTENDANT): Continue home statin Aftercare following surgery of the respiratory s ystem 02/04/2016 Overview (02/02/2017): Post surgical visit Coronary artery disease of n ative artery of [place] heart with stable angina pectoris 01/18/2016 Overview (12/19/2018): 3 vessel CAD CABG x3 December 2015 Two stents October 2018 Assessment & Plan (12/19/2018 6:32 PM STABLE ATTENDANT): 3 vessel CAD CABG x3 December 2015 Two stents October 2018 S/P drug eluting coronary stent placement Resolved Problems Problem Noted Date Diagnosed Date Resolved Date Unstable angina 11/20/2018 12/19/2018 Assessment & Plan (11/20/2018 4:02 AM STABLE ATTENDANT): Has been having increasing chest pain over [...] evaluation. He has been made NPO. His lumber inspector Dr. Rader has been consulted. We will continue aspirin, Plavix, losartan, metoprolol. We will also continue full-dose anticoagulation for now. We will trend troponins. Postnasal drip 04/06/2016 10/17/2019 Overview (02/02/2017): Post-nasal drip Encounters Date Type Department Care Team Description 08/01/2025 Results Follow-Up [facility] Cardiology [address] [place] [address] [address] [place] [address] Philip Pabon MD 48 HR Holter Monitor 07/30/2025 Orders Only [facility] Medicine Surgery [address] [facility] [address] [place] [address] Joseluis Juárez MD Bilateral carotid artery stenosis (Primary Dx) 07/25/2025 12:35 PM CDT - 07/25/2025 11:59 PM CDT Hospital Encounter [facility] OP Cardiac Testing [address] [facility] [address] [place] [address] Palpitations Discharge Disposition: Discharge to home or self care 07/15/2025 Telephone [facility] Cardiology [address] [place] [address] [address] [place] [address] Philip Pabon MD 07/11/2025 2:15 PM CDT Office Visit [facility] Cardiology [address] [place] [address] [address] [place] [address] Philip Pabon MD Coronary artery disease of [place] artery of [place] heart with stable angina pectoris (Primary Dx); Palpitations; Abdominal aortic aneurysm (AAA) without rupture, unspecified part; Infrarenal abdominal aortic aneurysm (AAA) without rupture 06/02/2025 Telephone [facility] Cardiology [address] [place] [address] [address] [place] [id number] Philip Pabon MD Patient issue/concern 05/28/2025 9:15 AM CDT Office Visit [facility] [address] [facility] [address] [place] [id number] Bernabe Garcia MD Chronic obstructive pulmonary disease, [...] w/drain Chronic coronary artery disease 2016 CABG Philip Blas MD Pleural effusion Hypertension Hyperlipidemia AAA [...] = 0.6 oz pur e alcohol) social C Utilities Answer Date Recorded In the past 12 months has e electric, gas, oil, or water company [...] often do you attend chur ch or worship services? Never 11/07/2024 Do you belong to any clubs o r organizations such as anglican groups, unions, fraternal or athletic groups, or [...] any time in the past 12 m [facility], were you homeless or living in a [...] on file Legal Sex Male 3:47 PM STABLE ATTENDANT Gender Identity Male 05/20/2020 7:24 AM CDT Sexual Orientation Not on file Obstetrics History Last Filed Vital Signs Vital Sign Reading Time Taken Comments Blood Pressure 130/66 07/11/2025 2:28 PM CDT Pulse 60 07/11/2025 2:28 PM CDT Temperature 36.7 C (98 F) 11/10/2024 7:50 AM STABLE ATTENDANT Respiratory Rate 14 11/19/2024 8:52 AM STABLE ATTENDANT Oxygen Saturation 97% 07/11/2025 2:28 PM CDT [...] history exists Medical Devices Implanted Type Area Gas Check Pad Maker Device Identifier Shelf Expiration Date Model / Serial / Lot Daig Efrain [id number] Device Closure Angio-Seal Vip Bondek-Plus Polyglyd L70 Cm Od6 Fr Odsec.035 In Vascular - Sn/A - [id number] Implanted:Qty : 1 on 11/07/2019 by Joseluis Juárez MD at [facility] Other - see comments Right: Groin Daig Efrain/[employer] 05/29/2020 [id number] / N/A / [id number] Bard Peripheral Vascular [id number] Lifestent 6mm 6fr 40mm 130cm Self Expand Catheter Helical - Sn/A - [id number] Implanted:Qty : 1 on 11/07/2019 by Joseluis Juárez MD at [facility] Stent Left: Arterial Bard Peripheral Vascular [id number] 02/22/2021 [id number] / N/A / [id number] Description:Left popliteal a rtery [employer] Efrain [id number] Synergy 4mm 38mm 144cm Radiopaque 1 Access Port Inflation Lumen - [id number] Implanted:Qty : 1 on 11/20/2018 by Ike Coleman MD at [facility] N/A: Coronary [employer] Efrain 07/09/2020 [id number] / / [id number] Description:Circumflex [employer] E[employer]rain [id number] Synergy 3.5mm 16mm 144cm Radiopaque 1 Access Port Inflation Lumen - [id number] Implanted:Qty : 1 on 11/20/2018 by Ike Coleman MD at [facility] N/A: Coronary Fabbeo Efrain 06/19/2020 [id number] / / [id number] Description:Circumflex Procedures Procedure Name Priority Date/Time Associated Diagnosis Comments HOLTER MONITOR 48 HR Routine 07/25/2025 12:44 PM CDT Palpitations CTA ABDOMEN PELVIS W WO CONTRAST Routine 09/09/2024 9:43 AM STABLE ATTENDANT Abdominal aortic aneurysm (AAA) without rupture, unspecified part from Last 3 Months or Most Recently Relevant to Health Maintenance Results * 48 HR Holter Monitor (07/25/2025 12:44 PM CDT) Anatomical Region Laterality Modality Electrocardiogra phy 07/25/2025 12:4 1 PM CDT Narrative 08/01/2025 4:24 PM CDT [facility] [address] [place] [address] HOLTER MONITOR Patient Name: NEO CHÁVEZMalina : 1950 (75y 3m) Sex: M Study Date: 07/25/2025 12:41:34 PM Ht(Inch): Wt(Lb): BSA: Tech: Order Provider: PHILIP PABON Provider: PHILIP PABON PROCEDURES: Holter Report: Holter Monitor Report. INDICATIONS: R00.2 Palpitations. MEASUREMENTS: Holter Data Value Min Rate: 47 BPM Min Rate Timestamp: 10:49:30 Max Rate: 149 BPM Max Rate Timestamp: 23:37:33 Mean Rate: 64 BPM Singlets (PACs): 8594 events Couplets (PACs): 419 events Runs (SVT): 0 events Total (SVE): 33546 events Singlets (PVCs): 2526 events Couplets (PVCs): 27 events Runs (VT): 0 events Total (VE): 2583 events Holter Data Value FINDINGS: Protocol: Recording Duration (Actual): 952583.98 Total QRS: 414027 Date Recorded: 2025-07-25 12:41:34 Date Processed: 2025-07-25 12:41:34 CONCLUSIONS: 1. Predominant rhythm is normal sinus rhythm. 2. Heart rate and rate variability is appropriate. 3. No prolonged pauses. 4. Occasional supraventricular ectopy. 5. Rare ventricular ectopy. 6. There are non-sustained supraventricular tachycardia events noted. 7. There are no ventricular tachycardia events noted. 8. Number of Symptomatic episodes: 1. 9. Symptoms included tired or fatigued and rapid HR/palpitations/fluttering. 10. Symptomatic episodes were associated with no clinically significant abnormalities. SUMMARY: Symptomatic episodes were associated with no significant abnormality. Occasional supraventricular ectopy. Electronically Signed By: Philip gambino 08/01/2025 4:24:17 PM CDT Procedure Note Philip Pabon MD - 08/01/[address] [address] HOLTER MONITOR Patient Name: NEO CHÁVEZMalina : 1950 (75y 3m) Sex: M Study Date: 07/25/2025 12:41:34 PM Ht(Inch): Wt(Lb): BSA: Tech: Order Provider: PHILIP PABON Provider: PHILIP PABON PROCEDURES: Holter Report: Holter Monitor Report. INDICATIONS: R00.2 Palpitations. MEASUREMENTS: Holter Data Value Min Rate: 47 BPM Min Rate Timestamp: 10:49:30 Max Rate: 149 BPM Max Rate Timestamp: 23:37:33 Mean Rate: 64 BPM Singlets (PACs): 8594 events Couplets (PACs): 419 events Runs (SVT): 0 events Total (SVE): 70473 events Singlets (PVCs): 2526 events Couplets (PVCs): 27 events Runs (VT): 0 events Total (VE): 2583 events Holter Data Value FINDINGS: Protocol: Recording Duration (Actual): 189102.98 Total QRS: 129248 Date Recorded: 2025-07-25 12:41:34 Date Processed: 2025-07-25 12:41:34 CONCLUSIONS: 1. Predominant rhythm is normal sinus rhythm. 2. Heart rate and rate variability is appropriate. 3. No prolonged pauses. 4. Occasional supraventricular ectopy. 5. Rare ventricular ectopy. 6. There are non-sustained supraventricular tachycardia events noted. 7. There are no ventricular tachycardia events noted. 8. Number of Symptomatic episodes: 1. 9. Symptoms included tired or fatigued and rapidHR/palpitations/fluttering. 10. Symptomatic episodes were associated with no clinically significantabnormalities. SUMMARY: Symptomatic episodes were associated with no significant abnormality.Occasional supraventricular ectopy. Electronically Signed By: Philip Pabon MD [employer] 08/01/2025 4:24:17 PM CDT us Philip Pabon MD [facility] CARDIAC SERVICES PROCED URES Final Result * CTA Abdomen Pelvis (09/09/2024 9:43 AM STABLE ATTENDANT) Anatomical Region Laterality Modality Body N/A Computed Tomogra phy 09/09/2024 12:0 0 PM STABLE ATTENDANT Impressions 09/09/2024 6:18 PM STABLE ATTENDANT 1. Infrarenal abdominal aortic aneurysm measuring 3.2 [...] Dennise Siddiqui M.D. Narrative 09/09/2024 6:18 PM STABLE ATTENDANT EXAMINATION: CTA ABDOMEN PELVIS, CT CHEST WO [...] it. Electronically signed by: Dennise Siddiqui M.D. 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
--- OUTSIDE RECORDS SUMMARY | 2025-08-21 15:12 | XMS_ITS | Clinical Summary ---
Author Organization [facility] Care Team Providers Care Road Cutter Name Role Phone Unavailable Primary Care Provider [...] 1-dose 75+ series) 2024 Influenza Immunization (#1) 2025 SARS-COV-2 Immunization ( - 2023- season) 2025 Hepatitis B Immunization Aged Out No [...]
--- OUTSIDE RECORDS SUMMARY | 2025-08-21 15:12 | XMS_ITS | Encounter Summary ---
Author Organization [facility] Address [address] [address] Care Team Providers Care Equipment Sterilizer Name Role Phone Christiano Almaguer MD Primary Care Provider [phone] Christiano Almaguer MD Primary Care Provider [phone] Christiano Almaguer MD Primary Care Provider [phone] Marcel Carrillo DO Primary Care Provider Anoop Sanders MD Unavailable [phone] Joseluis Juárez MD Unavailable [phone] Christiano Almaguer MD Primary Care Provider [phone] Anoop Barbosa MD Unavailable [phone] Bernabe Garcia MD Unavailable [phone] Encounter Details Date Type Department Care Team (Latest Contact Info) Description 01/05/2017 Orders Only [facility] [place] Provider, [facility] [address] Social History Tobacco Use Types Packs/Day Years Used Date Smoking Tobacco: Every Day Comments:Smoking History Pac ks/day: 1 Packs Alcohol Use Standard Drinks/Week Comments Yes 0 (1 standard drink = 0.6 oz pur e alcohol) Sex and Gender Information Value Date Recorded Sex Assigned at Not on file 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 Gender Identity Male 05/20/2020 7:24 AM CDT [...] documented as of this encounter Care Teams Equipment Sterilizer Relationship Specialty Start Date End Date Christiano Almaguer MD PCP - General 01/27/17 02/05/18 Christiano Almaguer MD PCP - General 01/10/17 01/26/17 Christiano Almaguer MD PCP - General 02/19/14 01/09/17 Marcel Carrillo DO PCP - General Internal Medicine 02/06/18 02/06/18 Christiano Almaguer MD PCP - General Internal Medicine 11/29/20 Anoop Sanders MD Consulting Physician Cardiology 03/09/18 Joseluis Juárez MD Surgeon Vascular Surgery 11/08/19 Anoop Barbosa MD [address] [place], [place] [id number] Consulting Physician Cardiothoracic Surgery 09/24/24 Bernabe Garcia MD [address] [place] [address] Referring Physician Pulmonary Disease 09/24/24 documented as of this encounter
--- OUTSIDE RECORDS SUMMARY | 2025-08-21 15:12 | XMS_ITS | Encounter Summary ---
Author Organization [facility] Address [address] [place] [address] Care Team Providers Care University Services Program Associate Name Role Phone Anoop Sanders MD Unavailable Joseluis Juárez MD Unavailable [phone] Christiano Almaguer MD Primary Care Provider [phone] Anoop Barbosa MD Unavailable [phone] Bernabe Garcia MD Unavailable Encounter Details Date Type Department Care Team (Late st Contact Info) Description 08/01/2025 Results Follow-Up [facility] Cardiology [address] [facility] [address] [address] Anoop Sanders MD [address] [place] [address] [address] [place] [address] 48 HR Holter Monitor Social History Tobacco Use Types Packs/Day Years Used Date Smoking Tobacco: Former Cigarettes Q uit: 2023 Smokeless Tobacco: Never Comments:less than 1 ppd now Alcohol Use Standard Drinks/Week Comments Yes 0 (1 standard drink = 0.6 oz pur e alcohol) social [facility] Utilities Answer Date Recorded In the past 12 months has [employer] electric, gas, oil, or water company threatened [...] often do you attend chur ch or pentecostal services? Never 11/07/2024 Do you belong to any clubs o r organizations such as mandaeism groups, unions, fraternal or athletic groups, or [...] any time in the past 12 m [facility], were you homeless or living in a senior living (including now)? No 11/07/2024 Personal Safety Answer Date Recorded Have you ever been in or are you currently in a harmful physical or emotional relationship or is someone making you feel afraid or unsafe? 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 Gender Identity Male 05/20/2020 7:24 AM CDT Sexual Orientation Not on file documented as of this encounter Plan of Treatment Not on file documented as of this encounter Visit Diagnoses Not on filedocumented in this encounter Care Teams University Services Program Associate Relationship Specialty Start Date End Date Christiano Almaguer MD PCP - General Internal Medicine 11/29/20 Anoop Sanders MD Consulting Physician Cardiology 03/09/18 Joseluis Juárez MD Surgeon Vascular Surgery 11/08/19 Anoop Barbosa MD [address] [place], [place] [id number] Consulting Physician Cardiothoracic Surgery 09/24/24 Bernabe Garcia MD [address] [place] [address] Referring Physician Pulmonary Disease 09/24/24 documented as of this encounter
--- OUTSIDE RECORDS SUMMARY | 2025-08-21 15:12 | XMS_ITS | Encounter Summary ---
Author Organization [facility] Address [address] [place] [address] Phone Care Team Providers Care Piano Case Maker Name Role Phone Unavailable Primary Care Provider Unavailabl e Reason for Visit * Reason Comments Medication Refill Encounter Details Date Type Department Care Team (Late st Contact Info) Description 04/02/2024 Refill [facility] - Family Medicine - [place] [address] [place] [address] Anoop Sanders MD [address] [address] Medication Refill Social History Tobacco Use Types [...]
--- OUTSIDE RECORDS SUMMARY | 2025-08-21 15:12 | XMS_ITS | Encounter Summary ---
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
--- OUTSIDE RECORDS SUMMARY | 2025-08-21 15:12 | XMS_ITS ---
Author Organization [facility] Address [address] [place] [address] Care Team Providers Care Filler Sifter Helper Name Role Phone Anoop aSnders MD Unavailable Joseluis Juárez MD Unavailable [phone] Christiano Almaguer MD Primary Care Provider [phone] Anoop Barbosa MD Unavailable [phone] Bernabe Garcia MD Unavailable Active Problems Problem [...] 09/22 Assessment & Plan (11/09/2023 9:51 AM RAILWAY YARD ASSISTANT): PET scan is reassuring Recs: 1) CT [...] appointment when the time comes. Atherosclerosis of [place] of left lower extremity with intermittent claudication 10/11/2019 Overview (10/11/2019): Added automatically from request for surgery [id number] Assessment & Plan (12/04/2019 10:16 AM RAILWAY YARD ASSISTANT): S/p left SFA stent with resolution of left calf claudication. Arrange new baseline CORTEZ with Duplex scan of left leg in one month. Asymptomatic stenosis of right carotid artery Assessment & Plan (07/27/2022 11:35 AM CDT): Asymptomatic right ICA stenosis. Repeat six month carotid doppler for observation. Assessment & Plan (12/08/2021 1:00 PM RAILWAY YARD ASSISTANT): Stable right ICA stenosis. Continue to monitor with repeat carotid Doppler in six months. He'll be due for follow-up lower extremity arterial Doppler/Duplex and an abdominal aortic Duplex in six months as well. We'll coordinate his vascular studies. Assessment & Plan (09/13/2021 12:18 PM RAILWAY YARD ASSISTANT): Asymptomatic progressive right ICA stenosis that is [...] sooner. Assessment & Plan (12/04/2019 10:16 AM RAILWAY YARD ASSISTANT): elevated velocities within right ICA on prior [...] now Assessment & Plan (11/09/2023 9:51 AM RAILWAY YARD ASSISTANT): As above. He wants to think about and let me know if he would like pharmacologic assistance Assessment & Plan (07/25/2023 1:31 PM CDT): As above. He wants to think about and let me know if he would like pharmacologic assistance Assessment & Plan (12/19/2018 6:33 PM RAILWAY YARD ASSISTANT): Discussed with patient lung cancer screening once per year Smoking cessation using nicotine gum will be initiated Quantitate with PFTs his current impairment Centrilobular emphysema 12/19/2018 Overview (12/19/2018): CT confirmed 02/09/2018 Assessment & Plan (11/09/2023 9:51 AM RAILWAY YARD ASSISTANT): Sx are stable PFTs reveal moderate obstructive [...] maintenance/vaccinations Assessment & Plan (12/19/2018 6:31 PM RAILWAY YARD ASSISTANT): Currently exercise limitations due more to arthritis [...] year. Assessment & Plan (12/04/2019 10:17 AM RAILWAY YARD ASSISTANT): Small AAA. Monitor with annual Duplex scans. Essential (primary) hypertension 01/05/2017 Overview (03/24/2017): Essential hypertension Assessment & Plan (11/20/2018 4:02 AM RAILWAY YARD ASSISTANT): Continue home metoprolol, hydrochlorothiazide, Cozaar. Hypercholesterolemia 01/05/2017 Overview (03/24/2017): Hypercholesterolemia Assessment & Plan (11/20/2018 4:02 AM RAILWAY YARD ASSISTANT): Continue home statin Aftercare following surgery of the respiratory s ystem 02/04/2016 Overview (02/02/2017): Post surgical visit Coronary artery disease of n ative artery of [place] heart with stable angina pectoris 01/18/2016 Overview (12/19/2018): 3 vessel CAD CABG x3 December 2015 Two stents October 2018 Assessment & Plan (12/19/2018 6:32 PM RAILWAY YARD ASSISTANT): 3 vessel CAD CABG x3 December 2015 [...] 12/19/2018 Assessment & Plan (11/20/2018 4:02 AM RAILWAY YARD ASSISTANT): Has been having increasing chest pain over [...] evaluation. He has been made NPO. His ortho tech Dr. Rader has been consulted. We will continue aspirin, Plavix, losartan, metoprolol. We will also continue full-dose anticoagulation for now. We will trend troponins. Postnasal drip 04/06/2016 10/17/2019 Overview (02/02/2017): Post-nasal drip
== END 2025-08-21 14:09 | disposition home or self-care (01) ==
PROVIDERS: PCP Internal Medicine; Visit Provider Internal Medicine
DX: E78.2 Mixed hyperlipidemia (principal); I10 Essential (primary) hypertension; Z79.899 Other long term (current) drug therapy
CPT/HCPCS: 36415; 80053; 80061; 81001; 85025

== ENCOUNTER 2025-09-24 11:05 | Outpatient (CLI) | payer MEDICARE, SELFPAY ==
--- OUTSIDE RECORDS SUMMARY | 2025-09-24 11:47 | XMS_ITS | Encounter Summary ---
Author Organization [facility] Healthcare Address [address] [place] [address] Care Team Providers Care User Experience Team Lead Name Role Phone Anoop Sanders MD Unavailable Joseluis Juárez MD Unavailable [phone] Christiano Almaguer MD Primary Care Provider [phone] Anoop Barbosa MD Unavailable Bernabe Garcia MD Unavailable Encounter Details Date Type Department Care Team (Late st Contact Info) Description 08/01/2025 Results Follow-Up [facility] Medical Group Cardiology [address], [place] [address] Anoop Sanders MD [address] [place] [address] [address] [place] [address] 48 HR Holter Monitor Social History Tobacco Use Types Packs/Day Years Used Date Smoking Tobacco: Former Cigarettes Q uit: 2023 Smokeless Tobacco: Never Comments:less than 1 ppd now Alcohol Use Standard Drinks/Week Comments Yes 0 (1 standard drink = 0.6 oz pur e alcohol) social [facility] Utilities Answer Date Recorded In the past 12 months has [employer] electric, gas, oil, or water company threatened [...] any clubs o r organizations such as amish groups, unions, fraternal or athletic groups, or [...] any time in the past 12 m [facility], were you homeless or living in a long-term (including now)? No 11/07/2024 Personal Safety Answer Date Recorded Have you ever been in or are you currently in a harmful physical or emotional relationship or is someone making you feel afraid or unsafe? 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 Gender Identity Male 05/20/2020 7:24 AM CDT Sexual Orientation Not on file documented as of this encounter Plan of Treatment Not on file documented as of this encounter Visit Diagnoses Not on filedocumented in this encounter Care Teams User Experience Team Lead Relationship Specialty Start Date End Date Christiano Almaguer MD PCP - General Internal Medicine 11/29/20 Anoop Sanders MD Consulting Physician Cardiology 03/09/18 Joseluis Juárez MD Surgeon Vascular Surgery 11/08/19 Anoop Barbosa MD [address] [place], [place] [id number] Consulting Physician Cardiothoracic Surgery 09/24/24 Bernabe Garcia MD [address] [place] [address] Referring Physician Pulmonary Disease 09/24/24 documented as of this encounter
--- OUTSIDE RECORDS SUMMARY | 2025-09-24 11:47 | XMS_ITS ---
Author Organization [facility] Address [address] [place] [address] Care Team Providers Care Plant Pathology Teacher Name Role Phone Anoop Sanders MD Unavailable Joseluis Juárez MD Unavailable [phone] Christiano Almaguer MD Primary Care Provider [phone] Anoop Barbosa MD Unavailable Bernabe Garcia MD Unavailable [phone] Active Problems Problem Noted Date Diagnosed Date [...] 09/22 Assessment & Plan (11/09/2023 9:51 AM MOUNTER SOUSAPHONES): PET scan is reassuring Recs: 1) CT [...] (peripheral artery disease) 03/18/2020 Assessment & Plan (09/15/2025 2:09 PM MOUNTER SOUSAPHONES): He has new right leg symptoms that sound consistent with neuropathy. There are no symptoms of progressive claudication. The left SFA stenosis proximal to a patent stent is stable. Repeat left leg arterial duplex + ABIs in one year. Assessment & Plan (03/01/2021 11:39 AM CDT): Excellent lower extremity arterial perfusion. Monitor with repeat ABIs and left leg Duplex in one year. Our office will contact him to make the appointment when the time comes. 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 Arrange new baseline CORTEZ with Duplex scan of left leg in one month. Asymptomatic stenosis of right carotid artery Assessment & Plan (09/15/2025 2:08 PM MOUNTER SOUSAPHONES): Stable asymptomatic right ICA stenosis with elevated velocities probably partially related to tortuous vessel. Repeat carotid doppler in six months for observation. Assessment & Plan (07/27/2022 11:35 AM CDT): Asymptomatic right ICA stenosis. Repeat six month carotid doppler for observation. Assessment & Plan (12/08/2021 1:00 PM MOUNTER SOUSAPHONES): Stable right ICA stenosis. Continue to monitor with repeat carotid Doppler in six months. He'll be due for follow-up lower extremity arterial Doppler/Duplex and an abdominal aortic Duplex in six months as well. We'll coordinate his vascular studies. Assessment & Plan (09/13/2021 12:18 PM MOUNTER SOUSAPHONES): Asymptomatic progressive right ICA stenosis that is [...] sooner. Assessment & Plan (12/04/2019 10:16 AM MOUNTER SOUSAPHONES): elevated velocities within right ICA on prior [...] now Assessment & Plan (11/09/2023 9:51 AM MOUNTER SOUSAPHONES): As above. He wants to think about and let me know if he would like pharmacologic assistance Assessment & Plan (07/25/2023 1:31 PM CDT): As above. He wants to think about and let me know if he would like pharmacologic assistance Assessment & Plan (12/19/2018 6:33 PM MOUNTER SOUSAPHONES): Discussed with patient lung cancer screening once per year Smoking cessation using nicotine gum will be initiated Quantitate with PFTs his current impairment Centrilobular emphysema 12/19/2018 Overview (12/19/2018): CT confirmed 02/09/2018 Assessment & Plan (11/09/2023 9:51 AM MOUNTER SOUSAPHONES): Sx are stable PFTs reveal moderate obstructive [...] maintenance/vaccinations Assessment & Plan (12/19/2018 6:31 PM MOUNTER SOUSAPHONES): Currently exercise limitations due more to arthritis [...] year. Assessment & Plan (12/04/2019 10:17 AM MOUNTER SOUSAPHONES): Small AAA. Monitor with annual Duplex scans. Essential (primary) hypertension 01/05/2017 Overview (03/24/2017): Essential hypertension Assessment & Plan (11/20/2018 4:02 AM MOUNTER SOUSAPHONES): Continue home metoprolol, hydrochlorothiazide, Cozaar. Hypercholesterolemia 01/05/2017 Overview (03/24/2017): Hypercholesterolemia Assessment & Plan (11/20/2018 4:02 AM MOUNTER SOUSAPHONES): Continue home statin Aftercare following surgery of the respiratory s ystem 02/04/2016 Overview (02/02/2017): Post surgical visit Coronary artery disease of n ative artery of [place] heart with stable angina pectoris 01/18/2016 Overview (12/19/2018): 3 vessel CAD CABG x3 December 2015 Two stents October 2018 Assessment & Plan (12/19/2018 6:32 PM MOUNTER SOUSAPHONES): 3 vessel CAD CABG x3 December 2015 [...] 12/19/2018 Assessment & Plan (11/20/2018 4:02 AM MOUNTER SOUSAPHONES): Has been having increasing chest pain over [...] evaluation. He has been made NPO. His channel director Dr. Rader has been consulted. We will continue aspirin, Plavix, losartan, metoprolol. We will also continue full-dose anticoagulation for now. We will trend troponins. Postnasal drip 04/06/2016 10/17/2019 Overview (02/02/2017): Post-nasal drip
--- OUTSIDE RECORDS SUMMARY | 2025-09-24 11:47 | XMS_ITS | Encounter Summary ---
Author Organization [facility] Address [address] [place] [address] Phone Care Team Providers Care Custodian Manager Name Role Phone Unavailable Primary Care Provider Unavailabl e Reason for Visit * Reason Comments Medication Refill Encounter Details Date Type Department Care Team (Late st Contact Info) Description 04/02/2024 Refill [facility] - [facility] Medicine - [place] [address] [place] [id number] Anoop Sanders MD [address] [address] Medication Refill Social History Tobacco Use Types [...]
--- OUTSIDE RECORDS SUMMARY | 2025-09-24 11:47 | XMS_ITS | Clinical Summary ---
Author Organization [facility] Address Unknown Care Team Providers Care Computer Network And Systems Engineer Name Role Phone Unavailable Primary Care Physician Unavailab le Medications Medication Dose Frequency Directions Start Date End Carlos e tizanidine 30 tamsulosin HCl 0 Capsule take 1 capsul e by oral route every day 1/2 hour following the same meal each day tamsulosin 90 TAKE 1 CAPSULE BY MOUTH DAILY potassium chloride 30 losartan 100 mg-hydrochlorothiaz romana 25 mg tablet 0 Tablet take 1 tablet by oral route every day colesevelam 360 TAKE 2 TABLETS BY MOUTH TWICE DAILY Aspir-81 mg tablet,delayed release 0 Tablet clopidogrel 30 budesonide 210 capsule Take 3 capsules for 8 weeks then take 2 capsules for 2 weeks then 1 capsule for 2 weeks 06/16/2025 atorvastatin 90 metoprolol tartrate 180 TAKE 1 T ABLET BY MOUTH TWICE DAILY lorazepam 180 Jardiance 30 allopurinol 38 folic acid 90 TAKE 1 TABLET B Y MOUTH DAILY metoprolol tartrate 0 Tablet take 1 t ablet by oral route 2 times every day with meals 09/22/2025 losartan potassium 0 Tablet 0 07/08/2020 Suprep Bowel Prep Kit 1 unit dose, as directed for Drink 1 bottle by mouth, split dose, as directed for colonoscopy prep 06/02/2025 06/20/2025 ondansetron 2 tablet 30 min prior to each prep Dissolve 1 tablet by mouth 30 min prior to each prep for nausea and vomiting 06/02/2025 06/20/2025 atorvastatin calcium 0 Tablet 09/22/2025 Plavix 0 Tablet 09/22/2025 Problems Problem Status Start Date End Date Collagenous colitis (K52.831 - ICD-10) Active Diarrhea (c) (R19.7 - ICD-10) Active 06/12/2025 Diverticulosis of large inte esequiel without perforation or abs (K57.30 - ICD-10) Active 06/12/2025 Macrocytic anemia (D53.9 - ICD-10) Active Nausea (R11.0 - ICD-10) Active Polyp of colon (K63.5 - ICD-10) Active 5 BPH (N13.8 - ICD-10) COPD - no oxygen use ([id number] - [facility]) High Cholesterol (E78.0 - ICD-10) Hypertension (I10 - ICD-10) Lung cancer Sep 2024, no valerio mo or radiation (C34.90 - ICD-10) Myocardial infarction - 2016 ([id number] - [facility]) total of 9 cardiac stents placed prior to [place] Results * [facility] Pathology Component Value Range Date 06/11/2025 10:0 0 pm PDT Encounters Encounter Performer Performer Role Encounter Diagnoses Location Date Ambulatory Encounter [id number] Curran [facility] 5 11:54 am PDT Colonoscopy [id number] Johnson Diarrhea (c) Polyp of colon Diverticulosis of large intestine without perforation or abs [facility] 5 08:00 am PDT Ambulatory Encounter [id number] Curran [facility] 5 01:42 pm PDT Follow Up [id number] Dwyer Collagenous colitis [facility] 5 08:30 am PDT Ambulatory Encounter [id number] Curran [id number] Gomez Macrocytic anemia [facility] 5 10:31 am PDT Ambulatory Encounter [id number] Dwyer [facility] 5 11:47 am PDT Ambulatory Encounter [id number] Mendieta [facility] 5 07:20 pm PST Follow Up [id number] Dwyer [facility] 5 08:00 am PST Chief Complaint 3 month follow up Advance Directives Directive Description Verification Rita Lewis , 06/12/2025 Family history Father Diagnosis Age At Onset Colon Cancer Immunizations Vaccine Date COVID-19 Pfizer Vaccine Influenza vaccine Procedures Procedure Date Appendectomy CABG-triple - december 2015 Cholecystectomy Lobectomy - Sep 2024 Pre-procedure questionnaire 06/09/2025 1 0:00 pm PDT Review Of Systems Gastrointestinal: Complains of diar omar . Denies of abdominal pain, change in bowel habits, constipation, bloating/gas, heartburn/reflux, nausea, vomiting, blood in stool, difficulty swallowing, anorectal pain/itching, incontinence of stool, black tarry stools. Genitourinary: Denies of dark urin e, frequent urination, blood in urine. Integumentary: Denies of itching, jaundice, rashes. Cardiovascular: Denies of chest michael n, irregular heart beat, palpitations, peripheral edema, heart murmur. Neurological: Denies of frequent headaches, numbness or tingling, memory loss/confusion. Endocrine: Denies of excessive thirst, cold intolerance. Constitutional: Complains of fati meenu , loss of appetite . Denies of fever, night sweats, weight gain, weight loss. Psychiatric: Denies of anxiety, depression. ENMT: Denies of sore thro at, double vision, eye irritation, eye pain, eye redness, hoarseness, mouth sores. Hematologic/Lymphatic: Denies of easy b ruising, prolonged bleeding. Musculoskeletal: Denies of back pain , joint pain. Respiratory: Denies of cough, wh eezing, snoring, sleep apnea, shortness of breath. Allergic/Immunologic: Denies of allergi es. Physical Exam [...] Planned Activity Planned Date High fiber diet Clostridium difficile GDH re flex to toxin A/B and PCR (No [facility]) Gradual titration of fiber s upplementation discussed (Benefiber, psyllium (Metamucil) or Citrucel - 1-2 heaped tablespoons daily with fluids. Reticulocyte Count Thyroid panel Await pathology results. Con tinue current medications. Resume prior diet. Giardia Specific Ag, EIA Complete Blood Count (CBC) with Diff Erythrocyte Sedimentation Rate (ESR) Liver Function Panel (HFP) Basic Metabolic Panel (BMP) Fecal elastase Pathology Requisition - [facility] Iron, TIBC and % Saturation C-Reactive Protein (CRP) GI Pathogen panel, Real Time PCR (12 pat hogens) ([facility] only) Vitamin B12 and Folate Ferritin Ova/Parasite x1, stool Fecal elastase Follow-up if symptoms persist or worsen Colonoscopy likely in 3 years, pending p athology results 06/11/2028 10:00 pm PDT Social History Observation Value Start Date End Date Marital Status Number of Previous Marriages Number of Gestations 0 Number of Pregnancies 0 Number of Abortions 0 Tobacco Use Former smoker Vital Signs Vital Sign Reading Time Taken Pulse 57 /min 09/24/2025 07:41 am PST Rhythm 09/24/2025 07:41 am PST Body Temperature 97.2 [degF] 09/24/2025 07:4 1 am PST Respirations /min 09/24/2025 07:41 am PST Oxygen saturation % 09/24/2025 07: 41 am PST [id number] mmHg 09/24/2025 07:41 am PST Height 71 in 09/23/2025 07:20 pm PST Weight 0 lbs 09/23/2025 07:20 pm PST BMI (Body Mass Index) kg/m2 09/23/2025 07:20 pm PST BP Systolic 156 mm[hg] 09/24/2025 07:41 am PST BP Diastolic 75 mm[hg] 09/24/2025 07:41 am PST Insurances Policy / Member / Group Numbers Plan Details Company Policy Jara [id number] / / Plan Type:MCR Coverage Type:Primary Medicare [place] RamirezHanks [id number] / / [id number] Plan Type:MCRSUP Coverage Type:Secondary [employer] [facility] Supp Ramirez Ferrer [id number] / / Coverage Type:Tertiary CNV Ramirez Ferrer
--- OUTSIDE RECORDS SUMMARY | 2025-09-24 11:47 | XMS_ITS | Encounter Summary ---
Author Organization [facility] Medical [facility] Address [address] [address] Care Team Providers Care Rope Machine Setter Name Role Phone Christiano Almaguer MD Primary Care Provider [phone] Christiano Almaguer MD Primary Care Provider [phone] Christiano Almaguer MD Primary Care Provider [phone] Marcel Carrillo DO Primary Care Provider [phone] Anoop Sanders MD Unavailable [phone] Joseluis Juárez MD Unavailable [phone] Christiano Almaguer MD Primary Care Provider [phone] Anoop Barbosa MD Unavailable [phone] Bernabe Garcia MD Unavailable [phone] Encounter Details Date Type Department Care Team (Latest Contact Info) Description 01/05/2017 Orders Only [facility] [place] Provider, [place] [facility] [place] [address] Social History Tobacco Use Types Packs/Day Years Used Date Smoking Tobacco: Every Day Comments:Smoking History Pac ks/day: 1 Packs Alcohol Use Standard Drinks/Week Comments Yes 0 (1 standard drink = 0.6 oz pur e alcohol) Sex and Gender Information Value Date Recorded Sex Assigned at Not on file 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 Historical Provider [facility] JOE DUMONT Final Result documented in this encounter Visit Diagnoses Not on filedocumented in this encounter Additional Health Concerns Infection Onset Date Last Indicated Resolved Time COVID: Suspected 02/22/2024 02/22/2024 02/22/2024 11:04 AM CDT Parainfluenza, droplet 02/22/2024 02/22/202402/28 3:05 AM CDT documented as of this encounter Care Teams Rope Machine Setter Relationship Specialty Start Date End Date [...] MD [address] [place], [place] [id number] Consulting Physician Cardiothoracic Surgery 09/24/24 Bernabe Garcia MD [address] [place], [place] [id number] Referring Physician Pulmonary Disease 09/24/24 documented as of this encounter
--- OUTSIDE RECORDS SUMMARY | 2025-09-24 11:47 | XMS_ITS | Encounter Summary ---
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
--- OUTSIDE RECORDS SUMMARY | 2025-09-24 11:47 | XMS_ITS | Clinical Summary ---
Author Organization [facility] Address Unknown Care Team Providers Care Valet Name Role Phone Christiano Almaguer MD Primary Care Physician [phone] Medications Medication Dose Frequency Directions Start [...] - ICD-10) COPD - no oxygen use (04661226 - [facility]) High Cholesterol (E78.0 - ICD-10) Hypertension (I10 - ICD-10) Lung cancer Sep 2024, no valerio mo or radiation (C34.90 - ICD-10) Myocardial infarction - 2016 ([id number] - [facility]) total of 9 cardiac stents placed prior to SD Results * [place] Pathology Component Value Range Date 06/11/2025 10:0 0 pm PDT Encounters Encounter Performer Performer Role Encounter Diagnoses Location Date Ambulatory Encounter [id number] Curran [facility] [place] 5 11:54 am PDT Colonoscopy [id number] Curran Diarrhea (c) Polyp of colon Diverticulosis of large intestine without perforation or abs [facility] [place] 5 08:00 am PDT Ambulatory Encounter [id number] Mendieta [facility] 5 01:42 pm PDT Follow Up [id number] Dwyer Collagenous colitis [facility] 5 08:30 am PDT Ambulatory Encounter [id number] Mendieta [id number] Gomez Macrocytic anemia [facility] 5 10:31 am PDT Ambulatory Encounter [id number] Dwyer [facility] 5 11:47 am PDT Ambulatory Encounter [id number] Mendieta [facility] 5 07:20 pm PST Follow Up [id number] Dwyer [facility] 5 08:00 am PST Advance Directives Directive Description Verification Rita Lewis [...] Pathogen panel, Real Time PCR (12 pat romero) ([facility] only) Vitamin B12 and Folate Ferritin [...] saturation % 09/24/2025 07: 41 am PST [id number] mmHg 09/24/2025 07:41 am PST Height 71 in 09/23/2025 07:20 pm PST Weight 0 lbs 09/23/2025 07:20 pm PST BMI (Body Mass Index) kg/m2 09/23/2025 07:20 pm PST BP Systolic 156 mm[hg] 09/24/2025 07:41 am PST BP Diastolic 75 mm[hg] 09/24/2025 07:41 am PST Insurances Policy / Member / Group Numbers Plan Details Company Policy Jara [id number] / / Plan Type:[employer] Coverage Type:Primary Medicare [place] Ramirez Ferrer [id number] / / [id number] Plan Type:MCRSUP Coverage Type:Secondary [place] [employer] [place] MCR Supp Ramirez Ferrer [id number] / / Coverage Type:Tertiary CNV Ramirez Ferrer
--- OUTSIDE RECORDS SUMMARY | 2025-09-24 11:47 | XMS_ITS | Encounter Summary ---
Author Organization [facility] Address [address] [place] [address] Care Team Providers Care Platform Material Handling Supervisor Name Role Phone Anoop Sanders MD Unavailable [phone] Joseluis Juárez MD Unavailable [phone] Christiano Almaguer MD Primary Care Provider [phone] Anoop Barbosa MD Unavailable [phone] Bernabe Garcia MD Unavailable Encounter Details Date Type Department Care Team (Late st Contact Info) Description 06/14/2021 Telephone [facility] - Imaging [address] [place] [address] Transcribed Order, Provider Social History [...] on file Legal Sex Male 3:47 PM [employer] Gender Identity Male 05/20/2020 7:24 AM CDT [...] documented as of this encounter Care Teams Platform Material Handling Supervisor Relationship Specialty Start Date End Date Christiano Almaguer MD PCP - General Internal Medicine 11/29/20 Anoop Sanders MD Consulting Physician Cardiology 03/09/18 Joseluis Juárez MD Surgeon Vascular Surgery 11/08/19 Anoop Barbosa MD [address] [place], [place] [id number] Consulting Physician Cardiothoracic Surgery 09/24/24 Bernabe Garcia MD [address] [place] [address] Referring Physician Pulmonary Disease 09/24/24 documented as of this encounter
--- OUTSIDE RECORDS SUMMARY | 2025-09-24 11:47 | XMS_ITS | Clinical Summary ---
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 Name Role Phone Philip Pabon MD Unavailable [phone] Joseluis Juárez MD Unavailable [phone] Christiano Almaguer MD Primary Care Provider [phone] Philip Barbosa MD Unavailable [phone] Bernabe Garcia MD Unavailable [phone] Allergies No known active allergies Medications aspirin [...] puff daily 60 each 1 5 Active clopidogreL (PLAVIX) 75 mg tablet TAKE 1 TABLET(75 MG) BY MOUTH DAILY 30 tablet 11 5 Active mucus clearing device device 1 Device as needed (Use as needed.) 1 each 5 Active Active Problems Problem Noted Date [...] 09/22 Assessment & Plan (11/09/2023 9:51 AM OFFICE HELPER): PET scan is reassuring Recs: 1) CT [...] 03/18/2020 Assessment & Plan (09/15/2025 2:09 PM OFFICE HELPER): He has new right leg symptoms that [...] appointment when the time comes. 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 Arrange new baseline CORTEZ with Duplex scan of left leg in one month. Asymptomatic stenosis of right carotid artery Assessment & Plan (09/15/2025 2:08 PM OFFICE HELPER): Stable asymptomatic right ICA stenosis with elevated velocities probably partially related to tortuous vessel. Repeat carotid doppler in six months for observation. Assessment & Plan (07/27/2022 11:35 AM CDT): Asymptomatic right ICA stenosis. Repeat six month carotid doppler for observation. Assessment & Plan (12/08/2021 1:00 PM OFFICE HELPER): Stable right ICA stenosis. Continue to monitor with repeat carotid Doppler in six months. He'll be due for follow-up lower extremity arterial Doppler/Duplex and an abdominal aortic Duplex in six months as well. We'll coordinate his vascular studies. Assessment & Plan (09/13/2021 12:18 PM OFFICE HELPER): Asymptomatic progressive right ICA stenosis that is [...] sooner. Assessment & Plan (12/04/2019 10:16 AM OFFICE HELPER): elevated velocities within right ICA on prior [...] now Assessment & Plan (11/09/2023 9:51 AM OFFICE HELPER): As above. He wants to think about and let me know if he would like pharmacologic assistance Assessment & Plan (07/25/2023 1:31 PM CDT): As above. He wants to think about and let me know if he would like pharmacologic assistance Assessment & Plan (12/19/2018 6:33 PM OFFICE HELPER): Discussed with patient lung cancer screening once per year Smoking cessation using nicotine gum will be initiated Quantitate with PFTs his current impairment Centrilobular emphysema 12/19/2018 Overview (12/19/2018): CT confirmed 02/09/2018 Assessment & Plan (11/09/2023 9:51 AM OFFICE HELPER): Sx are stable PFTs reveal moderate obstructive [...] maintenance/vaccinations Assessment & Plan (12/19/2018 6:31 PM OFFICE HELPER): Currently exercise limitations due more to arthritis [...] year. Assessment & Plan (12/04/2019 10:17 AM OFFICE HELPER): Small AAA. Monitor with annual Duplex scans. Essential (primary) hypertension 01/05/2017 Overview (03/24/2017): Essential hypertension Assessment & Plan (11/20/2018 4:02 AM OFFICE HELPER): Continue home metoprolol, hydrochlorothiazide, Cozaar. 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 He has been made NPO. His optician apprentice dispensing Dr. aRder has been consulted. We will continue aspirin, Plavix, losartan, metoprolol. We will also continue full-dose anticoagulation for now. We will trend troponins. Postnasal drip 04/06/2016 10/17/2019 Overview (02/02/2017): Post-nasal drip Encounters Date Type Department Care Team Description 09/16/2025 9:30 AM OFFICE HELPER Office Visit [facility] [address] [address] Bernabe Garcia MD Abnormal CT scan (Primary Dx); Chronic obstructive pulmonary disease, unspecified COPD type (HCC); Adenocarcinoma of right lung (HCC) 09/16/2025 Telephone [facility] [address] [facility] [address] [place] [address] Gokul Gomez MA 09/15/2025 2:30 PM OFFICE HELPER Office Visit [facility] Surgery [address] [address] Rachel Cast PA Asymptomatic stenosis of right carotid artery (Primary Dx); PAD (peripheral artery disease) 09/15/2025 1:45 PM OFFICE HELPER Ancillary Procedure [facility] Surgery [address] [address] Encounter for surgical aftercare following surgery on the circulatory system 09/15/2025 1:00 PM OFFICE HELPER Ancillary Procedure [facility] Medicine Surgery [address] [facility] [address] [place] [address] Bilateral carotid artery stenosis 09/01/2025 [facility] [address] [facility] [address] [place] [phone] chest without contrast 08/28/2025 10:30 AM CDT - 08/28/2025 11:59 PM CDT Hospital Encounter [facility] - Imaging [address] [place] [phone] Bernabe Garcia MD Chronic obstructive pulmonary disease, unspecified COPD type (HCC); Adenocarcinoma of right lung (HCC); Tobacco abuse Discharge Disposition: Discharge to home or self care 08/01/2025 Results Follow-Up [facility] [address] [place] [address] [address] [place] [address] Philip Pabon MD 48 HR Holter Monitor 07/30/2025 Orders Only [facility] Medicine Surgery [address] [facility] [address] [place] [address] Joseluis Juárez MD Bilateral carotid artery stenosis (Primary Dx) 07/25/2025 12:35 PM CDT - 07/25/2025 11:59 PM CDT Hospital Encounter [facility] OP Cardiac Testing [address] [facility] [address] [place] [address] Palpitations Discharge Disposition: Discharge to home or self care 07/15/2025 Telephone [facility] [address] [place] [address] [address] [place] [address] Philip Pabon MD 07/11/2025 2:15 PM CDT Office Visit [facility] [address] [place] [address] [address] [place] [address] Philip Pabon MD 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 (Primary Dx); Palpitations; Abdominal aortic aneurysm (AAA) without rupture, unspecified part; Infrarenal abdominal aortic aneurysm (AAA) without rupture from Last 3 Months Immunizations Immunization Administration [...] Hemato ma w/drain Chronic coronary artery disease 2015 CABG Philip Blas MD Pleural effusion Hypertension [...] = 0.6 oz pur e alcohol) social [employer] Utilities Answer Date Recorded In the past 12 months has e APROOFED, gas, oil, or water Sinch threatened to shut off services in your [...] any clubs o r organizations such as quaker groups, unions, fraternal or athletic groups, or [...] any time in the past 12 m [facility], were you homeless or living in a senior care (including now)? No 11/07/2024 Personal Safety Answer Date Recorded Have you ever been in or are you currently in a harmful physical or emotional relationship or is someone making you feel afraid or unsafe? Denies 11/06/2024 Sex and Gender Information Value Date Recorded Sex Assigned at Not on file Legal Sex Male 3:47 PM OFFICE HELPER Gender Identity Male 05/20/2020 7:24 AM CDT Sexual Orientation Not on file Last Filed Vital Signs Vital Sign Reading Time Taken Comments Blood Pressure 120/75 09/15/2025 1:29 PM OFFICE HELPER Pulse 52 09/15/2025 1:29 PM OFFICE HELPER Temperature 36.7 C (98 F) 11/10/2024 7:50 AM OFFICE HELPER Respiratory Rate 14 11/19/2024 8:52 AM OFFICE HELPER Oxygen Saturation 97% 07/11/2025 2:28 PM CDT [...] history exists Medical Devices Implanted Type Area Electronic Equipment Repairer Device Identifier Shelf Expiration Date Model / Serial / Lot Lonnie Efrain [id number] Device Closure Angio-Seal Vip Bondek-Plus Polyglyd L70 Cm Od6 Fr Odsec.035 In Vascular - Sn/A - [id number] Implanted:Qty : 1 on 11/07/2019 by Joseluis Juárez MD at [facility] Other - see comments Right: Groin Daig Efrain/[employer] 05/29/2020 [id number] / N/A / [id number] Bard Peripheral [employer] [id number] Lifestent 6mm 6fr 40mm 130cm Self Expand Catheter Helical - Sn/A - [id number] Implanted:Qty : 1 on 11/07/2019 by Joseluis Juárez MD at [facility] Stent Left: Arterial [employer] [id number] 02/22/2021 [id number] / N/A / [id number] Description:Left popliteal a rtery [place] [employer] Efrain [id number] Synergy 4mm 38mm 144cm Radiopaque 1 Access Port Inflation Lumen - [id number] Implanted:Qty : 1 on 11/20/2018 by Ike Coleman MD at [facility] N/A: Coronary [place] [employer] E[employer]rain 07/09/2020 [id number] / / [id number] Description:Circumflex [place] [employer] E[employer]rain [id number] Synergy 3.5mm 16mm 144cm Radiopaque 1 Access Port Inflation Lumen - [id number] Implanted:Qty : 1 on 11/20/2018 by Ike Coleman MD at [facility] N/A: Coronary [place] [employer]rain 06/19/2020 [id number] / / [id number] Description:Circumflex Procedures Procedure Name Priority Date/Time Associated Diagnosis Comments US CAROTIDS DUPLEX BILATERAL Schedule Routine, Read Routine (OP Routine) 09/15/2025 1:49 PM OFFICE HELPER Bilateral carotid artery stenosis US ARTERIAL DUPLEX LOWER EXTREMITY LEFT LIMITED Schedule Routine, Read Routine (OP Routine) 09/15/2025 1:49 PM OFFICE HELPER Encounter for surgical aftercare following surgery on the circulatory system US CORTEZ Schedule Routine, Read Routine (OP Routine) 09/15/2025 1:49 PM OFFICE HELPER Encounter for surgical aftercare following surgery on the circulatory system CT CHEST WO CONTRAST Schedule Routine, Read Routine (OP Routine) 08/28/2025 11:10 AM CDT Chronic obstructive pulmonary disease, unspecified COPD type (HCC) Adenocarcinoma of right lung (HCC) Tobacco abuse HOLTER MONITOR 48 HR Routine 07/25/2025 12:44 PM CDT Palpitations CTA ABDOMEN PELVIS W WO CONTRAST Routine 09/09/2024 9:43 AM OFFICE HELPER Abdominal aortic aneurysm (AAA) without rupture, unspecified part from Last 3 Months or Most Recently Relevant to Health Maintenance Results * US Carotids Duplex Bilateral (09/15/2025 1:49 PM OFFICE HELPER) Anatomical Region Laterality Modality Vascular Bilateral Ultrasound 09/15/2025 12:4 3 PM OFFICE HELPER Narrative 09/21/2025 2:18 PM OFFICE HELPER [facility] - Department of Vascular Surgery, Vascular Laboratory [address] [place] [address] Carotid Duplex Ultrasound Report Patient Name: NEO CHÁVEZ Malina : 1950 (75y 5m) Study Date: 09/15/2025 12:43:53 PM Sex: M Tech: ARIEL Location: [facility] Provider: JOSELUIS JUÁREZ Quality: Adequate Order Provider: JOSELUIS JUÁREZ PROCEDURES: Carotid Report: Carotid duplex examination of the extracranial arteries was performed using 2D, color and spectral Doppler. INDICATIONS: I65.23 Occlusion and stenosis of bilateral carotid arteries. MEASUREMENTS: Right Value Units Left Value Units RT Prox CCA PSV 65 cm/sec LT Prox CCA PSV 87 cm/sec RT Prox CCA EDV 10 cm/sec LT Prox CCA EDV 15 cm/sec RT Distal CCA PSV 57 cm/sec LT Distal CCA PSV 55 cm/sec RT Distal CCA EDV 14 cm/sec LT Distal CCA EDV 11 cm/sec RT Prox ICA PSV 38 cm/sec LT Prox ICA PSV 50 cm/sec RT Prox ICA EDV 11 cm/sec LT Prox ICA EDV 12 cm/sec RT Mid ICA PSV 356 cm/sec LT Mid ICA PSV 116 cm/sec RT Mid ICA EDV 89 cm/sec LT Mid ICA EDV 29 cm/sec RT Distal ICA PSV 172 cm/sec LT Distal ICA PSV 91 cm/sec RT Distal ICA EDV 24 cm/sec LT Distal ICA EDV 26 cm/sec RT ECA Prx PSV 90 cm/sec LT ECA Prx PSV 158 cm/sec RT ICA/CCA 6.29 ratio LT ICA/CCA 2.10 ratio RT VERT PSV 68 cm/sec LT VERT PSV 58 cm/sec FINDINGS: Performing Rotary Drum Tanner: Ariel Bueno, RVT, RDMS, RDCS, ACS. Rt Common Carotid Artery: There is intimal thickening but no significant atherosclerotic plaque noted in the right common carotid artery. Rt Internal Carotid Artery: The plaque in the right internal carotid artery appears to be calcified and irregular. Significant atherosclerotic changes of the right internal carotid artery with elevated peak systolic velocity and end diastolic velocity, as above. >70% stenosis per peak systolic velocity and ratio. STENOSIS IS AT THE MID ICA- may also be related to tortuosity. 50-69% stenosis per end diastolic velocity. Rt External Carotid Artery: The right external carotid artery is patent without evidence of atherosclerotic plaque. Rt Vertebral Artery: The right vertebral artery is patent with antegrade flow. Lt Common Carotid Artery: The plaque in the left CCA appears to be heterogeneous and smooth. Lt Internal Carotid Artery: The plaque in the left internal carotid artery appears to be calcified and irregular. 0.8cm length of the proximal ICA is not assessed due to calcific shadowing. Significant atherosclerotic changes of the left internal carotid artery, as above. 50-69% stenosis per velocity ratio. <50% stenosis per peak systolic and end diastolic velocity. Lt External Carotid Artery: The left external carotid artery is patent without evidence of atherosclerotic plaque. Lt Vertebral Artery: The left vertebral artery is patent with antegrade flow. CONCLUSIONS: 1. The right internal carotid artery disease is consistent with a more than 70% stenosis per PSV and velocity ratio. 50-69% stenosis per EDV. 2. The left internal carotid artery disease is consistent with a 50-69% stenosis per velocity ratio. <50% stenosis per PSV and EDV. 3. No evidence of hemodynamically significant stenosis in the common carotid artery bilaterally. 4. Normal, antegrade flow is noted in bilateral vertebral arteries. HISTORY: PAD; carotid stenosis. PREVIOUS STUDIES: Previous carotid ultrasound on 03-19-25 US revealed BRYON >70% stenosis by PSV (This may be due to turn in vessel in combination with plaque) but <50% stenosis by EDV (VR overestimated d/t low CCA velocities), LICA <50% stenosis, ante verts. DISCLAIMER: The study images and the [...] Electronically Signed By: Joseluis Juárez MD FACS 09/21/2025 1:47:12 PM OFFICE HELPER Procedure Note Joseluis Juárez MD - 09/21/2025 [facility] - Department of Vascular Surgery,Vascular Laboratory [address] [place] [address] Carotid Duplex Ultrasound Report Patient Name: NEO CHÁVEZ D : 1950 (75y 5m) Study Date: 09/15/2025 12:43:53 PM Sex: M Tech: [facility] Location: [facility] Provider: JOSELUIS JUÁREZ Quality: Adequate Order Provider: JOSELUIS JUÁREZ PROCEDURES: Carotid Report: Carotid duplex examination of the extracranial arterieswas performed using 2D, color and spectral Doppler. INDICATIONS: I65.23 Occlusion and stenosis of bilateral carotid arteries. MEASUREMENTS: Right Value Units Left Value Units RT Prox CCA PSV 65 cm/sec LT Prox CCA PSV 87 cm/sec RT Prox CCA EDV 10 cm/sec LT Prox CCA EDV 15 cm/sec RT Distal CCA PSV 57 cm/sec LT Distal CCA PSV 55 cm/sec RT Distal CCA EDV 14 cm/sec LT Distal CCA EDV 11 cm/sec RT Prox ICA PSV 38 cm/sec LT Prox ICA PSV 50 cm/sec RT Prox ICA EDV 11 cm/sec LT Prox ICA EDV 12 cm/sec RT Mid ICA PSV 356 cm/sec LT Mid ICA PSV 116 cm/sec RT Mid ICA EDV 89 cm/sec LT Mid ICA EDV 29 cm/sec RT Distal ICA PSV 172 cm/sec LT Distal ICA PSV 91 cm/sec RT Distal ICA EDV 24 cm/sec LT Distal ICA EDV 26 cm/sec RT ECA Prx PSV 90 cm/sec LT ECA Prx PSV 158 cm/sec RT ICA/CCA 6.29 ratio LT ICA/CCA 2.10 ratio RT VERT PSV 68 cm/sec LT VERT PSV 58 cm/sec FINDINGS: Performing Rotary Drum Tanner: Ariel Bueno, RVT, RDMS, RDCS, ACS. Rt Common Carotid Artery: There is intimal thickening but no significantatherosclerotic plaque noted in the right common carotid artery. Rt Internal Carotid Artery: The plaque in the right internal carotidartery appears to be calcified and irregular. Significant atherosclerotic changes of the rightinternal carotid artery with elevated peak systolic velocity and end diastolicvelocity, as above. >70% stenosis per peak systolic velocity and ratio. STENOSIS IS AT THE MIDICA- may also be related to tortuosity. 50-69% stenosis per end diastolic velocity. Rt External Carotid Artery: The right external carotid artery is patentwithout evidence of atherosclerotic plaque. Rt Vertebral Artery: The right vertebral artery is patent with antegradeflow. Lt Common Carotid Artery: The plaque in the left CCA appears to beheterogeneous and smooth. Lt Internal Carotid Artery: The plaque in the left internal carotid arteryappears to be calcified and irregular. 0.8cm length of the proximal ICA is not assesseddue to calcific shadowing. Significant atherosclerotic changes of the left internalcarotid artery, as above. 50-69% stenosis per velocity ratio. <50% stenosis per peak systolicand end diastolic velocity. Lt External Carotid Artery: The left external carotid artery is patentwithout evidence of atherosclerotic plaque. Lt Vertebral Artery: The left vertebral artery is patent with antegradeflow. CONCLUSIONS: 1. The right internal carotid artery disease is consistent with a morethan 70% stenosis per PSV and velocity ratio. 50-69% stenosis per EDV. 2. The left internal carotid artery disease is consistent with a 50-69%stenosis per velocity ratio. <50% stenosis per PSV and EDV. 3. No evidence of hemodynamically significant stenosis in the commoncarotid artery bilaterally. 4. Normal, antegrade flow is noted in bilateral vertebral arteries. HISTORY: PAD; carotid stenosis. PREVIOUS STUDIES: Previous carotid ultrasound on 03-19-25 US revealed BRYON >70% stenosis byPSV (This may be due to turn in vessel in combination with plaque) but <50% stenosis by EDV(VR overestimated d/t low CCA velocities), LICA <50% stenosis, ante verts. DISCLAIMER: The study images and the [...] above. Electronically Signed By: Joseluis Juárez MD [facility] 09/21/2025 1:47:12 PM OFFICE HELPER us Joseluis Juárez MD IMG US PROCEDURES Final Result * US Arterial Duplex Lower Extremity Left Limited (09/15/2025 1:49 PM OFFICE HELPER) Anatomical Region Laterality Modality Vascular Left Ultrasound 09/15/2025 1:01 PM OFFICE HELPER Narrative 09/21/2025 2:18 PM OFFICE HELPER [facility] - Department of Vascular Surgery, Vascular Laboratory [address] [place] [address] [place] Lower Extremity Arterial Duplex Report Patient Name: NEO CHÁVEZ D : 1950 Study Date: 09/15/2025 1:01:31 PM Sex: M Tech: ARIEL Location: [facility] Provider: JOSELUIS JUÁREZ Quality: Adequate Order Provider: JOSELUIS JUÁREZ PROCEDURES: Arterial Report: Left Lower Extremity Arterial Duplex Exam. INDICATIONS: Z48.812 Encounter for surgical aftercare following surgery on the circulatory system. MEASUREMENTS: Left Value Units Lt ORNAMENTAL METAL ERECTOR APPRENTICE Dst PSV 111 cm/s Lt Profunda Prx PSV 94 cm/s Lt Superficial Femoral Prx PSV 98 cm/s Lt Superficial Femoral Mid PSV 89 cm/s Lt Distal Superficial Femoral Artery Above Stenosis 139 cm/s Lt Distal Superficial Femoral Artery At Stenosis 309 cm/s Lt Pop Prx PSV 135 cm/s Lt Post Tibial Prx PSV 21 cm/s Lt Post Tibial Mid PSV 67 cm/s Lt Post Tibial Dst PSV 54 cm/s Lt Ant Tibial Prx PSV 48 cm/s Lt Ant Tibial Mid PSV 24 cm/s Lt Ant Tibial Dst PSV 28 cm/s Lt Peroneal Prx PSV 28 cm/s Lt Peroneal Mid PSV 34 cm/s Lt Peroneal Dst PSV 27 cm/s Left Value Units FINDINGS: Performing Rotary Drum Tanner: Ariel Bueno, RVT, RDMS, RDCS, ACS. Left Common Femoral: The left common femoral waveform is multiphasic. Left Profunda: The left profunda waveform is multiphasic. Left Proximal Superficial Femoral Artery: The left proximal femoral artery waveform is multiphasic. Left Mid Superficial Femoral Artery: The left mid femoral artery waveform is multiphasic. Left Distal Superficial Femoral Artery: The left distal femoral artery waveform is multiphasic. Systolic velocity ratio in the left distal superficial femoral artery (ABOVE THE STENT) is 2.2 which is consistent with a 50-75% stenosis. Patent stent with no stenosis- highest in-stent velocity 96cm/s. Left Popliteal: The left popliteal waveform is multiphasic. Left Posterior Tibial: The left posterior tibial waveform is multiphasic. Left Anterior Tibial: The left anterior tibial waveform is multiphasic. Left Peroneal: The left peroneal artery waveform is multiphasic. CONCLUSIONS: 1. A 50-75% stenosis is noted on the left: distal superficial femoral artery (above the stent). 2. Patent stent with no stenosis. See CORTEZ report. HISTORY: 11-07-2019 angioplasty and LT distal SFA/popliteal artery stent. PREVIOUS STUDIES: Previous study on 09-10-24 US revealed patent LT distal SFA stent, VR proximal to stent 1.87, RT CORTEZ 0.83, LT CORTEZ 0.9. DISCLAIMER: The study images and the final [...] above. Electronically Signed By: Joseluis Juárez MD [facility] 09/21/2025 1:46:59 PM OFFICE HELPER Procedure Note Joseluis Juárez MD - 09/21/2025 [facility] - Department of Vascular Surgery,Vascular Laboratory [address] [place] [address] [place] Lower Extremity Arterial Duplex Report Patient Name: NEO CHÁVEZ D : 1950 Study Date: 09/15/2025 1:01:31 PM Sex: M Tech: [facility] Location: [facility] Provider: JOSELUIS JUÁREZ Quality: Adequate Order Provider: JOSELUIS JUÁREZ PROCEDURES: Arterial Report: Left Lower Extremity Arterial Duplex Exam. INDICATIONS: Z48.812 Encounter for surgical aftercare following surgery on thecirculatory system. MEASUREMENTS: Left Value Units Lt ORNAMENTAL METAL ERECTOR APPRENTICE Dst PSV 111 cm/s Lt Profunda Prx PSV 94 cm/s Lt Superficial Femoral Prx PSV 98 cm/s Lt Superficial Femoral Mid PSV 89 cm/s Lt Distal Superficial Femoral Artery Above Stenosis 139 cm/s Lt Distal Superficial Femoral Artery At Stenosis 309 cm/s Lt Pop Prx PSV 135 cm/s Lt Post Tibial Prx PSV 21 cm/s Lt Post Tibial Mid PSV 67 cm/s Lt Post Tibial Dst PSV 54 cm/s Lt Ant Tibial Prx PSV 48 cm/s Lt Ant Tibial Mid PSV 24 cm/s Lt Ant Tibial Dst PSV 28 cm/s Lt Peroneal Prx PSV 28 cm/s Lt Peroneal Mid PSV 34 cm/s Lt Peroneal Dst PSV 27 cm/s Left Value Units FINDINGS: Performing Rotary Drum Tanner: Ariel Bueno, RVT, RDMS, RDCS, ACS. Left Common Femoral: The left common femoral waveform is multiphasic. Left Profunda: The left profunda waveform is multiphasic. Left Proximal Superficial Femoral Artery: The left proximal femoral artery waveform is multiphasic. Left Mid Superficial Femoral Artery: The left mid femoral artery waveform is multiphasic. Left Distal Superficial Femoral Artery: The left distal femoral artery waveform is multiphasic. Systolic velocityratio in the left distal superficial femoral artery (ABOVE THE STENT) is 2.2 which isconsistent with a 50-75% stenosis. Patent stent with no stenosis- highest in-stentvelocity 96cm/s. Left Popliteal: The left popliteal waveform is multiphasic. Left Posterior Tibial: The left posterior tibial waveform is multiphasic. Left Anterior Tibial: The left anterior tibial waveform is multiphasic. Left Peroneal: The left peroneal artery waveform is multiphasic. CONCLUSIONS: 1. A 50-75% stenosis is noted on the left: distal superficial femoralartery (above the stent). 2. Patent stent with no stenosis. See CORTEZ report. HISTORY: 11-07-2019 angioplasty and LT distal SFA/popliteal artery stent. PREVIOUS STUDIES: Previous study on 09-10-24 US revealed patent LT distal SFA stent, VRproximal to stent 1.87, RT CORTEZ 0.83, LT CORTEZ 0.9. DISCLAIMER: The study images and the final [...] above. Electronically Signed By: Joseluis Juárez MD [facility] 09/21/2025 1:46:59 PM OFFICE HELPER us Joseluis Juárez MD IMG US PROCEDURES Final Result * US CORTEZ (09/15/2025 1:49 PM OFFICE HELPER) Anatomical Region Laterality Modality Vascular N/A Ultrasound 09/15/2025 1:20 PM OFFICE HELPER Narrative 09/21/2025 2:18 PM OFFICE HELPER [facility] - Department of Vascular Surgery, Vascular Laboratory [address] [place] [address] Lower Extremity Arterial Doppler Report Patient Name: NEO CHÁVEZ D : 1950 Study Date: 09/15/2025 1:20:00 PM Sex: M Tech: Ariel Bueno RVT, RD, RDM Location: [facility] Provider: JOSELUIS JUÁREZ Quality: Adequate Order Provider: JOSELUIS JUÁREZ PROCEDURES: Arterial Report: Ankle - Brachial Index Doppler exam. INDICATIONS: Z48.812 Encounter for surgical aftercare following surgery on the circulatory system. MEASUREMENTS: Right Value Units Left Value Units Rt Brachial Pressure 118 mmHg Lt Brachial Pressure 129 mmHg Rt WORLD GEOGRAPHY TEACHER Pressure 105 mmHg Lt WORLD GEOGRAPHY TEACHER Pressure 120 mmHg Rt DPA Pressure 103 mmHg Lt DPA Pressure 119 mmHg Rt 1st Digit Pressure 86 mmHg Lt 1st Digit Pressure 70 mmHg Rt PT CORTEZ Resting 0.81 Lt PT CORTEZ Resting 0.93 Rt AT CORTEZ Resting 0.8 Lt AT CORTEZ Resting 0.92 Rt Digit/Arm Index 0.67 Lt Digit/Arm Index 0.54 Right Value Units Left Value Units FINDINGS: Performing Rotary Drum Tanner: Ariel Bueno, THOMAST, RDMS, RDCS, ACS. Right Posterior Tibial Artery Analysis: The posterior tibial waveform is BARELY multiphasic. Right Anterior Tibial Artery Analysis: The anterior tibial waveform is BARELY multiphasic. Left Posterior Tibial Artery Analysis: The posterior [...] to non-compressible arteries is not diagnostic). 3. Right Digit/Arm Index is within normal limits (for reference, normal LISA is >0.6)- probably falsely elevated. 4. Left Digit/Arm Index is mildly abnormal (for reference, abnormal LISA is <0.6). HISTORY: 11-07-2019 angioplasty and LT distal SFA/popliteal artery stent. PREVIOUS STUDIES: Previous study on 09-10-24 US revealed patent LT distal SFA stent, VR proximal to stent 1.87, RT CORTEZ 0.83, LT CORTEZ 0.9. DISCLAIMER: The study images and the final [...] Electronically Signed By: Joseluis Juárez MD FACS 09/21/2025 1:50:08 PM OFFICE HELPER Procedure Note Joseluis Juárez MD - 09/21/2025 [facility] - Department of Vascular Surgery,Vascular Laboratory [address] [place] [address] Lower Extremity Arterial Doppler Report Patient Name: NEO CHÁVEZ D : 1950 Study Date: 09/15/2025 1:20:00 PM Sex: M Tech: Ariel Bueno [facility], [facility], [place], [facility] Location: [facility] Provider: JOSELUIS JUÁREZ Quality: Adequate Order Provider: JOSELUIS JUÁREZ PROCEDURES: Arterial Report: Ankle - Brachial Index Doppler exam. INDICATIONS: Z48.812 Encounter for surgical aftercare following surgery on thecirculatory system. MEASUREMENTS: Right Value Units Left Value Units Rt Brachial Pressure 118 mmHg Lt Brachial Pressure 129 mmHg Rt WORLD GEOGRAPHY TEACHER Pressure 105 mmHg Lt WORLD GEOGRAPHY TEACHER Pressure 120 mmHg Rt DPA Pressure 103 mmHg Lt DPA Pressure 119 mmHg Rt 1st Digit Pressure 86 mmHg Lt 1st Digit Pressure 70 mmHg Rt PT CORTEZ Resting 0.81 Lt PT CORTEZ Resting 0.93 Rt AT CORTEZ Resting 0.8 Lt AT CORTEZ Resting 0.92 Rt Digit/Arm Index 0.67 Lt Digit/Arm Index 0.54 Right Value Units Left Value Units FINDINGS: Performing Rotary Drum Tanner: Ariel Bueno, RVT, RDMS, RDCS, ACS. Right Posterior Tibial Artery Analysis: The posterior tibial waveform is BARELY multiphasic. Right Anterior Tibial Artery Analysis: The anterior tibial waveform is BARELY multiphasic. Left Posterior Tibial Artery Analysis: The posterior [...] due tonon-compressible arteries is not diagnostic). 3. Right Digit/Arm Index is within normal limits (for reference, normalDAI is >0.6)- probably falsely elevated. 4. Left Digit/Arm Index is mildly abnormal (for reference, abnormal LISA is<0.6). HISTORY: 11-07-2019 angioplasty and LT distal SFA/popliteal artery stent. PREVIOUS STUDIES: Previous study on 09-10-24 US revealed patent LT distal SFA stent, VRproximal to stent 1.87, RT CORTEZ 0.83, LT CORTEZ 0.9. DISCLAIMER: The study images and the final [...] Electronically Signed By: Joseluis Juárez MD FACS 09/21/2025 1:50:08 PM OFFICE HELPER us Joseluis Juárez MD IMG US PROCEDURES Final Result * CT chest without contrast (08/28/2025 11:10 AM CDT) Anatomical Region Laterality Modality Body N/A Computed Tomogra phy 08/28/2025 2:55 PM CDT Impressions 08/28/2025 2:55 PM CDT 1. Status post right lower lobectomy. 2. Interval evolution of reticular thickening in the posterior right upper lobe adjacent to the pleura, new compared to prior CT chest dated 03/19/2025. Short follow-up CT chest or PET/CT recommended for further evaluation Electronically signed by: Francisco Javier Peterson M.D. Narrative 08/28/2025 2:[address] CHEST WO CONTRAST 08/28/2025 10:30 AM CLINICAL INDICATION: Abnormal CT scan, follow-up. COMPARISON: CT chest dated 03/19/2025. TECHNIQUE: CT of the chest was performed without contrast. Coronal and sagittal reformatted images were generated. FINDINGS: LOWER NECK: Visualized thyroid gland is normal. HEART: Stable in size. No pericardial effusion. CORONARY ARTERIES: Extensive calcification along the [place] left and right coronary arteries. Postsurgical change from sternotomy and coronary artery bypass. AORTA: Calcification along the thoracic aorta. PULMONARY ARTERIES: Normal in caliber. MEDIASTINUM AND AGUILA: No new mediastinal or hilar lymphadenopathy. CHEST WALL: No axillary lymphadenopathy. LUNGS AND LARGE AIRWAYS: Trachea and large airways patent. Postsurgical change from right lower lobectomy. Interval evolution of reticular thickening in the posterior right upper lung adjacent to the pleura (series 3, image 21), new compared with prior CT chest dated 03/19/2025. No new consolidation or suspicious infiltrate in the left lung. PLEURA: Small pleural fluid, unchanged. No pneumothorax. VISUALIZED ABDOMEN: Atherosclerotic calcification along the abdominal aorta and multiple visceral vessels. Multiple renal cysts bilaterally. Multiple renal vascular calcifications. Status post cholecystectomy. Increased fluid along several segments of visualized colon. OSSEOUS STRUCTURES: Multilevel spondylosis; no acute osseous abnormality. Left posterolateral 10th rib chronic deformity, unchanged. Procedure Note Francisco Javier Peterson MD - 08/28/2025 CT CHEST WO CONTRAST 08/28/2025 10:30 AM CLINICAL INDICATION: Abnormal CT scan, follow-up. COMPARISON: CT chest dated 03/19/2025. TECHNIQUE: CT of the chest was performed without contrast. Coronal and sagittal reformatted images were generated. FINDINGS: LOWER NECK: Visualized thyroid gland is normal. HEART: Stable in size. No pericardial effusion. CORONARY ARTERIES: Extensive calcification along the [place] left and right coronary arteries. Postsurgical change from sternotomy and coronary artery bypass. AORTA: Calcification along the thoracic aorta. PULMONARY ARTERIES: Normal in caliber. MEDIASTINUM AND AGUILA: No new mediastinal or hilar lymphadenopathy. CHEST WALL: No axillary lymphadenopathy. LUNGS AND LARGE AIRWAYS: Trachea and large airways patent. Postsurgical change from right lower lobectomy. Interval evolution of reticular thickening in the posterior right upper lung adjacent to the pleura (series 3, image 21), new compared with prior CT chest dated 03/19/2025. No new consolidation or suspicious infiltrate in the left lung. PLEURA: Small pleural fluid, unchanged. No pneumothorax. VISUALIZED ABDOMEN: Atherosclerotic calcification along the abdominal aorta and multiple visceral vessels. Multiple renal cysts bilaterally. Multiple renal vascular calcifications. Status post cholecystectomy. Increased fluid along several segments of visualized colon. OSSEOUS STRUCTURES: Multilevel spondylosis; no acute osseous abnormality. Left posterolateral 10th rib chronic deformity, unchanged. IMPRESSION: 1. Status post right lower lobectomy. 2. Interval evolution of reticular thickening in the posterior right upper lobe adjacent to the pleura, new compared to prior CT chest dated 03/19/2025. Short follow-up CT chest or PET/CT recommended for further evaluation Electronically signed by: Francisco Javier Peterson M.D. Bernabe Garcia MD [facility] [place] PROCEDURES Final Result * 48 HR Holter Monitor (07/25/2025 12:44 PM CDT) Anatomical Region Laterality Modality Electrocardiogra phy 07/25/2025 12:4 1 PM CDT Narrative 08/01/2025 4:24 PM CDT [facility] [address] [place] [address] HOLTER MONITOR Patient Name: NEO CHÁVEZ D : 1950 (75y 3m) Sex: M Study Date: 07/25/2025 12:41:34 PM Ht(Inch): Wt(Lb): BSA: Tech: Order Provider: PHILIP PABON Ref Provider: PHILIP PABON PROCEDURES: Holter Report: Holter Monitor Report. INDICATIONS: R00.2 Palpitations. MEASUREMENTS: Holter Data Value Min Rate: 47 BPM Min Rate Timestamp: 10:49:30 Max Rate: 149 BPM Max Rate Timestamp: 23:37:33 Mean Rate: 64 BPM Singlets (PACs): 8594 events Couplets (PACs): 419 events Runs (SVT): 0 events Total (SVE): 92623 events Singlets (PVCs): 2526 events Couplets (PVCs): 27 events Runs (VT): 0 events Total (VE): 2583 events Holter Data Value FINDINGS: Protocol: Recording Duration (Actual): 097974.98 Total QRS: 338165 Date Recorded: 2025-07-25 12:41:34 Date Processed: 2025-07-25 [...] Occasional supraventricular ectopy. Electronically Signed By: Philip Pabon MD [email or web address] 08/01/2025 4:24:17 PM CDT Procedure Note Philip Pabon MD - 08/01/2025 [facility] [address] [place] [address] HOLTER MONITOR Patient Name: NEO CHÁVEZ D : 1950 (75y 3m) Sex: M Study [...] events Runs (SVT): 0 events Total (SVE): 12895 events Singlets (PVCs): 2526 events Couplets (PVCs): 27 events Runs (VT): 0 events Total (VE): 2583 events Holter Data Value FINDINGS: Protocol: Recording Duration (Actual): 855337.98 Total QRS: 907863 Date Recorded: 2025-07-25 12:41:34 Date Processed: 2025-07-25 [...] Pabon MD mobap 08/01/2025 4:24:17 PM CDT Philip Pabon MD [facility] PROCED URES Final Result * CTA Abdomen Pelvis (09/09/2024 9:43 AM OFFICE HELPER) Anatomical Region Laterality Modality Body N/A Computed Tomogra phy 09/09/2024 12:0 0 PM OFFICE HELPER Impressions 09/09/2024 6:18 PM OFFICE HELPER 1. Infrarenal abdominal aortic aneurysm measuring 3.2 [...] Dennise Siddiqui M.D. Narrative 09/09/2024 6:18 PM OFFICE HELPER EXAMINATION: CTA ABDOMEN PELVIS, CT CHEST WO [...] Recently Relevant to Health Maintenance Insurance [address] [place] [id number] MEDICARE [facility] [address] [place] [id number] MEDICARE [facility] MEDICARE SUPPLEMENT MEDICARE [facility] MEDICARE SUPPLEMENT Advance Directives For more information, please contact: [phone] Documents on File Type Date Recorded Patient Appraisal Specialist Expl anation ADVANCE DIRECTIVE 11/07/2019 9:49 AM [...] 8:54 PM 11/21/2018 3:45 PM Care Teams Paper Cone Drying Machine Operator Relationship Specialty Start Date End Date Christiano Almaguer MD PCP - General Internal Medicine 11/29/20 Philip Pabon MD Consulting Physician Cardiology 03/09/18 Joseluis Juárez MD Surgeon Vascular Surgery 11/08/19 Philip Barbosa MD [address] [place], [place] [id number] Consulting Physician Cardiothoracic Surgery 09/24/24 Bernabe Garcia MD [address] [place], [place] [id number] Referring Physician Pulmonary Disease 09/24/24
--- OUTSIDE RECORDS SUMMARY | 2025-09-24 11:47 | XMS_ITS | Clinical Summary ---
Author Organization [facility] Care Team Providers Care Retail Maintenance Technician Name Role Phone Unavailable Primary Care Provider [...] 2024 Influenza Immunization (#1) 2025 SARS-COV-2 Immunization (2023- season) 2025 Hepatitis B Immunization Aged Out [...]
[2025-09-24 12:53] LABS: Anion Gap 4 mmol/L (4-12); Blood Urea Nitrogen 18 mg/dL (9-20); Calcium 8.5 mg/dL (8.4-10.2); Carbon Dioxide 34 mmol/L (22-30); Chloride 100 mmol/L (98-107); Estimated Glomerular Filt Rate 51; Glucose 128 mg/dL (65-110); Sodium 138 mmol/L (137-145)
[2025-09-24 12:54] LABS: Potassium 2.2 mmol/L (3.4-5.0)
== END 2025-09-24 11:06 | disposition home or self-care (01) ==
PROVIDERS: PCP Internal Medicine; Visit Provider Internal Medicine
DX: N18.9 Chronic kidney disease, unspecified (principal); Z79.899 Other long term (current) drug therapy
CPT/HCPCS: 36415; 80048

== ENCOUNTER 2025-09-30 13:01 | Outpatient (CLI) | payer MEDICARE, SELFPAY ==
[2025-09-30 13:43] LABS: Anion Gap 5 mmol/L (4-12); Blood Urea Nitrogen 24 mg/dL (9-20); Calcium 8.8 mg/dL (8.4-10.2); Carbon Dioxide 33 mmol/L (22-30); Chloride 103 mmol/L (98-107); Estimated Glomerular Filt Rate 54; Glucose 118 mg/dL (65-110); Potassium 4.3 mmol/L (3.4-5.0); Sodium 141 mmol/L (137-145)
--- OUTSIDE RECORDS SUMMARY | 2025-09-30 13:56 | XMS_ITS | Encounter Summary ---
Author Organization [facility] Healthcare Address [address] [place] [address] Care Team Providers Care Event Marketing Intern Name Role Phone Anoop Sanders MD Unavailable Joseluis Juárez MD Unavailable [phone] Christiano Almaguer MD Primary Care Provider [phone] Anoop Barbosa MD Unavailable Bernabe Garcia MD Unavailable Encounter Details Date Type Department Care Team (Late st Contact Info) Description 08/01/2025 Results Follow-Up [facility] Medical Group Cardiology [address], [place] [address] Anoop Sanders MD [address] [place] [address] [address] [place] [address] 48 HR Holter Monitor Social History Tobacco Use Types Packs/Day Years Used Date Smoking Tobacco: Former Cigarettes Q uit: 2023 Smokeless Tobacco: Never Comments:less than 1 ppd now Alcohol Use Standard Drinks/Week Comments Yes 0 (1 standard drink = 0.6 oz pur e alcohol) social [facility] Utilities Answer Date Recorded In the past 12 months has [employer] electric, gas, oil, or water company threatened [...] often do you attend chur ch or baptist services? Never 11/07/2024 Do you belong to any clubs o r organizations such as samaritan groups, unions, fraternal or athletic groups, or [...] any time in the past 12 m [facility], were you homeless or living in a residential (including now)? No 11/07/2024 Personal Safety Answer Date Recorded Have you ever been in or are you currently in a harmful physical or emotional relationship or is someone making you feel afraid or unsafe? 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 SUPERVISOR Gender Identity Male 05/20/2020 7:24 AM CDT Sexual Orientation Not on file documented as of this encounter Plan of Treatment Not on file documented as of this encounter Visit Diagnoses Not on filedocumented in this encounter Care Teams Event Marketing Intern Relationship Specialty Start Date End Date Christiano Almaguer MD PCP - General Internal Medicine 11/29/20 Anoop Sanders MD Consulting Physician Cardiology 03/09/18 Joseluis Juárez MD Surgeon Vascular Surgery 11/08/19 Anoop Barbosa MD [address] [place], [place] [id number] Consulting Physician Cardiothoracic Surgery 09/24/24 Bernabe Garcia MD [address] [place] [address] Referring Physician Pulmonary Disease 09/24/24 documented as of this encounter
--- OUTSIDE RECORDS SUMMARY | 2025-09-30 13:57 | XMS_ITS | Clinical Summary ---
Author Organization [facility] Address [address] [place] [address] Care Team Providers Care Web Applications Administrator Name Role Phone Philip Pabon MD Unavailable [phone] Joseluis Juárez MD Unavailable [phone] Christiano Almaguer MD Primary Care Provider [phone] Philip Barbosa MD Unavailable [phone] Bernabe Garcia MD Unavailable [phone] Allergies No known active allergies Medications aspirin [...] 09/22 Assessment & Plan (11/09/2023 9:51 AM ZUMBA INSTRUCTOR): PET scan is reassuring Recs: 1) CT [...] 03/18/2020 Assessment & Plan (09/15/2025 2:09 PM ZUMBA INSTRUCTOR): He has new right leg symptoms that [...] appointment when the time comes. 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 Arrange new baseline CORTEZ with Duplex scan of left leg in one month. Asymptomatic stenosis of right carotid artery Assessment & Plan (09/15/2025 2:08 PM ZUMBA INSTRUCTOR): Stable asymptomatic right ICA stenosis with elevated velocities probably partially related to tortuous vessel. Repeat carotid doppler in six months for observation. Assessment & Plan (07/27/2022 11:35 AM CDT): Asymptomatic right ICA stenosis. Repeat six month carotid doppler for observation. Assessment & Plan (12/08/2021 1:00 PM ZUMBA INSTRUCTOR): Stable right ICA stenosis. Continue to monitor with repeat carotid Doppler in six months. He'll be due for follow-up lower extremity arterial Doppler/Duplex and an abdominal aortic Duplex in six months as well. We'll coordinate his vascular studies. Assessment & Plan (09/13/2021 12:18 PM ZUMBA INSTRUCTOR): Asymptomatic progressive right ICA stenosis that is [...] sooner. Assessment & Plan (12/04/2019 10:16 AM ZUMBA INSTRUCTOR): elevated velocities within right ICA on prior [...] now Assessment & Plan (11/09/2023 9:51 AM ZUMBA INSTRUCTOR): As above. He wants to think about and let me know if he would like pharmacologic assistance Assessment & Plan (07/25/2023 1:31 PM CDT): As above. He wants to think about and let me know if he would like pharmacologic assistance Assessment & Plan (12/19/2018 6:33 PM ZUMBA INSTRUCTOR): Discussed with patient lung cancer screening once per year Smoking cessation using nicotine gum will be initiated Quantitate with PFTs his current impairment Centrilobular emphysema 12/19/2018 Overview (12/19/2018): CT confirmed 02/09/2018 Assessment & Plan (11/09/2023 9:51 AM ZUMBA INSTRUCTOR): Sx are stable PFTs reveal moderate obstructive [...] maintenance/vaccinations Assessment & Plan (12/19/2018 6:31 PM ZUMBA INSTRUCTOR): Currently exercise limitations due more to arthritis [...] year. Assessment & Plan (12/04/2019 10:17 AM ZUMBA INSTRUCTOR): Small AAA. Monitor with annual Duplex scans. Essential (primary) hypertension 01/05/2017 Overview (03/24/2017): Essential hypertension Assessment & Plan (11/20/2018 4:02 AM ZUMBA INSTRUCTOR): Continue home metoprolol, hydrochlorothiazide, Cozaar. Hypercholesterolemia 01/05/2017 Overview (03/24/2017): Hypercholesterolemia Assessment & Plan (11/20/2018 4:02 AM ZUMBA INSTRUCTOR): Continue home statin Aftercare following surgery of the respiratory s ystem 02/04/2016 Overview (02/02/2017): Post surgical visit Coronary artery disease of n ative artery of [place] heart with stable angina pectoris 01/18/2016 Overview (12/19/2018): 3 vessel CAD CABG x3 December 2015 Two stents October 2018 Assessment & Plan (12/19/2018 6:32 PM ZUMBA INSTRUCTOR): 3 vessel CAD CABG x3 December 2015 Two stents October 2018 S/P drug eluting coronary stent placement Resolved Problems Problem Noted Date Diagnosed Date Resolved Date Unstable angina 11/20/2018 12/19/2018 Assessment & Plan (11/20/2018 4:02 AM ZUMBA INSTRUCTOR): Has been having increasing chest pain over [...] evaluation. He has been made NPO. His electronics engineering technologist Dr. Rader has been consulted. We will continue aspirin, Plavix, losartan, metoprolol. We will also continue full-dose anticoagulation for now. We will trend troponins. Postnasal drip 04/06/2016 10/17/2019 Overview (02/02/2017): Post-nasal drip Encounters Date Type Department Care Team Description 09/16/2025 9:30 AM ZUMBA INSTRUCTOR Office Visit [facility] [address] [address] Bernabe Garcia MD Abnormal CT scan (Primary Dx); Chronic obstructive pulmonary disease, unspecified COPD type (HCC); Adenocarcinoma of right lung (HCC) 09/16/2025 Telephone [facility] [address] [facility] [address] [place] [address] Gokul Gomez MA 09/15/2025 2:30 PM ZUMBA INSTRUCTOR Office Visit [facility] Medicine Surgery [address] [address] Rachel Cast PA Asymptomatic stenosis of right carotid artery (Primary Dx); PAD (peripheral artery disease) 09/15/2025 1:45 PM ZUMBA INSTRUCTOR Ancillary Procedure [facility] Medicine Surgery [address] [address] Encounter for surgical aftercare following surgery on the circulatory system 09/15/2025 1:00 PM ZUMBA INSTRUCTOR Ancillary Procedure [facility] Medicine Surgery [address] [facility] [address] [place] [address] Bilateral carotid artery stenosis 09/01/2025 Results [facility] [address] [facility] [address] [place] [phone] chest without contrast 08/28/2025 10:30 AM CDT - 08/28/2025 11:59 PM CDT Hospital Encounter [facility] - Imaging [address] [place] [phone] Bernabe Garcia MD Chronic obstructive pulmonary disease, unspecified COPD type (HCC); Adenocarcinoma of right lung (HCC); Tobacco abuse Discharge Disposition: Discharge to home or self care 08/01/2025 Results Follow-Up [facility] Cardiology [address] [place] [address] [address] [place] [address] Philip Pabon MD 48 HR Holter Monitor 07/30/2025 Orders Only [facility] Medicine Surgery [address] [facility] [address] [place] [address] Joseluis Juárez MD Bilateral carotid artery stenosis (Primary Dx) 07/25/2025 12:35 PM CDT - 07/25/2025 11:59 PM CDT Hospital Encounter [facility] OP Cardiac Testing [address] [facility] [address] [place] [address] Palpitations Discharge Disposition: Discharge to home or self care 07/15/2025 Telephone [facility] Cardiology [address] [place] [address] [address] [place] [address] Philip Pabon MD 07/11/2025 2:15 PM CDT Office Visit [facility] Cardiology [address] [place] [address] [address] [place] [address] Philip Pabon MD Coronary artery disease of [place] artery of [place] heart with stable angina pectoris (Primary Dx); [...] = 0.6 oz pur e alcohol) social [employer] Answer Date Recorded In the past 12 months has e [employer], gas, oil, or water [employer] threatened to shut off services in your [...] often do you attend chur ch or uatsdin services? Never 11/07/2024 Do you belong to any clubs o r organizations such as oriental orthodox groups, unions, fraternal or athletic groups, or [...] were you homeless or living in a long term (including now)? No 11/07/2024 Personal Safety Answer Date Recorded Have you ever been in or are you currently in a harmful physical or emotional relationship or is someone making you feel afraid or unsafe? Denies 11/06/2024 Sex and Gender Information Value Date Recorded Sex Assigned at Not on file Legal Sex Male 3:47 PM ZUMBA INSTRUCTOR Gender Identity Male 05/20/2020 7:24 AM CDT Sexual Orientation Not on file Last Filed Vital Signs Vital Sign Reading Time Taken Comments Blood Pressure 120/75 09/15/2025 1:29 PM ZUMBA INSTRUCTOR Pulse 52 09/15/2025 1:29 PM ZUMBA INSTRUCTOR Temperature 36.7 C (98 F) 11/10/2024 7:50 AM ZUMBA INSTRUCTOR Respiratory Rate 14 11/19/2024 8:52 AM ZUMBA INSTRUCTOR Oxygen Saturation 97% 07/11/2025 2:28 PM CDT [...] history exists Medical Devices Implanted Type Area Arboriculture Instructor Device Identifier Shelf Expiration Date Model / Serial / Lot Lonnie Efrain [id number] Device Closure Angio-Seal Vip Bondek-Plus Polyglyd L70 Cm Od6 Fr Odsec.035 In Vascular - Sn/A - [id number] Implanted:Qty : 1 on 11/07/2019 by Joseluis Juárez MD at [facility] Other - see comments Right: Groin Daig Efrain/[employer] 05/29/2020 [id number] / N/A / [id number] Bard Peripheral V[employer] [id number] Lifestent 6mm 6fr 40mm 130cm Self Expand Catheter Helical - Sn/A - [id number] Implanted:Qty : 1 on 11/07/2019 by Joseluis Juárez MD at [facility] Stent Left: Arterial [employer] [id number] 02/22/2021 [id number] / N/A / [id number] Description:Left popliteal a rtery [employer] Efrain [id number] Synergy 4mm 38mm 144cm Radiopaque 1 Access Port Inflation Lumen - [id number] Implanted:Qty : 1 on 11/20/2018 by Iek Coleman MD at [facility] N/A: Coronary [employer] Efrain 07/09/2020 [id number] / / [id number] Description:Circumflex [employer] Efrain [id number] Synergy 3.5mm 16mm 144cm Radiopaque 1 Access Port Inflation Lumen - [id number] Implanted:Qty : 1 on 11/20/2018 by Ike Coleman MD at [facility] N/A: Coronary [employer] Efrain 06/19/2020 [id number] / / [id number] Description:Circumflex Procedures Procedure Name Priority Date/Time Associated Diagnosis Comments US CAROTIDS DUPLEX BILATERAL Schedule Routine, Read Routine (OP Routine) 09/15/2025 1:49 PM ZUMBA INSTRUCTOR Bilateral carotid artery stenosis US ARTERIAL DUPLEX LOWER EXTREMITY LEFT LIMITED Schedule Routine, Read Routine (OP Routine) 09/15/2025 1:49 PM ZUMBA INSTRUCTOR Encounter for surgical aftercare following surgery on the circulatory system US CORTEZ Schedule Routine, Read Routine (OP Routine) 09/15/2025 1:49 PM ZUMBA INSTRUCTOR Encounter for surgical aftercare following surgery on the circulatory system CT CHEST WO CONTRAST Schedule Routine, Read Routine (OP Routine) 08/28/2025 11:10 AM CDT Chronic obstructive pulmonary disease, unspecified COPD type (HCC) Adenocarcinoma of right lung (HCC) Tobacco abuse HOLTER MONITOR 48 HR Routine 07/25/2025 12:44 PM CDT Palpitations CTA ABDOMEN PELVIS W WO CONTRAST Routine 09/09/2024 9:43 AM ZUMBA INSTRUCTOR Abdominal aortic aneurysm (AAA) without rupture, unspecified part from Last 3 Months or Most Recently Relevant to Health Maintenance Results * US Carotids Duplex Bilateral (09/15/2025 1:49 PM ZUMBA INSTRUCTOR) Anatomical Region Laterality Modality Vascular Bilateral Ultrasound 09/15/2025 12:4 3 PM ZUMBA INSTRUCTOR Narrative 09/21/2025 2:[address] [facility] - Department of Vascular Surgery, Vascular Laboratory [address] [place] [address] Carotid Duplex Ultrasound Report Patient Name: NEO CHÁVEZ Malina : 1950 (75y 5m) Study Date: 09/15/2025 12:43:53 PM Sex: M Tech: ARIEL Location: [facility] Provider: JOSELUIS JUÁREZ Quality: Adequate Order Provider: [...] LT VERT PSV 58 cm/sec FINDINGS: Performing Marble Machine Operator: Ariel Bueno, RVT, RDMS, RDCS, ACS. Rt [...] Joseluis Juárez MD FACS 09/21/2025 1:47:12 PM ZUMBA INSTRUCTOR Procedure Note Joseluis Juárez MD - 09/21/2025 [facility] - Department of Vascular Surgery,Vascular Laboratory [address] [place] [address] Carotid Duplex Ultrasound Report Patient Name: NEO CHÁVEZ D : 1950 (75y 5m) Study Date: 09/15/2025 12:43:53 PM Sex: M Tech: [facility] Location: [facility] Provider: JOSELUIS JUÁREZ Quality: Adequate Order Provider: [...] LT VERT PSV 58 cm/sec FINDINGS: Performing Marble Machine Operator: Ariel Bueno, RVT, RDMS, RDCS, ACS. Rt [...] above. Electronically Signed By: Joseluis Juárez MD [facility] 09/21/2025 1:47:12 PM ZUMBA INSTRUCTOR us Joseluis Juárez MD IMG US PROCEDURES Final Result * US Arterial Duplex Lower Extremity Left Limited (09/15/2025 1:49 PM ZUMBA INSTRUCTOR) Anatomical Region Laterality Modality Vascular Left Ultrasound 09/15/2025 1:01 PM ZUMBA INSTRUCTOR Narrative 09/21/2025 2:[address] [facility] - Department of Vascular Surgery, Vascular Laboratory [address] [place] [address] [place] Lower Extremity Arterial Duplex Report Patient Name: NEO CHÁVEZ D : 1950 Study Date: 09/15/2025 1:01:31 PM Sex: M Tech: ARIEL Location: [facility] Provider: JOSELUIS JUÁREZ Quality: Adequate Order Provider: JOSELUIS JUÁREZ PROCEDURES: Arterial Report: Left Lower Extremity Arterial Duplex Exam. INDICATIONS: Z48.812 Encounter for surgical aftercare following surgery on the circulatory system. MEASUREMENTS: Left Value Units Lt ROTARY SOIL STABILIZER OPERATOR Dst PSV 111 cm/s Lt Profunda Prx [...] 27 cm/s Left Value Units FINDINGS: Performing Marble Machine Operator: Ariel Bueno, RVT, RDMS, RDCS, ACS. Left [...] above. Electronically Signed By: Joseluis Juárez MD [facility] 09/21/2025 1:46:59 PM ZUMBA INSTRUCTOR Procedure Note Joseluis Juárez MD - 09/21/2025 [facility] - Department of Vascular Surgery,Vascular Laboratory [address] [place] [address] [place] Lower Extremity Arterial Duplex Report Patient Name: NEO CHÁVEZ D : 1950 Study Date: 09/15/2025 1:01:31 PM Sex: M Tech: [facility] Location: [facility] Provider: JOSELUIS JUÁREZ Quality: Adequate Order Provider: JOSELUIS JUÁREZ PROCEDURES: Arterial Report: Left Lower Extremity Arterial Duplex Exam. INDICATIONS: Z48.812 Encounter for surgical aftercare following surgery on thecirculatory system. MEASUREMENTS: Left Value Units Lt ROTARY SOIL STABILIZER OPERATOR Dst PSV 111 cm/s Lt Profunda Prx [...] 27 cm/s Left Value Units FINDINGS: Performing Marble Machine Operator: Ariel Bueno, RVT, RDMS, RDCS, ACS. Left [...] above. Electronically Signed By: Joseluis Juárez MD [facility] 09/21/2025 1:46:59 PM ZUMBA INSTRUCTOR us Joseluis Juárez MD IMG US PROCEDURES Final Result * US CORTEZ (09/15/2025 1:49 PM ZUMBA INSTRUCTOR) Anatomical Region Laterality Modality Vascular N/A Ultrasound 09/15/2025 1:20 PM ZUMBA INSTRUCTOR Narrative 09/21/2025 2:[address] [facility] - Department of Vascular Surgery, Vascular Laboratory [address] [place] [address] Lower Extremity Arterial Doppler Report Patient Name: NEO CHÁVEZ D : 1950 Study Date: 09/15/2025 1:20:00 PM Sex: M Tech: Ariel Bueno RVT, RD, RDM Location: [facility] Provider: JOSELUIS JUÁREZ Quality: Adequate Order Provider: JOSELUIS JUÁREZ PROCEDURES: Arterial Report: Ankle - Brachial Index Doppler exam. INDICATIONS: Z48.812 Encounter for surgical aftercare following surgery on the circulatory system. MEASUREMENTS: Right Value Units Left Value Units Rt Brachial Pressure 118 mmHg Lt Brachial Pressure 129 mmHg Rt LICENSED PRACTICAL VOCATIONAL NURSE Pressure 105 mmHg Lt LICENSED PRACTICAL VOCATIONAL NURSE Pressure 120 mmHg Rt DPA Pressure 103 mmHg Lt DPA Pressure 119 mmHg Rt 1st Digit Pressure 86 mmHg Lt 1st Digit Pressure 70 mmHg Rt PT CORTEZ Resting 0.81 Lt PT CORTEZ Resting 0.93 Rt AT CORTEZ Resting 0.8 Lt AT CORTEZ Resting 0.92 Rt Digit/Arm Index 0.67 Lt Digit/Arm Index 0.54 Right Value Units Left Value Units FINDINGS: Performing Marble Machine Operator: Ariel Bueno, THOMAST, RDMS, RDCS, ACS. Right [...] Joseluis Juárez MD FACS 09/21/2025 1:50:08 PM ZUMBA INSTRUCTOR Procedure Note Joseluis Juárez MD - 09/21/2025 [facility] - Department of Vascular Surgery,Vascular Laboratory [address] [place] [address] Lower Extremity Arterial Doppler Report Patient Name: NEO CHÁVEZ D : 1950 Study Date: 09/15/2025 1:20:00 PM Sex: M Tech: Ariel Bueno [facility], [facility], [facility] Location: [facility] Provider: JOSELUIS JUÁREZ Quality: Adequate Order Provider: JOSELUIS JUÁREZ PROCEDURES: Arterial Report: Ankle - Brachial Index Doppler exam. INDICATIONS: Z48.812 Encounter for surgical aftercare following surgery on thecirculatory system. MEASUREMENTS: Right Value Units Left Value Units Rt Brachial Pressure 118 mmHg Lt Brachial Pressure 129 mmHg Rt LICENSED PRACTICAL VOCATIONAL NURSE Pressure 105 mmHg Lt LICENSED PRACTICAL VOCATIONAL NURSE Pressure 120 mmHg Rt DPA Pressure 103 mmHg Lt DPA Pressure 119 mmHg Rt 1st Digit Pressure 86 mmHg Lt 1st Digit Pressure 70 mmHg Rt PT CORTEZ Resting 0.81 Lt PT CORTEZ Resting 0.93 Rt AT CORTEZ Resting 0.8 Lt AT CORTEZ Resting 0.92 Rt Digit/Arm Index 0.67 Lt Digit/Arm Index 0.54 Right Value Units Left Value Units FINDINGS: Performing Marble Machine Operator: Ariel Bueno, RVT, RDMS, RDCS, ACS. Right [...] Joseluis Juárez MD FACS 09/21/2025 1:50:08 PM ZUMBA INSTRUCTOR us Joseluis Juárez MD IMG US PROCEDURES [...] effusion. CORONARY ARTERIES: Extensive calcification along the [place] left and right coronary arteries. Postsurgical change [...] effusion. CORONARY ARTERIES: Extensive calcification along the [place] left and right coronary arteries. Postsurgical change [...] Francisco Javier Peterson M.D. Bernabe Garcia MD [facility] [place]ED[place] Final Result * 48 HR Holter Monitor (07/25/2025 12:44 PM CDT) Anatomical Region Laterality Modality Electrocardiogra phy 07/25/2025 12:4 1 PM CDT Narrative 08/01/2025 4:24 PM CDT [facility] [address] [place] [address] HOLTER MONITOR Patient Name: NEO CHÁVEZ D [...] events Runs (SVT): 0 events Total (SVE): 29646 events Singlets (PVCs): 2526 events Couplets (PVCs): 27 events Runs (VT): 0 events Total (VE): 2583 events Holter Data Value FINDINGS: Protocol: Recording Duration (Actual): 531299.98 Total QRS: [id number] Date Recorded: 2025-07-25 12:41:34 Date Processed: 2025-07-25 [...] Procedure Note Philip Pabon MD - 08/01/2025 [facility] [address] [place] [address] HOLTER MONITOR Patient Name: NEO CHÁVEZ D : 1950 (75y 3m) Sex: M Study Date: 07/25/2025 12:41:34 PM Ht(Inch): Wt(Lb): BSA: Tech: Order Provider: PHILIP PBAON Provider: PHILIP PABON PROCEDURES: Holter Report: Holter Monitor Report. INDICATIONS: R00.2 Palpitations. MEASUREMENTS: Holter Data Value Min Rate: 47 BPM Min Rate Timestamp: 10:49:30 Max Rate: 149 BPM Max Rate Timestamp: 23:37:33 Mean Rate: 64 BPM Singlets (PACs): 8594 events Couplets (PACs): 419 events Runs (SVT): 0 events Total (SVE): 45569 events Singlets (PVCs): 2526 events Couplets (PVCs): 27 events Runs (VT): 0 events Total (VE): 2583 events Holter Data Value FINDINGS: Protocol: Recording Duration (Actual): 286718.98 Total QRS: [id number] Date Recorded: 2025-07-25 12:41:34 Date Processed: 2025-07-25 [...] * CTA Abdomen Pelvis (09/09/2024 9:43 AM ZUMBA INSTRUCTOR) Anatomical Region Laterality Modality Body N/A Computed Tomogra phy 09/09/2024 12:0 0 PM ZUMBA INSTRUCTOR Impressions 09/09/2024 6:18 PM ZUMBA INSTRUCTOR 1. Infrarenal abdominal aortic aneurysm measuring 3.2 [...] Dennise Siddiqui M.D. Narrative 09/09/2024 6:18 PM ZUMBA INSTRUCTOR EXAMINATION: CTA ABDOMEN PELVIS, CT CHEST WO [...] Recently Relevant to Health Maintenance Insurance [address] [place] [id number] MEDICARE FOR[facility] [address] [place] [id number] [facility] MEDICARE SUPPLEMENT MEDICARE [facility] MEDICARE SUPPLEMENT Advance Directives For more information, please contact: [phone] Documents on File Type Date Recorded Patient Laboratory Chief Expl anation ADVANCE DIRECTIVE 11/07/2019 9:49 AM [...] 8:54 PM 11/21/2018 3:45 PM Care Teams Web Applications Administrator Relationship Specialty Start Date End Date Christiano Almaguer MD PCP - General Internal Medicine 11/29/20 Philip Pabon MD Consulting Physician Cardiology 03/09/18 Joseluis Juárez MD Surgeon Vascular Surgery 11/08/19 Philip Barbosa MD [address] [place], [place] [id number] Consulting Physician Cardiothoracic Surgery 09/24/24 Bernabe Garcia MD [address] [place], [place] [id number] Referring Physician Pulmonary Disease 09/24/24
--- OUTSIDE RECORDS SUMMARY | 2025-09-30 13:57 | XMS_ITS ---
Author Organization [facility] Address [address] [place] [address] Care Team Providers Care Courtesy Booth Cashier Name Role Phone Anoop Sanders MD Unavailable Joseluis Juárez MD Unavailable [phone] Christiano Almaguer MD Primary Care Provider [phone] Anoop Barbosa MD Unavailable Bernabe Garcia MD [...] 09/22 Assessment & Plan (11/09/2023 9:51 AM PRINTING MACHINIST): PET scan is reassuring Recs: 1) CT [...] 03/18/2020 Assessment & Plan (09/15/2025 2:09 PM PRINTING MACHINIST): He has new right leg symptoms that [...] appointment when the time comes. Atherosclerosis of [place] ar [place] of left lower extremity with intermittent claudication 10/11/2019 Overview (10/11/2019): Added automatically from request for surgery [id number] Assessment & Plan (12/04/2019 10:16 AM PRINTING MACHINIST): S/p left SFA stent with resolution of left calf claudication. Arrange new baseline CORTEZ with Duplex scan of left leg in one month. Asymptomatic stenosis of right carotid artery Assessment & Plan (09/15/2025 2:08 PM PRINTING MACHINIST): Stable asymptomatic right ICA stenosis with elevated velocities probably partially related to tortuous vessel. Repeat carotid doppler in six months for observation. Assessment & Plan (07/27/2022 11:35 AM CDT): Asymptomatic right ICA stenosis. Repeat six month carotid doppler for observation. Assessment & Plan (12/08/2021 1:00 PM PRINTING MACHINIST): Stable right ICA stenosis. Continue to monitor with repeat carotid Doppler in six months. He'll be due for follow-up lower extremity arterial Doppler/Duplex and an abdominal aortic Duplex in six months as well. We'll coordinate his vascular studies. Assessment & Plan (09/13/2021 12:18 PM PRINTING MACHINIST): Asymptomatic progressive right ICA stenosis that is [...] sooner. Assessment & Plan (12/04/2019 10:16 AM PRINTING MACHINIST): elevated velocities within right ICA on prior [...] now Assessment & Plan (11/09/2023 9:51 AM PRINTING MACHINIST): As above. He wants to think about and let me know if he would like pharmacologic assistance Assessment & Plan (07/25/2023 1:31 PM CDT): As above. He wants to think about and let me know if he would like pharmacologic assistance Assessment & Plan (12/19/2018 6:33 PM PRINTING MACHINIST): Discussed with patient lung cancer screening once per year Smoking cessation using nicotine gum will be initiated Quantitate with PFTs his current impairment Centrilobular emphysema 12/19/2018 Overview (12/19/2018): CT confirmed 02/09/2018 Assessment & Plan (11/09/2023 9:51 AM PRINTING MACHINIST): Sx are stable PFTs reveal moderate obstructive [...] maintenance/vaccinations Assessment & Plan (12/19/2018 6:31 PM PRINTING MACHINIST): Currently exercise limitations due more to arthritis [...] year. Assessment & Plan (12/04/2019 10:17 AM PRINTING MACHINIST): Small AAA. Monitor with annual Duplex scans. Essential (primary) hypertension 01/05/2017 Overview (03/24/2017): Essential hypertension Assessment & Plan (11/20/2018 4:02 AM PRINTING MACHINIST): Continue home metoprolol, hydrochlorothiazide, Cozaar. Hypercholesterolemia 01/05/2017 Overview (03/24/2017): Hypercholesterolemia Assessment & Plan (11/20/2018 4:02 AM PRINTING MACHINIST): Continue home statin Aftercare following surgery of the respiratory s ystem 02/04/2016 Overview (02/02/2017): Post surgical visit Coronary artery disease of n ative artery of [place] heart with stable angina pectoris 01/18/2016 Overview (12/19/2018): 3 vessel CAD CABG x3 December 2015 Two stents October 2018 Assessment & Plan (12/19/2018 6:32 PM PRINTING MACHINIST): 3 vessel CAD CABG x3 December 2015 [...] 12/19/2018 Assessment & Plan (11/20/2018 4:02 AM PRINTING MACHINIST): Has been having increasing chest pain over [...] evaluation. He has been made NPO. His food cart attendant Dr. Rader has been consulted. We will continue aspirin, Plavix, losartan, metoprolol. We will also continue full-dose anticoagulation for now. We will trend troponins. Postnasal drip 04/06/2016 10/17/2019 Overview (02/02/2017): Post-nasal drip
--- OUTSIDE RECORDS SUMMARY | 2025-09-30 13:57 | XMS_ITS | Clinical Summary ---
Author Organization [facility] Care Team Providers Care Search Lead Name Role Phone Unavailable Primary Care Provider [...]
--- OUTSIDE RECORDS SUMMARY | 2025-09-30 13:57 | XMS_ITS | Encounter Summary ---
Author Organization [facility] Address [address] [place] [address] Phone Care Team Providers Care Creative Writing Professor Name Role Phone Unavailable Primary Care Provider Unavailabl e Reason for Visit * Reason Comments Medication Refill Encounter Details Date Type Department Care Team (Late st Contact Info) Description 04/02/2024 Refill [facility] - Family Medicine - [place] [place] [id number] Anoop Sanders MD [address] [address] Medication Refill Social History Tobacco Use Types [...]
--- OUTSIDE RECORDS SUMMARY | 2025-09-30 13:57 | XMS_ITS | Encounter Summary ---
Author Organization [facility] Healthcare Address [address] [place] [address] Care Team Providers Care Graining Machine Operator Name Role Phone Anoop Sanders MD Unavailable Joseluis Juárez MD Unavailable [phone] Christiano Almaguer MD Primary Care Provider [phone] Anoop Barbosa MD Unavailable [phone] Bernabe Garcia MD Unavailable [phone] Encounter Details Date Type Department Care Team (Late st Contact Info) Description 06/14/2021 Telephone [facility] - Imaging [address] [place] [address] Transcribed Order, Provider Social History [...] on file 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
--- OUTSIDE RECORDS SUMMARY | 2025-09-30 13:57 | XMS_ITS | Encounter Summary ---
Author Organization [facility] Address [address] [address] Care Team Providers Care Airconditioning Drafting Officer Name Role Phone Christiano Almaguer MD Primary Care Provider [phone] Christiano Almaguer MD Primary Care Provider [phone] Christiano Almaguer MD Primary Care Provider [phone] Marcel Carrillo DO Primary Care Provider [phone] Anoop Sanders MD Unavailable [phone] Joseluis Juárez MD Unavailable [phone] Christiano Almaguer MD Primary Care Provider [phone] Anoop Barbosa MD Unavailable [phone] Bernabe Garcia MD Unavailable [phone] Encounter Details Date Type Department Care Team (Latest Contact Info) Description 01/05/2017 [place] [facility] [place] Antonio [facility] [place] [address] Social History Tobacco Use Types Packs/Day Years Used Date Smoking Tobacco: Every Day Comments:Smoking History Pac ks/day: 1 Packs Alcohol Use Standard Drinks/Week Comments Yes 0 (1 standard drink = 0.6 oz pur e alcohol) Sex and Gender Information Value Date Recorded Sex Assigned at Not on file 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
--- OUTSIDE RECORDS SUMMARY | 2025-09-30 13:57 | XMS_ITS | Encounter Summary ---
Author Organization [facility] Healthcare Address [address] [place] [address] Care Team Providers Care Manufacturing Scheduler Name Role Phone Anoop Sanders MD Unavailable Joseluis Juárez MD Unavailable [phone] Christiano Almaguer MD Primary Care Provider [phone] Anoop Barbosa MD Unavailable [phone] Bernabe Garcia MD Unavailable Encounter Details Date Type Department Care Team (Late st Contact Info) Description 06/29/2021 Telephone [facility] - Imaging [address] [place] [address] Transcribed Order, Provider Social History [...] on file 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 Gender Identity Male 05/20/2020 7:24 AM [...] documented as of this encounter Care Teams Manufacturing Scheduler Relationship Specialty Start Date End Date Christiano Almaguer MD PCP - General Internal Medicine 11/29/20 Anoop Sanders MD Consulting Physician Cardiology 03/09/18 Joseluis Juárez MD Surgeon Vascular Surgery 11/08/19 Anoop Barbosa MD [address] [place], [place] [id number] Consulting Physician Cardiothoracic Surgery 09/24/24 Bernabe Garcia MD [address] [place], [place] [id number] Referring Physician Pulmonary Disease 09/24/24 documented as of this encounter
== END 2025-09-30 13:02 | disposition home or self-care (01) ==
LOC: ANHLAB 13:03
PROVIDERS: PCP Internal Medicine; Visit Provider Internal Medicine
DX: N18.9 Chronic kidney disease, unspecified (principal)
CPT/HCPCS: 36415; 80048

== ENCOUNTER 2025-09-30 13:27 | Outpatient (NON) | payer MEDICARE, SELFPAY ==
--- OUTSIDE RECORDS SUMMARY | 2025-09-30 14:30 | XMS_ITS | Clinical Summary ---
Author Organization [facility] Care Team Providers Care Cylinder Inspector Name Role Phone Unavailable Primary Care Provider [...]
--- OUTSIDE RECORDS SUMMARY | 2025-09-30 14:30 | XMS_ITS | Encounter Summary ---
Author Organization [facility] Healthcare Address [address] [place] [address] Care Team Providers Care [employer] Launch Commander Name Role Phone Anoop Sanders MD Unavailable [phone] Joseluis Juárez MD Unavailable [phone] Christiano Almaguer MD Primary Care Provider [phone] Anoop Barbosa MD Unavailable [phone] Bernabe Garcia MD Unavailable Encounter Details Date Type Department Care Team (Late st Contact Info) Description 06/29/2021 Telephone [facility] - Imaging [address] [place] [address] Transcribed Order, Provider Social History [...] on file 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 Gender Identity Male 05/20/2020 7:24 AM [...] documented as of this encounter Care Teams [employer] Launch Commander Relationship Specialty Start Date End Date Christiano Almaguer MD PCP - General Internal Medicine 11/29/20 Anoop Sanders MD Consulting Physician Cardiology 03/09/18 Joseluis Juárez MD Surgeon Vascular Surgery 11/08/19 Anoop Barbosa MD [address] [place], [place] [id number] Consulting Physician Cardiothoracic Surgery 09/24/24 Bernabe Garcia MD [address] [place], [place] [id number] Referring Physician Pulmonary Disease 09/24/24 documented as of this encounter
--- OUTSIDE RECORDS SUMMARY | 2025-09-30 14:30 | XMS_ITS | Clinical Summary ---
Author Organization [facility] Address [address] [place] [address] Care Team Providers Care Personal Financial Counselor Name Role Phone Philip Pabon MD Unavailable Joseluis Juárez MD Unavailable [phone] Christiano Almaguer MD Primary Care Provider [phone] Philip Barbosa MD Unavailable [phone] Bernabe Garcia MD Unavailable [phone] Allergies No known active allergies Medications aspirin [...] 09/22 Assessment & Plan (11/09/2023 9:51 AM ASSISTANT TODDLER TEACHER): PET scan is reassuring Recs: 1) CT [...] 03/18/2020 Assessment & Plan (09/15/2025 2:09 PM ASSISTANT TODDLER TEACHER): He has new right leg symptoms that [...] (10/11/2019): Added automatically from request for surgery [id number] Assessment & Plan (12/04/2019 10:16 AM ASSISTANT TODDLER TEACHER): S/p left SFA stent with resolution of left calf claudication. Arrange new baseline CORTEZ with Duplex scan of left leg in one month. Asymptomatic stenosis of right carotid artery Assessment & Plan (09/15/2025 2:08 PM ASSISTANT TODDLER TEACHER): Stable asymptomatic right ICA stenosis with elevated velocities probably partially related to tortuous vessel. Repeat carotid doppler in six months for observation. Assessment & Plan (07/27/2022 11:35 AM CDT): Asymptomatic right ICA stenosis. Repeat six month carotid doppler for observation. Assessment & Plan (12/08/2021 1:00 PM ASSISTANT TODDLER TEACHER): Stable right ICA stenosis. Continue to monitor with repeat carotid Doppler in six months. He'll be due for follow-up lower extremity arterial Doppler/Duplex and an abdominal aortic Duplex in six months as well. We'll coordinate his vascular studies. Assessment & Plan (09/13/2021 12:18 PM ASSISTANT TODDLER TEACHER): Asymptomatic progressive right ICA stenosis that is [...] sooner. Assessment & Plan (12/04/2019 10:16 AM ASSISTANT TODDLER TEACHER): elevated velocities within right ICA on prior [...] now Assessment & Plan (11/09/2023 9:51 AM ASSISTANT TODDLER TEACHER): As above. He wants to think about and let me know if he would like pharmacologic assistance Assessment & Plan (07/25/2023 1:31 PM CDT): As above. He wants to think about and let me know if he would like pharmacologic assistance Assessment & Plan (12/19/2018 6:33 PM ASSISTANT TODDLER TEACHER): Discussed with patient lung cancer screening once per year Smoking cessation using nicotine gum will be initiated Quantitate with PFTs his current impairment Centrilobular emphysema 12/19/2018 Overview (12/19/2018): CT confirmed 02/09/2018 Assessment & Plan (11/09/2023 9:51 AM ASSISTANT TODDLER TEACHER): Sx are stable PFTs reveal moderate obstructive [...] maintenance/vaccinations Assessment & Plan (12/19/2018 6:31 PM ASSISTANT TODDLER TEACHER): Currently exercise limitations due more to arthritis [...] year. Assessment & Plan (12/04/2019 10:17 AM ASSISTANT TODDLER TEACHER): Small AAA. Monitor with annual Duplex scans. Essential (primary) hypertension 01/05/2017 Overview (03/24/2017): Essential hypertension Assessment & Plan (11/20/2018 4:02 AM ASSISTANT TODDLER TEACHER): Continue home metoprolol, hydrochlorothiazide, Cozaar. 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 He has been made NPO. 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 Rader has been consulted. We will continue aspirin, Plavix, losartan, metoprolol. We will also continue full-dose anticoagulation for now. We will trend troponins. Postnasal drip 04/06/2016 10/17/2019 Overview (02/02/2017): Post-nasal drip Encounters Date Type Department Care Team Description 09/16/2025 9:30 AM ASSISTANT TODDLER TEACHER Office Visit [facility] [address] [address] Bernabe Garcia MD Abnormal CT scan (Primary Dx); Chronic obstructive pulmonary disease, unspecified COPD type (HCC); Adenocarcinoma of right lung (HCC) 09/16/2025 Telephone [facility] [address] [facility] [address] [place] [address] Gokul Gomez MA 09/15/2025 2:30 PM ASSISTANT TODDLER TEACHER Office Visit [facility] Medicine Surgery [address] [address] Rachel Cast PA Asymptomatic stenosis of right carotid artery (Primary Dx); PAD (peripheral artery disease) 09/15/2025 1:45 PM ASSISTANT TODDLER TEACHER Ancillary Procedure [facility] Medicine Surgery [address] [address] Encounter for surgical aftercare following surgery on the circulatory system 09/15/2025 1:00 PM ASSISTANT TODDLER TEACHER Ancillary Procedure [facility] Medicine Surgery [address] [facility] [address] [place] [address] Bilateral carotid artery stenosis 09/01/2025 Results Follow-Up [facility] [address] [facility] [address] [place] [id number] chest without contrast 08/28/2025 10:30 AM CDT - 08/28/2025 11:59 PM CDT Hospital Encounter [facility] - Imaging [address] [place] [phone] Bernabe Garcia MD Chronic obstructive pulmonary disease, unspecified COPD type (HCC); Adenocarcinoma of right lung (HCC); Tobacco abuse Discharge Disposition: Discharge to home or self care 08/01/2025 Results Follow-Up [facility] Cardiology [address] [place] [address] [address] [place] [address] Philip Pabon MD 48 HR Holter Monitor 07/30/2025 Orders Only [facility] Medicine Surgery [address] [facility] [address] [place] [address] Joseluis Juárez MD Bilateral carotid artery stenosis (Primary Dx) 07/25/2025 12:35 PM CDT - 07/25/2025 11:59 PM CDT Hospital Encounter [facility] OP Cardiac Testing [address] [facility] [address] [place] [address] Palpitations Discharge Disposition: Discharge to home or self care 07/15/2025 Telephone [facility] Cardiology [address] [place] [address] [address] [place] [address] Philip Pabon MD 07/11/2025 2:15 PM CDT Office Visit [facility] Cardiology [address] [place] [address] [address] [place] [address] Philip Pabon MD Coronary artery disease of tu[place] artery of [place] heart with stable angina pectoris (Primary Dx); [...] = 0.6 oz pur e alcohol) social Contacts+ Utilities Answer Date Recorded In the past 12 months has e [employer], gas, oil, or water [employer] threatened to shut off services in your [...] often do you attend chur ch or latter-day services? Never 11/07/2024 Do you belong to any clubs o r organizations such as nondenominational groups, unions, fraternal or athletic groups, or [...] any time in the past 12 [facility], were you homeless or living in a nursing home (including now)? No 11/07/2024 Personal Safety Answer Date Recorded Have you ever been in or are you currently in a harmful physical or emotional relationship or is someone making you feel afraid or unsafe? Denies 11/06/2024 Sex and Gender Information Value Date Recorded Sex Assigned at Not on file Legal Sex Male 3:47 PM ASSISTANT TODDLER TEACHER Gender Identity Male 05/20/2020 7:24 AM CDT Sexual Orientation Not on file Last Filed Vital Signs Vital Sign Reading Time Taken Comments Blood Pressure 120/75 09/15/2025 1:29 PM ASSISTANT TODDLER TEACHER Pulse 52 09/15/2025 1:29 PM ASSISTANT TODDLER TEACHER Temperature 36.7 C (98 F) 11/10/2024 7:50 AM ASSISTANT TODDLER TEACHER Respiratory Rate 14 11/19/2024 8:52 AM ASSISTANT TODDLER TEACHER Oxygen Saturation 97% 07/11/2025 2:28 PM CDT [...] history exists Medical Devices Implanted Type Area Radio Station Audio Engineer Device Identifier Shelf Expiration Date Model / Serial / Lot Lonnie Efrain [id number] Device Closure Angio-Seal Vip Bondek-Plus Polyglyd L70 Cm Od6 Fr Odsec.035 In Vascular - Sn/A - [id number] Implanted:Qty : 1 on 11/07/2019 by Joseluis Juárez MD at [facility] Other - see comments Right: Groin Daig Efrain/[employer] 05/29/2020 [id number] / N/A / [id number] Bard Peripheral Vascular [id number] Lifestent 6mm 6fr 40mm 130cm Self Expand Catheter Helical - Sn/A - [id number] Implanted:Qty : 1 on 11/07/2019 by Joseluis Juárez MD at [facility] Stent Left: Arterial Bard Peripheral Vascular [id number] 02/22/2021 [id number] / N/A / [id number] Description:Left popliteal a rtery [place] [employer] Efrain [id number] Synergy 4mm 38mm 144cm Radiopaque 1 Access Port Inflation Lumen - [id number] Implanted:Qty : 1 on 11/20/2018 by Ike Coleman MD at [facility] N/A: Coronary [employer] [place] [employer] E[employer]rain 07/09/2020 [id number] / / [id number] Description:Circumflex [employer] [place] [employer] E[employer]rain [id number] Synergy 3.5mm 16mm 144cm Radiopaque 1 Access Port Inflation Lumen - [id number] Implanted:Qty : 1 on 11/20/2018 by Ike Coleman MD at [facility] N/A: Coronary [employer] [place] [employer] E[employer]rain 06/19/2020 [id number] / / [id number] Description:Circumflex Procedures Procedure Name Priority Date/Time Associated Diagnosis Comments US CAROTIDS DUPLEX BILATERAL Schedule Routine, Read Routine (OP Routine) 09/15/2025 1:49 PM ASSISTANT TODDLER TEACHER Bilateral carotid artery stenosis US ARTERIAL DUPLEX LOWER EXTREMITY LEFT LIMITED Schedule Routine, Read Routine (OP Routine) 09/15/2025 1:49 PM ASSISTANT TODDLER TEACHER Encounter for surgical aftercare following surgery on the circulatory system US CORTEZ Schedule Routine, Read Routine (OP Routine) 09/15/2025 1:49 PM ASSISTANT TODDLER TEACHER Encounter for surgical aftercare following surgery on the circulatory system CT CHEST WO CONTRAST Schedule Routine, Read Routine (OP Routine) 08/28/2025 11:10 AM CDT Chronic obstructive pulmonary disease, unspecified COPD type (HCC) Adenocarcinoma of right lung (HCC) Tobacco abuse HOLTER MONITOR 48 HR Routine 07/25/2025 12:44 PM CDT Palpitations CTA ABDOMEN PELVIS W WO CONTRAST Routine 09/09/2024 9:43 AM ASSISTANT TODDLER TEACHER Abdominal aortic aneurysm (AAA) without rupture, unspecified part from Last 3 Months or Most Recently Relevant to Health Maintenance Results * US Carotids Duplex Bilateral (09/15/2025 1:49 PM ASSISTANT TODDLER TEACHER) Anatomical Region Laterality Modality Vascular Bilateral Ultrasound 09/15/2025 12:4 3 PM ASSISTANT TODDLER TEACHER Narrative 09/21/2025 2:18 PM ASSISTANT TODDLER TEACHER [facility] - Department of Vascular Surgery, Vascular Laboratory [address] [place] [address] Carotid Duplex Ultrasound Report Patient Name: NEO CHÁVEZ Malina : 1950 (75y 5m) Study Date: 09/15/2025 12:43:53 PM Sex: M Tech: ARIEL Location: [facility] Provider: JOSELUIS JUÁREZ Quality: Adequate Order Provider: [...] LT VERT PSV 58 cm/sec FINDINGS: Performing City Maintenance Manager: Ariel Bueno, RVT, RDMS, RDCS, ACS. Rt [...] Joseluis Juárez MD FACS 09/21/2025 1:47:12 PM ASSISTANT TODDLER TEACHER Procedure Note Joseluis Juárez MD - 09/21/2025 [facility] - Department of Vascular Surgery,Vascular Laboratory [address] [place] [address] Carotid Duplex Ultrasound Report Patient Name: NEO CHÁVEZ D : 1950 (75y 5m) Study Date: 09/15/2025 12:43:53 PM Sex: M Tech: [facility] Location: [facility] Provider: JOSELUIS JUÁREZ Quality: Adequate Order Provider: [...] LT VERT PSV 58 cm/sec FINDINGS: Performing City Maintenance Manager: Ariel Bueno, RVT, RDMS, RDCS, ACS. Rt [...] above. Electronically Signed By: Joseluis Juárez MD [facility] 09/21/2025 1:47:12 PM ASSISTANT TODDLER TEACHER us Joseluis Jáurez MD IMG US PROCEDURES Final Result * US Arterial Duplex Lower Extremity Left Limited (09/15/2025 1:49 PM ASSISTANT TODDLER TEACHER) Anatomical Region Laterality Modality Vascular Left Ultrasound 09/15/2025 1:01 PM ASSISTANT TODDLER TEACHER Narrative 09/21/2025 2:18 PM ASSISTANT TODDLER TEACHER [facility] - Department of Vascular Surgery, Vascular Laboratory [address] [place] [address] [place] Lower Extremity Arterial Duplex Report Patient Name: NEO CHÁVEZ D : 1950 Study Date: 09/15/2025 1:01:31 PM Sex: M Tech: ARIEL Location: [facility] Provider: JOSELUIS JUÁREZ Quality: Adequate Order Provider: JOSELUIS JUÁREZ PROCEDURES: Arterial Report: Left Lower Extremity Arterial Duplex Exam. INDICATIONS: Z48.812 Encounter for surgical aftercare following surgery on the circulatory system. MEASUREMENTS: Left Value Units Lt MAINFRAME DEVELOPER Dst PSV 111 cm/s Lt Profunda Prx [...] 27 cm/s Left Value Units FINDINGS: Performing City Maintenance Manager: Ariel Bueno, RVT, RDMS, RDCS, ACS. Left [...] above. Electronically Signed By: Joseluis Juárez MD [facility] 09/21/2025 1:46:59 PM ASSISTANT TODDLER TEACHER Procedure Note Joseluis Juárez MD - 09/21/2025 [facility] - Department of Vascular Surgery,Vascular Laboratory [address] [place] [address] [place] Lower Extremity Arterial Duplex Report Patient Name: NEO CHÁVEZ D : 1950 Study Date: 09/15/2025 1:01:31 PM Sex: M Tech: [facility] Location: [facility] Provider: JOSELUIS JUÁREZ Quality: Adequate Order Provider: JOSELUIS JUÁREZ PROCEDURES: Arterial Report: Left Lower Extremity Arterial Duplex Exam. INDICATIONS: Z48.812 Encounter for surgical aftercare following surgery on thecirculatory system. MEASUREMENTS: Left Value Units Lt MAINFRAME DEVELOPER Dst PSV 111 cm/s Lt Profunda Prx [...] 27 cm/s Left Value Units FINDINGS: Performing City Maintenance Manager: Ariel Bueno, RVT, RDMS, RDCS, ACS. Left [...] above. Electronically Signed By: Joseluis Juárez MD [facility] 09/21/2025 1:46:59 PM ASSISTANT TODDLER TEACHER us Joseluis Juárez MD IMG US PROCEDURES Final Result * US CORTEZ (09/15/2025 1:49 PM ASSISTANT TODDLER TEACHER) Anatomical Region Laterality Modality Vascular N/A Ultrasound 09/15/2025 1:20 PM ASSISTANT TODDLER TEACHER Narrative 09/21/2025 2:18 PM ASSISTANT TODDLER TEACHER [facility] - Department of Vascular Surgery, Vascular Laboratory [address] [place] [address] Lower Extremity Arterial Doppler Report Patient Name: NEO CHÁVEZ D : 1950 Study Date: 09/15/2025 1:20:00 PM Sex: M Tech: Ariel Bueno RVT, RD, RDM Location: [facility] Provider: JOSELUIS JUÁREZ Quality: Adequate Order Provider: JOSELUIS JUÁREZ PROCEDURES: Arterial Report: Ankle - Brachial Index Doppler exam. INDICATIONS: Z48.812 Encounter for surgical aftercare following surgery on the circulatory system. MEASUREMENTS: Right Value Units Left Value Units Rt Brachial Pressure 118 mmHg Lt Brachial Pressure 129 mmHg Rt WINE CONSULTANT Pressure 105 mmHg Lt WINE CONSULTANT Pressure 120 mmHg Rt DPA Pressure 103 mmHg Lt DPA Pressure 119 mmHg Rt 1st Digit Pressure 86 mmHg Lt 1st Digit Pressure 70 mmHg Rt PT CORTEZ Resting 0.81 Lt PT CORTEZ Resting 0.93 Rt AT CORTEZ Resting 0.8 Lt AT CORTEZ Resting 0.92 Rt Digit/Arm Index 0.67 Lt Digit/Arm Index 0.54 Right Value Units Left Value Units FINDINGS: Performing City Maintenance Manager: Ariel Bueno, THOMAST, RDMS, RDCS, ACS. Right [...] Joseluis Juárez MD FACS 09/21/2025 1:50:08 PM ASSISTANT TODDLER TEACHER Procedure Note Joseluis Juárez MD - 09/21/2025 [facility] - Department of Vascular Surgery,Vascular Laboratory [address] [place] [address] Lower Extremity Arterial Doppler Report Patient Name: NEO CHÁVEZ D : 1950 Study Date: 09/15/2025 1:20:00 PM Sex: M Tech: Ariel Bueno [facility], [facility] Location: [facility] Provider: JOSELUIS JUÁREZ Quality: Adequate Order Provider: JOSELUIS JUÁREZ PROCEDURES: Arterial Report: Ankle - Brachial Index Doppler exam. INDICATIONS: Z48.812 Encounter for surgical aftercare following surgery on thecirculatory system. MEASUREMENTS: Right Value Units Left Value Units Rt Brachial Pressure 118 mmHg Lt Brachial Pressure 129 mmHg Rt WINE CONSULTANT Pressure 105 mmHg Lt WINE CONSULTANT Pressure 120 mmHg Rt DPA Pressure 103 mmHg Lt DPA Pressure 119 mmHg Rt 1st Digit Pressure 86 mmHg Lt 1st Digit Pressure 70 mmHg Rt PT CORTEZ Resting 0.81 Lt PT CORTEZ Resting 0.93 Rt AT CORTEZ Resting 0.8 Lt AT CORTEZ Resting 0.92 Rt Digit/Arm Index 0.67 Lt Digit/Arm Index 0.54 Right Value Units Left Value Units FINDINGS: Performing City Maintenance Manager: Ariel Bueno, RVT, RDMS, RDCS, ACS. Right [...] Joseluis Juárez MD FACS 09/21/2025 1:50:08 PM ASSISTANT TODDLER TEACHER us Joseluis Juárez MD IMG US PROCEDURES [...] effusion. CORONARY ARTERIES: Extensive calcification along the [place] left and right coronary arteries. Postsurgical change [...] effusion. CORONARY ARTERIES: Extensive calcification along the [place] left and right coronary arteries. Postsurgical change [...] Francisco Javier Peterson M.D. Bernabe Garcia MD [facility] CT PROCEDURES Final Result * 48 HR Holter Monitor (07/25/2025 12:44 PM CDT) Anatomical Region Laterality Modality Electrocardiogra phy 07/25/2025 12:4 1 PM CDT Narrative 08/01/2025 4:24 PM CDT [facility] [address] [place] [address] HOLTER MONITOR Patient Name: NEO CHÁVEZ D [...] events Runs (SVT): 0 events Total (SVE): 42898 events Singlets (PVCs): 2526 events Couplets (PVCs): 27 events Runs (VT): 0 events Total (VE): 2583 events Holter Data Value FINDINGS: Protocol: Recording Duration (Actual): 100289.98 Total QRS: 139299 Date Recorded: 2025-07-25 12:41:34 Date Processed: 2025-07-25 [...] Procedure Note Philip Pabon MD - 08/01/2025 [facility] [address] [place] [address] HOLTER MONITOR Patient Name: NEO CHÁVEZ D [...] events Runs (SVT): 0 events Total (SVE): 75426 events Singlets (PVCs): 2526 events Couplets (PVCs): 27 events Runs (VT): 0 events Total (VE): 2583 events Holter Data Value FINDINGS: Protocol: Recording Duration (Actual): 127202.98 Total QRS: 847367 Date Recorded: 2025-07-25 12:41:34 Date Processed: 2025-07-25 [...] * CTA Abdomen Pelvis (09/09/2024 9:43 AM ASSISTANT TODDLER TEACHER) Anatomical Region Laterality Modality Body N/A Computed Tomogra phy 09/09/2024 12:0 0 PM ASSISTANT TODDLER TEACHER Impressions 09/09/2024 6:18 PM ASSISTANT TODDLER TEACHER 1. Infrarenal abdominal aortic aneurysm measuring 3.2 [...] Dennise Siddiqui M.D. Narrative 09/09/2024 6:18 PM ASSISTANT TODDLER TEACHER EXAMINATION: CTA ABDOMEN PELVIS, CT CHEST WO [...] Recently Relevant to Health Maintenance Insurance [address] [employer] [address] [id number] [place] [address] [facility] [address] [employer] [address] [id number] MEDICARE [facility] MEDICARE SUPPLEMENT MEDICARE [facility] MEDICARE SUPPLEMENT Advance Directives For more information, please contact: [phone] Documents on File Type Date Recorded Patient Clerk General Expl anation ADVANCE DIRECTIVE 11/07/2019 9:49 AM [...] 8:54 PM 11/21/2018 3:45 PM Care Teams Personal Financial Counselor Relationship Specialty Start Date End Date Christiano Almaguer MD PCP - General Internal Medicine 11/29/20 Philip Pabon MD Consulting Physician Cardiology 03/09/18 Joseluis Juárez MD Surgeon Vascular Surgery 11/08/19 Philip Barbosa MD [address] [place], [place] [id number] Consulting Physician Cardiothoracic Surgery 09/24/24 Bernabe Garcia MD [address] [place], [place] [id number] Referring Physician Pulmonary Disease 09/24/24
--- OUTSIDE RECORDS SUMMARY | 2025-09-30 14:30 | XMS_ITS | Encounter Summary ---
Author Organization [facility] Healthcare Address [address] [place] [address] Care Team Providers Care Access Services Assistant Name Role Phone Anoop Sanders MD Unavailable Joseluis Juárez MD Unavailable [phone] Christiano Almaguer MD Primary Care Provider [phone] Anoop Barbosa MD Unavailable [phone] Bernabe Garcia MD Unavailable Encounter Details Date Type Department Care Team (Late st Contact Info) Description 08/01/2025 Results Follow-Up [facility] Cardiology [address] [facility] [address], [place] [address] Anoop Sanders MD [address] [place] [address] [address] [place] [address] 48 HR Holter Monitor Social History Tobacco Use Types Packs/Day Years Used Date Smoking Tobacco: Former Cigarettes Q uit: 2023 Smokeless Tobacco: Never Comments:less than 1 ppd now Alcohol Use Standard Drinks/Week Comments Yes 0 (1 standard drink = 0.6 oz pur e alcohol) social [facility] Utilities Answer Date Recorded In the past 12 months has [employer], gas, oil, or water company threatened [...] often do you attend chur ch or buddhist services? Never 11/07/2024 Do you belong to any clubs o r organizations such as orthodoxy groups, unions, fraternal or athletic groups, or [...] any time in the past 12 m [facility], were you homeless or living in a fci (including now)? No 11/07/2024 Personal Safety Answer Date Recorded Have you ever been in or are you currently in a harmful physical or emotional relationship or is someone making you feel afraid or unsafe? Denies 11/06/2024 Sex and Gender Information Value Date Recorded Sex Assigned at Not on file Legal Sex Male 3:47 PM PERSONNEL PLACEMENT SPECIALIST Gender Identity Male 05/20/2020 7:24 AM CDT Sexual Orientation Not on file documented as of this encounter Plan of Treatment Not on file documented as of this encounter Visit Diagnoses Not on filedocumented in this encounter Care Teams Access Services Assistant Relationship Specialty Start Date End Date Christiano Almaguer MD PCP - General Internal Medicine 11/29/20 Anoop Sanders MD Consulting Physician Cardiology 03/09/18 Joseluis Juárez MD Surgeon Vascular Surgery 11/08/19 Anoop Barbosa MD [address] [place], [place] [id number] Consulting Physician Cardiothoracic Surgery 09/24/24 Bernabe Garcia MD [address] [place] [address] Referring Physician Pulmonary Disease 09/24/24 documented as of this encounter
--- OUTSIDE RECORDS SUMMARY | 2025-09-30 14:30 | XMS_ITS | Encounter Summary ---
Author Organization [facility] Address [address] [address] Care Team Providers Care Electronic Specialist Name Role Phone Christiano Almaguer MD Primary Care Provider [phone] Christiano Almaguer MD Primary Care Provider [phone] Christiano Almaguer MD Primary Care Provider [phone] Marcel Carrillo DO Primary Care Provider [phone] Anoop Sanders MD Unavailable [phone] Joseluis Juárez MD Unavailable [phone] Christiano Almaguer MD Primary Care Provider [phone] Anoop Barbosa MD Unavailable [phone] Bernabe Garcia MD Unavailable [phone] Encounter Details Date Type Department Care Team (Latest Contact Info) Description 01/05/2017 Orders Only [facility] [place], MD Antonio [facility] [place] [address] Social History Tobacco Use Types Packs/Day Years Used Date Smoking Tobacco: Every Day Comments:Smoking History Pac ks/day: 1 Packs Alcohol Use Standard Drinks/Week Comments Yes 0 (1 standard drink = 0.6 oz pur e alcohol) Sex and Gender Information Value Date Recorded Sex Assigned at Not on file Legal Sex Male 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
--- OUTSIDE RECORDS SUMMARY | 2025-09-30 14:30 | XMS_ITS | Encounter Summary ---
Author Organization [facility] Address [address] [place] [address] Care Team Providers Care Solutions Consultant Name Role Phone Anoop Sanders MD Unavailable [phone] Joseluis Juárez MD Unavailable [phone] Christiano Almaguer MD Primary Care Provider [phone] Anoop Barbosa MD Unavailable [phone] Bernabe Garcia MD Unavailable Encounter Details Date Type Department Care Team (Late st Contact Info) Description 06/14/2021 Telephone [facility] [address] [place] [address] Transcribed Order, Provider Social History [...] on file 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
--- OUTSIDE RECORDS SUMMARY | 2025-09-30 14:30 | XMS_ITS ---
Author Organization [facility] Address [address] [place] [address] Care Team Providers Care Bed Machine Operator Name Role Phone Anoop Sanders MD Unavailable Joseluis Juárez MD Unavailable [phone] Christiano Almaguer MD Primary Care Provider [phone] Anoop Barbosa MD Unavailable Bernabe Garcia MD Unavailable [phone] Active Problems Problem Noted Date Diagnosed Date [...] 09/22 Assessment & Plan (11/09/2023 9:51 AM PAPERBACK MACHINE OPERATOR): PET scan is reassuring Recs: 1) [...] 03/18/2020 Assessment & Plan (09/15/2025 2:09 PM PAPERBACK MACHINE OPERATOR): He has new right leg symptoms that [...] appointment when the time comes. 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 Arrange new baseline CORTEZ with Duplex scan of left leg in one month. Asymptomatic stenosis of right carotid artery Assessment & Plan (09/15/2025 2:08 PM PAPERBACK MACHINE OPERATOR): Stable asymptomatic right ICA stenosis with elevated velocities probably partially related to tortuous vessel. Repeat carotid doppler in six months for observation. Assessment & Plan (07/27/2022 11:35 AM CDT): Asymptomatic right ICA stenosis. Repeat six month carotid doppler for observation. Assessment & Plan (12/08/2021 1:00 PM PAPERBACK MACHINE OPERATOR): Stable right ICA stenosis. Continue to monitor with repeat carotid Doppler in six months. He'll be due for follow-up lower extremity arterial Doppler/Duplex and an abdominal aortic Duplex in six months as well. We'll coordinate his vascular studies. Assessment & Plan (09/13/2021 12:18 PM PAPERBACK MACHINE OPERATOR): Asymptomatic progressive right ICA stenosis that [...] sooner. Assessment & Plan (12/04/2019 10:16 AM PAPERBACK MACHINE OPERATOR): elevated velocities within right ICA on [...] now Assessment & Plan (11/09/2023 9:51 AM PAPERBACK MACHINE OPERATOR): As above. He wants to think about and let me know if he would like pharmacologic assistance Assessment & Plan (07/25/2023 1:31 PM CDT): As above. He wants to think about and let me know if he would like pharmacologic assistance Assessment & Plan (12/19/2018 6:33 PM PAPERBACK MACHINE OPERATOR): Discussed with patient lung cancer screening once per year Smoking cessation using nicotine gum will be initiated Quantitate with PFTs his current impairment Centrilobular emphysema 12/19/2018 Overview (12/19/2018): CT confirmed 02/09/2018 Assessment & Plan (11/09/2023 9:51 AM PAPERBACK MACHINE OPERATOR): Sx are stable PFTs reveal moderate [...] maintenance/vaccinations Assessment & Plan (12/19/2018 6:31 PM PAPERBACK MACHINE OPERATOR): Currently exercise limitations due more to [...] year. Assessment & Plan (12/04/2019 10:17 AM PAPERBACK MACHINE OPERATOR): Small AAA. Monitor with annual Duplex scans. Essential (primary) hypertension 01/05/2017 Overview (03/24/2017): Essential hypertension Assessment & Plan (11/20/2018 4:02 AM PAPERBACK MACHINE OPERATOR): Continue home metoprolol, hydrochlorothiazide, Cozaar. 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 He has been made NPO. His civil cadd technician Dr. Rader has been consulted. We will continue aspirin, Plavix, losartan, metoprolol. We will also continue full-dose anticoagulation for now. We will trend troponins. Postnasal drip 04/06/2016 10/17/2019 Overview (02/02/2017): Post-nasal drip
--- OUTSIDE RECORDS SUMMARY | 2025-09-30 14:30 | XMS_ITS | Encounter Summary ---
Author Organization [facility] Address [address] [place] [address] Phone Care Team Providers Care Human Resources Operations Specialist Name Role Phone Unavailable Primary Care Provider Unavailabl e Reason for Visit * Reason Comments Medication Refill Encounter Details Date Type Department Care Team (Late st Contact Info) Description 04/02/2024 Refill [facility] - [facility] - [place] [address] [place] [id number] Anoop Sanders MD [address] [address] Medication Refill Social History Tobacco Use Types [...]
[2025-09-30 15:25] LABS: Toxigenic C. Diff NEGATIVE (NEGATIVE)
[2025-10-01 15:09] LABS: Fats, Neutral Normal (.); Fats, Total Normal (.)
== END 2025-09-30 13:28 | disposition home or self-care (01) ==
PROVIDERS: PCP Internal Medicine
DX: K52.831 Collagenous colitis (principal); R19.7 Diarrhea, unspecified
CPT/HCPCS: 36415; 80048; 82705; 87493

== ENCOUNTER 2025-10-03 13:29 | Outpatient (CLI) | payer MEDICARE, SELFPAY ==
[2025-10-03 15:07] LABS: Toxigenic C. Diff NEGATIVE (NEGATIVE)
[2025-10-06 18:08] LABS: Pancreatic Elastase, Fecal >800 (>200)
== END 2025-10-03 13:30 | disposition home or self-care (01) ==
PROVIDERS: PCP Internal Medicine
DX: R19.7 Diarrhea, unspecified (principal); K52.831 Collagenous colitis
CPT/HCPCS: 82653; 87177; 87493; 87507